=== PATIENT | female | born 1970 | race African-American/Black ===

== ENCOUNTER 2021-04-13 06:47 | Emergency (ER) | payer OTHER ==
[2021-04-13 07:59] LABS: Protime INR 1.03
[2021-04-13 08:06] LABS: Absolute Lymphocytes (CBC) 1.7 K/uL (0.7-4.9); Basophils % 1.3 % (0-1.3); Hematocrit 32.9 % (36.0-45.0); MPV 8.7 fL (7.6-11.3); RBC Red Blood Cell Count 3.73 M/uL (3.86-4.86)
[2021-04-13 08:15] LABS: ALT/SGPT 45 U/L (12-78); AST/SGOT 26 U/L (15-37); Albumin 3.4 g/dL (3.4-5.0); Alkaline Phosphatase 59 U/L (45-117); BUN Blood Urea Nitrogen 16 mg/dL (7-18); Bicarbonate 28 mmol/L (21-32); Bilirubin Direct < 0.1 mg/dL (0-0.2); Bilirubin Total 0.2 mg/dL (0.2-1.0); Glucose Level 90 mg/dL (74-106); Magnesium 2.3 mg/dL (1.8-2.4); NT PRO-BNP 22 pg/mL (<125); Potassium 3.6 mmol/L (3.5-5.1); Protein, Total 7.3 g/dL (6.4-8.2); Sodium Level 143 mmol/L (136-145); Troponin (Emerg Dept Use Only) < 0.02 ng/mL (0.0-0.045)
--- NOTE | 2021-04-13 08:25 | RAD REPORT ---
EXAM DESCRIPTION: RAD - Chest Single View - 04/13/2021 8:00 am CLINICAL HISTORY: CHEST PAIN COMPARISON: Chest Pa And Lat (2 Views) dated 01/20/2018; Chest Single View dated 10/23/2016; Chest Sin gle View dated 10/22/2016; Chest Single View dated 10/16/2015 FINDINGS: Lines: None. Lungs: No evidence of edema or pneumonia. Pleural: No significant pleural effusions or pneumothorax. Cardiac: The heart size is within normal limits. Bones: No acute fractures. Other: IMPRESSION: No acute cardiopulmonary disease.
[2021-04-13 08:33] LABS: Blood Morphology Comment NOT SEEN (NOT SEEN); Platelet Estimate ADEQ
--- NOTE | 2021-04-13 09:11 | ER ---
Nurse's Notes [facility] Name: Junie Peralta Age: 50 yrs Sex: Female : 1970 Arrival Date: 04/13/2021 Time: 06:51 Bed 20 Private MD: Diagnosis: Chest pain, unspecified Presentation: 04/13 07:12 Chief complaint: Patient states: chest pain. Coronavirus screen: Vaccine status: df1 Patient reports receiving the 2nd dose of the covid vaccine. Client denies travel out of the [place] in the last 14 days. The client reports previous COVID testing was negative. Date of collection: March 2021. Ebola Screen: Patient negative for fever greater than or equal to 101.5 degrees Fahrenheit, and additional compatible Ebola Virus Disease symptoms Patient denies exposure to infectious person. Patient denies travel to an Ebola-affected area in the 21 days before illness onset. Initial Sepsis Screen: Does the patient meet any 2 criteria? No. Patient's initial sepsis screen is negative. Risk Assessment: Do you want to hurt yourself or someone else? Patient reports no desire to harm self or others. Onset of symptoms was April 08, 2021. 07:12 Method Of Arrival: Wheelchair df1 07:12 Acuity: HERMAN 3 df1 07:19 Note Pt states left chest pain radiates to left shoulder since Apr 08, 2021 after df1 Covid Booster shot. Also states left hand tingling and nausea. Denies SOB or chills. 08:00 Initial Sepsis Screen: Does the patient have a suspected source of infection? No. kh1 Patient's initial sepsis screen is negative. Initial Sepsis Screen: Does the patient meet any 2 criteria?. Care prior to arrival: None. Activity prior to arrival: None. 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 LMP N/A - Post-menopause kh1 Historical: - Allergies: 07:15 Benadryl; df1 07:15 Flexeril; df1 - Home Meds: 07:15 metformin 1,000 mg Oral tab 1 tab [Active]; triamterene-hydrochlorothiazid 37.5-25 mg df1 oral cap once daily [Active]; Protonix 40 mg Oral TbEC 1 tab once daily [Active]; losartan 100 mg oral tab 1 tab once daily [Active]; Effexor 25 mg Oral tab 1 tab 2 times per day [Active]; amiodarone 200 mg Oral tab 1 tab once daily [Active]; aspirin 325 mg Oral tab 1 tab once daily [Active]; - PMHx: 07:15 Adenomyosis; Diabetes - NIDDM; Depression; GERD; Hypertension; Obesity; Sleep Apnea; df1 - PSHx: 07:15 Total abdominal hysterectomy; Total right knee; breast reduction; df1 - Immunization history:: Adult Immunizations up to date, Client reports receiving the 2nd dose of the Covid vaccine, Pt received booster on Apr 08, 2021. Screenin:58 Abuse screen: Denies threats or abuse. Nutritional screening: No deficits noted. On no kh1 prescribed diet Difficulty chewing/swallowing? No. Tuberculosis screening: No symptoms or risk factors identified. Fall Risk None identified. IV access (20 points). Ambulatory Aid- None/Bed Rest/Nurse Assist (0 pts). Gait- Normal/Bed Rest/Wheelchair (0 pts) Mental Status- Oriented to own ability (0 pts). Assessment: 07:56 General: Appears in no apparent distress. comfortable, obese, Behavior is calm, kh1 cooperative, appropriate for age. Pain: Complains of pain in chest Pain radiates to left arm Pain currently is 6 out of 10 on a pain scale. Quality of pain is described as sharp, Pain began 1 day ago. Neuro: Level of Consciousness is awake, alert, obeys commands, Oriented to person, place, time, situation, Industrial Relations Manager are equal bilaterally Moves all extremities. Gait is steady, Speech is normal, Facial symmetry appears normal, Reports. Cardiovascular: Reports chest pain. 09:05 Reassessment: Patient appears in no apparent distress at this time. No changes from [facility] previously documented assessment. Patient and/or family updated on plan of care and expected duration. Pain level reassessed. Patient is alert, oriented x 3, equal unlabored respirations, skin warm/dry/pink. Vital Signs: 07:12 BP 157 / 79; Pulse 51; Resp 18; Temp 98.8; Pulse Ox 100% on R/A; Weight 129.27 kg; df1 Height 5 ft. 6 in. (167.64 cm); Pain 5/10; 07:58 BP 157 / 79; Pulse 51; Resp 18; Temp 98.8; Pulse Ox 100% on R/A; kh1 07:12 Body Mass Index 46.00 (129.27 kg, 167.64 cm) df1 Vitals: 07:58 Cardiac Rhythm Assessment Sinus viry. 1 ED Course: 06:51 Patient arrived in ED. as 07:07 Ernie Andrade NP is PHCP. pm1 07:07 Durga Azar MD is Attending Physician. pm1 07:15 Triage completed. df1 07:29 Hazel Ferreira is Primary Nurse. kh1 07:50 Flu Sent. kh1 07:51 Basic Metabolic Panel Sent. kh1 07:51 CBC with Diff Sent. kh1 07:51 LFT's Sent. kh1 07:51 Magnesium Sent. kh1 07:51 NT PRO-BNP Sent. kh1 07:51 PT-INR Sent. kh1 07:51 Troponin (emerg Dept Use Only) Sent. kh1 07:59 Daniel Muniz MD is Attending Physician. pm1 07:59 XRAY Chest (1 view) In Process Unspecified. EDMS 07:59 No provider procedures requiring assistance completed. Inserted saline lock: 20 gauge kh1 in right antecubital area, using aseptic technique. Blood collected. Patient maintains SpO2 saturation greater than 95% on room air. 07:59 Patient has correct armband on for positive identification. Placed in gown. Bed in low kh1 position. Call light in reach. Side rails up X2. clinical research monitor on. Pulse ox on. NIBP on. 08:00 Arm band placed on right wrist. Patient placed in an exam room. kh1 09:34 IV discontinued, intact, bleeding controlled, No redness/swelling at site. Pressure kh1 dressing applied. Administered Medications: No medications were administered Outcome: 09:11 Discharge ordered by . pm1 09:34 Discharged to home ambulatory. kh1 09:34 Condition: good 09:34 Discharge instructions given to patient, Instructed on discharge instructions, follow up and referral plans. Demonstrated understanding of instructions, follow-up care. 09:35 Patient left the ED. 1 Signatures: Dispatcher [employer] EDAve Benitez as Ernie Andrade NP BUILDING MAINTENANCE WORKER pm1 Hazel Ferreira kh1 Vesta Loyola df1 Corrections: (The following items were deleted from the chart) 08:00 07:50 CORONAVIRUS+MR.LAB.BRZ drawn and sent. kh1 EDMS
--- NOTE | 2021-04-13 09:11 | EDPHYS ---
Physician Documentation [facility] Name: Junie Peralta Age: 50 yrs Sex: Female : 1970 Arrival Date: 04/13/2021 Time: 06:51 Bed 20 Private MD: ED Physician Daniel Muniz HPI: 04/13 07:21 This 50 yrs old Black Female presents to ER via Wheelchair with complaints of Chest pm1 Pain, Arm Pain. 07:21 The patient or guardian reports chest pain that is located primarily in the anterior pm1 aspect of left upper chest. Onset: 4 day(s) ago. The pain does not radiate. Associated signs and symptoms: Pertinent positives: Left shoulder pain, Pertinent negatives: abdominal pain, cough, dizziness, headache, nausea, shortness of breath, vomiting. Duration: The patient or guardian reports a single episode, that is still ongoing. Modifying factors: the symptoms are aggravated by movement, palpation of area. Severity of pain: in the emergency department the pain is unchanged. The patient has not experienced similar symptoms in the past. Patient presents to the ER with complaints chest pain and left shoulder pain onset 4 days ago constant in nature. Reproduced with palpation and movement of left arm. Patient reports onset of pain after getting third Covid vaccine booster shot. 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 N/A - Post-menopause kh1 Historical: - Allergies: 07:15 Benadryl; df1 07:15 Flexeril; df1 - Home Meds: 07:15 metformin 1,000 mg Oral tab 1 tab [Active]; triamterene-hydrochlorothiazid 37.5-25 mg df1 oral cap once daily [Active]; Protonix 40 mg Oral TbEC 1 tab once daily [Active]; losartan 100 mg oral tab 1 tab once daily [Active]; Effexor 25 mg Oral tab 1 tab 2 times per day [Active]; amiodarone 200 mg Oral tab 1 tab once daily [Active]; aspirin 325 mg Oral tab 1 tab once daily [Active]; - PMHx: 07:15 Adenomyosis; Diabetes - NIDDM; Depression; GERD; Hypertension; Obesity; Sleep Apnea; df1 - PSHx: 07:15 Total abdominal hysterectomy; Total right knee; breast reduction; df1 - Immunization history:: Adult Immunizations up to date, Client reports receiving the 2nd dose of the Covid vaccine, Pt received booster on Apr 08, 2021. ROS: 17:21 Constitutional: Negative for fever, chills, and weight loss. pm1 17:21 Respiratory: Negative for shortness of breath, cough, wheezing, and pleuritic chest pain, Abdomen/GI: Negative for abdominal pain, nausea, vomiting, diarrhea, and constipation, MS/Extremity: Negative for injury and deformity, Skin: Negative for injury, rash, and discoloration, Neuro: Negative for headache, weakness, numbness, tingling, and seizure. 17:21 Cardiovascular: Positive for chest pain, of the anterior aspect of left upper chest, Negative for edema, palpitations. 17:21 All other systems are negative. Exam: 17:21 Constitutional: This is a well developed, well nourished patient who is awake, alert, pm1 and in no acute distress. Head/Face: Normocephalic, atraumatic. 17:21 Back: No spinal tenderness. No costovertebral tenderness. Full range of motion. Skin: Warm, dry with normal turgor. Normal color with no rashes, no lesions, and no evidence of cellulitis. MS/ Extremity: Pulses equal, no cyanosis. Neurovascular intact. Full, normal range of motion. 17:21 Chest/axilla: Inspection: normal, Palpation: crepitus, is not appreciated, tenderness, of the anterior aspect of left upper chest, that totally reproduces the patient's complaints. 17:21 Cardiovascular: Rate: normal, Rhythm: regular, Pulses: no pulse deficits are appreciated, Edema: is not appreciated. 17:21 Respiratory: Exam negative for acute changes, the patient does not display signs of respiratory distress, Respirations: no acute changes, Breath sounds: are clear throughout. 17:21 Abdomen/GI: Exam negative for acute changes, Inspection: abdomen appears normal, Palpation: abdomen is soft and non-tender. 17:21 Neuro: Exam negative for acute changes, Orientation: is normal, Mentation: is normal, Motor: is normal, moves all fours. Vital Signs: 07:12 BP 157 / 79; Pulse 51; Resp 18; Temp 98.8; Pulse Ox 100% on R/A; Weight 129.27 kg; df1 Height 5 ft. 6 in. (167.64 cm); Pain 5/10; 07:58 BP 157 / 79; Pulse 51; Resp 18; Temp 98.8; Pulse Ox 100% on R/A; kh1 07:12 Body Mass Index 46.00 (129.27 kg, 167.64 cm) df1 MDM: 07:18 Patient medically screened. pm1 09:10 Data reviewed: vital signs. Data interpreted: Pulse oximetry: on room air is 100 %. pm1 Interpretation: normal. Counseling: I had a detailed discussion with the patient and/or guardian regarding: the historical points, exam findings, and any diagnostic results supporting the discharge/admit diagnosis, lab results, radiology results, the need for outpatient follow up, to return to the emergency department if symptoms worsen or persist or if there are any questions or concerns that arise at home. 09:12 ED course: Patient refused pain medications offered in the ER on multiple occasions. pm1 States will take Tylenol at home. 04/13 07:17 Order name: Basic Metabolic Panel; Complete Time: 08:28 pm1 04/13 07:17 Order name: CBC with Diff; Complete Time: 08:37 pm1 04/13 07:17 Order name: LFT's; Complete Time: 08:28 pm1 04/13 07:17 Order name: Magnesium; Complete Time: 08:28 pm1 04/13 07:17 Order name: NT PRO-BNP; Complete Time: 08:28 pm1 04/13 07:17 Order name: PT-INR; Complete Time: 08:28 pm1 04/13 07:17 Order name: Troponin (emerg Dept Use Only); Complete Time: 08:28 pm1 04/13 07:17 Order name: XRAY Chest (1 view); Complete Time: 08:28 pm1 04/13 07:17 Order name: EKG; Complete Time: 07:18 pm1 04/13 07:17 Order name: Cardiac monitoring; Complete Time: 07:50 pm1 04/13 07:17 Order name: Flu; Complete Time: 08:28 pm1 04/13 08:09 Order name: Manual Differential; Complete Time: 08:37 EDMS 04/13 08:51 Order name: SARS-COV-2 RT PCR; Complete Time: 08:59 EDMS 04/13 07:17 Order name: EKG - Nurse/Tech; Complete Time: 07:30 pm1 04/13 07:17 Order name: IV Saline Lock; Complete Time: 07:50 pm1 04/13 07:17 Order name: Labs collected and sent; Complete Time: 07:51 pm1 04/13 07:17 Order name: O2 Per Protocol; Complete Time: 07:51 pm1 04/13 07:17 Order name: O2 Sat Monitoring; Complete Time: 07:51 pm1 Administered Medications: No medications were administered Disposition Summary: 04/13/21 09:11 Discharge Ordered Location: Home pm1 Problem: new pm1 Symptoms: have improved pm1 Condition: Stable pm1 Diagnosis - Chest pain, unspecified pm1 Followup: pm1 - With: Emergency Department - When: As needed - Reason: Worsening of condition Followup: pm1 - With: Private Physician - When: 2 - 3 days - Reason: Recheck today's complaints, Continuance of care, Re-evaluation by your physician Discharge Instructions: - Discharge Summary Sheet pm1 - Nonspecific Chest Pain, Adult pm1 Forms: - Medication Reconciliation Form pm1 - Thank You Letter pm1 - Antibiotic Education pm1 - Prescription Opioid Use pm1 Addendum: 04/18/2021 03:03 Co-signature as Attending Physician, Daniel Muniz MD PA/MEDICATION AIDE's history reviewed, m a2 patient interviewed, and examined. I agree with assessment and care plan and confirm the diagnosis (es) above. Signatures: Dispatcher [employer] EDMS Ernie Andrade, MEDICATION AIDE MEDICATION AIDE pm1 Daniel Muniz MD MD ma2 Jose Solis Dawn df1 Corrections: (The following items were deleted from the chart) 04/13 08:00 07:18 CORONAVIRUS+BRZ ordered. EDIA EDMS
[2021-04-13 09:43] VITALS: BP 157/79; TEMP 98.8; O2SAT 100
--- NOTE | 2021-04-13 11:13 | EKG ---
Test Date: 2021-04-13 Test Time: 07:01:36 Project Manager Process Development: MEASUREMENT RESULTS: Intervals: Rate: 52 [place]: 198 QRSD: 94 QT: 490 QTc: 455 [place]: P: 60 [place]: 198 QRS: 43 T: 79 INTERPRETIVE STATEMENTS: Sinus bradycardia Otherwise normal ECG Compared to ECG 10/23/2016 07:21:53 No significant changes Electronically Signed On 04-13-21 11:12:56 CDT by Chance Caldwell
== END 2021-04-13 09:35 | disposition home or self-care (01) ==
LOC: ER 06:47
DX: R07.9 Chest pain, unspecified (principal); I10 Essential (primary) hypertension; E11.9 Type 2 diabetes mellitus without complications; F32.A Depression, unspecified; Z79.82 Long term (current) use of aspirin; Z88.8 Allergy status to other drugs, medicaments and biological substances; Z20.822 Contact with and (suspected) exposure to COVID-19
CPT/HCPCS: 93005; 85025; 80048; 36415; 83735; 85610; 80076; 84484; 83880; 87804 ×2; 71045; 99285; U0003

== ENCOUNTER 2021-04-24 17:17 | Emergency (ER) | payer OTHER ==
[2021-04-24] MEDS ORDERED: KETOROLAC 30 MG/ML INJ ONE (19:10)
--- NOTE | 2021-04-24 19:40 | RAD REPORT ---
EXAM DESCRIPTION: RAD - Knee Right 3 View - 04/24/2021 7:23 pm CLINICAL HISTORY: PAIN COMPARISON: Knee Right 3 View dated 12/24/2012; Foot Left 3 View dated 06/26/2020 FINDINGS: Right total knee arthroplasty is present. No evidence of hardware loosening or infection. No fracture or dislocation seen. No suprapatellar joint effusion.
--- NOTE | 2021-04-24 19:49 | ER ---
Nurse's Notes [facility] Name: Junie Peralta Age: 50 yrs Sex: Female : 1970 Arrival Date: 04/24/2021 Time: 17:21 Bed 30 Private MD: Diagnosis: Effusion, right knee;Pain in right knee Presentation: 04/24 17:48 Chief complaint: Patient states: this excruciating RIGHT knee pain started today. but tw2 it has been hurting me off \T\ on for a few days. Coronavirus screen: At this time, the client does not indicate any symptoms associated with coronavirus-19. Ebola Screen: Patient denies travel to an Ebola-affected area in the 21 days before illness onset. Initial Sepsis Screen: Does the patient meet any 2 criteria? No. Patient's initial sepsis screen is negative. Does the patient have a suspected source of infection? No. Patient's initial sepsis screen is negative. Risk Assessment: Do you want to hurt yourself or someone else? Patient reports no desire to harm self or others. Onset of symptoms was April 24, 2021. 17:48 Method Of Arrival: Wheelchair tw2 17:48 Acuity: HERMAN 4 tw2 17:50 Chief complaint: Patient states: i have been exercising a lot more because i am having tw2 gastric bypass soon and i have been doing squats. it feels like it is tearing and burning. Triage Assessment: 17:51 General: Appears in no apparent distress. uncomfortable, obese, Behavior is calm, tw2 cooperative, appropriate for age. Pain: Complains of pain in right knee. DIRECTOR OF PHYSICIAN PRACTICES: 20:23 LMP N/A - control method bc5 Historical: - Allergies: 17:50 Benadryl; tw2 17:50 Flexeril; tw2 - PMHx: 17:50 Adenomyosis; Obesity; Sleep Apnea; Hypertension; Diabetes - NIDDM; Depression; GERD; tw2 - PSHx: 17:50 breast reduction; Total abdominal hysterectomy; Total right knee; tw2 - Immunization history:: Client reports receiving the 2nd dose of the Covid vaccine. - Social history:: Smoking status: Patient denies any tobacco usage or history of. Screenin:21 Abuse screen: Denies threats or abuse. Denies injuries from another. Nutritional bc5 screening: No deficits noted. Tuberculosis screening: No symptoms or risk factors identified. Fall Risk None identified. Assessment: 20:24 Neuro: No deficits noted. Cardiovascular: No deficits noted. Respiratory: No deficits bc5 noted. Musculoskeletal: Reports pain in right leg. Vital Signs: 17:48 BP 164 / 76; Pulse 58; Resp 17; Temp 97.9(TE); Pulse Ox 100% on R/A; Weight 129.27 kg; tw2 Height 5 ft. 6 in. (167.64 cm); Pain 10/10; 20:24 BP 157 / 71; Pulse 60; Resp 17; Temp 98(O); Pulse Ox 100% on R/A; Pain 3/10; bc5 17:48 Body Mass Index 46.00 (129.27 kg, 167.64 cm) tw2 ED Course: 17:21 Patient arrived in ED. ds1 17:49 Triage completed. tw2 17:50 Arm band placed on. tw2 18:00 Tisha Phan, RN is Primary Nurse. oh 18:27 Jay Batres PA is PHCP. jr8 18:27 Sai Corona MD is Attending Physician. jr8 19:23 XRAY Knee RIGHT 3 view In Process Unspecified. EDMS 20:22 No provider procedures requiring assistance completed. Patient did not have IV access bc5 during this emergency room visit. 20:23 Side rails up X 1. bc5 Administered Medications: 18:48 Drug: Ketorolac 30 mg Route: IM; Site: right deltoid; oh Outcome: 19:49 Discharge ordered by . jr8 20:22 Discharged to home ambulatory. bc5 20:22 Condition: stable 20:22 Discharge instructions given to patient, Instructed on discharge instructions, follow up and referral plans. medication usage, Prescriptions given X 1. 20:25 Patient left the ED. bc5 Signatures: Dispatcher [employer] EDWY GeorgesCeline francis ds1 Jay Batres PA PA jr8 Cassi Graham RN RN tw2 Karli Whyte RN RN bc5 Tisha Phan, RN RN oh
--- NOTE | 2021-04-24 19:49 | EDPHYS ---
Physician Documentation [facility] Name: Junie Peralta Age: 50 yrs Sex: Female : 1970 Arrival Date: 04/24/2021 Time: 17:21 Bed 30 Private MD: ED Physician Sai Corona HPI: 04/24 18:36 This 50 yrs old Black Female presents to ER via Wheelchair with complaints of Knee Pain.jr8 18:36 The patient presents with decreased range of motion, pain, swelling, tenderness. The jr8 complaints affect the right knee. Onset: The symptoms/episode began/occurred acutely. Modifying factors: The symptoms are alleviated by nothing. the symptoms are aggravated by movement, weight bearing. Associated signs and symptoms: The patient has no apparent associated signs or symptoms. Severity of symptoms: At their worst the symptoms were moderate, in the emergency department the symptoms are unchanged. The patient has not experienced similar symptoms in the past. The patient has not recently seen a physician. Patient stated that she had abrupt onset of right knee pain. Was chcf bending at work and was walking a lot that particular day. But denies fall or any other trauma. Since then has had swelling to the right knee region with continued pain that radiates down the right leg.. 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 - Social history:: Smoking status: Patient denies any tobacco usage or history of. ROS: 18:36 Eyes: Negative for injury, pain, redness, and discharge, ENT: Negative for injury, jr8 pain, and discharge, Neck: Negative for injury, pain, and swelling, Cardiovascular: Negative for chest pain, palpitations, and edema, Respiratory: Negative for shortness of breath, cough, wheezing, and pleuritic chest pain, Abdomen/GI: Negative for abdominal pain, nausea, vomiting, diarrhea, and constipation, Back: Negative for injury and pain, Skin: Negative for injury, rash, and discoloration, Neuro: Negative for headache, weakness, numbness, tingling, and seizure. 18:36 MS/extremity: Positive for decreased range of motion, pain, swelling, tenderness, of the right knee. Exam: 18:36 Constitutional: This is a well developed, well nourished patient who is awake, alert, jr8 and in no acute distress. Cardiovascular: Regular rate and rhythm with a normal S1 and S2. No gallops, murmurs, or rubs. Normal PMI, no JVD. No pulse deficits. Respiratory: Lungs have equal breath sounds bilaterally, clear to auscultation and percussion. No rales, rhonchi or wheezes noted. No increased work of breathing, no retractions or nasal flaring. Skin: Warm, dry with normal turgor. Normal color with no rashes, no lesions, and no evidence of cellulitis. Neuro: Awake and alert, GCS 15, oriented to person, place, time, and situation. Cranial nerves II-XII grossly intact. Motor strength 5/5 in all extremities. Sensory grossly intact. 18:36 Musculoskeletal/extremity: Extremities: grossly normal except: noted in the right leg: Patient has mid incisional scar noted over the right knee from total knee replacement. Patient has mild swelling to the lateral right suprapatellar region. Moderate pain to palpation in that area along with anterior knee. Patient has pain with decreased range of motion secondary to pain to the right knee both active and passive. Patient has 3+ pedal and posterior tibial pulses on affected leg. No other external signs of trauma to the knee noted. Remainder of extremities unremarkable., Sensation intact. Vital Signs: 17:48 BP 164 / 76; Pulse 58; Resp 17; Temp 97.9(TE); Pulse Ox 100% on R/A; Weight 129.27 kg; tw2 Height 5 ft. 6 in. (167.64 cm); Pain 10/10; 20:24 BP 157 / 71; Pulse 60; Resp 17; Temp 98(O); Pulse Ox 100% on R/A; Pain 3/10; bc5 17:48 Body Mass Index 46.00 (129.27 kg, 167.64 cm) tw2 MDM: 18:28 Patient medically screened. [facility] 19:48 Data reviewed: vital signs, nurses notes, radiologic studies, plain films. Data jr8 interpreted: Pulse oximetry: on room air is 100 %. Interpretation: normal. Counseling: I had a detailed discussion with the patient and/or guardian regarding: the historical points, exam findings, and any diagnostic results supporting the discharge/admit diagnosis, radiology results, the need for outpatient follow up, a orthopedic surgeon, to return to the emergency department if symptoms worsen or persist or if there are any questions or concerns that arise at home. 04/24 18:36 Order name: XRAY Knee RIGHT 3 view; Complete Time: 19:48 jr8 Administered Medications: 18:48 Drug: Ketorolac 30 mg Route: IM; Site: right deltoid; oh Disposition: 23:48 Co-signature as Attending Physician, Sai Corona MD I agree with the assessment and kdr plan of care. Disposition Summary: 04/24/21 19:49 Discharge Ordered Location: Home jr8 Problem: new jr8 Symptoms: have improved jr8 Condition: Stable jr8 Diagnosis - Effusion, right knee jr8 - Pain in right knee jr8 Followup: jr8 - With: Private Physician - When: 5 - 6 days - Reason: Recheck today's complaints, Continuance of care, Re-evaluation by your physician Discharge Instructions: - Discharge Summary Sheet jr8 - Joint Pain jr8 - Knee Effusion jr8 - Acute Knee Pain, Adult jr8 Forms: - Medication Reconciliation Form jr8 - Thank You Letter jr8 - Antibiotic Education jr8 - Prescription Opioid Use jr8 Prescriptions: - Tramadol 50 mg Oral Tablet - take 1 tablet by ORAL route every 8 hours as needed; 12 tablet; Refills: 0, jr8 Product Selection Permitted Signatures: Dispatcher [employer] EDMS Sai Corona MD MD [facility] Jay Batres PA PA jr8 Cassi Graham RN RN tw2 Tisha Phan RN RN oh
[2021-04-24 20:33] VITALS: O2SAT 100
[2021-04-24 20:38] VITALS: BP 157/71; TEMP 98
== END 2021-04-24 20:25 | disposition home or self-care (01) ==
LOC: ER 17:17
DX: M25.461 Effusion, right knee (principal); I10 Essential (primary) hypertension; Z88.8 Allergy status to other drugs, medicaments and biological substances
CPT/HCPCS: 96372; 99283

== ENCOUNTER 2021-07-19 14:07 | Emergency (ER) | payer BC, OTHER ==
--- OUTSIDE RECORDS SUMMARY | 2021-07-19 14:11 | XMS REPORT | Continuity of Care Document ---
:1970 Author Organization [facility] t Address [address] [place] [address] Care Team Providers Name Role Phone ANDREIA SOFIA Primary Care Physician Unavailable MIO JAQUEZ Attending Clinician Unavailable Marybeth Attending Clinician Unavailable Lloyd Henson MD Attending Clinician LLOYD HENSON Attending Clinician Unavailable LLOYD HENSON Attending Clinician Unavailable MACK CARRINGTON Attending Clinician Unavailable MACK CARRINGTON Attending Clinician Unavailable Mack Carrington MD Attending Clinician DEWAYNE Attending Clinician Unavailable MIO JAQUEZ Attending Clinician Unavailable Marco Antonio Oneill MD Attending Clinician Kenia CHUN M Attending Clinician Dawn Arciniega Attending Clinician Katerina Thornton MD Attending Clinician [phone] DAWN BALBUENA Attending Clinician Unavailable MIO JAQUEZ Admitting Clinician Unavailable Marybeth Admitting Clinician Unavailable LLOYD HENSON Admitting Clinician Unavailable MACK CARRINGTON Admitting Clinician Unavailable Hillary RAYMOND, Katerina Admitting Clinician KNOW Admitting Clinician Unavailable Payers Payer Name Policy Type Policy Number Effective Date Expiration Date S [place]clau CIGNA HMO/POS/OPEN [id number] 2018 ACCESS 00:00:00 GENERIC COMMERCIAL [id number] 1830-12-28 2020 00:00:00 00:00:00 [employer] OPEN ACCESS [id number] 2020 HMO NAP 00:00:00 COVID VACCINE [id number] 2020-08-01 ADMIN / TESTING 00:00:00 HMO/POS OPEN [id number] 2018-07-13 2019-12-21 ACCESS - CIGNA 00:00:00 00:00:00 GENERIC PPO - [id number] GENERIC PAYOR 00:00:00 Problems Condition Condition Condition Status Onset Resolution Last Treating Co mments Source Name Details Category Date Date Treatment Clinician Date GERD GERD Disease Active [facility] (gastroeso (gastroeso 04-09 Co llege phageal phageal 00:00: of reflux reflux 00 Medicin disease) disease) e Type 2 Type 2 Disease Active [facility] diabetes diabetes 03-13 ity of mellitus mellitus 00:00: without without 00 Medical complicati complicati Br anch on, on, without without long-term long-term current current use of use of insulin insulin Bradycardi Bradycardi Disease Active U nivers a a 03-13 ity of 00:00: 00 Medical Branch Hypertensi Hypertensi Disease Active U nivers ve urgency ve urgency 03-13 it y of 00:00: Medical Branch Essential Essential Disease Active Uni vers hypertensi hypertensi 03-13 it y of on on 00:00: Medical Branch Paroxysmal Paroxysmal Disease Active [facility] atrial atrial 03-13 College fibrillati fibrillati 00:00: of on with on with 00 Medicin RVR RVR e Morbid Morbid Disease Active [facility] obesity obesity 03-13 [employer] with body with body 00:00: of mass index mass index 00 Me dicin of of e 40.0-49.9 40.0-49.9 Paroxysmal Paroxysmal Disease Active [facility] atrial atrial 03-13 [employer] fibrillati fibrillati 00:00: of on with on with 00 Medicin RVR RVR e (HCCode) (HCCode) Morbid Morbid Disease Active [facility] obesity obesity 03-13 [employer] with body with body 00:00: of mass index mass index 00 Me dicin of of e 40.0-49.9 40.0-49.9 (HCCode) (HCCode) SANDEEP SANDEEP Disease Active [facility] (obstructi (obstructi 03-13 Co llege ve sleep ve sleep 00:00: of apnea) apnea) 00 Medicin e A-fib A-fib Disease Active [facility] 8-31 ity of 00:00: [place] 00 Medical Branch Type 2 Type 2 Disease Active [facility] diabetes diabetes 4-26 Colleg e mellitus mellitus 00:00: of without without 00 Medicin complicati complicati e on, on, without without long-term long-term current current use of use of insulin insulin (HCCode) (HCCode) Essential Essential Disease Active [facility] hypertensi hypertensi 01-10 Co llege on on 00:00: of 00 Medicin e Allergies, Adverse Reactions, Alerts Allergy Allergy Status Severity Reaction(s) Onset Inactive Treating Comm ents Source Name Type Date Date Clinician GABAPENT Allergy Active Other 2020-[address] [facility] CYCLOBEN Allergy Active Other [facility] ZAPRINE 4-12 00:00: 00 Benadryl Propensi Active Palpitations [facility] Allergy ty to 3-17 College adverse 00:00: of reaction 00 Medicin s to e drug Cycloben Propensi Active Other [facility] zaprine ty to 3-17 reaction( Colleg e adverse 00:00: s): of reaction 00 Tachycard Medic in s to ia e drug DIPHENHY Allergy Active Low Palpitations [facility] DRAMINE 3- 00:00: 00 cycloben DA Active [facility] zaprine - Clear 00:00: [place] 00 [facility] diphenhy DA Active [facility] dramine 10-08 Clear 00:00: [place] 00 [facility] cycloben DA Active U tachycardia [facility] zaprine 10-08 Clear 00:00: [place] 00 [facility] diphenhy DA Active U tachycardia [facility] dramine 10-08 Clear 00:00: [place] 00 [facility] Gabapent Propensi Active Other [facility] in ty to 10-07 reaction( College adverse 00:00: s): of reaction 00 Other, Medicin s to Other e drug (See Comments) , Other (See Comments) HR dropped to 40's after being on it for 2 weeksHR dropped to 40's after being on it for 2 weeks NO KNOWN Drug [facility] KNOWN Allergy Active [facility] Social History Social Habit Start Date Stop Date Quantity Comments Source Sex Assigned At [facility] History [facility] ge of Alcohol Std Medicine Drinks History [facility] ge of Alcohol Binge Medicine History [facility] of Alcohol Comment Medicine Exposure to Not sure [facility] of SARS-CoV-2 Medicine (event) Alcohol intake 2021-07-10 2021-07-10 Current drinker [facility] 00:00:00 00:00:00 of alcohol Medicine (finding) Tobacco use and 2020-09-26 2020-09-26 Smokeless tobacco [facility] of exposure 00:00:00 00:00:00 non-user Medicine History [facility] 2020-09-26 2020-09-[address] [facility] ge of Alcohol Frequency 00:00:00 00:00:00 Medicin e Smoking Status Start Date Stop Date Source Never smoker [facility] Medications Ordered Filled Start Stop Current Ordering Indication Dosage Frequency Signature Comments Components Source Medication Medication Date Date Medication? Clinician (SIG) Name Name pantoprazol 2020-07 Yes 40mg Take 40 mg [facility] e 2-29 by mouth College (PROTONIX) 09:04: daily. of 40 MG 02 Medicin tablet e losartan 2020-07 Yes 100mg Take 100 [facility] (COZAAR) 2-29 mg by [employer] 100 MG 09:04: mouth of tablet 02 daily. Medicin e aspirin 325 2020-07 Yes 325mg Take 325 [facility] mg tablet 2-29 mg by [employer] 09:04: mouth of 02 daily. Medicin e Multiple 2020-07 Yes 1{capsu Take 1 [facility] Vitamin 2-29 le} capsule by [facility] (MULTIVITAM 09:04: mouth of INS) CAPS 02 daily. Medicin e Ferrous 2020-07 Yes 1{tbl} Take 1 [facility] Sulfate 2-29 Tablet by [employer] (IRON) 325 09:04: mouth of (65 Fe) MG 02 daily. Medicin TABS e metformin 2020-07- 1000mg Take 1,000 [facility] (GLUCOPHAGE 2-29 12-29 mg by [facility] ) 1000 MG 09:03: 00:00 mouth of tablet 48 :00 daily. Medicin e metformin 2020-07 Yes 1000mg Take 1,000 [facility] (GLUCOPHAGE 2-13 mg by [employer] ) 1000 MG 14:40: mouth of tablet 39 daily. Medicin e pantoprazol 2020-07 Yes 40mg Take 40 mg [facility]ae e 2-13 by mouth College (PROTONIX) 14:40: daily. of 40 MG 39 Medicin tablet e losartan 2020-07 Yes 100mg Take 100 [facility] (COZAAR) 2-13 mg by [employer] 100 MG 14:40: mouth of tablet 39 daily. Medicin e aspirin 325 2020-07 Yes 325mg Take 325 [facility] mg tablet 2-13 mg by [employer] 14:40: mouth of 39 daily. Medicin e Multiple 2020-07 Yes 1{capsu Take 1 [facility] Vitamin 2-13 le} capsule by [facility] (MULTIVITAM 14:40: mouth of INS) CAPS 39 daily. Medicin e Ferrous 2020-07 Yes 1{tbl} Take 1 [facility] Sulfate 2-13 Tablet by [employer] (IRON) 325 14:40: mouth of (65 Fe) MG 39 daily. Medicin TABS e docusate 2020-07 Yes 100mg Take 1 [facility] sodium 2-13 capsule by [employer] (COLACE) 00:00: mouth of 100 MG 00 daily. Medicin capsule e pantoprazol 2020-07 Yes 40mg Take 1 [facility] e 2-13 Tablet by [employer] (PROTONIX) 00:00: mouth of 40 MG 00 daily. Medicin tablet e Scopolamine 2020-07 Yes 1{patch Place 1 [facility] 1 MG/3DAYS 2-13 } Patch onto Col lege [id number] 00:00: the skin of 00 every 3 Medicin days. e acetaminoph 2020-07 Yes 500mg Take 1 [facility] en 2-13 Tablet by [employer] (TYLENOL) 00:00: mouth of 500 mg 00 every 6 Medicin tablet hours as e needed. tramadol 2020-07 Yes 1{tbl} Take 1 [facility] (ULTRAM) 50 2-13 Tablet by Col lege MG tablet 00:00: mouth of 00 every 8 Medicin hours as e needed for Pain. ondansetron 2020-07 Yes 4mg Take 1 [facility] (ZOFRAN) 4 2-13 Tablet by [facility] MG tablet 00:00: mouth of 00 every 8 Medicin hours as e needed for Nausea. polyethylen 2020-07 Yes 1{packe Take 1 [facility] e glycol 2-13 t} Packet by [facility] (MIRALAX) 00:00: mouth of 17 g packet 00 daily as Medi olayinka needed e (constipat ion). docusate 2020-07 Yes 100mg Take 1 [facility] sodium 2-13 capsule by [employer] (COLACE) 00:00: mouth of 100 MG 00 daily. Medicin capsule e pantoprazol 2020-07 Yes 40mg Take 1 [facility] e 2-13 Tablet by [employer] (PROTONIX) 00:00: mouth of 40 MG 00 daily. Medicin tablet e Scopolamine 2020-07 Yes 1{patch Place 1 Jae 1 MG/3DAYS 2-13 } Patch onto Col [facility] [id number] 00:00: the skin of 00 every 3 Medicin days. e acetaminoph 2020-07 Yes 500mg Take 1 [facility] en 2-13 Tablet by [employer] (TYLENOL) 00:00: mouth of 500 mg 00 every 6 Medicin tablet hours as e needed. ondansetron 2020-07 Yes 4mg Take 1 [facility] (ZOFRAN) 4 2-13 Tablet by [facility] e[facility] MG tablet 00:00: mouth of 00 every 8 Medicin hours as e needed for Nausea. polyethylen 2020-07 Yes 1{packe Take 1 [facility] e glycol 2-13 t} Packet by [facility] (MIRALAX) 00:00: mouth of 17 g packet 00 daily as Medi olayinka needed e (constipat ion). acetaminoph 2020-07 Yes 1{tbl} Take 1 [facility] en-codeine 2-13 Tablet by [facility]ha blake (TYLENOL 00:00: mouth of #3) 300-30 00 every 4 Medici n MG per hours as e tablet needed. metformin 2020-07 Yes 1000mg Take 1,000 [facility] (GLUCOPHAGE 1-08 mg by [employer] ) 1000 MG 09:32: mouth of tablet 19 daily. Medicin e pantoprazol 2020-07 Yes 40mg Take 40 mg Jae e 1-08 by mouth [employer] (PROTONIX) 09:32: daily. of 40 MG 19 Medicin tablet e losartan 2020-07 Yes 100mg Take 100 [facility] (COZAAR) 1-08 mg by [employer] 100 MG 09:32: mouth of tablet 19 daily. Medicin e aspirin 325 2020-07 Yes 325mg Take 325 [facility] mg tablet 1-08 mg by [employer] 09:32: mouth of 19 daily. Medicin e Multiple 2020-07 Yes 1{capsu Take 1 [facility] Vitamin 1-08 le} capsule by [facility] (MULTIVITAM 09:32: mouth of INS) CAPS 19 daily. Medicin e Ferrous 2020-07 Yes 1{tbl} Take 1 [facility] Sulfate 1-08 Tablet by [employer] (IRON) 325 09:32: mouth of (65 Fe) MG 19 daily. Medicin TABS e metformin Yes 1000mg Take 1,000 [facility] (GLUCOPHAGE 9-28 mg by [employer] ) 1000 MG 10:45: mouth of tablet 56 daily. Medicin e pantoprazol Yes 40mg Take 40 mg Jae e 9-28 by mouth [employer] (PROTONIX) 10:45: daily. of 40 MG 56 Medicin tablet e losartan Yes 100mg Take 100 [facility] (COZAAR) 9-28 mg by [employer] 100 MG 10:45: mouth of tablet 56 daily. Medicin e aspirin 325 Yes 325mg Take 325 [facility] mg tablet 9-28 mg by [employer] 10:45: mouth of 56 daily. Medicin e metformin Yes 1000mg Take 1,000 [facility] (GLUCOPHAGE 9-28 mg by College ) 1000 MG 10:45: mouth of tablet 56 daily. Medicin e pantoprazol Yes 40mg Take 40 mg [facility] e 9-28 by mouth College (PROTONIX) 10:45: daily. of 40 MG 56 Medicin tablet e losartan Yes 100mg Take 100 [facility] (COZAAR) 9-28 mg by [employer] 100 MG 10:45: mouth of tablet 56 daily. Medicin e aspirin 325 Yes 325mg Take 325 [facility] mg tablet 9-28 mg by [employer] 10:45: mouth of 56 daily. Medicin e Na Yes [SUPREP] [facility] Sulfate-K 9-28 Take as College Sulfate-Mg 00:00: directed. of Sulf 00 Medicin (SUPREP e BOWEL PREP KIT) 17.5-3.13-1 .6 GM/177ML SOLN Na Yes [SUPREP] [facility] Sulfate-K 9-28 Take as College Sulfate-Mg 00:00: directed. of Sulf 00 Medicin (SUPREP e BOWEL PREP KIT) 17.5-3.13-1 .6 GM/177ML SOLN Na 2020- No [SUPREP] [facility] Sulfate-K 9-28 -08 Take as [facility] e Sulfate-Mg 00:00: 00:00 directed. o f Sulf 00 :00 Medicin (SUPREP e BOWEL PREP KIT) 17.5-3.13-1 .6 GM/177ML SOLN losartan Yes 100mg Take 100 [facility] (COZAAR) 4-22 mg by [employer] 100 MG 20:37: mouth of tablet 38 daily. Medicin e aspirin 325 Yes 325mg Take 325 [facility] mg tablet 4-22 mg by [employer] 20:37: mouth of 38 daily. Medicin e metformin Yes 1000mg Take 1,000 [facility] (GLUCOPHAGE 4-22 mg by [employer] ) 1000 MG 20:34: mouth of tablet 38 daily. Medicin e pantoprazol Yes 40mg Take 40 mg Jae e 4-22 by mouth [employer] (PROTONIX) 20:34: daily. of 40 MG 38 Medicin tablet e amiodarone 2021-0 Yes 1{tbl} Take 1 [facility] (PACERONE) 2-28 Tablet by [facility] 200 MG 00:00: mouth of tablet 00 daily. Medicin e triamterene 0 Yes 1{tbl} Take 1 [facility] -hydrochlor 2-28 Tablet by [facility] othiazide 00:00: mouth of (MAXZIDE) 00 daily. Medicin 37.5-25 MG e per tablet amiodarone 2020-0 Yes 1{tbl} Take 1 [facility] (PACERONE) 2-28 Tablet by [facility] 200 MG 00:00: mouth of tablet 00 daily. Medicin e triamterene 0 Yes 1{tbl} Take 1 [facility] -hydrochlor 2-28 Tablet by Col [facility]ge othiazide 00:00: mouth of (MAXZIDE) 00 daily. Medicin 37.5-25 MG e per tablet amiodarone 2020-0 Yes 1{tbl} Take 1 [facility] (PACERONE) 2-28 Tablet by [facility] 200 MG 00:00: mouth of tablet 00 daily. Medicin e triamterene 2020-0 Yes 1{tbl} Take 1 [facility] -hydrochlor 2-28 Tablet by Col [facility]ge othiazide 00:00: mouth of (MAXZIDE) 00 daily. Medicin 37.5-25 MG e per tablet amiodarone 0 Yes 1{tbl} Take 1 [facility] (PACERONE) 2-28 Tablet by [facility] 200 MG 00:00: mouth of tablet 00 daily. Medicin e triamterene 0 Yes 1{tbl} Take 1 [facility] -hydrochlor 2-28 Tablet by Col [facility]ge othiazide 00:00: mouth of (MAXZIDE) 00 daily. Medicin 37.5-25 MG e per tablet amiodarone 2020-0 Yes 1{tbl} Take 1 [facility] (PACERONE) 2-28 Tablet by [facility] 200 MG 00:00: mouth of tablet 00 daily. Medicin e triamterene 2020-0 Yes 1{tbl} Take 1 [facility] -hydrochlor 2-28 Tablet by Col [facility]ge othiazide 00:00: mouth of (MAXZIDE) 00 daily. Medicin 37.5-25 MG e per tablet amiodarone Yes 1{tbl} Take 1 [facility] (PACERONE) 2-28 Tablet by [facility] 200 MG 00:00: mouth of tablet 00 daily. Medicin e triamterene Yes 1{tbl} Take 1 [facility] -hydrochlor 2-28 Tablet by Col [facility]ge othiazide 00:00: mouth of (MAXZIDE) 00 daily. Medicin 37.5-25 MG e per tablet ELIQUIS 5 2020- No 1{tbl} Take 1 [facility] MG TABS 2-28 04-22 Tablet by Colleg e 00:00: 00:00 mouth two of 00 :00 times Medicin daily. e diazepam Yes 1{tbl} Take 1 [facility] (VALIUM) 5 1-06 Tablet by [facility] MG tablet 00:00: mouth as of 00 needed. Medicin e diazepam Yes 1{tbl} Take 1 [facility] (VALIUM) 5 1-06 Tablet by [facility] MG tablet 00:00: mouth as of 00 needed. Medicin e diazepam Yes 1{tbl} Take 1 [facility] (VALIUM) 5 1-06 Tablet by [facility] MG tablet 00:00: mouth as of 00 needed. Medicin e diazepam Yes 1{tbl} Take 1 [facility] (VALIUM) 5 1-06 Tablet by [facility] MG tablet 00:00: mouth as of 00 needed. Medicin e diazepam Yes 1{tbl} Take 1 [facility] (VALIUM) 5 1-06 Tablet by [facility] MG tablet 00:00: mouth as of 00 needed. Medicin e diazepam 2020- No 1{tbl} Take 1 [facility] (VALIUM) 5 1-06 12-29 Tablet by Col [facility]ge MG tablet 00:00: 00:00 mouth as of 00 :00 needed. Medicin e amlodipine 2020- No 1{tbl} Take 1 [facility] (NORVASC) 1-06 -22 Tablet by [facility] 10 MG 00:00: 00:00 mouth of tablet 00 :00 daily. Medicin e venlafaxine Yes 1{tbl} Take 1 [facility] (EFFEXOR) 1-05 Tablet by Colle ge 25 MG 00:00: mouth two of tablet 00 times Medicin daily. e venlafaxine Yes 1{tbl} Take 1 [facility] (EFFEXOR) 1-05 Tablet by Colle ge 25 MG 00:00: mouth two of tablet 00 times Medicin daily. e venlafaxine Yes 1{tbl} Take 1 [facility] (EFFEXOR) 1-05 Tablet by Colle ge 25 MG 00:00: mouth two of tablet 00 times Medicin daily. e venlafaxine Yes 1{tbl} Take 1 [facility] (EFFEXOR) 1-05 Tablet by Colle ge 25 MG 00:00: mouth two of tablet 00 times Medicin daily. e venlafaxine Yes 1{tbl} Take 1 [facility] (EFFEXOR) 1-05 Tablet by Colle ge 25 MG 00:00: mouth two of tablet 00 times Medicin daily. e venlafaxine Yes 1{tbl} Take 1 [facility] (EFFEXOR) 1-05 Tablet by Colle ge 25 MG 00:00: mouth two of tablet 00 times Medicin daily. e metFORMIN 2020-0 Yes 1000mg Take 1,000 Univers 1,000 mg 9-02 mg by ity of tablet 17:14: mouth [place] 12 daily. Medical Branch triamterene 2019-0 Yes 1{capsu Take 1 U nivers -hydrochlor 9-02 le} capsule by it y of othiazide 17:14: mouth [place] 37.5-25 mg 12 every Medical per capsule morning. [facility] pantoprazol 2019-0 Yes 40mg Take 40 mg Univers e 40 mg EC 9-02 by mouth ity o f tablet 17:14: daily. [place] 12 Medical Branch venlafaxine 2020-0 Yes 37.5mg Take 37.5 Univers 25 mg 9-02 mg by ity of tablet 17:14: mouth at [place] 12 bedtime. Medical Branch metFORMIN 2020-0 Yes 1000mg Take 1,000 Univers 1,000 mg 9-02 mg by ity of tablet 17:14: mouth [place] 12 daily. Medical Branch triamterene 2019-0 Yes 1{capsu Take 1 U nivers -hydrochlor 03-14 le} capsule by it y of othiazide 17:14: mouth [place] 37.5-25 mg 12 every Medical per capsule morning. [facility] pantoprazol Yes 40mg Take 40 mg Univers e 40 mg EC 03-14 by mouth ity o f tablet 17:14: daily. [address] venlafaxine 2019-0 Yes 37.5mg Take 37.5 Univers 25 mg - mg by ity of tablet 17:14: mouth at [place] [id number] bedtime. [facility] amiodarone 0 Yes 400mg 400 mg, Uni vers (PACERONE) 03-14 Oral, ity of tablet 400 14:00: DAILY, [place] mg 00 First dose Medical on Thu [place] 03/14/20 at 0900, Until Discontinu ed, Routine venlafaxine 2019-0 Yes 37.5mg 37.5 mg, Univers (EFFEXOR) 03-14 Oral, QHS, ity of tablet 37.5 02:00: First dose [place] mg 00 on [facility] 03/13/20 at Branch 2100, Until Discontinu ed, Routine amiodarone 2019-0 Yes [id number] Take 400 Univers 200 mg 9-02 mg po qd x ity of tablet 00:00: 7 days [place] 00 then 200 Medical mg qd [place] apixaban 5 2019-0 Yes 1358 5mg Take 1 Unive rs mg tablet 03-14 tablet by ity o f 00:00: mouth 2 [place] 00 (two) [facility] times [place] daily. Indication s: atrial fibrillati on amiodarone 2019-0 Yes [id number] Take 400 Univers 200 mg 9-02 mg po qd x ity of tablet 00:00: 7 days [place] 00 then 200 Medical mg qd [place] apixaban 5 2019-0 Yes 1358 5mg Take 1 Unive rs mg tablet 03-14 tablet by ity o f 00:00: mouth 2 [place] 00 (two) Medical times [place] daily. Indication s: atrial fibrillati on digoxin 2019- No 250ug 250 mcg, Univ ers (LANOXIN) 03-13 Intravenou ity of injection 20:00: 20:53 s, ONCE, 1 [place] 250 mcg 00 :00 dose, [facility] 03/13/20 at Branch 1500, Routine amiodarone 2020-0 Yes .5mg/mi 0.5 mg/min Univers (CORDARONE) 03-13 n (16.6667 ity of 900 mg in 19:45: mL/hr, [place] D5W 500 mL 00 rounded to Med ical infusion 16.67 Branch mL/hr), IV Infusion, CONTINUOUS , Starting Thu03/13/20 at 1445
Al l amiodarone infusions must be administer ed using a 0.22 micron in line filter. Administer via central line if available. Amiodarone infusions with concentrat ions > 2 mg/mL must be administer ed via central line.
ibuprofen 2020-0 Yes 600mg 600 mg, [facility] ers (IBU) 03-13 Oral, ity of tablet 600 17:58: Q8HPRN, [place] mg 07 Starting Medical Thu03/13/20 Branch at 1258, Until Discontinu ed, Routine, Pain (scale 4-6) acetaminoph 2020-0 Yes 650mg 650 mg, Un rosendo en 03-13 Oral, ity of (TYLENOL) 17:57: Q4HPRN, [place] tablet 650 50 Starting Medic al mg Thu03/13/20 Branch at 1257, Until Discontinu ed, Routine, Pain (scale 1-3) sulfur 2020-0 2020- No 5mL 5 mL, [facility] hexafluorid 03-13 Intravenou i ty of e microsphr 16:00: 13:45 s, ONCE, 1 [place] (LUMASON) 00 :00 dose, Tue Medic al injection 5 03/13/20 at [facility] mL 1100, Routine
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 Restricted medication : PRESTON SCHMITT pantoprazol 2020-0 Yes 40mg 40 mg, [facility] ers e 03-13 Oral, ity of (PROTONIX) 14:00: DAILY, [place] EC tablet 00 First dose Medi porfirio 40 mg on Thu Branch 03/13/20 at 0900, Until Discontinu ed, Routine triamterene 2020-0 Yes .5{tbl} 0.5 Uni vers -hydrochlor 03-13 tablet, ity o f othiazid 14:00: Oral, [place] (MAXZIDE-25 00 DAILY, Medica l ) 37.5-25 First dose Bran ch mg tablet on Tue 0.5 tablet 03/13/20 at 0900, Until Discontinu ed, Routine isosorbide 2020-0 2020- No 60mg 60 mg, Univ ers mononitrate 03-13 Oral, ity of (IMDUR) 24 14:00: 12:58 DAILY, [place] hr tablet 00 :33 First dose Medi porfirio 60 mg on Thu Branch 03/13/20 at 0900, Until Discontinu ed, Routine digoxin 2020-0 2020- No .5mg 500 mcg Univer s (LANOXIN) 03-13 (0.5 mg), ity of injection 14:00: 14:50 Intravenou [place] 500 mcg 00 :00 s, ONCE, 1 Medica l dose, Thu Branch 03/13/20 at 0900, Routine enoxaparin 2020-0 Yes 1mg/kg 129 mg Uni vers (LOVENOX) 03-13 (rounded ity of injection 13:00: [place] 133.4 [place] 129 mg 00 mg = 1 Medical mg/kg Branch ?133.4 kg), Subcutaneo us, Q12H, First dose on Thu03/13/20 at 0800, Until Discontinu ed, Routine Sliding 2020-0 Yes Subcutaneo Univ ers Scale 03-13 us, AC+HS, ity of Insulin-Reg 12:30: First dose [place] ular + Fsbg 00 on Thu Medica l Testing 03/13/20 at Branch 0730, Until Discontinu ed, Routine glucagon 2020-0 Yes 1mg 1 mg, Univers (GLUCAGEN 03-13 Intramuscu ity of DIAGNOSTIC 06:54: lar, PRN, [place] KIT) 11 Starting Medical injection 1 Thu03/13/20 Br anch mg at 0154, Until Discontinu ed, HARSH, Blood Glucose < or = 70 mg/dL and patient is unable to swallow or has mental changes. dextrose 50 2020-0 Yes 25mL 25 mL, Univ ers % in water 03-13 Slow IV ity of (D50W) 06:54: Push, PRN, [place] injection 11 Starting Medica l 25 mL Thu03/13/20 Branch at 0154, Until Discontinu ed, HARSH, Blood Glucose < or = 70 mg/dL and patient is unable to swallow or has mental status changes. amiodarone 2019- No 1mg/min 1 mg/min Univers (CORDARONE) 03-13 (33.3333 ity of 900 mg in 04:45: 19:31 mL/hr, [place] D5W 500 mL 00 :43 rounded to Med ical infusion 33.33 Branch mL/hr), IV Infusion, CONTINUOUS , Starting 03/12/20 at 2345
Al l amiodarone infusions must be administer ed using a 0.22 micron in line filter. Administer via central line if available. Amiodarone infusions with concentrat ions > 2 mg/mL must be administer ed via central line.
amiodarone 2020- No 150mg 150 mg, IV Univers (CORDARONE) 03-13 Piggyback, i ty of injection 04:15: 03:17 ONCE, 1 [place] 150 mg 00 :00 dose, Mon Medical 03/12/20 at Branch 2315, STAT diltiazem 2020- No 5mg 5 mg, IV Uni vers (CARDIZEM 03-13 Push, ity of IV) 03:15: 02:07 ONCE, 1 [place] injection 5 00 :00 dose, Mon Med ical mg 03/12/20 at Branch 2215, STAT
Fa culty member approving Restricted medication : Isi BALBUENA enoxaparin 2019- No 1.5mg/k 200 mg U nivers (LOVENOX) 03-13 g (rounded ity o f injection 03:00: 02:21 from [place] 200 mg 00 :00 204.15 mg Medical = 1.5 Branch mg/kg ?136.1 kg), Subcutaneo us, ONCE, 1 dose, 03/12/20 at 2200, HARSH diltiazem 2019- 2020- No 5mg 5 mg, IV Uni vers (CARDIZEM 03-13 Push, ity of IV) 03:00: 01:59 ONCE, 1 [place] injection 5 00 :00 dose, Mon Med ical mg 03/12/20 at Branch 2200, STAT
Fa culty member approving Restricted medication : Isi BALBUENA diltiazem 2019- 2020- No 5mg/h 5 mg/hr (5 Univers (CARDIZEM 03-13 mL/hr), IV ity of IV) 125 mg 02:53: 22:33 Infusion, [place] in D5W 38 :18 TITRATE, Medical infusion HR<100, Branch Starting 03/12/20 at 2153
In itiate infusion at 2.5 mg/hr. Titrate by 2.5 mg/hr every 5 minutes to 15 minutes as needed to achieve and maintain goal heart rate. Maximum dose = 15 mg/hr. If goal not maintained at maximum allowed dose, contact prescriber .
Immunizations Ordered Filled Immunization Date Status Comments [facility] e Immunization Name Name PPD (TB) 2011-04-30 Completed [facility] 00:00:00 [facility] PPD (TB) 2011-04-30 Completed [facility] 00:00:00 [facility] Influenza Virus 2011-03-11 Completed Universit y of Vaccine [facility] 00:00:00 [place] [facility] Multi-dose 6+ [facility] Influenza Virus 2011-03-11 Completed Universit y of Vaccine [facility] IM 00:00:00 [facility] ical Multi-dose 6+ MO Branch TDAP 2011-01-27 Completed [facility] of 00:00:00 [facility] TDAP 2011-01-27 Completed [facility] 00:00:00 [facility] PPD (TB) 2010-04-17 Completed [facility] 00:00:00 [facility] PPD (TB) 2010-04-17 Completed [facility] 00:00:00 [facility] PPD (TB) 2009-04-23 Completed [facility] 00:00:00 [facility] PPD (TB) 2009-04-23 Completed [facility] 00:00:00 [facility] Influenza Virus 2009-03-27 Completed Universit y of Vaccine [facility] 00:00:00 [facility] ical Multi-dose 6+ MO Branch Influenza Virus 2009-03-27 Completed Universit y of Vaccine [facility] 00:00:00 [place] [facility] Multi-dose 6+ [facility] Vital Signs Vital Name Observation Time Observation Value Comments Source Systolic blood 2021-07-10 15:01:00 133 mm[Hg] [facility] pressure Medicine Diastolic blood 2021-07-10 15:01:00 81 mm[Hg] [facility] pressure Medicine Heart rate 2021-07-10 15:01:00 52 /min [facility] Body height 2021-07-10 15:01:00 167.6 cm [facility] Body weight 2021-07-10 15:01:00 111.131 kg [facility] BMI 2021-07-10 15:01:00 39.54 kg/m2 [facility] HEIGHT 2021-06-27 09:00:00 167.6 cm WEIGHT 2021-06-27 09:00:00 116.4 kg HEIGHT 2021-06-26 15:52:00 168.9 cm WEIGHT 2021-06-26 15:52:00 116.574 kg HEIGHT 2021-06-27 09:00:00 167.6 cm WEIGHT 2021-06-27 09:00:00 116.4 kg HEIGHT 2021-06-26 15:52:00 168.9 cm WEIGHT 2021-06-26 15:52:00 116.574 kg HEIGHT 2021-06-24 09:52:00 167.6 cm WEIGHT 2021-06-24 09:52:00 118.071 kg Systolic blood 2021-06-24 20:39:00 142 mm[Hg] [facility] of pressure Medicine Diastolic blood 2021-06-24 20:39:00 79 mm[Hg] [facility] of pressure Medicine Heart rate 2021-06-24 20:39:00 60 /min [facility] Body height 2021-06-24 20:39:00 168.9 cm [facility] Body weight 2021-06-24 20:39:00 117.482 kg [facility] BMI 2021-06-24 20:39:00 41.18 kg/m2 [facility] HEIGHT 2021-06-24 09:52:00 167.6 cm WEIGHT 2021-06-24 09:52:00 118.071 kg Systolic blood 2021-05-20 15:29:00 142 mm[Hg] [facility] of pressure Medicine Diastolic blood 2021-05-20 15:29:00 81 mm[Hg] [facility] of pressure Medicine Heart rate 2021-05-20 15:29:00 61 /min [facility] Body temperature 2021-05-20 15:29:00 36.78 [facility] Body height 2021-05-20 15:29:00 167.6 cm [facility] Body weight 2021-05-20 15:29:00 124.286 kg [facility] BMI 2021-05-20 15:29:00 44.22 kg/m2 [facility] HEIGHT 2021-04-29 08:39:00 167.6 cm WEIGHT 2021-04-29 08:39:00 129.275 kg HEIGHT 2021-04-25 08:42:00 167.6 cm WEIGHT 2021-04-25 08:42:00 129.275 kg HEIGHT 2021-04-29 08:39:00 167.6 cm WEIGHT 2021-04-29 08:39:00 129.275 kg HEIGHT 2021-04-25 08:42:00 167.6 cm WEIGHT 2021-04-25 08:42:00 129.275 kg Systolic blood 2021-04-09 15:45:00 188 mm[Hg] [facility] of pressure Medicine Diastolic blood 2021-04-09 15:45:00 70 mm[Hg] [facility] of pressure Medicine Heart rate 2021-04-09 15:45:00 52 /min [facility] ollege of Medicine Body height 2021-04-09 15:45:00 167.6 cm [facility] ollege of Medicine Body weight 2021-04-09 15:45:00 129.275 kg [facility] ollege of Medicine BMI 2021-04-09 15:45:00 46.00 kg/m2 [facility] ollege of Medicine Systolic blood 2020-11-01 20:34:00 133 mm[Hg] [facility] of pressure Medicine Diastolic blood 2020-11-01 20:34:00 84 mm[Hg] [facility] of pressure Medicine Heart rate 2020-11-01 20:34:00 62 /min [facility] ollege of Medicine Body temperature 2020-11-01 20:34:00 35.83 [facility] Body height 2020-11-01 20:34:00 168.9 cm [facility] Body weight 2020-11-01 20:34:00 134.718 kg [facility] BMI 2020-11-01 20:34:00 47.22 kg/m2 [facility] Systolic blood 2020-03-14 15:00:00 137 mm[Hg] Univer sity of pressure [facility] Diastolic blood 2020-03-14 15:00:00 67 mm[Hg] Unive rsity of pressure [facility] Heart rate 2020-03-14 15:00:00 58 /min Universi ty of [facility] Oxygen saturation in 2020-03-14 15:00:00 95 /min University of Arterial blood by [facility] Pulse oximetry Branch Body temperature 2020-03-14 13:00:00 36.83 Iqra Univ ersity of [facility] Respiratory rate 2020-03-14 13:00:00 18 /min Univ ersity of [facility] Body weight 2020-03-14 01:49:00 133.267 kg Universi ty of [facility] BMI 2020-03-14 01:49:00 46.02 kg/m2 Universi ty of [facility] Body height 2020-03-13 05:25:00 170.2 cm Universi ty of [facility] Branch Systolic blood 2020-03-14 15:00:00 137 mm[Hg] Univer sity of pressure [facility] Diastolic blood 2020-03-14 15:00:00 67 mm[Hg] Unive rsity of pressure [facility] Heart rate 2020-03-14 15:00:00 58 /min Universi ty of [facility] [place] [facility] Oxygen saturation in 2020-03-14 15:00:00 95 /min University of Arterial blood by [facility] Pulse oximetry Branch Body temperature 2020-03-14 13:00:00 36.83 Iqra Univ ersity [facility] Respiratory rate 2020-03-14 13:00:00 18 /min Univ ersity of [facility] Body weight 2020-03-14 01:49:00 133.267 kg Universi ty of [facility] BMI 2020-03-14 01:49:00 46.02 kg/m2 Universi ty of [facility] Body height 2020-03-13 05:25:00 170.2 cm Universi ty of [facility] Procedures Procedure Date / Time Performing Clinician Source Performed ECHO ROUTINE 2020-03-13 14:08:[address] [facility] W/DOPPLER COLOR [facility] POCT GLUCOSE 2020-03-13 13:12:[address] [facility] (AUTOMATED) [facility] TROPONIN I 2020-03-13 07:53:00 [facility] COVID-19 (ID NOW 2020-03-13 02:20:00 Isi Balbuena [facility] RAPID TESTING) [facility] XR CHEST 1 VW 2020-03-13 01:30:13 Isi Balbuena [facility] LIPASE 2020-03-13 01:25:00 Isi Balbuena [facility] MAGNESIUM 2020-03-13 01:25:00 Isi Balbuena [facility] TROPONIN I 2020-03-13 01:25:00 Isi Balbuena [facility] THYROID STIMULATING 2020-03-13 01:25:00 Isi Balbuena [facility] HORMONE [facility] COMP. METABOLIC PANEL 2020-03-13 01:25:00 Isi Balbuena [facility] ([id number]) [facility] CBC WITH DIFF 2020-03-13 01:25:00 Isi Balbuena [facility] PROTHROMBIN TIME / 2020-03-13 01:25:00 Isi Balbuena [facility] INR [facility] ACTIVATED PARTIAL 2020-03-13 01:25:00 Isi Balbuena [facility] THRMPLAS THERON [facility] EKG-12 LEAD 2020-03-13 01:20:22 Isi Balbuena [facility] EKG-12 LEAD 2020-03-13 01:13:40 Dorina Pinedo [facility] Plan of Care Planned Activity Planned Date Details Comments Source Future Scheduled 2021-07-10 Screening for malignant [facility] Test 09:18:21 neoplasm of breast of Medici ne (procedure) [code = 697430707] Future Scheduled 2021-07-10 Pneumococcal Combined [facility] Test 09:18:21 (1 of 2 - PPSV23) [code of M edicine = Pneumococcal Combined (1 of 2 - PPSV23)] Future Scheduled 2021-07-10 Diabetic foot [facility] Test 09:18:21 examination of Medicine (regime/therapy) [code = 109070387] Future Scheduled 2021-07-10 ANNUAL DIABETIC [facility] Test 09:18:21 RETINOPATHY SCREENING of Med icine [code = ANNUAL DIABETIC RETINOPATHY SCREENING] Future Scheduled 2021-07-10 Hepatitis C screening [facility] Test 09:18:21 (procedure) [code = of Medic ine 566024631] Future Scheduled 2021-07-10 Human immunodeficiency B [facility] Test 09:18:21 virus screening of Medicine (procedure) [code = 667363796] Future Scheduled 2021-07-10 Screening for malignant [facility] Test 09:18:21 neoplasm of cervix of Medici ne (procedure) [code = 387976435] Future Scheduled 2021-07-10 ZOSTER VACCINE (1 of 2) [facility] Test 09:18:21 [code = ZOSTER VACCINE of Ma dicine (1 of 2)] Future Scheduled 2021-07-10 TETANUS SHOT (ADULT) [facility] Test 09:18:21 [code = TETANUS SHOT of Medi cine (ADULT)] Future Scheduled 2021-07-10 BMI FOLLOW UP PLAN [facility] [employer] Test 09:18:21 [code = BMI FOLLOW UP of Med icine PLAN] Future Scheduled 2021-07-10 Screening for malignant [facility] Test 09:18:21 neoplasm of colon of Medicin e (procedure) [code = 731649933] Future Scheduled 2021-06-24 BMI FOLLOW UP PLAN [facility] [employer] Test 14:41:33 [code = BMI FOLLOW UP of Med icine PLAN] Future Scheduled 2021-06-24 Screening for malignant [facility] Test 14:40:21 neoplasm of breast of Medici ne (procedure) [code = 080250147] Future Scheduled 2021-06-24 Pneumococcal Combined [employer] Test 14:40:21 (1 of 2 - PPSV23) [code of M edicine = Pneumococcal Combined (1 of 2 - PPSV23)] Future Scheduled 2021-06-24 Diabetic foot [facility] Test 14:40:21 examination of Medicine (regime/therapy) [code = 967214683] Future Scheduled 2021-06-24 ANNUAL DIABETIC [facility] Test 14:40:21 RETINOPATHY SCREENING of Med icine [code = ANNUAL DIABETIC RETINOPATHY SCREENING] Future Scheduled 2021-06-24 Hepatitis C screening [employer] Test 14:40:21 (procedure) [code = of Medic ine 201339689] Future Scheduled 2021-06-24 Human immunodeficiency B [facility] Test 14:40:21 virus screening of Medicine (procedure) [code = 351298982] Future Scheduled 2021-06-24 Screening for malignant [facility] Test 14:40:21 neoplasm of cervix of Medici ne (procedure) [code = 941389815] Future Scheduled 2021-06-24 ZOSTER VACCINE (1 of 2) [facility] Test 14:40:21 [code = ZOSTER VACCINE of Me dicine (1 of 2)] Future Scheduled 2021-06-24 TETANUS SHOT (ADULT) [facility] Test 14:40:21 [code = TETANUS SHOT of Medi cine (ADULT)] Future Scheduled 2021-06-24 Screening for malignant [facility] Test 14:40:21 neoplasm of colon of Medicin e (procedure) [code = 448855105] Future Scheduled 2021-05-20 BMI FOLLOW UP PLAN [facility] Test 09:32:59 [code = BMI FOLLOW UP of Med icine PLAN] Future Scheduled 2021-05-20 Screening for malignant [facility] Test 09:04:01 neoplasm of breast of Medici ne (procedure) [code = 071025236] Future Scheduled 2021-05-20 BCM AMB Pneumococcal [facility] Test 09:04:01 Combined (testing) (1 of Med icine of 2 - PPSV23) [code = BCM AMB Pneumococcal Combined (testing) (1 of 2 - PPSV23)] Future Scheduled 2021-05-20 Diabetic foot [facility] Test 09:04:01 examination of Medicine (regime/therapy) [code = 771066928] Future Scheduled 2021-05-20 ANNUAL DIABETIC [facility] Test 09:04:01 RETINOPATHY SCREENING of Med icine [code = ANNUAL DIABETIC RETINOPATHY SCREENING] Future Scheduled 2021-05-20 Hepatitis C screening [employer] Test 09:04:01 (procedure) [code = of Medic ine 843076386] Future Scheduled 2021-05-20 Human immunodeficiency [facility] [employer] Test 09:04:01 virus screening of Medicine (procedure) [code = 466803582] Future Scheduled 2021-05-20 Screening for malignant [facility] Test 09:04:01 neoplasm of cervix of Medici ne (procedure) [code = 891923670] Future Scheduled 2021-05-20 ZOSTER VACCINE (1 of 2) [facility] [employer] Test 09:04:01 [code = ZOSTER VACCINE of Me dicine (1 of 2)] Future Scheduled 2021-05-20 TETANUS SHOT (ADULT) [facility] [employer] Test 09:04:01 [code = TETANUS SHOT of Medi cine (ADULT)] Future Scheduled 2021-05-20 Screening for malignant [facility] Test 09:04:01 neoplasm of colon of Medicin e (procedure) [code = 182573935] Future Scheduled 2021-04-09 Screening for malignant [facility] [employer] Test 11:05:21 neoplasm of colon of Medicin e (procedure) [code = 066825559] Future Scheduled 2021-04-09 Screening for malignant [facility] [employer] Test 11:05:21 neoplasm of colon of Medicin e (procedure) [code = 827673991] Future Scheduled 2021-04-09 COLONOSCOPY W MAC GI 1 Occurrences [employer] Test 11:05:12 DEPT [code = 87419] starting of Medic ine 04/09/2021 until 10/07/2021 Future Scheduled 2021-04-09 COLONOSCOPY W MAC GI 1 Occurrences [employer] Test 11:05:12 DEPT [code = 70507] starting of Medic ine 04/09/2021 until 10/07/2021 Future Scheduled 2021-04-09 Human immunodeficiency [facility] [employer] Test 10:50:29 virus screening of Medicine (procedure) [code = 448996829] Future Scheduled 2021-04-09 Screening for malignant [facility] Test 10:50:29 neoplasm of cervix of Medici ne (procedure) [code = 875283493] Future Scheduled 2021-04-09 ZOSTER VACCINE (1 of 2) [facility] Test 10:50:29 [code = ZOSTER VACCINE of Me dicine (1 of 2)] Future Scheduled 2021-04-09 TETANUS SHOT (ADULT) [facility] [employer] Test 10:50:29 [code = TETANUS SHOT of Medi cine (ADULT)] Future Scheduled 2021-04-09 FLU VACCINE > 6 MONTHS [employer] Test 10:50:29 [code = FLU VACCINE > 6 of M edicine MONTHS] Future Scheduled 2021-04-09 BMI FOLLOW UP PLAN [employer] Test 10:50:29 [code = BMI FOLLOW UP of Med icine PLAN] Future Scheduled 2021-04-09 Screening for malignant [facility] [employer] Test 10:50:29 neoplasm of breast of Medici ne (procedure) [code = 817919672] Future Scheduled 2021-04-09 Hepatitis C screening [employer] Test 10:50:29 (procedure) [code = of Medic ine 420206751] Future Scheduled 2021-04-09 Human immunodeficiency [facility] [employer] Test 10:50:29 virus screening of Medicine (procedure) [code = 290369824] Future Scheduled 2021-04-09 Screening for malignant [facility] Test 10:50:29 neoplasm of cervix of Medici ne (procedure) [code = 142641924] Future Scheduled 2021-04-09 ZOSTER VACCINE (1 of 2) [facility] [employer] Test 10:50:29 [code = ZOSTER VACCINE of Ma dicine (1 of 2)] Future Scheduled 2021-04-09 TETANUS SHOT (ADULT) [facility] Test 10:50:29 [code = TETANUS SHOT of Medi cine (ADULT)] Future Scheduled 2021-04-09 FLU VACCINE > 6 MONTHS [employer] Test 10:50:29 [code = FLU VACCINE > 6 of M edicine MONTHS] Future Scheduled 2021-04-09 BMI FOLLOW UP PLAN [employer] Test 10:50:29 [code = BMI FOLLOW UP of Med icine PLAN] Future Scheduled 2021-04-09 Screening for malignant [facility] Test 10:50:29 neoplasm of breast of Medici ne (procedure) [code = 351171292] Future Scheduled 2021-04-09 Hepatitis C screening [employer] Test 10:50:29 (procedure) [code = of Medic ine 121138263] Future Scheduled Screening for malignant [facility] [employer] Test neoplasm of colon of Medicin e (procedure) [code = 915295893] Future Scheduled Screening for malignant [facility] [employer] Test neoplasm of breast of Medici ne (procedure) [code = 585699902] Future Scheduled Hepatitis C screening [employer] Test (procedure) [code = of Medic ine 942380046] Future Scheduled Human immunodeficiency B [facility] Test virus screening of Medicine (procedure) [code = 384375846] Future Scheduled Screening for malignant [facility] Test neoplasm of cervix of Medici ne (procedure) [code = 024468250] Future Scheduled ZOSTER VACCINE (1 of 2) [facility] Test [code = ZOSTER VACCINE of Me dicine (1 of 2)] Future Scheduled TETANUS SHOT (ADULT) [facility] Test [code = TETANUS SHOT of Medi cine (ADULT)] Future Scheduled FLU VACCINE > 6 MONTHS [facility] [code = FLU VACCINE > 6 of M edicine MONTHS] Future Scheduled BMI FOLLOW UP PLAN [facility] Test [code = BMI FOLLOW UP of Med icine PLAN] Encounters Start End Encounter Admission Attending Care Care Encounter Source Date/Time Date/Time Type Type Clinicians Facility Department ID 2021-04-20 Outpatient [facility] Surgery [id number] [facility] 09:24:04 [facility] 2021-04-[address] [facility] Surgery [id number] SLE 09:23:55 [facility] 2019-10-09 Inpatient GLENIS Rueda, [facility].01 [id number] [facility] 00:44:00 Musaddiq [id number] [facility] 2021-07-10 2021-07-10 Office Pretty Henson [id number] [facility] 09:00:00 09:35:38 Visit Lloyd AMBULATOR 350.1.13.21 College Y 0.2.7.2.686 of [id number] [facility] olayinka 805 e 2021-06-27 2021-06-27 [facility]patient [facility] [id number] [facility] 08:04:00 17:47:00 2021-06-26 2021-06-26 Outpatient [facility]NA [facility] [id number] [facility] 16:09:27 23:59:00 2021-06-24 2021-06-24 Outpatient Pretty [facility] [id number] [facility] 09:32:27 23:59:00 2021-06-24 2021-06-24 Outpatient [facility] [id number] [facility] 00:00:00 23:59:00 Sherry e 2021-06-24 2021-06-24 Office Pretty HENSON [facility] [id number] [facility] 14:23:44 15:09:12 Visit AMBULATOR 350.1.13.21 College Y 0.2.7.2.686 of [id number] [facility] olayinka 805 e 2021-06-24 2021-06-24 [facility] [id number] [facility] 00:00:00 00:00:00 2021-06-24 2021-06-24 Outpatient Pretty AKERS [facility] [id number] SLE 00:00:00 00:00:00 2021-05-20 2021-05-20 Office Pretty [facility] [id number] [facility] 09:13:05 13:29:48 Visit AMBULATOR 350.1.13.21 College Y 0.2.7.2.686 of [id number] [facility] 805 e 2021-05-07 2021-05-07 Outpatient Pretty [facility] [id number] SLE 13:31:05 23:59:00 2021-04-29 2021-04-29 Out[facility] [id number] [facility] 07:34:00 10:45:00 DANICA 2021-04-29 2021-04-29 Outpatient GALINA CARRINGTON [facility] [id number] [facility] 09:20:27 09:20:27 DANICA Giles e of Medicin e 2021-04-09 2021-04-09 Office GALINA Carrington [id number] [facility] 10:43:28 11:39:40 Visit Danica AMBULATOR 350.1.13.21 College Delaisse Y 0.2.7.2.686 of [id number] [facility] olayinka 300 e 2021-04-09 2021-04-09 Outpatient KATARZYNA SLE [facility] [id number] SLE 00:00:00 00:00:00 2021-02-28 2021-02-28 Outpatient GALINA BUCHANAN [facility] [id number] [facility] 14:27:18 14:44:19 BARBARA Colleg e of Medicin e 2021-02-07 2021-02-07 Outpatient DEWAYNE, [facility] [id number] [facility] 11:42:03 12:00:47 BARBARA [facility] [employer] of Medicin e 2021-01-15 2021-01-16 Outpatient DEWAYNE, [facility] [id number] [facility] 13:34:26 14:09:53 BARBARA Colleg [facility] of Medicin e 2020-10-22 2020-11-05 Outpatient LEONID, [facility] [id number] [facility] 15:12:18 06:35:24 LENO Colleg e of Medicin e 2020-10-22 2020-11-05 Outpatient LEONID, [facility] [id number] [facility] 15:07:08 06:34:35 LENO Colleg e of Medicin e 2020-11-01 2020-11-01 Office Del [facility] [id number] [facility] 15:16:25 16:40:53 Visit Mai, [facility]UL[facility] 350.1.13.21 [facility]2.7.2.686 [id number] Medi olayinka 800 e 2020-10-17 2020-10-17 Outpatient EL [facility] [id number] [facility] 00:00:00 00:00:00 2020-08-01 2020-08-01 Outpatient EL [facility] [id number] [facility] 00:00:00 00:00:00 2020-07-09 2020-07-09 Outpatient EL [facility] [id number] [facility] 00:00:00 00:00:00 2020-03-15 2020-03-15 Transition Barbara Aquino [id number] Univers 00:00:00 00:00:00 of Care Deborah Romero 350.1.13.10 i ty of Dwight 4.2.7.2.686 Texbrittney doss [id number] [facility] porfirio 403 Branch 2020-03-15 2020-03-15 Transition Barbara Aquino [id number] 00:00:00 00:00:00 of Care Deborah Romero 350.1.13.10 [place] 4.2.7.2.686 [id number] 2020-03-12 2020-03-14 [facility] [id number] [facility] 20:09:00 11:29:00 Encounter Perla Thornton [facility]13.10 [facility] 4.2.7.2.686 [facility] [id number] [address] 2020-03-12 2020-03-14 [facility] 1.2.840.1 [id number] 20:09:00 11:29:00 Encounter Perla Thornton on 350.1.13.10 [place] 4.2.7.2.686 [place] [id number] [facility] 2020-03-12 2020-03-12 Emergency X [facility] ERT [id number] Univers 20:09:00 20:09:00 [facility] 2019-10-09 2019-10-09 Outpatient ANDREW Rueda OUTD [id number] [facility] 07:38:00 07:38:00 Musaddiq [id number] [facility] 2019-10-07 2019-10-07 Outpatient [facility] [id number] [facility] 00:00:00 00:00:00 [id number] Results Test Description Test Time Test Comments Results Result Comments Source SARS-COV2/RT-PCR ([facility]) 2021-07-17 09:19:19 Test Item Value Reference Range Interpretation Comme nts SARS-COV2/RT-PCR (test code = 3223832) Negative Negative Negative result for this test determines that SARS-CoV-2 RNA was not present in the specimen above the Limit of Detection (LOD). However, Negative results do not preclude SARS-CoV-2 infection and should not be used as the sole basis for treatment or patient management decisions. Negative results must be combined with clinical observations, patient history, and epidemiological information. A false negative result may occur if a specimen is improperly collected, transported, or handled. A false negative result should be considered if patient's recent exposures or clinical presentation indicate that COVID-19 (SARS-CoV-2) is likely and diagnostic tests for other causes of illness are negative. Re-testing should be considered in cases of suspected false negatives.The limit of detection for this assay is 100 copies/mL.This SARS-CoV-2 test is a real-time RT_PCR test intended for the qualitative detection of nucleic acid from SARS-CoV-2 in a nasopharyngeal swab specimen collected from individuals suspected of COVID-19 by their healthcare provider.This test has not been Food and Drug Administration (FDA) cleared or approved. This is a modified version of an approved Emergency Use Authorization (EUA) and is in the process of review by the FDA. Once authorized by the FDA, the issued EUA will be e ffective until the declaration that circumstances exist justifying the authorization of the emergency use of in vitro diagnostic tests for detection and/or diagnosis of COVID-19 is terminated under Section 564(b)(2) of the Act or the EUA is revoked under Section 564(g) of the Act.Testing was performedusing the Melvin SARS-CoV-2 assay.Fact Sheet for Healthcare Providers:https://www.[employer].melvin/loida/RT SARS-CoV-2 HCP Fact Sheet 51- 752816.pdfFact Sheet for Healthcare Patients:https://www.molecular.melvin/loida/RT SARS-CoV-2 Patient Fact Sheet EN 51-196042G2.pdfTISSUE [id number] 12:41:40 Surgical Pathology Report Case: [id number] Authorizing Provider: Pretty Henson MD Collected: 06/27/2021 01:19 PM Ordering Location: [facility] Received: 06/27/2021 02:10 PM SERVICES Pathologist: Kyle Chowdhury MD Specimen: Gastric, gastric sleeve PART A PORTION OFSTOMACH, PARTIAL SLEEVE GASTRECTOMY:CONGESTED GASTRIC MUCOSA WITHOUT SIGNIFICANT HISTOPATHOLOGIC ALTERATION.NEGATIVE FOR INTESTINAL METAPLASIA, DYSPLASIA, OR INVASIVE CARCINOMA. Signing Pathologist Direct Phone Line: [phone] signed by Kyle Chowdhury MD on 07/02/2021 at12:41 [id number] obesity, body mass index 45.0-49.9, adult, essential hypertension, benign, diabetes mellitus due to underlying condition with retinopathy without macular edemaGastricReceived in formalin labeled the patient's name, accession number and " gastric sleeve" is a 20.0 x 3.0 x 2.0 cm unoriented portion of stomach with a 20.0 cm linear staple line. The serosa is guthrie-pink, smooth and hyperemic. The specimen is opened to reveal a guthrie-pink, focally erythematous mucosa that displays normal rugal folds. No discrete lesions are identified. Foam Caster sections are submitted in A1-A2.PEPPER Carlson, HT (ASC)performedSilver [facility] Medical Center, Department of Pathology, [address] [place] [address], [facility], Department of [facility]ology, [address] [place] [address], [facility], Department of Pathology, [address] [place] [address], ILWO-GLUCOSE [id number] 09:35:37 Test Item Value Reference Range Interpretation Comments POC-GLUCOSE METER 157 mg/dL 70-110 H : TESTED A T [facility] 67 (KVNG) (test code = GINA Patel [facility], 1538) [id number]: Party Plan Sales Host/Hostess/Techni cristobal ID = [id number] for ANDER WESTON (TonyaNIRAV Mendoza SARS-COV2/RT-PCR ([facility])2021-06-24 19:39:10 Test Item Value Reference Range Interpretation Comments SARS-COV2/RT-PCR (test code = Negative Negative [id number]) Negative result for this test determines that SARS-CoV-2 RNA was not present in the specimen above the Limit of Detection (LOD). However, Negative results do not preclude SARS-CoV-2 infection and should not be used as the sole basis for treatment or patient management decisions. Negative results must be combined with clinical observations, patient history, and epidemiological information. A false negative result may occur if a specimen is improperly collected, transported, or handled. A false negative result should be considered if patient's recent exposures or clinical presentation indicate that COVID-19 (SARS-CoV-2) is likely and diagnostic tests for other causes of illness are negative. Re-testing should be considered in cases of suspected false negatives.The limit of detection for this assay is 100 copies/mL.This SARS-CoV-2 test is a real-time RT_PCR test intended for the qualitative detection of nucleic acid from SARS-CoV-2 in a nasopharyngeal swab specimen collected from individuals suspected of COVID-19 by their healthcare provider.This test has not been Food and Drug Administration (FDA) cleared or approved. This is a modified version of an approved Emergency Use Authorization (EUA) and is in the process of review by the FDA. Once authorized by the FDA, the issued EUA will be e ffective until the declaration that circumstances exist justifying the authorization of the emergency use of in vitro diagnostic tests for detection and/or diagnosis of COVID-19 is terminated under Section 564(b)(2) of the Act or the EUA is revoked under Section 564(g) of the Act.Testing was performedusing the Melvin SARS-CoV-2 assay.Fact Sheet for Healthcare Providers:https://www.[employer].CardioGenics/loida/RT SARS-CoV-2 HCP Fact Sheet 51- 935849.pdfFact Sheet for Healthcare Patients:https://www.[employer].melvin/loida/RT SARS-CoV-2 Patient Fact Sheet EN 51-733483E4.pdfBASIC METABOLIC [id number] 10:34:30 Test Item Value Reference Range Interpretation Comments SODIUM (BEAKER) 140 meq/L 136-145 (test code = 381) POTASSIUM (BEAKER) 4.5 meq/L 3.5-5.1 (test code = 379) CHLORIDE (BEAKER) 104 meq/L 98-107 (test code = 382) CO2 (BEAKER) (test 27 meq/L 22-29 code = 355) BLOOD UREA NITROGEN 23 mg/dL 7-21 H (BEAKER) (test code = 354) CREATININE (BEAKER) 0.89 mg/dL 0.57-1.25 (test code = 358) GLUCOSE RANDOM 93 mg/dL 70-105 (BEAKER) (test code = 652) CALCIUM (BEAKER) 10.0 mg/dL 8.4-10.2 (test code = 697) EGFR (BEAKER) (test 81 mL/min/1.73 ESTIMA RC GFR IS code = 1092) sq m NOT ACCURATE CREATININE CLEARANCE IN PREDICTING GLOMERULAR FILTRATION RATE . ESTIMATED GFR I S NOT APPLICABLE FOR DIALYSIS PATIEN TS. Party Plan Sales Host/Hostess ID - GIDEON [id number] 10:10:47 Test Item Value Reference Range Interpretation Comments HEMOGLOBIN (KVNG) (test code = 11.5 GM/DL 11.2-15.7 410) Party Plan Sales Host/Hostess ID - [id number], UGI, WITH [id number] 17:19:00Reason for Exam:- >Gastroesophageal reflux disease, unspecified whether esophagitis presen [facility] : 1970 Sex: FFINAL REPORT TECHNIQUE: Double contrast upper GI series INDICATION: G astroesophageal reflux. COMPARISON: None. FINDINGS: ESOPHAGUS:Motility: There is mild esophageal dysmotility..Mucosa: Normal in appearance.Distensibility: Normal. GASTROESOPHAGEAL JUNCTION: No evidenceof hiatal hernia. GASTROESOPHAGEAL REFLUX: Mild gastroesophageal reflux. STOMACH/DUODENUM: Normally distensible with normal contours and mucosal pattern. Bulb and sweep are normal. Duodenojejunal junction is in the expected position. Fluoroscopy time: 1.9 minutesNumber of images: 14 IMPRESSION:Gastroesophageal reflux with mild esophageal dysmotility. Signed: Robin Ceron Verified D ate/Time: 05/07/2021 17:19:47 POCT-GLUCOSE [id number] 10:21:46 Test Item Value Reference Range Interpretation Comments POC-GLUCOSE METER 81 mg/dL 70-110 : TESTED A T [facility] [address] (BEAKER) (test code = [address], 1538) [facility] [phone]: Party Plan Sales Host/Hostess/Techni cristobal ID = [id number] for Sandra Mock POCT-GLUCOSE [id number] 08:38:24 Test Item Value Reference Range Interpretation Comments POC-GLUCOSE METER 93 mg/dL 70-110 : TESTED A T [facility] [address] (BEAKER) (test code = [address], 1538) [facility] 77 478: Party Plan Sales Host/Hostess/Techni cristobal ID = [id number] for Izabella Tate SARS-COV2/RT-PCR ([facility])2021-03-13 22:34:00 Test Item Value Reference Range Interpretation Comments SARS-COV2/RT-PCR (test code = Negative Negative [id number]) Negative result for this test determines that SARS-CoV-2 RNA was not present in the specimen above the Limit of Detection (LOD). However, Negative results do not preclude SARS-CoV-2 infection and should not be used as the sole basis for treatment or patient management decisions. Negative results must be combined with clinical observations, patient history, and epidemiological information. A false negative result may occur if a specimen is improperly collected, transported, or handled. A false negative result should be considered if patient's recent exposures or clinical presentation indicate that COVID-19 (SARS-CoV-2) is likely and diagnostic tests for other causes of illness are negative. Re-testing should be considered in cases of suspected false negatives.The limit of detection for this assay is 100 copies/mL.This SARS-CoV-2 test is a real-time RT_PCR test intended for the qualitative detection of nucleic acid from SARS-CoV-2 in a nasopharyngeal swab specimen collected from individuals suspected of COVID-19 by their healthcare provider.This test has not been Food and Drug Administration (FDA) cleared or approved. This is a modified version of an approved Emergency Use Authorization (EUA) and is in the process of review by the FDA. Once authorized by the FDA, the issued EUA will be e ffective until the declaration that circumstances exist justifying the authorization of the emergency use of in vitro diagnostic tests for detection and/or diagnosis of COVID-19 is terminated under Section 564(b)(2) of the Act or the EUA is revoked under Section 564(g) of the Act.Testing was performedusing the Melvin SARS-CoV-2 assay.Fact Sheet for Healthcare Providers:https://www.[employer].melvin/loida/RT SARS-CoV-2 HCP Fact Sheet 51- 525201.pdfFact Sheet for Healthcare Patients:https://www.[employer].melvin/loida/RT SARS-CoV-2 Patient Fact Sheet EN 51-703748G6.pdfSARS-COV2/RT-PCR ([facility])2021-02-20 22:59:00 Test Item Value Reference Range Interpretation Comments SARS-COV2/RT-PCR (test code = Negative Negative [id number]) Negative result for this test determines that SARS-CoV-2 RNA was not present in the specimen above the Limit of Detection (LOD). However, Negative results do not preclude SARS-CoV-2 infection and should not be used as the sole basis for treatment or patient management decisions. Negative results must be combined with clinical observations, patient history, and epidemiological information. A false negative result may occur if a specimen is improperly collected, transported, or handled. A false negative result should be considered if patient's recent exposures or clinical presentation indicate that COVID-19 (SARS-CoV-2) is likely and diagnostic tests for other causes of illness are negative. Re-testing should be considered in cases of suspected false negatives.The limit of detection for this assay is 100 copies/mL.This SARS-CoV-2 test is a real-time RT_PCR test intended for the qualitative detection of nucleic acid from SARS-CoV-2 in a nasopharyngeal swab specimen collected from individuals suspected of COVID-19 by their healthcare provider.This test has not been Food and Drug Administration (FDA) cleared or approved. This is a modified version of an approved Emergency Use Authorization (EUA) and is in the process of review by the FDA. Once authorized by the FDA, the issued EUA will be e ffective until the declaration that circumstances exist justifying the authorization of the emergency use of in vitro diagnostic tests for detection and/or diagnosis of COVID-19 is terminated under Section 564(b)(2) of the Act or the EUA is revoked under Section 564(g) of the Act.Testing was performedusing the Melvin SARS-CoV-2 assay.Fact Sheet for Healthcare Providers:https://www.Arc [employer].CardioGenics/loida/RT SARS-CoV-2 HCP Fact Sheet 51- 196603.pdfFact Sheet for Healthcare Patients:https://www.[employer].CardioGenics/loida/RT SARS-CoV-2 Patient Fact Sheet EN 51-540875Y0.pdfSARS-COV2/RT-PCR ([facility])2020-10-18 02:26:00 Test Item Value Reference Range Interpretation Comments SARS-COV2/RT-PCR (test Negative Not Detected, Negative, code = 7016103) See external report for linked test SARS-COV-2 PERFORMING LAB [facility] (test code = 5407121) Negative result for this test determines that SARS-CoV-2 RNA was not present in the specimen above the Limit of Detection (LOD). However, Negative results do not preclude SARS-CoV-2 infection and should not be used as the sole basis for treatment or patient management decisions. Negative results mustbe combined with clinical observations, patient history, and epidemiological information. A false negative result may occur if a specimen is improperly collected, transported or handled. A false negative result should be considered if patient's recent exposures or clinical presentation indicate that COVID-19 (SARS-CoV-2) is likely and diagnostic tests for other causes of illness are negative. Re-testing should be considered in cases of suspected false negatives.The limit of detection for this assay is 100 copies/mL.This SARS CoV-2 test is a real-time RT-PCR test intended for the qualitative detection of nucleic acid from SARS-CoV-2 in a nasopharyngeal swab specimen collected from individuals susp ected of COVID-19 by their healthcare provider.This test has not been Food and Drug Administration (FDA) cleared or approved. This is a modified version of an approved Emergency Use Authorization (EUA) and is in the process of review by the FDA. Once authorized by the FDA, the issued EUA will be effective until the declaration that circumstances exist justifying the authorization of the emergency use of in vitro diagnostic tests for detection and/or diagnosis of COVID-19 is terminated under Section 564(b)(2) of the Act or the EUA is revoked under Section 564(g) of the Act.Testing was performed using the Melvin SARS-CoV-2 assay.Fact Sheet for Healthcare Providers:https://www.[employer].melvin/loida/ ZT_CJMK-WxA-8_HJF_Gmdx_Rdxuf_82-784164.pdfFact Sheet for Healthcare Patients:https://www.[employer] hafsa/loida/LP_ADHV-VjU-7_Dqidpep_Sidd_Iamvg_YM_64-079577Y1.pdfPerforming Laboratory:[facility] [place] [address] SARS-COV2/RT-PCR ([facility])2020-10-01 22:17:00 Test Item Value Reference Range Interpretation Comments SARS-COV2/RT-PCR (test Negative Not Detected, Negative, code = 2792066) See external report for linked test SARS-COV-2 PERFORMING LAB [facility] (test code = 2108696) Negative result for this test determines that SARS-CoV-2 RNA was not present in the specimen above the Limit of Detection (LOD). However, Negative results do not preclude SARS-CoV-2 infection and should not be used as the sole basis for treatment or patient management decisions. Negative results mustbe combined with clinical observations, patient history, and epidemiological information. A false negative result may occur if a specimen is improperly collected, transported or handled. A false negative result should be considered if patient's recent exposures or clinical presentation indicate that COVID-19 (SARS-CoV-2) is likely and diagnostic tests for other causes of illness are negative. Re-testing should be considered in cases of suspected false negatives.The limit of detection for this assay is 100 copies/mL.This SARS CoV-2 test is a real-time RT-PCR test intended for the qualitative detection of nucleic acid from SARS-CoV-2 in a nasopharyngeal swab specimen collected from individuals susp ected of COVID-19 by their healthcare provider.This test has not been Food and Drug Administration (FDA) cleared or approved. This is a modified version of an approved Emergency Use Authorization (EUA) and is in the process of review by the FDA. Once authorized by the FDA, the issued EUA will be effective until the declaration that circumstances exist justifying the authorization of the emergency use of in vitro diagnostic tests for detection and/or diagnosis of COVID-19 is terminated under Section 564(b)(2) of the Act or the EUA is revoked under Section 564(g) of the Act.Testing was performed using the Melvin SARS-CoV-2 assay.Fact Sheet for Healthcare Providers:https://www.[employer].melvin/loida/ OR_WVGT-RxI-7_PSC_Lgrl_Ztiar_91-736522.pdfFact Sheet for Healthcare Patients:https://www.[employer] hafsa/loida/UR_PYEC-QnR-5_Ddnewbx_Jdsh_Ebtno_ZC_17-506261F0.pdfPerforming Laboratory:[facility] [place] [address] SARS-COV2/RT-PCR ([facility])2020-09-06 06:57:00 Test Item Value Reference Range Interpretation Comments SARS-COV2/RT-PCR (test Negative Not Detected, Negative, code = 5370297) See external report for linked test SARS-COV-2 PERFORMING LAB [facility] (test code = 1689557) Negative result for this test determines that SARS-CoV-2 RNA was not present in the specimen above the Limit of Detection (LOD). However, Negative results do not preclude SARS-CoV-2 infection and should not be used as the sole basis for treatment or patient management decisions. Negative results mustbe combined with clinical observations, patient history, and epidemiological information. A false negative result may occur if a specimen is improperly collected, transported or handled. A false negative result should be considered if patient's recent exposures or clinical presentation indicate that COVID-19 (SARS-CoV-2) is likely and diagnostic tests for other causes of illness are negative. Re-testing should be considered in cases of suspected false negatives.The limit of detection for this assay is 100 copies/mL.This SARS CoV-2 test is a real-time RT-PCR test intended for the qualitative detection of nucleic acid from SARS-CoV-2 in a nasopharyngeal swab specimen collected from individuals susp ected of COVID-19 by their healthcare provider.This test has not been Food and Drug Administration (FDA) cleared or approved. This is a modified version of an approved Emergency Use Authorization (EUA) and is in the process of review by the FDA. Once authorized by the FDA, the issued EUA will be effective until the declaration that circumstances exist justifying the authorization of the emergency use of in vitro diagnostic tests for detection and/or diagnosis of COVID-19 is terminated under Section 564(b)(2) of the Act or the EUA is revoked under Section 564(g) of the Act.Testing was performed using the Melvin SARS-CoV-2 assay.Fact Sheet for Healthcare Providers:https://www.[employer].melvin/loida/ RY_BQXO-TdA-8_PAF_Oopj_Uzzow_51-546264.pdfFact Sheet for Healthcare Patients:https://www.[employer] hafsa/loida/LP_FLWL-KgS-1_Qdgqqxz_Znfb_Oheun_DY_91-418034P5.pdfPerforming Laboratory:[place] [address] [place] [address] SARS-COV2/RT-PCR ([facility])2020-08-10 23:41:00 Test Item Value Reference Range Interpretation Comments SARS-COV2/RT-PCR (test Negative Not Detected, Negative, code = 4480244) See external report for linked test SARS-COV-2 PERFORMING LAB [facility] (test code = 4973931) Negative result for this test determines that SARS-CoV-2 RNA was not present in the specimen above the Limit of Detection (LOD). However, Negative results do not preclude SARS-CoV-2 infection and should not be used as the sole basis for treatment or patient management decisions. Negative results mustbe combined with clinical observations, patient history, and epidemiological information. A false negative result may occur if a specimen is improperly collected, transported or handled. A false negative result should be considered if patient's recent exposures or clinical presentation indicate that COVID-19 (SARS-CoV-2) is likely and diagnostic tests for other causes of illness are negative. Re-testing should be considered in cases of suspected false negatives.The limit of detection for this assay is 100 copies/mL.This SARS CoV-2 test is a real-time RT-PCR test intended for the qualitative detection of nucleic acid from SARS-CoV-2 in a nasopharyngeal swab specimen collected from individuals susp ected of COVID-19 by their healthcare provider.This test has not been Food and Drug Administration (FDA) cleared or approved. This is a modified version of an approved Emergency Use Authorization (EUA) and is in the process of review by the FDA. Once authorized by the FDA, the issued EUA will be effective until the declaration that circumstances exist justifying the authorization of the emergency use of in vitro diagnostic tests for detection and/or diagnosis of COVID-19 is terminated under Section 564(b)(2) of the Act or the EUA is revoked under Section 564(g) of the Act.Testing was performed using the Melvin SARS-CoV-2 assay.Fact Sheet for Healthcare Providers:https://www.[employer].melvin/loida/ YY_HXWT-BuP-0_IMR_Rhmw_Ssaxk_73-078615.pdfFact Sheet for Healthcare Patients:https://www.[employer]ik/loida/MR_PWZZ-GkM-2_Ukjhgkl_Sflk_Mesuq_OQ_73-518261K6.pdfPerforming Laboratory:[address] [place] [address] SARS-COV2/RT-PCR ([facility])2020-08-01 07:45:00 Test Item Value Reference Range Interpretation Comments SARS-COV2/RT-PCR (test Negative Not Detected, Negative, code = 3165734) See external report for linked test SARS-COV-2 PERFORMING LAB [facility] (test code = 4553542) Negative result for this test determines that SARS-CoV-2 RNA was not present in the specimen above the Limit of Detection (LOD). However, Negative results do not preclude SARS-CoV-2 infection and should not be used as the sole basis for treatment or patient management decisions. Negative results mustbe combined with clinical observations, patient history, and epidemiological information. A false negative result may occur if a specimen is improperly collected, transported or handled. A false negative result should be considered if patient's recent exposures or clinical presentation indicate that COVID-19 (SARS-CoV-2) is likely and diagnostic tests for other causes of illness are negative. Re-testing should be considered in cases of suspected false negatives.The limit of detection for this assay is 100 copies/mL.This SARS CoV-2 test is a real-time RT-PCR test intended for the qualitative detection of nucleic acid from SARS-CoV-2 in a nasopharyngeal swab specimen collected from individuals susp ected of COVID-19 by their healthcare provider.This test has not been Food and Drug Administration (FDA) cleared or approved. This is a modified version of an approved Emergency Use Authorization (EUA) and is in the process of review by the FDA. Once authorized by the FDA, the issued EUA will be effective until the declaration that circumstances exist justifying the authorization of the emergency use of in vitro diagnostic tests for detection and/or diagnosis of COVID-19 is terminated under Section 564(b)(2) of the Act or the EUA is revoked under Section 564(g) of the Act.Testing was performed using the Melvin SARS-CoV-2 assay.Fact Sheet for Healthcare Providers:https://www.[employer].melvin/loida/ HS_WPFP-NyM-4_AKE_Rpde_Ivuey_00-680169.pdfFact Sheet for Healthcare Patients:https://www.[employer]ik/loida/SU_KBAF-ZpG-2_Sbcilsi_Msya_Svftn_PX_15-085644I5.pdfPerforming Laboratory:[place] [address] [place] [address] SARS-COV2/RT-PCR ([facility])2020-07-10 00:47:00 Test Item Value Reference Range Interpretation Comments SARS-COV2/RT-PCR (test Negative Not Detected, Negative, code = 3888090) See external report for linked test SARS-COV-2 PERFORMING LAB [facility] (test code = 1224068) Negative result for this test determines that SARS-CoV-2 RNA was not present in the specimen above the Limit of Detection (LOD). However, Negative results do not preclude SARS-CoV-2 infection and should not be used as the sole basis for treatment or patient management decisions. Negative results mustbe combined with clinical observations, patient history, and epidemiological information. A false negative result may occur if a specimen is improperly collected, transported or handled. A false negative result should be considered if patient's recent exposures or clinical presentation indicate that COVID-19 (SARS-CoV-2) is likely and diagnostic tests for other causes of illness are negative. Re-testing should be considered in cases of suspected false negatives.The limit of detection for this assay is 100 copies/mL.This SARS CoV-2 test is a real-time RT-PCR test intended for the qualitative detection of nucleic acid from SARS-CoV-2 in a nasopharyngeal swab specimen collected from individuals susp ected of COVID-19 by their healthcare provider.This test has not been Food and Drug Administration (FDA) cleared or approved. This is a modified version of an approved Emergency Use Authorization (EUA) and is in the process of review by the FDA. Once authorized by the FDA, the issued EUA will be effective until the declaration that circumstances exist justifying the authorization of the emergency use of in vitro diagnostic tests for detection and/or diagnosis of COVID-19 is terminated under Section 564(b)(2) of the Act or the EUA is revoked under Section 564(g) of the Act.Testing was performed using the Melvin SARS-CoV-2 assay.Fact Sheet for Healthcare Providers:https://www.[employer].melvin/loida/ DC_IJFQ-KsO-3_MZF_Vmgq_Cznvj_39-984242.pdfFact Sheet for Healthcare Patients:https://www.[employer] hafsa/loida/YV_NXZO-FaK-0_Twxhpso_Tmbc_Imbaw_PR_61-164265L8.pdfPerforming Laboratory:[address] [place] [address] SARS-COV2/RT-PCR ([facility])2020-05-29 13:27:00 Test Item Value Reference Range Interpretation Comments SARS-COV2/RT-PCR (test See external report Not Detected, code = 8842988) for linked test Negative, See external report for linked test SARS-COV-2 PERFORMING [facility] (test code = 9119245) SARS-COV2/RT-PCR ([facility])2020-04-24 14:02:00 Test Item Value Reference Range Interpretation Comments SARS-COV2/RT-PCR (test Negative Not Detected, Negative, code = 9278765) See external report for linked test SARS-COV-2 PERFORMING LAB [facility] (test code = 3785887) Negative result for this test determines that SARS-CoV-2 RNA was not present in the specimen above the Limit of Detection (LOD). However, Negative results do not preclude SARS-CoV-2 infection and should not be used as the sole basis for treatment or patient management decisions. Negative results mustbe combined with clinical observations, patient history, and epidemiological information. A false negative result may occur if a specimen is improperly collected, transported or handled. A false negative result should be considered if patient's recent exposures or clinical presentation indicate that COVID-19 (SARS-CoV-2) is likely and diagnostic tests for other causes of illness are negative. Re-testing should be considered in cases of suspected false negatives.The limit of detection for this assay is 800 copies/mL.This SARS CoV-2 test is a real-time RT-PCR test intended for the qualitative detection of nucleic acid from SARS-CoV-2 in a nasopharyngeal swab specimen collected from individuals susp ected of COVID-19 by their healthcare provider.This test has not been Food and Drug Administration (FDA) cleared or approved. This is a modified version of an approved Emergency Use Authorization (EUA) and is in the process of review by the FDA. Once authorized by the FDA, the issued EUA will be effective until the declaration that circumstances exist justifying the authorization of the emergency use of in vitro diagnostic tests for detection and/or diagnosis of COVID-19 is terminated under Section 564(b)(2) of the Act or the EUA is revoked under Section 564(g) of the Act.Fact Sheet for Healthcare Providers:https://www.paymioidel.com/sites/default/files/product/documents/Fact_Shee n_OF_Yxqktshyj_Nxng_XVDH-ShD-9.pdfFact Sheet for Healthcare Patients:https://www.[employer].com/sites/default/files/product/ documents/Viii_Oiask_Htifrryc_Zhrm_KBLJ-McV-3.pdfPerforming Laboratory:[facility].[place], [place] [address]EHSA GLUCOSE (AUTOMATED)2020-03-13 13:16:00 Test Item Value Reference Range Interpretation Comments POCT GLU (test code = 7816405593) 128 mg/dL 70-110 H Lab Interpretation (test code = Abnormal 75396-1) [facility] [id number] 09:29:00 Test Item Value Reference Range Interpretation Comments TROPONIN I (test 0.021 ng/mL See_Comment [Automated code = 3896044451) message] The system which generated this result transmitted reference range : <=0.034. The reference range was not used to interpret this result as normal/abnormal . KRISTAL (test code = Equal or Less than KRISTAL) 0.034 ng/ml---Normal ?Note: Cardiac troponin begins to rise 3-4 hours after the onset of ischemia. Repeat in 4-6 hours if the sample was drawn within 3-4 hours of the onset of the symptom and found normal. Between 0.035 and 0.120 ng/mL--- Borderline. Questionable myocardial injury or necrosis ? ?Note: Serial measurement may be necessary to confirm or exclude the diagnosis of myocardial injury or necrosis; Clinical correlation (symptoms, EKGs, imaging studies, and others) required; Repeat in 4-6 hours if clinically indicated. ? Equal or Higher than 0.121 ng/mL---Abnormal. Myocardial Injury or Necrosis Likely ? Biotin has been reported to cause a negative bias, interpret results relative to patient's use of biotin. ? Lab Interpretation Normal (test code = 05211-0) [facility]TH[facility] STIMULATING [id number] 05:01:00 Test Item Value Reference Range Interpretation Comments TSH (test code = See_Comment Biotin has been 5824036288) reported to cau se a negative bias, interpret resul ts relative to pat ient's use of biotin. [Automated mess age] The system [employer] generated this result transmitted ref erence range: 0.45 - 4 .70 mIU/L. The refe rence range was not u sed to interpret this result as normal/abnor mal. Lab Interpretation (test Normal code = 07104-1) [facility]COVID[facility] (ID NOW RAPID TESTING)2020-03-13 03:37:00 Test Item Value Reference Range Interpretation Comments SARS-CoV-2 Rapid ID NOW Not Detected Not Detected (test code = 75115-9) KRISTAL (test code = KRISTAL) ID NOW COVID-19 Assay is an isothermal nucleic acid amplification test intended for the qualitative detection of nucleic acid from SARS-CoV-2 viral RNA in nasopharyngeal ([employer]) specimens. It is used under Emergency Use Authorization (EUA) by FDA. The limit of detection (LOD) of the assay is 125 Genome Equivalents/mL. A positive result is indicative of the presence of SARS-CoV-2 RNA. ?Clinical correlation with patient history and other diagnostic information is necessary to determine patient infection status. A negative (Not Detected) result does not preclude SARS-CoV-2 infection. In patients with clinical symptoms and other tests that are consistent with SARS-CoV-2 infection, negative results should be treated as presumptive negative and a new specimen should be tested with alternative PCR molecular test. Invalid: Please collect a new specimen for repeat patient testing if clinically indicated. Lab Interpretation Normal (test code = 42099-8) [facility] HospitalXR CHEST 1 [id number] 02:35:33 No acute cardiopulmonary process. Preliminary Report Dictated by Resident: Fazal Kessler MD., have reviewed this study and agree with theabove report.EXAM: XR CHEST 1 VW COMPARISON: None. HISTORY: chest pain ? TECHNIQUE: AP view of the chest was obtained. FINDINGS: Lungs/pleura: ?The lungs are clear. No focal consolidation identified. Nopleural effusion or pneumothorax is identif ied. Heart/Mediastinum: The cardiac silhouette is normal in size. No acute osseous abnormality. [facility], Radiant Results Inft User - 03/12/2020 9:36 PM CDTEXAM: XR CHEST 1 VWCOMPARISON: None.HISTORY: chest pain TECHNIQUE: AP view of the chest was obtained.FINDINGS:Lungs/pleura: The lungs are clear. Nofocal consolidation identified. Nopleural effusion or pneumothorax is identified.Heart/Mediastinum: The cardiac silhouette is normal in size.No acute osseous abnormality.IMPRESSIONNo acute cardiopulmonary process.Preliminary Report Dictated by Resident: Fazal Crabtree MD., have revie wed this study and agree with theabove report.[facility] [id number] 02:15:00 Test Item Value Reference Range Interpretation Comments MAGNESIUM (test code = 5342589190) 2.0 mg/dL 1.7-2.4 Lab Interpretation (test code = Normal 48295-2) [facility] HospitalTROPONIN [id number] 01:58:00 Test Item Value Reference Range Interpretation Comments TROPONIN I (test <0.012 See_Comment [Automated code = 4121986876) message] The system which generated this result transmitted reference range : <=0.034 ng/mL. The reference range was not used to interpr et this result as normal/abnormal . KRISTAL (test code = Equal or Less than KRISTAL) 0.034 ng/ml---Normal ?Note: Cardiac troponin begins to rise 3-4 hours after the onset of ischemia. Repeat in 4-6 hours if the sample was drawn within 3-4 hours of the onset of the symptom and found normal. Between 0.035 and 0.120 ng/mL--- Borderline. Questionable myocardial injury or necrosis ? ?Note: Serial measurement may be necessary to confirm or exclude the diagnosis of myocardial injury or necrosis; Clinical correlation (symptoms, EKGs, imaging studies, and others) required; Repeat in 4-6 hours if clinically indicated. ? Equal or Higher than 0.121 ng/mL---Abnormal. Myocardial Injury or Necrosis Likely ? Biotin has been reported to cause a negative bias, interpret results relative to patient's use of biotin. ? Lab Interpretation Normal (test code = 22636-8) [facility] HospitalaPTT2020-09-01 01:49:00 Test Item Value Reference Range Interpretation Comments APTT Patient (test See_Comment [Automat ed code = 3173-2) message] The system which generated this result transmitted reference range : 23 - 38 Seconds . The reference range was not used to interpr et this result as normal/abnormal . KRISTAL (test code = KRISTAL) The [facility] patient population mean normal value for aPTT is 30 seconds. Lab Interpretation Normal (test code = 85242-3) [facility] HospitalCOMP. METABOLIC PANEL (46716)2020-03-13 01:48:00 Test Item Value Reference Range Interpretation Comments NA (test code = 140 mmol/L 135-145 3745340999) K (test code = 3.6 mmol/L 3.5-5 9600459961) CL (test code = 104 mmol/L 98-108 3961228224) CO2 TOTAL (test code = 28 mmol/L 23-31 2540680852) AGAP (test code = 2-16 1072136640) BUN (test code = 18 mg/dL 7-23 6000950542) GLUCOSE (test code = 146 mg/dL 70-110 H 0894632103) CREATININE (test code = 0.89 mg/dL 0.5-1.04 0489044598) TOTAL BILI (test code = 0.3 mg/dL 0.1-1.5 4599836117) CALCIUM (test code = 9.8 mg/dL 8.6-10.6 4367186697) T PROTEIN (test code = 8.2 g/dL 6.3-8.2 9180126934) ALBUMIN (test code = 4.6 g/dL 3.5-5 8161571280) ALK PHOS (test code = 76 U/L 34-122 1891557646) ALTv (test code = 32 U/L 5-35 2-6) AST(SGOT) (test code = 30 U/L 13-40 9031853707) eGFR Calculation mL/min/1.73m2 (Non-) (test code = 5954035429) eGFR Calculation mL/min/1.73m2 () (test code = 5389219701) KRISTAL (test code = KRISTAL) Association of Glomerular Filtration Rate (GFR) and Staging of Kidney Disease* + --+ --+ ------+| GFR (mL/min/1.73 m2) ?| With Kidney Damage ?| ?Without Kidney Damage+ --------+ --------+ +| ?>90 ?| ?Stage one ?| ? Normal ?+ ---+ ---+ -------+| ?60-89 ?| ?Stage two ?| ? Decreased GFR ? + --+ --+ ------+| ?30-59 ?| ?Stage three ?| ? Stage three ? + --+ --+ ------+| ?15-29 ?| ?Stage four ? | ? Stage four ?+ ---+ ---+ -------+| ?<15 (or dialysis) ? ?| ?Stage five ? | ? Stage five ?+ ---+ ---+ -------+ *Each stage assumes the associated GFR level has been in effect for at least three months. ?Stages 1 to 5, with or without kidney disease, indicate chronic kidney disease. Notes: Determination of stages one and two (with eGFR >59mL/min/1.73 m2) requires estimation of kidney damage for at least three months as defined by structural or functional abnormalities of the kidney, manifested by either:Pathological abnormalities or Markers of kidney damage (including abnormalities in the composition of the blood or urine or abnormalities in imaging tests). Lab Interpretation Abnormal (test code = 64988-6) [facility] HospitalLIPASE, [id number] 01:48:00 Test Item Value Reference Range Interpretation Comments LIPASE (test code = 8155957846) 121 U/L 0-220 Lab Interpretation (test code = Normal 54555-3) [facility] HospitalPROTHROMBIN TIME / [id number] 01:47:00 Test Item Value Reference Range Interpretation Comments PROTIME PATIENT (test See_Comment [Auto mated message] code = 5964-2) The system wh ich generated this result transmitted ref erence range: 12.0 - 1 4.7 Seconds. The re ference range was not u sed to interpret this result as normal/abnor mal. INR (test code = 6301-6) Nor mal INR <1.1; Warfarin Therap eutic range 2.0 to 3. 0 or 2.5 to 3.5, dep ending upon the indica tions. Lab Interpretation (test Normal code = 55308-1) [facility] HospitalCBC WITH [id number] 01:35:00 Test Item Value Reference Range Interpretation Comments WBC (test code = See_Comment [Automated 2990-2) message] The sy stem which generated this result transmitted reference range : 4.30 - 11.10 10*3/?L. The reference range was not used to interpret this result as normal/abnormal . RBC (test code = See_Comment [Automated 9-8) message] The sy stem which generated this result transmitted reference range : 3.93 - 5.25 10*6/?L. The reference range was not used to interpret this result as normal/abnormal . HGB (test code = 12.2 g/dL 11.6-15 718-7) HCT (test code = 37.5 % 35.7-45.2 4544-3) MCV (test code = 88.9 fL 80.6-95.5 787-2) MCH (test code = 28.9 pg 25.9-32.8 785-6) MCHC (test code = 32.5 g/dL 31.6-35.1 786-4) RDW-SD (test code = 45.1 fL 39-49.9 90231-5) RDW-CV (test code = 14.0 % 12-15.5 788-0) PLT (test code = See_Comment [Automated 777-3) message] The sy stem which generated this result transmitted reference range : 166 - 358 10*3/ ?L. The reference r yeyo was not used to interpret this result as normal/abnormal . MPV (test code = 10.4 fL 9.5-12.9 49032-4) NRBC/100 WBC (test See_Comment [Automat ed code = 3040615068) message] The system which generated this result transmitted reference range : 0.0 - 10.0 /100 WBCs. The refer ence range was not u sed to interpret th is result as normal/abnormal . NRBC x10^3 (test code <0.01 See_Comment [Auto mated = 0182414750) message] The s ystem which generated this result transmitted reference range : 10*3/?L. The reference range was not used to interpret this result as normal/abnormal . GRAN MAT (NEUT) % 43.6 % (test code = 770-8) IMM GRAN % (test code 0.10 % = 4152582154) LYMPH % (test code = 44.2 % 736-9) MONO % (test code = 7.9 % 5905-5) EOS % (test code = 3.6 % 713-8) BASO % (test code = 0.6 % 706-2) GRAN MAT x10^3(ANC) 3.89 10*3/uL 1.88-7.09 (test code = 4940268410) IMM GRAN x10^3 (test <0.03 0-0.06 code = 4096129733) LYMPH x10^3 (test code 3.94 10*3/uL 1.32-3.29 H = 731-0) MONO x10^3 (test code 0.70 10*3/uL 0.33-0.92 = 742-7) EOS x10^3 (test code = 0.32 10*3/uL 0.03-0.39 711-2) BASO x10^3 (test code 0.05 10*3/uL 0.01-0.07 = 704-7) Lab Interpretation Abnormal (test code = 52755-6) [facility] HospitalTROPONIN-[id number] 06:50:00 Test Item Value Reference Range Interpretation Comments TROPONIN-I (test < 0.015 NG/ML 0.000-0.045 N Negative: </= 0.045 code = TROPI) Positive: >/= 0.046 Correlation wit h serial results, other cardiac markers, and cl inical findings is nec essary to determine the c linical significance of this result. Quantit ative results using d ifferent methodologies s hould not be compared to one another as nume rical results may issac yby method. Completed by Nursing: NOBASIC METABOLIC [id number] 03:35:00 Test Item Value Reference Range Interpretation Comments SODIUM (test code = NA) 142 mmol/L 134-147 N POTASSIUM (test code = 3.5 mmol/L 3.4-5.0 N K) CHLORIDE (test code = 107 mmol/L 100-108 N CL) CARBON DIOXIDE (test 26 mmol/L 21-32 N code = CO2) ANION GAP (test code = 9.0 GAP calc 4.0-15.0 N GAP) GLUCOSE (test code = 106 MG/DL 70-110 N GLU) BLOOD UREA NITROGEN 16 MG/DL 7-18 N (test code = BUN) GLOMERULAR FILTRATION >=60 max estimate >60 RATE (test code = GFR) estGFR CREATININE (test code = 0.8 MG/DL 0.6-1.0 N CREAT) CALCIUM (test code = CA) 8.6 MG/DL 8.5-10.1 N [id number] 03:24:00 Test Item Value Reference Range Interpretation Comments TROPONIN-I (test < 0.015 NG/ML 0.000-0.045 N Negative: </= 0.045 code = TROPI) Positive: >/= 0.046 Correlation wit h serial results, other cardiac markers, and cl inical findings is nec essary to determine the c linical significance of this result. Quantit ative results using d ifferent methodologies s hould not be compared to one another as nume rical results may issac yby method. Completed by Nursing: NOMM, U/S, BREAST, UNILATERAL, [id number] 10:19:00 Diagnostic workup per radiologist?->YesReason for Exam:->N63.0Reason for Exam:->N64.4MRN#: [id number] - MM, U/S, BREAST, UNILATERAL, LEFT ULTRASOUND OF LEFT BREAST: 10/07/2019Comparison is made to exam dated: 10/07/2019 mammogram - [facility]. Color flow and real-time ultrasound of the left breast were performed. Ultrasound of all four quadrants and the retroareolar breast was performed. Early scale images of the real-time examination were reviewed. No significant abnormalities were seen sonographically in the left breast, with attention to the clinical concern in the lower inner quadrant. IMPRESSION: BENIGN The findings havebeen discussed with the patient. There is no sonographic evidence of malignancy. William Carlson M.D. pth/:10/07/2019 10:19:33 Normal Exam Ultrasound BI-RADS: 2 Benign [id number] Electronicallysigned by: WILLIAM CARLSON M.D. on 10/07/2019 10:19 AMMM, DIGITAL MAMMO, DIAGNOSTIC, BILATERAL INCLUDING [id number] 09:19:00Diagnostic workup per radiologist?->YesReason for Exam:->breast lump in upper inner quadrand breast tenderness in femaleMRN#: [id number] - MM, DIGITAL MAMMO, DIAGNOSTIC, BILATERAL INCLUDING CAD BILATERAL DIGITAL DI AGNOSTIC MAMMOGRAM WITH CAD: 10/07/2019No prior exams were available for comparison. There are scattered fibroglandular elements in both breasts that could obscure a lesion on mammography. Current study was also evaluated with a Computer Aided Detection (CAD) system. Benign appearing calcificationsare present in the right breast. No significant masses, calcifications, or other findings are seen in either breast. IMPRESSION: There is no mammographic abnormality seen in the left breast to correspond with the reported palpable abnormality; however, further workup with ultrasound is recommended. William Carlson M.D. pth/:10/07/2019 09:19:57 Spanish Literature Professor: RT Sonya(Amanda)(Cal), [facility] Mammogram BI-RADS: 2 Benign [id number]
[2021-07-19] MEDS ORDERED: NA CHLORIDE 0.9% 1,000 ML ONE ×2 (14:51→16:27)
[2021-07-19] MEDS ORDERED: ONDANSETRON 4 MG/2 ML VIAL ONE (14:51)
[2021-07-19 14:56] LABS: Absolute Lymphocytes (CBC) 2.3 K/uL (0.7-4.9); Hematocrit 37.5 % (36.0-45.0); Lymphocytes % 41.8 % (15.3-44.8); MPV 9.7 fL (7.6-11.3); RBC Red Blood Cell Count 4.26 M/uL (3.86-4.86)
[2021-07-19 15:20] LABS: Albumin 3.7 g/dL (3.4-5.0); Bilirubin Direct 0.2 mg/dL (0-0.2); Bilirubin Total 0.5 mg/dL (0.2-1.0); Potassium 3.8 mmol/L (3.5-5.1); Protein, Total 8.1 g/dL (6.4-8.2)
--- NOTE | 2021-07-19 16:10 | EDPHYS ---
Physician Documentation [facility] Name: Junie Peralta Age: 51 yrs Sex: Female : 1970 Arrival Date: 07/19/2021 Time: 14:17 Bed 23 Private MD: Amanda Prado ED Physician Cory Martin HPI: 07/19 15:01 This 51 yrs old Black Female presents to ER via Ambulatory with complaints of sp3 dehydration. 15:01 1-year-old female with multiple medical problems and recent gastric sleeve performed 3 sp3 weeks ago without incident now presents to the ED for evaluation sent by her physician team for possible dehydration, IV fluids, and general assessment. Patient states that her p.o. intake has been decreased secondary to "her taste buds being off". She does not believe she has COVID as she was recently tested. It is just hard for her to swallow and therefore has not been taking p.o. intake states that her urine output is slightly decreased as well. Patient denies any pain including headache, neck pain, chest pain, back pain, abdominal pain, actual vomiting, diarrhea, shortness of breath, cough, fever, any other ROS at this time. Patient is only nauseated and has not had any emesis.. FINISHER MAP AND CHART: 14:32 LMP N/A - Post-menopause ab2 Historical: - Allergies: 14:22 Benadryl; tw2 14:22 Flexeril; tw2 14:22 gabapentin; tw2 - Home Meds: 14:22 amiodarone 200 mg Oral tab 1 tab once daily [Active]; aspirin 325 mg Oral tab 1 tab tw2 once daily [Active]; Effexor 25 mg Oral tab 1 tab 2 times per day [Active]; losartan 100 mg Oral tab 1 tab once daily [Active]; metformin 1,000 mg Oral tab 1 tab [Active]; Protonix 40 mg Oral TbEC 1 tab once daily [Active]; triamterene-hydrochlorothiazid 37.5-25 mg Oral cap once daily [Active]; - PMHx: 14:22 Adenomyosis; Hypertension; GERD; Depression; Diabetes - NIDDM; Obesity; Sleep Apnea; tw2 - PSHx: 14:22 breast reduction; Total abdominal hysterectomy; Total right knee; tw2 - Immunization history:: Client reports receiving the 2nd dose of the Covid vaccine. - Social history:: Smoking status: Patient denies any tobacco usage or history of. ROS: 15:02 Constitutional: Negative for fever, chills, and weight loss, Eyes: Negative for injury, sp3 pain, redness, and discharge, ENT: Negative for injury, pain, and discharge, Neck: Negative for injury, pain, and swelling, Cardiovascular: Negative for chest pain, palpitations, and edema, Respiratory: Negative for shortness of breath, cough, wheezing, and pleuritic chest pain, Back: Negative for injury and pain, MS/Extremity: Negative for injury and deformity, Skin: Negative for injury, rash, and discoloration, Neuro: Negative for headache, weakness, numbness, tingling, and seizure. 15:02 All other systems are negative. Exam: 15:02 Constitutional: This is a well developed, well nourished patient who is awake, alert, sp3 and in no acute distress. Head/Face: Normocephalic, atraumatic. Eyes: Pupils equal round and reactive to light, extra-ocular motions intact. Lids and lashes normal. Conjunctiva and sclera are non-icteric and not injected. Cornea within normal limits. Periorbital areas with no swelling, redness, or edema. Neck: Trachea midline, no thyromegaly or masses palpated, and no cervical lymphadenopathy. Supple, full range of motion without nuchal rigidity, or vertebral point tenderness. No Meningismus. Chest/axilla: Normal chest wall appearance and motion. Nontender with no deformity. No lesions are appreciated. Cardiovascular: Regular rate and rhythm with a normal S1 and S2. No gallops, murmurs, or rubs. Normal PMI, no JVD. No pulse deficits. Respiratory: Lungs have equal breath sounds bilaterally, clear to auscultation and percussion. No rales, rhonchi or wheezes noted. No increased work of breathing, no retractions or nasal flaring. Abdomen/GI: Soft, non-tender, with normal bowel sounds. No distension or tympany. No guarding or rebound. No evidence of tenderness throughout. Back: No spinal tenderness. No costovertebral tenderness. Full range of motion. Skin: Warm, dry with normal turgor. Normal color with no rashes, no lesions, and no evidence of cellulitis. MS/ Extremity: Pulses equal, no cyanosis. Neurovascular intact. Full, normal range of motion. Neuro: Awake and alert, GCS 15, oriented to person, place, time, and situation. Cranial nerves II-XII grossly intact. Motor strength 5/5 in all extremities. Sensory grossly intact. Cerebellar exam normal. Normal gait. Psych: Awake, alert, with orientation to person, place and time. Behavior, mood, and affect are within normal limits. Vital Signs: 14:20 BP 151 / 78; Pulse 71; Resp 17; Temp 97.6(TE); Pulse Ox 100% on R/A; tw2 14:32 BP 126 / 72; Pulse 87; Resp 16; Temp 98.2; Pulse Ox 98% on R/A; Pain 0/10; ab2 15:57 BP 112 / 61; Pulse 81; Resp 16; Pulse Ox 98% on R/A; Pain 0/10; ab2 17:06 BP 116 / ???; Pulse 80; Resp 16; Temp 98.8(O); Pulse Ox 99% on R/A; Pain 0/10; ab2 MDM: 14:54 Patient medically screened. sp3 15:02 Data reviewed: vital signs, nurses notes. ED course: 51-year-old female status post sp3 gastric sleeve here for likely clinical mild dehydration. We will administer IV fluids, check labs, and observe patient. If work-up negative and patient is improved we will discharge patient home with follow-up with her primary team.. 16:08 ED course: Patient's creatinine is 1.44. We will administer a second liter of normal sp3 saline and discharged her to PCP follow-up. This is all likely prerenal in nature.. 07/19 14:34 Order name: Basic Metabolic Panel; Complete Time: 15:57 sp3 07/19 14:34 Order name: CBC with Diff; Complete Time: 15:57 sp3 07/19 14:34 Order name: Hepatic Function; Complete Time: 15:57 sp3 07/19 14:34 Order name: Lipase; Complete Time: 15:57 sp3 07/19 14:34 Order name: IV Saline Lock; Complete Time: 14:55 sp3 07/19 14:34 Order name: Labs collected and sent; Complete Time: 14:55 sp3 Administered Medications: 14:54 Drug: Zofran (Ondansetron) 4 mg Route: IVP; Site: right antecubital; ab2 16:31 Follow up: Response: Marked relief of symptoms ab2 14:55 Drug: NS 0.9% 1000 ml Route: IV; Rate: 1 bolus; Site: right antecubital; ab2 16:31 Follow up: Response: No adverse reaction; Marked relief of symptoms ab2 16:31 Drug: NS 0.9% 1000 ml Route: IV; Rate: 1 bolus; Site: right antecubital; ab2 17:35 Follow up: Response: No adverse reaction; IV Status: Completed infusion; IV Intake: ab2 2000ml Disposition Summary: 07/19/21 16:09 Discharge Ordered Location: Home sp3 Condition: Stable sp3 Diagnosis - Dehydration sp3 Followup: sp3 - With: Private Physician - When: Upon discharge from the Emergency Department - Reason: Recheck today's complaints Discharge Instructions: - Discharge Summary Sheet tw2 - Dehydration, Adult sp3 Forms: - Work release form tw2 - Medication Reconciliation Form sp3 - Thank You Letter sp3 - Antibiotic Education sp3 - Prescription Opioid Use sp3 Signatures: Dispatcher [employer] Cassi Gonzalez RN RN tw2 Cory Martin MD MD sp3 Nino Workman ab2
--- NOTE | 2021-07-19 16:10 | ER ---
Nurse's Notes [facility] Name: Junie Perlata Age: 51 yrs Sex: Female : 1970 Arrival Date: 07/19/2021 Time: 14:17 Bed 23 Private MD: Amanda Prado Diagnosis: Dehydration Presentation: 07/19 14:20 Chief complaint: Patient states: i am 3 weeks post gastric sleeve and i cant keep tw2 anything down. i have been trying. my mds rn and gastrologist sent me here. i am doing my best to not throw up. i am dry heave. Coronavirus screen: At this time, the client does not indicate any symptoms associated with coronavirus-19. Ebola Screen: Patient denies travel to an Ebola-affected area in the 21 days before illness onset. Initial Sepsis Screen: Does the patient meet any 2 criteria? No. Patient's initial sepsis screen is negative. Does the patient have a suspected source of infection? No. Patient's initial sepsis screen is negative. Risk Assessment: Do you want to hurt yourself or someone else? Patient reports no desire to harm self or others. Onset of symptoms was July 19, 2021. 14:20 Method Of Arrival: Ambulatory tw2 14:20 Acuity: HERMAN 3 tw2 Triage Assessment: 14:25 General: Appears in no apparent distress. uncomfortable, obese, well groomed, Behavior tw2 is calm, cooperative, appropriate for age. General: Reports weak because i am dehydrated. Pain: Denies pain. :. 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 LMP N/A - Post-menopause ab2 Historical: - Allergies: 14:22 Benadryl; tw2 14:22 Flexeril; tw2 14:22 gabapentin; tw2 - Home Meds: 14:22 amiodarone 200 mg Oral tab 1 tab once daily [Active]; aspirin 325 mg Oral tab 1 tab tw2 once daily [Active]; Effexor 25 mg Oral tab 1 tab 2 times per day [Active]; losartan 100 mg Oral tab 1 tab once daily [Active]; metformin 1,000 mg Oral tab 1 tab [Active]; Protonix 40 mg Oral TbEC 1 tab once daily [Active]; triamterene-hydrochlorothiazid 37.5-25 mg Oral cap once daily [Active]; - PMHx: 14:22 Adenomyosis; Hypertension; GERD; Depression; Diabetes - NIDDM; Obesity; Sleep Apnea; tw2 - PSHx: 14:22 breast reduction; Total abdominal hysterectomy; Total right knee; tw2 - Immunization history:: Client reports receiving the 2nd dose of the Covid vaccine. - Social history:: Smoking status: Patient denies any tobacco usage or history of. Screenin:32 Abuse screen: Denies threats or abuse. Denies injuries from another. Nutritional ab2 screening: No deficits noted. Tuberculosis screening: No symptoms or risk factors identified. Fall Risk None identified. Assessment: 14:33 General: Appears in no apparent distress. comfortable, obese, Behavior is calm, ab2 cooperative, appropriate for age. Pain: Denies pain. Neuro: No deficits noted. Level of Consciousness is awake, alert, obeys commands, Oriented to person, place, time, situation, Appropriate for age Management Supervisor are equal bilaterally Moves all extremities. Gait is steady, Gets dizzy when stands up. Cardiovascular: Reports lightheadedness, Denies chest pain, shortness of breath, Heart tones S1 S2 present Patient's skin is warm and dry. Chest pain is denied. Respiratory: No deficits noted. Airway is patent Breath sounds are clear bilaterally. Denies shortness of breath. GI: No deficits noted. No signs and/or symptoms were reported involving the gastrointestinal system. Abdomen is round Patient currently denies abdominal pain. : No deficits noted. No signs and/or symptoms were reported regarding the genitourinary system. EENT: No deficits noted. No signs and/or symptoms were reported regarding the EENT system. Derm: No deficits noted. No signs and/or symptoms reported regarding the dermatologic system. Denies pain. Musculoskeletal: No deficits noted. No signs and/or symptoms reported regarding the musculoskeletal system. Vital Signs: 14:20 BP 151 / 78; Pulse 71; Resp 17; Temp 97.6(TE); Pulse Ox 100% on R/A; tw2 14:32 BP 126 / 72; Pulse 87; Resp 16; Temp 98.2; Pulse Ox 98% on R/A; Pain 0/10; ab2 15:57 BP 112 / 61; Pulse 81; Resp 16; Pulse Ox 98% on R/A; Pain 0/10; ab2 17:06 BP 116 / ???; Pulse 80; Resp 16; Temp 98.8(O); Pulse Ox 99% on R/A; Pain 0/10; ab2 ED Course: 14:17 Patient arrived in ED. am2 14:18 Amanda Prado FNP-C is Private Physician. am2 14:22 Triage completed. tw2 14:22 Arm band placed on. tw2 14:31 Nino Workman is Primary Nurse. ab2 14:32 Cory Martin MD is Attending Physician. sp3 14:32 No provider procedures requiring assistance completed. ab2 14:33 Patient has correct armband on for positive identification. Bed in low position. Call ab2 light in reach. Side rails up X2. 14:36 No apparent distress. ab2 14:55 Inserted saline lock: 18 gauge in right antecubital area, using aseptic technique. ab2 Blood collected. 14:56 Lipase Sent. ab2 14:56 Hepatic Function Sent. ab2 14:56 CBC with Diff Sent. ab2 14:56 Basic Metabolic Panel Sent. ab2 17:38 IV discontinued, intact, bleeding controlled, No redness/swelling at site. Pressure ab2 dressing applied. Administered Medications: 14:54 Drug: Zofran (Ondansetron) 4 mg Route: IVP; Site: right antecubital; ab2 16:31 Follow up: Response: Marked relief of symptoms ab2 14:55 Drug: NS 0.9% 1000 ml Route: IV; Rate: 1 bolus; Site: right antecubital; ab2 16:31 Follow up: Response: No adverse reaction; Marked relief of symptoms ab2 16:31 Drug: NS 0.9% 1000 ml Route: IV; Rate: 1 bolus; Site: right antecubital; ab2 17:35 Follow up: Response: No adverse reaction; IV Status: Completed infusion; IV Intake: ab2 2000ml Intake: 17:35 IV: 2000ml; Total: 2000ml. ab2 Outcome: 16:09 Discharge ordered by . sp3 17:36 Discharged to home ab2 17:36 Condition: good 17:36 Discharge instructions given to patient, Instructed on discharge instructions, follow up and referral plans. Demonstrated understanding of instructions, follow-up care. 17:38 Patient left the ED. ab2 Signatures: Cassi Graham RN RN tw2 Namrata Treviño am2 Cory Martin MD MD sp3 Nino Workman ab2
[2021-07-19 17:46] VITALS: BP 112/61
[2021-07-19 17:48] VITALS: TEMP 98.8; O2SAT 99
== END 2021-07-19 17:38 | disposition home or self-care (01) ==
LOC: ER 14:07
DX: E86.0 Dehydration (principal)
CPT/HCPCS: 96361; 85025; 80048; 36415; 80076; 83690; 96374; 99284; J7030 ×2; J2405

== ENCOUNTER 2021-07-26 16:17 | Emergency (ER) | payer BC ==
--- OUTSIDE RECORDS SUMMARY | 2021-07-26 16:22 | XMS REPORT | Continuity of Care Document ---
:1970 Author Organization [facility] t Address [address] [place] [address] Care Team Providers Name Role Phone ANDREIA [...] Attending Clinician Katerina Thornton MD Attending Clinician [phone] DAWN BALBUENA Attending Clinician Unavailable MIO JAQUEZ Admitting Clinician Unavailable Marybeth Admitting Clinician Unavailable LLOYD HENSON Admitting Clinician Unavailable MACK CARRINGTON Admitting Clinician Unavailable Hillary RAYMOND, Katerina Admitting Clinician [phone] KNOW Admitting Clinician Unavailable Payers Payer Name Policy Type Policy Number Effective Date Expiration Date S ourclau CIGNA HMO/POS/OPEN [id number] 2018 ACCESS 00:00:00 GENERIC COMMERCIAL [id number] 2020 00:00:00 00:00:00 AETNA OPEN ACCESS [id number] 2020 HMO NAP 00:00:00 COVID VACCINE [id number] 2020-08-01 ADMIN / TESTING 00:00:00 HMO/POS OPEN [id number] 2018-07-13 2019-12-21 ACCESS - CIGNA 00:00:00 00:00:00 GENERIC PPO - [id number] GENERIC PAYOR 00:00:00 Problems Condition Condition Condition Status Onset Resolution Last Treating Co mments Source Name Details Category Date Date Treatment Clinician Date GERD GERD Disease Active [facility] (gastroeso (gastroeso 04-09 Co llege phageal phageal [...] RVR RVR e Morbid Morbid Disease Active [facility] obesity obesity 03-13 [place] with body with body 00:00: of mass index mass index 00 Me dicin of of e 40.0-49.9 40.0-49.9 Paroxysmal Paroxysmal Disease Active [facility] atrial atrial 03-13 [place] fibrillati fibrillati 00:00: of on with on with 00 Medicin RVR RVR e (HCCode) (HCCode) Morbid Morbid Disease Active [facility] obesity obesity 03-13 [place] with body with body 00:00: of mass index mass index 00 Me dicin of of e 40.0-49.9 40.0-49.9 (HCCode) (HCCode) SANDEEP SANDEEP Disease Active [facility] (obstructi (obstructi 03-13 Co llege ve sleep ve sleep 00:00: of apnea) apnea) 00 Medicin e A-fib A-fib Disease Active Univers 8-31 ity of 00:00: [place] 00 [facility] Type 2 Type 2 Disease Active [facility] diabetes diabetes 4-26 Colleg e mellitus mellitus 00:00: of without without 00 Medicin complicati complicati e on, on, without without long-term long-term current current use of use of insulin insulin (HCCode) (HCCode) Essential Essential Disease Active [facility] hypertensi hypertensi 01-10 Co llege on on 00:00: of 00 Medicin e Allergies, Adverse Reactions, Alerts Allergy Allergy Status Severity Reaction(s) Onset Inactive Treating Comm ents Source Name Type Date Date Clinician GABAPENT Allergy Active Other 2020-[address] [facility] CYCLOBEN Allergy Active Other [facility] ZAPRINE 4-12 00:00: 00 Benadryl Propensi Active Palpitations [facility] Allergy ty to 3-17 College adverse 00:00: of reaction 00 Medicin s to e drug Cycloben Propensi Active Other [facility] zaprine ty to 3-17 reaction( Colleg e adverse 00:00: s): of reaction 00 Tachycard Medic in s to ia e drug cycloben DA Active [facility] zaprine 3-29 Clear 00:00: [place]ter[place] [address] [place] [address] DIPHENHY Allergy Active Low Palpitations S [facility] DRAMINE 10-08 00:00: 00 diphenhy DA Active [facility] dramine 10-08 Clear 00:00: [place] 00 [facility] cycloben DA Active U tachycardia [facility] zaprine 10-08 Clear 00:00: [place] 00 [facility] diphenhy DA Active U tachycardia [facility] dramine 10-08 Clear 00:00: [place] 00 [facility] Gabapent Propensi Active Other [facility] in ty to 10-07 reaction( College adverse 00:00: s): of reaction 00 Other, Medicin s to Other e drug (See Comments) , Other (See Comments) HR dropped to 40's after being on it for 2 weeksHR dropped to 40's after being on it for 2 weeks NO KNOWN Drug Active [facility]OWN Allergy Active [facility] Social History Social Habit Start Date Stop Date Quantity Comments Source Sex Assigned At [facility] of [facility] History [facility] ge of Alcohol Std Medicine Drinks History [facility] ge of Alcohol Binge Medicine History [facility] of Alcohol Comment Medicine Exposure to Not sure [facility] of SARS-CoV-2 Medicine (event) Alcohol intake 2021-07-10 2021-07-10 Current drinker [facility] 00:00:00 00:00:00 of alcohol Medicine (finding) Tobacco use and 2020-09-26 2020-09-26 Smokeless tobacco [facility] of exposure 00:00:00 00:00:00 non-user Medicine History [facility] 2020-09-26 2020-09-26 1 [facility] ge of Alcohol Frequency 00:00:00 00:00:00 Medicin e Smoking Status Start Date Stop Date Source Never smoker [facility] Medications Ordered Filled Start Stop Current Ordering Indication Dosage Frequency Signature Comments Components Source Medication Medication Date Date Medication? Clinician (SIG) Name Name pantoprazol 2020-07 Yes 40mg Take 40 mg Jae e 2-29 by mouth College (PROTONIX) 09:04: daily. of 40 MG 02 Medicin tablet e losartan 2020-07 Yes 100mg Take 100 [place] (COZAAR) 2-29 mg by [place] 100 MG 09:04: mouth of tablet 02 daily. Medicin e aspirin 325 2020-07 Yes 325mg Take 325 [facility] mg tablet 2-29 mg by [place] 09:04: mouth of 02 daily. Medicin e Multiple 2020-07 Yes 1{capsu Take 1 [place] Vitamin 2-29 le} capsule by [facility] (MULTIVITAM 09:04: mouth of INS) CAPS 02 daily. Medicin e Ferrous 2020-07 Yes 1{tbl} Take 1 [facility] Sulfate 2-29 Tablet by [place] (IRON) 325 09:04: mouth of (65 Fe) MG 02 daily. Medicin TABS e metformin 2020-07- 1000mg Take 1,000 [facility] (GLUCOPHAGE 2-29 12-29 mg by [facility] ) 1000 MG 09:03: 00:00 mouth of tablet 48 :00 daily. Medicin e metformin 2020-07 Yes 1000mg Take 1,000 [facility] (GLUCOPHAGE 2-13 mg by [place] ) 1000 MG 14:40: mouth of tablet 39 daily. Medicin e pantoprazol 2020-07 Yes 40mg Take 40 mg [facility] e 2-13 by mouth College (PROTONIX) 14:40: daily. of 40 MG 39 Medicin tablet e losartan 2020-07 Yes 100mg Take 100 [place] (COZAAR) 2-13 mg by [place] 100 MG 14:40: mouth of tablet 39 daily. Medicin e aspirin 325 2020-07 Yes 325mg Take 325 [facility] [place] mg tablet 2-13 mg by [place] 14:40: mouth of 39 daily. Medicin e Multiple 2020-07 Yes 1{capsu Take 1 [place] Vitamin 2-13 le} capsule by [facility] (MULTIVITAM 14:40: mouth of INS) CAPS 39 daily. Medicin e Ferrous 2020-07 Yes 1{tbl} Take 1 [facility] Sulfate 2-13 Tablet by [place] (IRON) 325 14:40: mouth of (65 Fe) MG 39 daily. Medicin TABS e docusate 2020-07 Yes 100mg Take 1 [facility] sodium 2-13 capsule by [place] (COLACE) 00:00: mouth of 100 MG 00 daily. Medicin capsule e pantoprazol 2020-07 Yes 40mg Take 1 [place] e 2-13 Tablet by [place] (PROTONIX) 00:00: mouth of 40 MG 00 daily. Medicin tablet e Scopolamine 2020-07 Yes 1{patch Place 1 Aje 1 MG/3DAYS 2-13 } Patch onto Col lege [id number] 00:00: the skin of 00 every 3 Medicin days. e acetaminoph 2020-07 Yes 500mg Take 1 [place] portia en 2-13 Tablet by [place] (TYLENOL) 00:00: mouth of 500 mg 00 [...] ion). docusate 2020-07 Yes 100mg Take 1 Aje sodium 2-13 capsule by [place] (COLACE) 00:00: mouth of 100 MG 00 daily. Medicin capsule e pantoprazol 2020-07 Yes 40mg Take 1 [place] e 2-13 Tablet by [place] (PROTONIX) 00:00: mouth of 40 MG 00 daily. Medicin tablet e Scopolamine 2020-07 Yes 1{patch Place 1 Jae 1 MG/3DAYS 2-13 } Patch onto Col lege [id number] 00:00: the skin of 00 every 3 Medicin days. e acetaminoph 2020-07 Yes 500mg Take 1 [place] portia en 2-13 Tablet by [place] (TYLENOL) 00:00: mouth of 500 mg 00 every 6 Medicin tablet hours as e needed. ondansetron 2020-07 Yes 4mg Take 1 [place] (ZOFRAN) 4 2-13 Tablet by Radha ege MG tablet 00:00: mouth of 00 every 8 Medicin hours as e needed for Nausea. polyethylen 2020-07 Yes 1{packe Take 1 [facility] [place] e glycol 2-13 t} Packet by Chna arana (MIRALAX) 00:00: mouth of 17 g packet 00 daily as Medi olayinka needed e (constipat ion). acetaminoph 2020-07 Yes 1{tbl} Take 1 [facility] en-codeine 2-13 Tablet by Radha blake (TYLENOL 00:00: mouth of #3) 300-30 00 every 4 Medici n MG per hours as e tablet needed. metformin 2020-07 Yes 1000mg Take 1,000 [facility] (GLUCOPHAGE 1-08 mg by [place] ) 1000 MG 09:32: mouth of tablet 19 daily. Medicin e pantoprazol 2020-07 Yes 40mg Take 40 mg Jae e 1-08 by mouth [place] (PROTONIX) 09:32: daily. of 40 MG 19 Medicin tablet e losartan 2020-07 Yes 100mg Take 100 [place] (COZAAR) 1-08 mg by [place] 100 MG 09:32: mouth of tablet 19 daily. Medicin e aspirin 325 2020-07 Yes 325mg Take 325 [facility] [place] mg tablet 1-08 mg by [place] 09:32: mouth of 19 daily. Medicin e Multiple 2020-07 Yes 1{capsu Take 1 [place] Vitamin 1-08 le} capsule by Chan arana (MULTIVITAM 09:32: mouth of INS) CAPS 19 daily. Medicin e Ferrous 2020-07 Yes 1{tbl} Take 1 [facility] Sulfate 1-08 Tablet by [place] (IRON) 325 09:32: mouth of (65 Fe) MG 19 daily. Medicin TABS e metformin Yes 1000mg Take 1,000 Jae (GLUCOPHAGE 9-28 mg by [place] ) 1000 MG 10:45: mouth of tablet 56 daily. Medicin e pantoprazol Yes 40mg Take 40 mg [facility] e 9-28 by mouth [place] (PROTONIX) 10:45: daily. of 40 MG 56 Medicin tablet e losartan Yes 100mg Take 100 [place] (COZAAR) 9-28 mg by [place] 100 MG 10:45: mouth of tablet 56 daily. Medicin e aspirin 325 Yes 325mg Take 325 [facility] [place] mg tablet 9-28 mg by [place] 10:45: mouth of 56 daily. Medicin e metformin Yes 1000mg Take 1,000 Jae (GLUCOPHAGE 9-28 mg by College ) 1000 MG 10:45: mouth of tablet 56 daily. Medicin e pantoprazol Yes 40mg Take 40 mg [facility] e 9-28 by mouth College (PROTONIX) 10:45: daily. of 40 MG 56 Medicin tablet e losartan Yes 100mg Take 100 [place] (COZAAR) 9-28 mg by [place] 100 MG 10:45: mouth of tablet 56 daily. Medicin e aspirin 325 Yes 325mg Take 325 [place] mg tablet 9-28 mg by [place] 10:45: mouth of 56 daily. Medicin e Na Yes [SUPREP] Jae Sulfate-K 9-28 Take as College Sulfate-Mg 00:00: directed. of Sulf 00 Medicin (SUPREP e BOWEL PREP KIT) 17.5-3.13-1 .6 GM/177ML SOLN Na Yes [SUPREP] Jae Sulfate-K 9-28 Take as College Sulfate-Mg 00:00: directed. of Sulf 00 Medicin (SUPREP e BOWEL PREP KIT) 17.5-3.13-1 .6 GM/177ML SOLN Na 2020- No [SUPREP] [facility] Sulfate-K 9-28 -08 Take as [facility] e Sulfate-Mg 00:00: 00:00 directed. o f Sulf 00 :00 Medicin (SUPREP e BOWEL PREP KIT) 17.5-3.13-1 .6 GM/177ML SOLN losartan Yes 100mg Take 100 [place] (COZAAR) 4-22 mg by [place] 100 MG 20:37: mouth of tablet 38 daily. Medicin e aspirin 325 Yes 325mg Take 325 [place] mg tablet 4-22 mg by [place] 20:37: mouth of 38 daily. Medicin e metformin Yes 1000mg Take 1,000 [facility] (GLUCOPHAGE 4-22 mg by [place] ) 1000 MG 20:34: mouth of tablet 38 daily. Medicin e pantoprazol Yes 40mg Take 40 mg Jae e 4-22 by mouth [place] (PROTONIX) 20:34: daily. of 40 MG 38 Medicin tablet e amiodarone 2021-0 Yes 1{tbl} Take 1 [place] (PACERONE) 2-28 Tablet by Radha ege 200 MG 00:00: mouth of tablet 00 daily. Medicin e triamterene 0 Yes 1{tbl} Take 1 [facility] -hydrochlor 2-28 Tablet by Col [facility]ge othiazide 00:00: mouth of (MAXZIDE) 00 daily. Medicin 37.5-25 MG e per tablet amiodarone 2020-0 Yes 1{tbl} Take 1 [place] (PACERONE) 2-28 Tablet by Radha ege 200 MG 00:00: mouth of tablet 00 daily. Medicin e triamterene 0 Yes 1{tbl} Take 1 [facility] -hydrochlor 2-28 Tablet by Col lege othiazide 00:00: mouth of (MAXZIDE) 00 daily. Medicin 37.5-25 MG e per tablet amiodarone 2020-0 Yes 1{tbl} Take 1 [place] (PACERONE) 2-28 Tablet by Radha ege 200 MG 00:00: mouth of tablet 00 daily. Medicin e triamterene 2020-0 Yes 1{tbl} Take 1 [facility] -hydrochlor 2-28 Tablet by Col lege othiazide 00:00: mouth of (MAXZIDE) 00 daily. Medicin 37.5-25 MG e per tablet amiodarone 0 Yes 1{tbl} Take 1 [place] (PACERONE) 2-28 Tablet by Radha ege 200 MG 00:00: mouth of tablet 00 daily. Medicin e triamterene 0 Yes 1{tbl} Take 1 [facility] -hydrochlor 2-28 Tablet by Col lege othiazide 00:00: mouth of (MAXZIDE) 00 daily. Medicin 37.5-25 MG e per tablet amiodarone 2020-0 Yes 1{tbl} Take 1 [place] (PACERONE) 2-28 Tablet by Radha ege 200 MG 00:00: mouth of tablet 00 daily. Medicin e triamterene 2020-0 Yes 1{tbl} Take 1 [facility] -hydrochlor 2-28 Tablet by Col lege othiazide 00:00: mouth of (MAXZIDE) 00 daily. Medicin 37.5-25 MG e per tablet amiodarone Yes 1{tbl} Take 1 [place] (PACERONE) 2-28 Tablet by Radha ege 200 MG 00:00: mouth of tablet 00 daily. Medicin e triamterene Yes 1{tbl} Take 1 [facility] -hydrochlor 2-28 Tablet by Col lege othiazide 00:00: mouth of (MAXZIDE) 00 daily. Medicin 37.5-25 MG e per tablet ELIQUIS 5 2020- No 1{tbl} Take 1 [place]ia MG TABS 2-28 04-22 Tablet by [...] mg 12 every Medical per capsule morning. [facility] pantoprazol 2019-0 Yes 40mg Take 40 mg Univers e 40 mg EC 9-02 by mouth ity o f tablet 17:14: daily. [place] 12 Medical Branch venlafaxine 2020-0 Yes 37.5mg Take 37.5 Univers 25 mg 9-02 mg by ity of tablet 17:14: mouth at [place] 12 bedtime. Medical Branch metFORMIN 2020-0 Yes 1000mg Take 1,000 Univers 1,000 mg 9-02 mg by ity of tablet 17:14: mouth [place] 12 daily. Medical Branch triamterene 2019-0 Yes 1{capsu Take 1 U nivers -hydrochlor 03-14 le} capsule by it y of othiazide 17:14: mouth [place] 37.5-25 mg 12 every Medical per capsule morning. [facility] pantoprazol Yes 40mg Take 40 mg Univers e 40 mg EC 03-14 by mouth ity o f tablet 17:14: daily. [address] venlafaxine 2019-0 Yes 37.5mg Take 37.5 Univers 25 mg - mg by ity of tablet 17:14: mouth at [place] [id number] bedtime. [facility] amiodarone 0 Yes 400mg 400 mg, Uni vers (PACERONE) 03-14 Oral, ity of tablet 400 14:00: DAILY, [place] mg 00 First dose Medical on Thu [place] 03/14/20 at 0900, Until Discontinu ed, Routine venlafaxine 2019-0 Yes 37.5mg 37.5 mg, Univers (EFFEXOR) 03-14 Oral, QHS, ity of tablet 37.5 02:00: First dose [place] mg 00 on [facility] 03/13/20 at Branch 2100, Until Discontinu ed, Routine amiodarone 2019-0 Yes [id number] Take 400 Univers 200 mg 9-02 mg po qd x ity of tablet 00:00: 7 days [place] 00 then 200 Medical mg qd [place] apixaban 5 2019-0 Yes 1358 5mg Take 1 Unive rs mg tablet 03-14 tablet by ity o f 00:00: mouth 2 [place] 00 (two) [facility] times [place] daily. Indication s: atrial fibrillati on amiodarone 2019-0 Yes [id number] Take 400 Univers 200 mg 9-02 mg po qd x ity of tablet 00:00: 7 days [place] 00 then 200 Medical mg qd [place] apixaban 5 2019-0 Yes 1358 5mg Take 1 Unive rs mg tablet 03-14 tablet by ity o f 00:00: mouth 2 [place] 00 (two) Medical times [place] daily. Indication s: atrial fibrillati on digoxin 2019- No 250ug 250 mcg, Univ ers (LANOXIN) 03-13 Intravenou ity of injection 20:00: 20:53 s, ONCE, 1 [place] 250 mcg 00 :00 dose, [facility] 03/13/20 at Branch 1500, Routine amiodarone 2020-0 Yes .5mg/mi 0.5 mg/min Univers (CORDARONE) 03-13 n (16.6667 ity of 900 mg in 19:45: mL/hr, [place] D5W 500 mL 00 rounded to Med ical infusion 16.67 Branch mL/hr), IV Infusion, CONTINUOUS , Starting Thu03/13/20 at 1445
Al l amiodarone infusions must be administer ed using a 0.22 micron in line filter. Administer via central line if available. Amiodarone infusions with concentrat ions > 2 mg/mL must be administer ed via central line.
ibuprofen 2020-0 Yes 600mg 600 mg, [facility] ers (IBU) 03-13 Oral, ity of tablet 600 17:58: Q8HPRN, [place] 07 Starting Medical Thu03/13/20 Branch at 1258, Until Discontinu ed, Routine, Pain (scale 4-6) acetaminoph 2020-0 Yes 650mg 650 mg, Un rosendo en 03-13 Oral, ity of (TYLENOL) 17:57: Q4HPRN, [place] tablet 650 50 Starting Medic al mg Thu03/13/20 Branch at 1257, Until Discontinu ed, Routine, Pain (scale 1-3) sulfur 2020-0 2020- No 5mL 5 mL, [facility] hexafluorid 03-13 Intravenou i ty of e microsphr 16:00: 13:45 s, ONCE, 1 [place] (LUMASON) 00 :00 dose, Tue Medic al injection 5 03/13/20 at [facility] [address] mL 1100, Routine
committee member approving Restricted medication : PRESTON SCHMITT pantoprazol 2020-0 Yes 40mg 40 mg, [facility] ers e 03-13 Oral, ity of (PROTONIX) 14:00: DAILY, [place] EC tablet 00 First dose Medi porfirio 40 mg on Thu Branch 03/13/20 at 0900, Until Discontinu ed, Routine triamterene 2020-0 Yes .5{tbl} 0.5 Uni vers -hydrochlor 03-13 tablet, ity o f othiazid 14:00: Oral, [place] (MAXZIDE-25 00 DAILY, Medica l ) 37.5-25 [...] AC+HS, ity of Insulin-Reg 12:30: First dose [place] ular + Fsbg 00 on Thu Medica [...] Filled Immunization Date Status Comments [facility] e Immunization Name Name PPD (TB) 2011-04-30 Completed University of 00:00:00 [facility] PPD (TB) 2011-04-30 Completed University of 00:00:00 [facility] Influenza Virus 2011-03-11 Completed Universit y of Vaccine Quad IM 00:00:00 [place] Med ical Multi-dose 6+ MO Branch Influenza Virus 2011-03-11 Completed Universit y of Vaccine [place] IM 00:00:00 [facility] ical Multi-dose 6+ MO Branch TDAP 2011-01-27 Completed University of 00:00:00 [facility] TDAP 2011-01-27 Completed University of 00:00:00 [facility] PPD (TB) 2010-04-17 Completed University of 00:00:00 [facility] PPD (TB) 2010-04-17 Completed University of 00:00:00 [facility] PPD (TB) 2009-04-23 Completed University of 00:00:00 [facility] PPD (TB) 2009-04-23 Completed University of 00:00:00 [facility] Influenza Virus 2009-03-27 Completed Universit y of Vaccine [facility] IM 00:00:00 [facility] ical Multi-dose 6+ MO Branch Influenza Virus 2009-03-27 Completed Universit y of Vaccine Quad IM 00:00:00 [place] Med ical Multi-dose 6+ MO Branch Vital Signs Vital Name Observation Time Observation Value Comments Source Systolic blood 2021-07-10 15:01:00 133 mm[Hg] [facility] pressure Medicine Diastolic blood 2021-07-10 15:01:00 81 mm[Hg] [facility] pressure Medicine Heart rate 2021-07-10 15:01:00 52 /min [facility] Body height 2021-07-10 15:01:00 167.6 cm [facility] C [facility]lege of Medicine Body weight 2021-07-10 15:01:00 111.131 kg [facility] C [facility] of Medicine BMI 2021-07-10 15:01:00 39.54 kg/m2 [facility] C [facility] of Medicine HEIGHT 2021-06-27 09:00:00 167.6 cm WEIGHT 2021-06-27 09:00:00 116.4 kg HEIGHT 2021-06-26 15:52:00 168.9 cm WEIGHT 2021-06-26 15:52:00 116.574 kg HEIGHT 2021-06-27 09:00:00 167.6 cm WEIGHT 2021-06-27 09:00:00 116.4 kg HEIGHT 2021-06-26 15:52:00 168.9 cm WEIGHT 2021-06-26 15:52:00 116.574 kg HEIGHT 2021-06-24 09:52:00 167.6 cm WEIGHT 2021-06-24 09:52:00 118.071 kg Systolic blood 2021-06-24 20:39:00 142 mm[Hg] [facility] of pressure Medicine Diastolic blood 2021-06-24 20:39:00 79 mm[Hg] [facility] of pressure Medicine Heart rate 2021-06-24 20:39:00 60 /min [facility] C [facility] of Medicine Body height 2021-06-24 20:39:00 168.9 cm [facility] C [facility] of Medicine Body weight 2021-06-24 20:39:00 117.482 kg [facility] C [facility] of Medicine BMI 2021-06-24 20:39:00 41.18 kg/m2 [facility] C [facility] of Medicine HEIGHT 2021-06-24 09:52:00 167.6 cm WEIGHT 2021-06-24 09:52:00 118.071 kg Systolic blood 2021-05-20 15:29:00 142 mm[Hg] [facility] College of pressure Medicine Diastolic blood 2021-05-20 15:29:00 81 mm[Hg] [facility] of pressure Medicine Heart rate 2021-05-20 15:29:00 61 /min [facility] C [facility]lege of Medicine Body temperature 2021-05-20 15:29:00 36.78 [facility] Body height 2021-05-20 15:29:00 167.6 cm [facility] C [facility] of Medicine Body weight 2021-05-20 15:29:00 124.286 kg [facility] C [facility] of Medicine BMI 2021-05-20 15:29:00 44.22 kg/m2 [facility] C [facility] of Medicine HEIGHT 2021-04-29 08:39:00 167.6 cm WEIGHT 2021-04-29 08:39:00 129.275 kg HEIGHT 2021-04-25 08:42:00 167.6 cm WEIGHT 2021-04-25 08:42:00 129.275 kg HEIGHT 2021-04-29 08:39:00 167.6 cm WEIGHT 2021-04-29 08:39:00 129.275 kg HEIGHT 2021-04-25 08:42:00 167.6 cm WEIGHT 2021-04-25 08:42:00 129.275 kg Systolic blood 2021-04-09 15:45:00 188 mm[Hg] [facility] of pressure Medicine Diastolic blood 2021-04-09 15:45:00 70 mm[Hg] [facility] of pressure Medicine Heart rate 2021-04-09 15:45:00 52 /min [facility] ollege of Medicine Body height 2021-04-09 15:45:00 167.6 cm [facility] ol[facility] of Medicine Body weight 2021-04-09 15:45:00 129.275 kg [facility] ollege of Medicine BMI 2021-04-09 15:45:00 46.00 kg/m2 [facility] ollege of Medicine Systolic blood 2020-11-01 20:34:00 133 mm[Hg] [facility] of pressure Medicine Diastolic blood 2020-11-01 20:34:00 84 mm[Hg] [facility] of pressure Medicine Heart rate 2020-11-01 20:34:00 62 /min [facility] ollege of Medicine Body temperature 2020-11-01 20:34:00 35.83 [facility] Body height 2020-11-01 20:34:00 168.9 cm [facility] C ollege of Medicine Body weight 2020-11-01 20:34:00 134.718 kg [facility] BMI 2020-11-01 20:34:00 47.22 kg/m2 [facility] Systolic blood 2020-03-14 15:00:00 137 mm[Hg] Univer sity of pressure [facility] Diastolic blood 2020-03-14 15:00:00 67 mm[Hg] Unive rsity of pressure [facility] Heart rate 2020-03-14 15:00:00 58 /min Universi ty of [facility] Oxygen saturation in 2020-03-14 15:00:00 95 /min University of Arterial blood by [facility] Pulse oximetry Branch Body temperature 2020-03-14 13:00:00 36.83 Iqra Univ ersity of [facility] Respiratory rate 2020-03-14 13:00:00 18 /min Univ ersity of [facility] Body weight 2020-03-14 01:49:00 133.267 kg Universi ty of [facility] BMI 2020-03-14 01:49:00 46.02 kg/m2 Universi ty of [facility] Body height 2020-03-13 05:25:00 170.2 cm Universi ty of [facility] Branch Systolic blood 2020-03-14 15:00:00 137 mm[Hg] Univer sity of pressure [facility] Diastolic blood 2020-03-14 15:00:00 67 mm[Hg] Unive rsity of pressure [facility] Heart rate 2020-03-14 15:00:00 58 /min Universi ty of [place] [facility] Oxygen saturation in 2020-03-14 15:00:00 95 /min [facility] of Arterial blood by [facility] Pulse oximetry Branch Body temperature 2020-03-14 13:00:00 36.83 Iqra Univ ersity [facility] Respiratory rate 2020-03-14 13:00:00 18 /min Univ ersity of [facility] Body weight 2020-03-14 01:49:00 133.267 kg [facility] BMI 2020-03-14 01:49:00 46.02 kg/m2 [facility] Body height 2020-03-13 05:25:00 170.2 cm [facility] Procedures Procedure Date / Time Performing Clinician Source Performed ECHO ROUTINE 2020-03-13 14:08:34 Hillary [facility] W/DOPPLER COLOR [facility] POCT GLUCOSE 2020-03-13 13:12:00 [facility] (AUTOMATED) [facility] TROPONIN I 2020-03-13 07:53:00 [facility] COVID-19 (ID NOW 2020-03-13 02:20:00 Isi Balbuena [facility] RAPID TESTING) [facility] XR CHEST 1 VW 2020-03-13 01:30:13 Isi Balbuena [facility] LIPASE 2020-03-13 01:25:00 Isi Balbuena [facility] MAGNESIUM 2020-03-13 01:25:00 Isi Balbuena [facility] TROPONIN I 2020-03-13 01:25:00 Isi Balbuena [facility] THYROID STIMULATING 2020-03-13 01:25:00 Isi Balbuena [facility] HORMONE [facility] COMP. METABOLIC PANEL 2020-03-13 01:25:00 Isi Balbuena [facility] ([id number]) [facility] CBC WITH DIFF 2020-03-13 01:25:00 Isi Balbuena [facility] PROTHROMBIN TIME / 2020-03-13 01:25:00 Isi Balbuena [facility] INR [facility] ACTIVATED PARTIAL 2020-03-13 01:25:00 Isi Balbuena [facility] THRMPLAS THERON [facility] EKG-12 LEAD 2020-03-13 01:20:22 Isi Balbuena [facility] EKG-12 LEAD 2020-03-13 01:13:40 Dorina Pineod [facility] Plan of Care Planned Activity Planned Date Details Comments Source Future Scheduled 2021-07-10 Screening for malignant [facility] Test 09:18:21 neoplasm of breast of Medici ne (procedure) [code = 529793909] Future Scheduled 2021-07-10 Pneumococcal Combined Ba [facility] Test 09:18:21 (1 of 2 - PPSV23) [code of M edicine = Pneumococcal Combined (1 of 2 - PPSV23)] Future Scheduled 2021-07-10 Diabetic foot [facility] Col lege Test 09:18:21 examination of Medicine (regime/therapy) [code = 255041967] Future Scheduled 2021-07-10 ANNUAL DIABETIC [facility] C ollege Test 09:18:21 RETINOPATHY SCREENING of Med icine [code = ANNUAL DIABETIC RETINOPATHY SCREENING] Future Scheduled 2021-07-10 Hepatitis C screening Ba [facility] Test 09:18:21 (procedure) [code = of Medic ine 852108856] Future Scheduled 2021-07-10 Human immunodeficiency [facility] Test 09:18:21 virus screening of Medicine (procedure) [code = 936285168] Future Scheduled 2021-07-10 Screening for malignant [facility] College Test 09:18:21 neoplasm of cervix of Medici ne (procedure) [code = 521426258] Future Scheduled 2021-07-10 ZOSTER VACCINE (1 of 2) [facility] Test 09:18:21 [code = ZOSTER VACCINE of Ma dicine (1 of 2)] Future Scheduled 2021-07-10 TETANUS SHOT (ADULT) [place] [facility] College Test 09:18:21 [code = TETANUS SHOT of Medi cine (ADULT)] Future Scheduled 2021-07-10 BMI FOLLOW UP PLAN [facility] Test 09:18:21 [code = BMI FOLLOW UP of Med icine PLAN] Future Scheduled 2021-07-10 Screening for malignant [facility] Test 09:18:21 neoplasm of colon of Medicin e (procedure) [code = 566149298] Future Scheduled 2021-06-24 BMI FOLLOW UP PLAN [facility] Test 14:41:33 [code = BMI FOLLOW UP of Med icine PLAN] Future Scheduled 2021-06-24 Screening for malignant [facility] College Test 14:40:21 neoplasm of breast of Medici ne (procedure) [code = 403533345] Future Scheduled 2021-06-24 Pneumococcal Combined [employer] Test 14:40:21 (1 of 2 - PPSV23) [code of M edicine = Pneumococcal Combined (1 of 2 - PPSV23)] Future Scheduled 2021-06-24 Diabetic foot [facility]ge Test 14:40:21 examination of Medicine (regime/therapy) [code = 337432983] Future Scheduled 2021-06-24 ANNUAL DIABETIC [facility] C [facility]lege Test 14:40:21 RETINOPATHY SCREENING of Med icine [code = ANNUAL DIABETIC RETINOPATHY SCREENING] Future Scheduled 2021-06-24 Hepatitis C screening [employer] Test 14:40:21 (procedure) [code = of Medic ine 691927972] Future Scheduled 2021-06-24 Human immunodeficiency [facility] Test 14:40:21 virus screening of Medicine (procedure) [code = 893652745] Future Scheduled 2021-06-24 Screening for malignant [facility] Test 14:40:21 neoplasm of cervix of Medici ne (procedure) [code = 837521068] Future Scheduled 2021-06-24 ZOSTER VACCINE (1 of 2) [facility] Test 14:40:21 [code = ZOSTER VACCINE of Me dicine (1 of 2)] Future Scheduled 2021-06-24 TETANUS SHOT (ADULT) [facility] Test 14:40:21 [code = TETANUS SHOT of Medi cine (ADULT)] Future Scheduled 2021-06-24 Screening for malignant [facility] Test 14:40:21 neoplasm of colon of Medicin e (procedure) [code = 239178829] Future Scheduled 2021-05-20 BMI FOLLOW UP PLAN [facility] Test 09:32:59 [code = BMI FOLLOW UP of Med icine PLAN] Future Scheduled 2021-05-20 Screening for malignant [facility] Test 09:04:01 neoplasm of breast of Medici ne (procedure) [code = 473331944] Future Scheduled 2021-05-20 BCM AMB Pneumococcal [place] [facility] Test 09:04:01 Combined (testing) (1 of Med icine of 2 - PPSV23) [code = BCM AMB Pneumococcal Combined (testing) (1 of 2 - PPSV23)] Future Scheduled 2021-05-20 Diabetic foot [facility] [employer] Test 09:04:01 examination of Medicine (regime/therapy) [code = 036623685] Future Scheduled 2021-05-20 ANNUAL DIABETIC [facility] Test 09:04:01 RETINOPATHY SCREENING of Med icine [code = ANNUAL DIABETIC RETINOPATHY SCREENING] Future Scheduled 2021-05-20 Hepatitis C screening [employer] Test 09:04:01 (procedure) [code = of Medic ine 985847336] Future Scheduled 2021-05-20 Human immunodeficiency [facility] [employer] Test 09:04:01 virus screening of Medicine (procedure) [code = 857689120] Future Scheduled 2021-05-20 Screening for malignant [facility] Test 09:04:01 neoplasm of cervix of Medici ne (procedure) [code = 175376883] Future Scheduled 2021-05-20 ZOSTER VACCINE (1 of 2) [facility] Test 09:04:01 [code = ZOSTER VACCINE of Me dicine (1 of 2)] Future Scheduled 2021-05-20 TETANUS SHOT (ADULT) [place] [facility] Test 09:04:01 [code = TETANUS SHOT of Medi cine (ADULT)] Future Scheduled 2021-05-20 Screening for malignant [facility] Test 09:04:01 neoplasm of colon of Medicin e (procedure) [code = 876951388] Future Scheduled 2021-04-09 Screening for malignant [facility] Test 11:05:21 neoplasm of colon of Medicin e (procedure) [code = 072971905] Future Scheduled 2021-04-09 Screening for malignant [facility] Test 11:05:21 neoplasm of colon of Medicin e (procedure) [code = 719000582] Future Scheduled 2021-04-09 COLONOSCOPY W MAC GI 1 Occurrences [employer] [employer] Test 11:05:12 DEPT [code = 18074] starting of Medic ine 04/09/2021 until 10/07/2021 Future Scheduled 2021-04-09 COLONOSCOPY W MAC GI 1 Occurrences [employer] [employer] Test 11:05:12 DEPT [code = 21461] starting of Medic ine 04/09/2021 until 10/07/2021 Future Scheduled 2021-04-09 Human immunodeficiency [facility] [employer] Test 10:50:29 virus screening of Medicine (procedure) [code = 381065897] Future Scheduled 2021-04-09 Screening for malignant [facility] [employer] Test 10:50:29 neoplasm of cervix of Medici ne (procedure) [code = 499986089] Future Scheduled 2021-04-09 ZOSTER VACCINE (1 of 2) [facility] Test 10:50:29 [code = ZOSTER VACCINE of Me dicine (1 of 2)] Future Scheduled 2021-04-09 TETANUS SHOT (ADULT) [place] [facility] [employer] Test 10:50:29 [code = TETANUS SHOT of Medi cine (ADULT)] Future Scheduled 2021-04-09 FLU VACCINE > 6 MONTHS [employer] Test 10:50:29 [code = FLU VACCINE > 6 of M edicine MONTHS] Future Scheduled 2021-04-09 BMI FOLLOW UP PLAN [employer] Test 10:50:29 [code = BMI FOLLOW UP of Med icine PLAN] Future Scheduled 2021-04-09 Screening for malignant [facility] Test 10:50:29 neoplasm of breast of Medici ne (procedure) [code = 544590138] Future Scheduled 2021-04-09 Hepatitis C screening [employer] Test 10:50:29 (procedure) [code = of Medic ine 530187922] Future Scheduled 2021-04-09 Human immunodeficiency [facility] [employer] Test 10:50:29 virus screening of Medicine (procedure) [code = 599008739] Future Scheduled 2021-04-09 Screening for malignant [facility] Test 10:50:29 neoplasm of cervix of Medici ne (procedure) [code = 169728503] Future Scheduled 2021-04-09 ZOSTER VACCINE (1 of 2) [employer] Test 10:50:29 [code = ZOSTER VACCINE of Ma dicine (1 of 2)] Future Scheduled 2021-04-09 TETANUS SHOT (ADULT) [place] [facility] Test 10:50:29 [code = TETANUS SHOT [...] breast of Medici ne (procedure) [code = 056231056] Future Scheduled 2021-04-09 Hepatitis C screening [employer] Test 10:50:29 (procedure) [code = of Medic ine 809072199] Future Scheduled Screening for malignant [facility] Test neoplasm of colon of Medicin e (procedure) [code = 554325248] Future Scheduled Screening for malignant [facility] Test neoplasm of breast of Medici ne (procedure) [code = 683435648] Future Scheduled Hepatitis C screening [employer] Test (procedure) [code = of Medic ine 615221809] Future Scheduled Human immunodeficiency [facility] Test virus screening of Medicine (procedure) [code = 108248358] Future Scheduled Screening for malignant [facility] Test neoplasm of cervix of Medici ne (procedure) [code = 462989860] Future Scheduled ZOSTER VACCINE (1 of 2) [facility] Test [code = ZOSTER VACCINE of Me dicine (1 of 2)] Future Scheduled TETANUS SHOT (ADULT) [facility] Test [code = TETANUS SHOT of Medi cine (ADULT)] Future Scheduled FLU VACCINE > 6 MONTHS [facility] [code = FLU VACCINE > 6 of M edicine MONTHS] Future Scheduled BMI FOLLOW UP PLAN [facility] Test [code = BMI FOLLOW UP of Med icine PLAN] Encounters Start End Encounter Admission Attending Care Care Encounter Source Date/Time Date/Time Type Type Clinicians Facility Department ID 2021-04-20 Outpatient [facility] Surgery [id number] SLE 09:24:04 LENO 2021-04-20 Outpatient [facility] Surgery [id number] SLE 09:23:55 [facility] 2019-10-09 Inpatient UR Marybeth, [facility].01 [id number] [facility] 00:44:00 Musaddiq [id number] [facility] 2021-07-16 2021-07-16 Outpatient [facility] [id number] [facility] 13:00:55 13:00:55 [facility] 2021-07-10 2021-07-10 Office Pretty Henson [facility] [id number] [facility] 09:00:00 09:35:38 Visit Lloyd AMBULATOR 350.1.13.21 College Y 0.2.7.2.686 [id number] [facility] olayinka 805 e 2021-06-27 2021-06-27 Outpatient Pretty AKERS Surgery [id number] SLE 08:04:00 17:47:00 2021-06-26 2021-06-26 Outpatient KATARZYNA YEE [facility] [id number] SLE 16:09:27 23:59:00 2021-06-24 2021-06-24 [facility] [id number] SLE 09:32:27 23:59:00 2021-06-24 2021-06-24 Outpatient [facility] [id number] [facility] 00:00:00 23:59:00 Colleg e of Medicin e 2021-06-24 2021-06-24 Office Pretty HENSON LESLIECal [id number] [facility] 14:23:44 15:09:12 Visit AMBULATOR 350.1.13.21 College Y 0.2.7.2.686 of [id number] [facility] olayinka 805 e 2021-06-24 2021-06-24 Outpatient K[facility]ARZYNA [facility] [id number] [facility] 00:00:00 00:00:00 2021-06-24 2021-06-24 Outpatient Pretty AKERS SLE [id number] SLE 00:00:00 00:00:00 2021-05-20 2021-05-20 Office Pretty HENSON [facility] [id number] [facility] 09:13:05 13:29:48 Visit AMBULATOR 350.1.13.21 College Y 0.2.7.2.686 of [id number] [facility] olayinka 805 e 2021-05-07 2021-05-07 Outpatient Pretty AKERS [facility] [id number] SLE 13:31:05 23:59:00 2021-04-29 2021-04-29 Outpatient KATARZYNA ZEB, [facility] [id number] [facility] 07:34:00 10:45:00 DANICA 2021-04-29 2021-04-29 Outpatient GALINA CARRINGTON [facility] [id number] [facility] 09:20:27 09:20:27 DANICA Colleg e of Medicin e 2021-04-09 2021-04-09 Office GALINA Carrington 1.2.840.114 [id number] [facility] 10:43:28 11:39:40 Visit Danica AMBULATOR 350.1.13.21 College Delaisse Y 0.2.7.2.686 of [id number] [facility] olayinka 300 e 2021-04-09 2021-04-09 Outpatient EL SLE SLE [id number] [facility]H 00:00:00 00:00:00 2021-02-28 2021-02-28 Outpatient DEWAYNE, [facility] [id number] [facility] 14:27:18 14:44:19 BARBARA Colleg e of Medicin e 2021-02-07 2021-02-07 Outpatient DEWAYNE, [facility] [id number] [facility] 11:42:03 12:00:47 BARBARA Colleg e of Medicin e 2021-01-15 2021-01-16 Outpatient DEWAYNE, [facility] [id number] [facility] 13:34:26 14:09:53 BARBARA Colleg e of Medicin e 2020-10-22 2020-11-05 Outpatient LEONID, [facility] [id number] [facility] 15:12:18 06:35:24 LENO Colleg e of Medicin e 2020-10-22 2020-11-05 Outpatient LEONID, [facility] [id number] [facility] 15:07:08 06:34:35 LENO Colleg e of Medicin e 2020-11-01 2020-11-01 Office Del [facility] [id number] [facility] 15:16:25 16:40:53 Visit Mai, AMBULATOR 350.1.13.21 [place] Sharita Baer 0.2.7.2.686 of [id number] Medi olayinka 800 e 2020-10-17 2020-10-17 Outpatient EL [facility]H [facility] [id number] [facility] 00:00:00 00:00:00 2020-08-01 2020-08-01 Outpatient EL SLEH [facility] [id number] [facility] 00:00:00 00:00:00 2020-07-09 2020-07-09 Outpatient EL [facility]H [facility] [id number] [facility] 00:00:00 00:00:00 2020-03-15 2020-03-15 Barbara Menard 1.2.840.114 [id number] 00:00:00 00:00:00 of Anne-Marie Romero 350.1.13.10 [place] 4.2.7.2.686 [id number] 2020-03-15 2020-03-15 Barbara Menard 1.2.840.114 [id number] Univers 00:00:00 00:00:00 of Care Deborah Romero 350.1.13.10 i ty of [place] 4.2.7.2.686 [facility] [id number] [place] [address] Branch 2020-03-12 2020-03-14 [facility] Marti [facility] 1.2.840.1 [id number] 20:09:00 11:29:00 Encounter Perla Thornton [place] on 350.1.13.10 [place] 4.2.7.2.686 [place] [id number] 2020-03-12 2020-03-14 [facility] 1.2.840.1 14 [id number] [facility] 20:09:00 11:29:00 Encounter Perla Thornton [place] on 350.1.13.10 ity [place] 4.2.7.2.686 [facility] [id number] [address] 2020-03-12 2020-03-12 Emergency X [facility] ERT [id number] Univers 20:09:00 [facility]:09:[facility] 2019-10-09 2019-10-09 Outpatient ANDREW Rueda OUTD [id number] [facility] 07:38:00 07:38:00 Musaddiq [id number] [facility] 2019-10-07 2019-10-07 [id number] SLE 00:00:00 00:00:00 [id number] Results Test Description Test Time Test Comments Results Result Comments Source SARS-COV2/RT-PCR ([facility]) 2021-07-25 21:54:22 Test Item Value Reference Range Interpretation Comme nts SARS-COV2/RT-PCR (test code = 5091417) Negative Negative Negative result for this test [...] the Melvin SARS-CoV-2 assay.Fact Sheet for Healthcare Providers:https://www.Glowpoint.melvin/loida/RT SARS-CoV-2 HCP Fact Sheet 51- 538082.pdfFact Sheet for Healthcare Patients:https://www.molecular.melvin/loida/RT SARS-CoV-2 Patient Fact Sheet EN 51-290305C1.pdfSARS-COV2/RT-PCR ([facility])2021-07-17 09:19:19 Test Item Value Reference Range Interpretation Comments SARS-COV2/RT-PCR (test code = Negative Negative 0495957) Negative result for this test determines that [...] the Melvin SARS-CoV-2 assay.Fact Sheet for Healthcare Providers:https://www.molecular.melvin/loida/RT SARS-CoV-2 HCP Fact Sheet 51- 424166.pdfFact Sheet for Healthcare Patients:https://www.molecular.melvin/loida/RT SARS-CoV-2 Patient Fact Sheet EN 51-779703K8.pdfTISSUE [id number] 12:41:40 Surgical Pathology Report Case: [id number] Authorizing Provider: Pretty Henson MD Collected: 06/27/2021 01:19 PM Ordering Location: [facility] PERIOPERATIVE Received: 06/27/2021 02:10 PM SERVICES Pathologist: Kyle Chowdhury MD Specimen: Gastric, gastric sleeve PART A PORTION OFSTOMACH, PARTIAL SLEEVE GASTRECTOMY:CONGESTED GASTRIC MUCOSA WITHOUT SIGNIFICANT HISTOPATHOLOGIC ALTERATION.NEGATIVE FOR INTESTINAL METAPLASIA, DYSPLASIA, OR INVASIVE CARCINOMA. Signing Pathologist Direct Phone Line: [phone] signed by Kyle Chowdhury MD on 07/02/2021 at12:41 [id number] obesity, body mass index 45.0-49.9, adult, essential [...] rugal folds. No discrete lesions are identified. Medic Technician sections are submitted in A1-A2.PEPPER Carlson, HT (ASC)[facility], Department of Pathology, [address] [place] [address], [facility], [facility] of [facility], [address] [place] [address], [facility], Department of Pathology, [address] [place] [address] 57095, BLKM-GLUCOSE [id number] 09:35:37 Test Item Value Reference Range Interpretation Comments POC-GLUCOSE METER 157 mg/dL 70-110 H : TESTED A T [facility] 6720 (KVNG) (test code = GINA Patel [facility], 1538) 71568: [employer] Executive/Techni cristobal ID = [id number] for ANDER TRISTA Castaneda NIRAV SARS-COV2/RT-PCR ([facility])2021-06-24 19:39:10 Test Item Value Reference Range Interpretation Comments SARS-COV2/RT-PCR (test code = Negative Negative 3230813) Negative result for this test determines that [...] the Melvin SARS-CoV-2 assay.Fact Sheet for Healthcare Providers:https://www.Glowpoint.[employer]/loida/RT SARS-CoV-2 HCP Fact Sheet 51- 077409.pdfFact Sheet for Healthcare Patients:https://www.Glowpoint.[employer]/loida/RT SARS-CoV-2 Patient Fact Sheet EN 51-697981X6.pdfBASIC METABOLIC [id number] 10:34:30 Test Item Value Reference Range Interpretation [...] S NOT APPLICABLE FOR DIALYSIS PATIEN TS. [employer] ID - GIDEON [id number] 10:10:47 Test Item Value Reference Range Interpretation Comments HEMOGLOBIN (KVNG) (test code = 11.5 GM/DL 11.2-15.7 410) [employer] Executive ID - [id number], UGI, WITH [id number] 17:19:00Reason for Exam:- >Gastroesophageal reflux disease, unspecified whether esophagitis presen [facility] 1970 Sex: FFINAL REPORT [...] reflux with mild esophageal dysmotility. Signed: Robin Ceronort Verified D ate/Time: 05/07/2021 17:19:47 POCT-GLUCOSE [id number] 10:21:46 Test Item Value Reference Range Interpretation Comments POC-GLUCOSE METER 81 mg/dL 70-110 : TESTED A T [facility] 1317 (BEAKER) (test code = [address], 1538) [facility] 77 478: [employer] Executive/Techni cristobal ID = [id number] for Sandra Mock POCT-GLUCOSE [id number] 08:38:24 Test Item Value Reference Range Interpretation Comments POC-GLUCOSE METER 93 mg/dL 70-110 : TESTED A T [facility] 1317 (BEAKER) (test code = [address], 1538) [facility] 77 478: [employer] Executive/Techni cristobal ID = [id number] for Izabella Tate SARS-COV2/RT-PCR ([facility])2021-03-13 22:34:00 Test Item Value Reference Range Interpretation Comments SARS-COV2/RT-PCR (test code = Negative Negative 8784472) Negative result for this test determines that [...] the Melvin SARS-CoV-2 assay.Fact Sheet for Healthcare Providers:https://www.Glowpoint.[employer]/loida/RT SARS-CoV-2 HCP Fact Sheet 51- 475646.pdfFact Sheet for Healthcare Patients:https://www.Glowpoint.[employer]/loida/RT SARS-CoV-2 Patient Fact Sheet EN 51-878275T7.pdfSARS-COV2/RT-PCR ([facility])2021-02-20 22:59:00 Test Item Value Reference Range Interpretation Comments SARS-COV2/RT-PCR (test code = Negative Negative 1589086) Negative result for this test determines that [...] 564(g) of the Act.Testing was performedusing the Melivn SARS-CoV-2 assay.Fact Sheet for Healthcare Providers:https://www.molecular.melvin/loida/RT SARS-CoV-2 HCP Fact Sheet 51- 746390.pdfFact Sheet for Healthcare Patients:https://www.Glowpoint.melvin/loida/RT SARS-CoV-2 Patient Fact Sheet EN 51-481798K6.pdfSARS-COV2/RT-PCR ([facility])2020-10-18 02:26:00 Test Item Value Reference Range Interpretation Comments SARS-COV2/RT-PCR (test Negative Not Detected, Negative, code = 3000704) See external report for linked test SARS-COV-2 PERFORMING LAB [facility] (test code = 0156865) Negative result for this test determines that [...] the Melvin SARS-CoV-2 assay.Fact Sheet for Healthcare Providers:https://www.Glowpoint.melvin/loida/ IT_XHNW-LkJ-3_VIO_Ywqr_Dtiia_61-816793.pdfFact Sheet for Healthcare Patients:https://www.Glowpoint.[employer] hafsa/loida/XZ_MIIV-TrG-2_Iuhvmkk_Kyvc_Rzgjp_DX_83-455303A1.pdfPerforming Laboratory:[facility] [place] [address] SARS-COV2/RT-PCR ([facility])2020-10-01 22:17:00 Test Item Value Reference Range Interpretation Comments SARS-COV2/RT-PCR (test Negative Not Detected, Negative, code = 3321908) See external report for linked test SARS-COV-2 PERFORMING LAB [facility] (test code = 0349965) Negative result for this test determines that [...] the Melvin SARS-CoV-2 assay.Fact Sheet for Healthcare Providers:https://www.Glowpoint.melvin/loida/ LE_CUWY-IoB-9_PIK_Qber_Qpead_90-342922.pdfFact Sheet for Healthcare Patients:https://www.Glowpoint.[employer] hafsa/loida/EC_VEZN-ZiO-6_Svcdeof_Asmi_Vjcjv_GR_63-645550H6.pdfPerforming Laboratory:[facility] [place] [address] SARS-COV2/RT-PCR ([facility])2020-09-06 06:57:00 Test Item Value Reference Range Interpretation Comments SARS-COV2/RT-PCR (test Negative Not Detected, Negative, code = 5916870) See external report for linked test SARS-COV-2 PERFORMING LAB [facility] (test code = 9987221) Negative result for this test determines that [...] the Melvin SARS-CoV-2 assay.Fact Sheet for Healthcare Providers:https://www.Glowpoint.melvin/loida/ WO_GWCZ-AlJ-3_WUA_Nair_Jhqzq_76-620618.pdfFact Sheet for Healthcare Patients:https://www.Glowpoint.Kinoos/loida/GE_QAZD-CgB-3_Vtrotrt_Kkbe_Woebf_AU_38-246036A5.pdfPerforming Laboratory:[facility] [place] [address] SARS-COV2/RT-PCR ([facility])2020-08-10 23:41:00 Test Item Value Reference Range Interpretation Comments SARS-COV2/RT-PCR (test Negative Not Detected, Negative, code = 3870949) See external report for linked test SARS-COV-2 PERFORMING LAB [facility] (test code = 0281309) Negative result for this test determines that [...] the Melvin SARS-CoV-2 assay.Fact Sheet for Healthcare Providers:https://www.Glowpoint.melvin/loida/ TV_FZLU-ZnI-0_GLK_Yecv_Emyhc_80-325622.pdfFact Sheet for Healthcare Patients:https://www.Glowpoint.Impact Radius hafsa/loida/PM_SAAU-NoJ-6_Qjzluvc_Uvgp_Ykhxs_SI_93-157066R5.pdfPerforming Laboratory:[address] [address] SARS-COV2/RT-PCR ([facility])2020-08-01 07:45:00 Test Item Value Reference Range Interpretation Comments SARS-COV2/RT-PCR (test Negative Not Detected, Negative, code = 4581936) See external report for linked test SARS-COV-2 PERFORMING LAB [facility] (test code = 8507061) Negative result for this test determines that [...] the Melvin SARS-CoV-2 assay.Fact Sheet for Healthcare Providers:https://www.Glowpoint.melvin/loida/ KQ_DPTG-KeD-9_RHZ_Zpmh_Iljrk_66-960835.pdfFact Sheet for Healthcare Patients:https://www.Glowpoint.Impact Radius hafsa/loida/CS_VBYX-WoT-3_Oqtydpp_Cccq_Zwtbd_PS_95-294162M8.pdfPerforming Laboratory:[address] [address] SARS-COV2/RT-PCR ([facility])2020-07-10 00:47:00 Test Item Value Reference Range Interpretation Comments SARS-COV2/RT-PCR (test Negative Not Detected, Negative, code = 8606808) See external report for linked test SARS-COV-2 PERFORMING LAB [facility] (test code = 0720190) Negative result for this test determines that [...] the Melvin SARS-CoV-2 assay.Fact Sheet for Healthcare Providers:https://www.Glowpoint.melvin/loida/ RM_VUKX-MdE-1_XGU_Paiv_Uutsz_67-282582.pdfFact Sheet for Healthcare Patients:https://www.Glowpoint.Impact Radius hafsa/loida/JU_LVEH-PmZ-2_Hmjoavi_Aqof_Tvxsi_DE_72-761168N8.pdfPerforming Laboratory:[address] [place] [address] SARS-COV2/RT-PCR ([facility])2020-05-29 13:27:00 Test Item Value Reference Range Interpretation Comments SARS-COV2/RT-PCR (test See external report Not Detected, code = 4713489) for linked test Negative, See external report for linked test SARS-COV-2 PERFORMING [facility] (test code = 5235582) SARS-COV2/RT-PCR ([facility])2020-04-24 14:02:00 Test Item Value Reference Range Interpretation Comments SARS-COV2/RT-PCR (test Negative Not Detected, Negative, code = 6754896) See external report for linked test SARS-COV-2 PERFORMING LAB [facility] (test code = 4732541) Negative result for this test determines that [...] 564(g) of the Act.Fact Sheet for Healthcare Providers:https://www.Carbay.Stootie/sites/default/files/product/documents/Fact_Shee y_LO_Bszjzypvh_Xcgx_NBUZ-EfS-7.pdfFact Sheet for Healthcare Patients:https://www.Carbay.com/sites/default/files/product/ documents/Pyhm_Rtbjs_Dnjefpzg_Uibg_GNHJ-QiW-0.pdfPerforming Laboratory:[facility], [place] [address]BGVM GLUCOSE (AUTOMATED)2020-03-13 13:16:00 Test Item Value Reference Range Interpretation Comments POCT GLU (test code = 1413629716) 128 mg/dL 70-110 H Lab Interpretation (test code = Abnormal 73597-4) [facility] [id number] 09:29:00 Test Item Value Reference Range Interpretation Comments TROPONIN I (test 0.021 ng/mL See_Comment [Automated code = 9759350192) message] The system which generated this result [...] ? Lab Interpretation Normal (test code = 43584-3) [facility] HospitalTHYROID STIMULATING [id number] 05:01:00 Test Item Value Reference Range Interpretation Comments TSH (test code = See_Comment Biotin has been 3885857712) reported to cau se a negative bias, interpret resul ts relative to pat ient's use of biotin. [Automated mess age] The system [employer] generated this result transmitted ref erence range: 0.45 - 4 .70 mIU/L. The refe rence range was not u sed to interpret this result as normal/abnor mal. Lab Interpretation (test Normal code = 75864-8) [facility] HospitalCOVID[facility] (ID NOW RAPID TESTING)2020-03-13 03:37:00 Test Item Value Reference Range Interpretation Comments SARS-CoV-2 Rapid ID NOW Not Detected Not Detected (test code = 28686-5) KRISTAL (test code = KRISTAL) ID NOW COVID-19 Assay is an isothermal nucleic acid amplification test intended for the qualitative detection of nucleic acid from SARS-CoV-2 viral RNA in nasopharyngeal (STEERER) specimens. It is used under Emergency Use [...] indicated. Lab Interpretation Normal (test code = 11805-4) [facility] HospitalXR CHEST 1 [id number] 02:35:33 No acute cardiopulmonary process. Preliminary Report [...] wed this study and agree with theabove report.[facility] [id number] 02:15:00 Test Item Value Reference Range Interpretation Comments MAGNESIUM (test code = 1526312262) 2.0 mg/dL 1.7-2.4 Lab Interpretation (test code = Normal 53858-0) [facility] HospitalTROPONIN [id number] 01:58:00 Test Item Value Reference Range Interpretation Comments TROPONIN I (test <0.012 See_Comment [Automated code = 1915845448) message] The system which generated this result [...] ? Lab Interpretation Normal (test code = 32828-5) [facility] HospitalaPTT2020-09-01 01:49:00 Test Item Value Reference Range Interpretation Comments APTT Patient (test See_Comment [Automat ed code = 3173-2) message] The system which generated this result transmitted reference range : 23 - 38 Seconds . The reference range was not used to interpr et this result as normal/abnormal . KRISTAL (test code = KRISTAL) The [facility] patient population mean normal value for aPTT is 30 seconds. Lab Interpretation Normal (test code = 29544-9) [facility] HospitalCOMP. METABOLIC PANEL (25938)2020-03-13 01:48:00 Test Item Value Reference Range Interpretation Comments NA (test code = 140 mmol/L 135-145 3082393004) K (test code = 3.6 mmol/L 3.5-5 7209586067) CL (test code = 104 mmol/L 98-108 6255244969) CO2 TOTAL (test code = 28 mmol/L 23-31 1055939259) AGAP (test code = 2-16 4198913777) BUN (test code = 18 mg/dL 7-23 0399478562) GLUCOSE (test code = 146 mg/dL 70-110 H 2410759947) CREATININE (test code = 0.89 mg/dL 0.5-1.04 8559859952) TOTAL BILI (test code = 0.3 mg/dL 0.1-1.3 5066016499) CALCIUM (test code = 9.8 mg/dL 8.6-10.6 8999777212) T PROTEIN (test code = 8.2 g/dL 6.3-8.2 8237800517) ALBUMIN (test code = 4.6 g/dL 3.5-5 4345908851) ALK PHOS (test code = 76 U/L 34-122 1079233614) ALTv (test code = 32 U/L 5-35 1742-6) AST(SGOT) (test code = 30 U/L 13-40 2586019140) eGFR Calculation mL/min/1.73m2 (Non-) (test code = 1156964032) eGFR Calculation mL/min/1.73m2 () (test code = 7455157622) KRISTAL (test code = KRISTAL) Association of [...] tests). Lab Interpretation Abnormal (test code = 93921-2) [facility] HospitalLIPASE, [id number] 01:48:00 Test Item Value Reference Range Interpretation Comments LIPASE (test code = 0930522383) 121 U/L 0-220 Lab Interpretation (test code = Normal 17691-6) [facility] HospitalPROTHROMBIN TIME / [id number] 01:47:00 Test Item Value Reference Range Interpretation [...] tions. Lab Interpretation (test Normal code = 37529-3) [facility] HospitalCBC WITH [id number] 01:35:00 Test Item Value Reference Range Interpretation Comments WBC (test code = See_Comment [Automated 9890-2) message] The sy stem which generated this result transmitted reference range : 4.30 - 11.10 10*3/?L. The reference range was not used to interpret this result as normal/abnormal . RBC (test code = See_Comment [Automated 239-8) message] The sy stem which generated this [...] RDW-SD (test code = 45.1 fL 39-49.9 52246-7) RDW-CV (test code = 14.0 % 12-15.5 788-0) PLT (test code = See_Comment [Automated 777-3) message] The sy stem which generated this result transmitted reference range : 166 - 358 10*3/ ?L. The reference r yeyo was not used to interpret this result as normal/abnormal . MPV (test code = 10.4 fL 9.5-12.9 56974-9) NRBC/100 WBC (test See_Comment [Automat ed code = 6198936824) message] The system which generated this result transmitted reference range : 0.0 - 10.0 /100 WBCs. The refer ence range was not u sed to interpret th is result as normal/abnormal . NRBC x10^3 (test code <0.01 See_Comment [Auto mated = 6363738022) message] The s ystem which generated this result transmitted reference range : 10*3/?L. The reference range was not used to interpret this result as normal/abnormal . GRAN MAT (NEUT) % 43.6 % (test code = 770-8) IMM GRAN % (test code 0.10 % = 7731259833) LYMPH % (test code = 44.2 % 736-9) MONO % (test code = 7.9 % 5905-5) EOS % (test code = 3.6 % 713-8) BASO % (test code = 0.6 % 706-2) GRAN MAT x10^3(ANC) 3.89 10*3/uL 1.88-7.09 (test code = 9654598091) IMM GRAN x10^3 (test <0.03 0-0.06 code = 7829628821) LYMPH x10^3 (test code 3.94 10*3/uL 1.32-3.29 H = 731-0) MONO x10^3 (test code 0.70 10*3/uL 0.33-0.92 = 742-7) EOS x10^3 (test code = 0.32 10*3/uL 0.03-0.39 711-2) BASO x10^3 (test code 0.05 10*3/uL 0.01-0.07 = 704-7) Lab Interpretation Abnormal (test code = 20216-7) [facility] [id number] 06:50:00 Test Item Value Reference Range Interpretation [...] yby method. Completed by Nursing: NOBASIC METABOLIC [id number] 03:35:00 Test Item Value Reference Range Interpretation [...] code = CA) 8.6 MG/DL 8.5-10.1 N [id number] 03:24:00 Test Item Value Reference Range Interpretation [...] Completed by Nursing: NOMM, U/S, BREAST, UNILATERAL, [id number] 10:19:00 Diagnostic workup per radiologist?->YesReason for Exam:->N63.0Reason for Exam:->N64.4MRN#: [id number] - MM, U/S, BREAST, UNILATERAL, LEFT ULTRASOUND OF LEFT BREAST: 10/07/2019Comparison is made to exam dated: 10/07/2019 mammogram - [facility]. Color flow and real-time ultrasound of the [...] 10:19:33 Normal Exam Ultrasound BI-RADS: 2 Benign [id number] Electronicallysigned by: WILLIAM CARLSON M.D. on 10/07/2019 10:19 AMMM, DIGITAL MAMMO, DIAGNOSTIC, BILATERAL INCLUDING [id number] 09:19:00Diagnostic workup per radiologist?->YesReason for Exam:->breast lump in upper inner quadrand breast tenderness in femaleMRN#: [id number] - MM, DIGITAL MAMMO, DIAGNOSTIC, BILATERAL INCLUDING [...] is recommended. William Carlson M.D. 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
[2021-07-26] MEDS ORDERED: NA CHLORIDE 0.9% 1,000 ML ONE ×2 (16:52→18:00)
[2021-07-26] MEDS ORDERED: ONDANSETRON 4 MG/2 ML VIAL ONE (16:52)
[2021-07-26 16:55] LABS: Absolute Lymphocytes (CBC) 2.9 K/uL (0.7-4.9); Hematocrit 36.3 % (36.0-45.0); Lymphocytes % 43.7 % (15.3-44.8); MPV 9.6 fL (7.6-11.3); RBC Red Blood Cell Count 4.13 M/uL (3.86-4.86)
[2021-07-26 17:12] LABS: Albumin 3.7 g/dL (3.4-5.0); Bilirubin Direct 0.2 mg/dL (0-0.2); Bilirubin Total 0.5 mg/dL (0.2-1.0); Potassium 3.9 mmol/L (3.5-5.1); Protein, Total 8.1 g/dL (6.4-8.2)
--- NOTE | 2021-07-26 18:16 | ER ---
Nurse's Notes [facility] Name: Junie Peralta Age: 51 yrs Sex: Female : 1970 Arrival Date: 07/26/2021 Time: 16:20 Bed 9 Private MD: Diagnosis: Nausea with vomiting, unspecified;Dehydration Presentation: 07/26 16:25 Chief complaint: Patient states: gastric sleeve x 4 weeks ago, states NV today and vg1 intolerance to food and fluids. Took Zofran at 1400. Coronavirus screen: Vaccine status: Patient reports receiving the 2nd dose of the covid vaccine. Client denies travel out of the [place] in the last 14 days. Ebola Screen: Patient negative for fever greater than or equal to 101.5 degrees Fahrenheit, and additional compatible Ebola Virus Disease symptoms. Initial Sepsis Screen: Does the patient meet any 2 criteria? No. Patient's initial sepsis screen is negative. Does the patient have a suspected source of infection? No. Patient's initial sepsis screen is negative. Risk Assessment: Do you want to hurt yourself or someone else? Patient reports no desire to harm self or others. Onset of symptoms was July 26, 2021. 16:25 Method Of Arrival: Ambulatory vg1 16:25 Acuity: HERMAN 3 vg1 Triage Assessment: 16:27 General: Appears in no apparent distress. uncomfortable, Behavior is calm, cooperative. vg1 Pain: Denies pain. GI: Reports nausea, vomiting. 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 [employer]: 16:27 LMP N/A - Hysterectomy vg1 Historical: - Allergies: 16:27 Benadryl; vg1 16:27 Flexeril; vg1 16:27 GABAPENTIN; vg1 - Home Meds: 16:27 amiodarone 200 mg Oral tab 1 tab once daily [Active]; aspirin 325 mg Oral tab 1 tab vg1 once daily [Active]; Effexor 25 mg Oral tab 1 tab 2 times per day [Active]; losartan 100 mg Oral tab 1 tab once daily [Active]; metformin 1,000 mg Oral tab 1 tab [Active]; Protonix 40 mg Oral TbEC 1 tab once daily [Active]; triamterene-hydrochlorothiazid 37.5-25 mg Oral cap once daily [Active]; - PMHx: 16:27 Adenomyosis; Depression; Diabetes - NIDDM; GERD; Hypertension; Obesity; Sleep Apnea; vg1 - PSHx: 16:27 breast reduction; Total abdominal hysterectomy; Total right knee; vg1 - Immunization history:: Client reports receiving the 2nd dose of the Covid vaccine. - Social history:: Smoking status: Patient denies any tobacco usage or history of. Screenin:55 Abuse screen: Denies threats or abuse. Denies injuries from another. Nutritional ab2 screening: No deficits noted. Tuberculosis screening: No symptoms or risk factors identified. Fall Risk None identified. Assessment: 16:34 Neuro:. vg1 16:54 General: Appears in no apparent distress. comfortable, Behavior is calm, cooperative, ab2 appropriate for age. Pain: Denies pain. Neuro: No deficits noted. 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 Gait is steady, Speech is normal, Facial symmetry appears normal. Cardiovascular: No deficits noted. Heart tones S1 S2 present Patient's skin is warm and dry. Chest pain is denied. Respiratory: No deficits noted. Airway is patent Breath sounds are clear bilaterally. GI: Abdomen is round non-distended, Reports nausea, vomiting, Patient currently denies abdominal pain. : No deficits noted. No signs and/or symptoms were reported regarding the genitourinary system. EENT: No deficits noted. No signs and/or symptoms were reported regarding the EENT system. Derm: No deficits noted. No signs and/or symptoms reported regarding the dermatologic system. Musculoskeletal: No deficits noted. No signs and/or symptoms reported regarding the musculoskeletal system. 18:05 Reassessment: No changes from previously documented assessment. Second litre of fluids ab2 began. Pt tolerating well. Vital Signs: 16:25 BP 142 / 86; Pulse 63; Resp 16; Temp 97.0; Pulse Ox 100% ; Weight 107.05 kg; Height 5 vg1 ft. 6 in. (167.64 cm); Pain 0/10; 17:32 BP 136 / 78; Pulse 69; Resp 16; Pulse Ox 99% on R/A; ab2 18:04 BP 129 / 80; Pulse 67; Resp 16; Pulse Ox 100% on R/A; Pain 0/10; ab2 19:04 BP 136 / 71; Pulse 70; Resp 16; Pulse Ox 100% on R/A; Pain 0/10; ab2 16:25 Body Mass Index 38.09 (107.05 kg, 167.64 cm) vg1 ED Course: 16:20 Patient arrived in ED. mr 16:27 Triage completed. vg1 16:27 Arm band placed on. vg1 16:34 Sai Corona MD is Attending Physician. kdr 16:36 Nino Workman is Primary Nurse. ab2 16:36 Basic Metabolic Panel Sent. ab2 16:36 CBC with Automated Diff Sent. ab2 16:37 Hepatic Function Sent. ab2 16:37 Lipase Sent. ab2 16:37 Basic Metabolic Panel Sent. ab2 16:37 CBC with Diff Sent. ab2 16:55 No provider procedures requiring assistance completed. Inserted saline lock: 18 gauge ab2 in right antecubital area, using aseptic technique. Blood collected. 16:56 Patient has correct armband on for positive identification. Side rails up X2. ab2 19:04 IV discontinued, intact, bleeding controlled, No redness/swelling at site. Pressure ab2 dressing applied. Administered Medications: 16:53 Drug: NS 0.9% 1000 ml Route: IV; Rate: 1 bolus; Site: right antecubital; ab2 18:05 Follow up: Response: No adverse reaction; IV Status: Completed infusion ab2 16:53 Drug: Zofran (Ondansetron) 4 mg Route: IVP; Site: right antecubital; ab2 18:05 Follow up: Response: No adverse reaction ab2 18:05 Follow up: Response: No adverse reaction ab2 18:04 Drug: NS 0.9% 1000 ml Route: IV; Rate: 1 bolus; Site: right antecubital; ab2 Outcome: 18:16 Discharge ordered by . kdr 19:05 Discharged to home ambulatory. ab2 19:05 Condition: good 19:05 Discharge instructions given to patient, Instructed on discharge instructions, follow up and referral plans. Demonstrated understanding of instructions, follow-up care. 19:05 Patient left the ED. ab2 Signatures: Sai Corona MD MD kdr Rivera, Em Atkins, RN RN vg1 Nino Workman ab2
--- NOTE | 2021-07-26 18:16 | EDPHYS ---
Physician Documentation [facility] Name: Junie Peralta Age: 51 yrs Sex: Female : 1970 Arrival Date: 07/26/2021 Time: 16:20 Bed 9 Private MD: ED Physician Sai Corona HPI: 07/26 17:38 This 51 yrs old Black Female presents to ER via Ambulatory with complaints of kdr Dehydration. 17:38 Patient had a gastric sleeve placed about a month ago. For the last few days she has kdr had nausea vomiting and has been unable to keep anything down. Her physician asked her to come to the ED to get a fluid infusion for hydration. She is otherwise not in any acute illness or unstable state. Onset: The symptoms/episode began/occurred gradually, 2 day(s) ago. Severity of symptoms: At their worst the symptoms were mild in the emergency department the symptoms are unchanged. The patient has not experienced similar symptoms in the past. The patient has been recently seen by a physician: the patient's primary care provider. 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 LMP N/A - Hysterectomy vg1 Historical: - Allergies: 16:27 Benadryl; vg1 16:27 Flexeril; vg1 16:27 GABAPENTIN; vg1 - Home Meds: 16:27 amiodarone 200 mg Oral tab 1 tab once daily [Active]; aspirin 325 mg Oral tab 1 tab vg1 once daily [Active]; Effexor 25 mg Oral tab 1 tab 2 times per day [Active]; losartan 100 mg Oral tab 1 tab once daily [Active]; metformin 1,000 mg Oral tab 1 tab [Active]; Protonix 40 mg Oral TbEC 1 tab once daily [Active]; triamterene-hydrochlorothiazid 37.5-25 mg Oral cap once daily [Active]; - PMHx: 16:27 Adenomyosis; Depression; Diabetes - NIDDM; GERD; Hypertension; Obesity; Sleep Apnea; vg1 - PSHx: 16:27 breast reduction; Total abdominal hysterectomy; Total right knee; vg1 - Immunization history:: Client reports receiving the 2nd dose of the Covid vaccine. - Social history:: Smoking status: Patient denies any tobacco usage or history of. ROS: 17:38 Constitutional: Negative for fever, chills, and weight loss, Eyes: Negative for injury, kdr pain, redness, and discharge, Neck: Negative for injury, pain, and swelling, Cardiovascular: Negative for chest pain, palpitations, and edema, Respiratory: Negative for shortness of breath, cough, wheezing, and pleuritic chest pain, Back: Negative for injury and pain, : Negative for injury, bleeding, discharge, and swelling, MS/Extremity: Negative for injury and deformity, Skin: Negative for injury, rash, and discoloration, Neuro: Negative for headache, weakness, numbness, tingling, and seizure activity. 17:38 Abdomen/GI: Positive for nausea and vomiting. Exam: 17:38 Constitutional: This is a well developed, well nourished patient who is awake, alert, kdr and in no acute distress. Head/Face: Normocephalic, atraumatic. Eyes: Pupils equal round and reactive to light, extra-ocular motions intact. Lids and lashes normal. Conjunctiva and sclera are non-icteric and not injected. Cornea within normal limits. Periorbital areas with no swelling, redness, or edema. Neck: Trachea midline, no thyromegaly or masses palpated, and no cervical lymphadenopathy. Supple, full range of motion without nuchal rigidity, or vertebral point tenderness. No Meningismus. Chest/axilla: Normal chest wall appearance and motion. Nontender with no deformity. No lesions are appreciated. Cardiovascular: Regular rate and rhythm with a normal S1 and S2. No gallops, murmurs, or rubs. Normal PMI, no JVD. No pulse deficits. Respiratory: Lungs have equal breath sounds bilaterally, clear to auscultation and percussion. No rales, rhonchi or wheezes noted. No increased work of breathing, no retractions or nasal flaring. Abdomen/GI: Soft, non-tender, with normal bowel sounds. No distension or tympany. No guarding or rebound. No evidence of tenderness throughout. Back: No spinal tenderness. No costovertebral tenderness. Full range of motion. Skin: Warm, dry with normal turgor. Normal color with no rashes, no lesions, and no evidence of cellulitis. MS/ Extremity: Pulses equal, no cyanosis. Neurovascular intact. Full, normal range of motion. Neuro: Awake and alert, GCS 15, oriented to person, place, time, and situation. Cranial nerves II-XII grossly intact. Motor strength 5/5 in all extremities. Sensory grossly intact. Cerebellar exam normal. Normal gait. Psych: Awake, alert, with orientation to person, place and time. Behavior, mood, and affect are within normal limits. Vital Signs: 16:25 BP 142 / 86; Pulse 63; Resp 16; Temp 97.0; Pulse Ox 100% ; Weight 107.05 kg; Height 5 vg1 ft. 6 in. (167.64 cm); Pain 0/10; 17:32 BP 136 / 78; Pulse 69; Resp 16; Pulse Ox 99% on R/A; ab2 18:04 BP 129 / 80; Pulse 67; Resp 16; Pulse Ox 100% on R/A; Pain 0/10; ab2 19:04 BP 136 / 71; Pulse 70; Resp 16; Pulse Ox 100% on R/A; Pain 0/10; ab2 16:25 Body Mass Index 38.09 (107.05 kg, 167.64 cm) vg1 MDM: 17:38 Data reviewed: vital signs, nurses notes, lab test result(s). Counseling: I had a kdr detailed discussion with the patient and/or guardian regarding: the historical points, exam findings, and any diagnostic results supporting the discharge/admit diagnosis, lab results, the need for outpatient follow up. 18:16 Patient medically screened. [facility] 07/26 16:35 Order name: Basic Metabolic Panel [facility] 07/26 16:35 Order name: CBC with Diff [facility] 07/26 16:35 Order name: Hepatic Function; Complete Time: 17:37 [facility] 07/26 16:35 Order name: Lipase; Complete Time: 17:37 [facility] 07/26 16:35 Order name: Basic Metabolic Panel; Complete Time: 17:37 [facility] 07/26 16:35 Order name: CBC with Automated Diff; Complete Time: 17:37 [facility] 07/26 16:35 Order name: IV Saline Lock; Complete Time: 16:37 [facility] 07/26 16:35 Order name: Labs collected and sent; Complete Time: 16:37 kdr Administered Medications: 16:53 Drug: NS 0.9% 1000 ml Route: IV; Rate: 1 bolus; Site: right antecubital; ab2 18:05 Follow up: Response: No adverse reaction; IV Status: Completed infusion ab2 16:53 Drug: Zofran (Ondansetron) 4 mg Route: IVP; Site: right antecubital; ab2 18:05 Follow up: Response: No adverse reaction ab2 18:05 Follow up: Response: No adverse reaction ab2 18:04 Drug: NS 0.9% 1000 ml Route: IV; Rate: 1 bolus; Site: right antecubital; ab2 Disposition Summary: 07/26/21 18:16 Discharge Ordered Location: Home kdr Problem: new kdr Symptoms: have improved kdr Condition: Stable kdr Diagnosis - Nausea with vomiting, unspecified kdr - Dehydration kdr Followup: kdr - With: Private Physician - When: 2 - 3 days - Reason: If symptoms return, Further diagnostic work-up, Recheck today's complaints, Continuance of care, Re-evaluation by your physician Discharge Instructions: - Discharge Summary Sheet kdr - Dehydration, Adult kdr - Nausea and Vomiting, Adult, [id number] kdr Forms: - Medication Reconciliation Form kdr - Thank You Letter kdr Prescriptions: - ondansetron 4 mg Oral tablet,disintegrating - place 1 tablet by TRANSLINGUAL route every 4-6 hours As needed; 16 tablet; kdr Refills: 0, Product Selection Permitted Signatures: Dispatcher [employer] Sai Lama MD MD kdr Em Rudolph RN RN vg1 Nino Workman ab2
[2021-07-26 19:11] VITALS: TEMP 97
[2021-07-26 19:14] VITALS: O2SAT 100
[2021-07-26 19:15] VITALS: BP 136/71
== END 2021-07-26 19:05 | disposition home or self-care (01) ==
LOC: ER 16:17
DX: E86.0 Dehydration (principal); E11.9 Type 2 diabetes mellitus without complications; I10 Essential (primary) hypertension; Z88.8 Allergy status to other drugs, medicaments and biological substances
CPT/HCPCS: 96361; 85025; 80048; 36415; 80076; 83690; 96374; 99284; J7030 ×2; J2405

== ENCOUNTER 2021-08-02 18:51 | Emergency (ER) | payer BC ==
--- OUTSIDE RECORDS SUMMARY | 2021-08-02 18:57 | XMS REPORT | Continuity of Care Document ---
:1970 Author Organization [facility] t Address [address] [place] [address] Care Team Providers Name Role Phone System, Not In Primary Care Physician MIO JAQUEZ Attending Clinician Unavailable Marybeth Attending Clinician Unavailable KATHERIN DE LA CRUZ Attending Clinician Unavailable LLOYD HENSON Attending Clinician Unavailable LLOYD HENSON Attending Clinician Unavailable Lloyd Henson MD Attending Clinician MACK CARRINGTON Attending Clinician Unavailable MACK CARRINGTON Attending Clinician Unavailable Mack Carrington MD Attending Clinician DEWAYNE Attending Clinician Unavailable MIO JAQUEZ Attending Clinician Unavailable Marco Antonio Oneill MD Attending Clinician Kenia CHUN M Attending Clinician Dawn Arciniega Attending Clinician Hillary RAYMOND, Katerina Attending Clinician DAWN BALBUENA Attending Clinician Unavailable MIO JAQUEZ Admitting Clinician Unavailable Marybeth Admitting Clinician Unavailable KATHERIN DE LA CRUZ Admitting Clinician Unavailable LLOYD HENSON Admitting Clinician Unavailable MACK CARRINGTON Admitting Clinician Unavailable Katerina Thornton MD Admitting Clinician KNOW Admitting Clinician Unavailable Payers Payer Name Policy Type Policy Number Effective Date Expiration Date S ource CIGNA HMO/POS/OPEN [id number] 2018 ACCESS 00:00:00 GENERIC COMMERCIAL [id number] 2020 00:00:00 00:00:00 AETNA OPEN ACCESS [id number] 2020 HMO NAP 00:00:00 COVID VACCINE [id number] 2020-08-01 ADMIN / TESTING 00:00:00 [facility] OS [id number] 2021-07-13 POS/PPO/EPO 00:00:00 OPEN ACCESS [id number] HMO/POS/EPO/PPO - AETNA HMO/POS OPEN [id number] 2018-07-13 2019-12-21 ACCESS - CIGNA 00:00:00 00:00:00 GENERIC PPO - [id number] GENERIC PAYOR 00:00:00 OUT OF STATE [facility] [id number] - PPO - BS CVCP-AETNA [id number] Problems Condition Condition Condition Status Onset Resolution Last Treating Co mments Source Name Details Category Date Date Treatment Clinician Date GERD GERD Disease Active [facility] (gastroeso (gastroeso 04-09 Co llege phageal phageal 00:00: of reflux reflux 00 Medicin disease) disease) e Type 2 Type 2 Disease Active Univers diabetes diabetes 03-13 ity of mellitus mellitus 00:00: [place] without without 00 Medical complicati complicati Br anch on, on, without without long-term long-term current current use of use of insulin insulin Bradycardi Bradycardi Disease Active U nivers a a 03-13 ity of 00:00: [place] [facility] Hypertensi Hypertensi Disease Active U nivers ve urgency ve urgency 03-13 it y of 00:00: Medical Branch Essential Essential Disease Active Uni vers hypertensi hypertensi 03-13 it y of on on 00:00: [place] [facility] Paroxysmal Paroxysmal Disease Active [facility] atrial atrial 03-13 [place] fibrillati fibrillati 00:00: of on with on with 00 Medicin RVR RVR e Morbid Morbid Disease Active [facility] obesity obesity 03-13 College with body with body 00:00: of mass index mass index 00 Me dicin of of e 40.0-49.9 40.0-49.9 Paroxysmal Paroxysmal Disease Active [facility] atrial atrial 03-13 [place] fibrillati fibrillati 00:00: of on with on with 00 Medicin RVR RVR e (HCCode) (HCCode) Morbid Morbid Disease Active [facility] obesity obesity 03-13 [place] with body with body 00:00: of mass index mass index 00 Me dicin of of e 40.0-49.9 40.0-49.9 (HCCode) (HCCode) SANDEEP SANDEEP Disease Active [facility] (obstructi (obstructi 03-13 Co llege ve sleep ve sleep 00:00: of apnea) apnea) 00 Medicin e A-fib A-fib Disease Active Univers 8-31 ity of 00:00: [place] [facility] Type 2 Type 2 Disease Active [facility] diabetes diabetes 4-26 Colleg e mellitus mellitus 00:00: of without without 00 Medicin complicati complicati e on, on, without without long-term long-term current current use of use of insulin insulin (HCCode) (HCCode) Essential Essential Disease Active [facility] hypertensi hypertensi 7 Co llege on on 00:00: of 00 Medicin e Allergies, Adverse Reactions, Alerts Allergy Allergy Status Severity Reaction(s) Onset Inactive Treating Comm ents Source Name Type Date Date Clinician GABAPENT Allergy Active Other 2020-[address] [facility] CYCLOBEN Allergy Active Other [facility] ZAPRINE 4-12 00:00: 00 Benadryl Propensi Active Palpitations [facility] Allergy ty to 09-26 College adverse 00:00: of reaction 00 Medicin s to e drug Cycloben Propensi Active Other [facility]ae zaprine ty to 09-26 reaction( Colleg e adverse 00:00: s): of reaction 00 Tachycard Medic in s to ia e drug cycloben DA Active U [facility] zaprine 10-08 Clear 00:00: [place] 00 [facility] diphenhy DA Active U 2019-0 [facility] dramine 3-29 Clear 00:00: [place] 00 [facility] DIPHENHY Allergy Active Low Palpitations S [facility] DRAMINE 10-08 00:00: 00 cycloben DA Active U tachycardia 0 [facility] zaprine 10-08 Clear 00:00: [place] 00 [facility] diphenhy DA Active U tachycardia 2019-0 [facility] dramine 10-08 Clear 00:00: [place] 00 [facility] Gabapent Propensi Active Other [facility] in ty to 10-07 reaction( College adverse 00:00: s): of reaction 00 Other, Medicin s to Other e drug (See Comments) , Other (See Comments) HR dropped to 40's after being on it for 2 weeksHR dropped to 40's after being on it for 2 weeks NO KNOWN Allergy Active [facility] NO KNOWN Drug Active [facility] ity of [facility] Social History Social Habit Start Date Stop Date Quantity Comments Source Sex Assigned At [facility] [place] History [facility] of Alcohol Std Medicine Drinks History [facility] ge of Alcohol Binge Medicine History [facility] of Alcohol Comment Medicine Exposure to Not sure [facility] e of SARS-CoV-2 Medicine (event) Alcohol intake 2021-07-10 2021-07-10 Current drinker [facility] of 00:00:00 00:00:00 of alcohol Medicine (finding) Tobacco use and 2020-09-26 2020-09-26 Smokeless tobacco [facility] of exposure 00:00:00 00:00:00 non-user Medicine History [facility] 2020-09-26 2020-09-26 1 [facility] ge of Alcohol Frequency 00:00:00 00:00:00 Medicin e Smoking Status Start Date Stop Date Source Never smoker [facility] Medications Ordered Filled Start Stop Current Ordering Indication Dosage Frequency Signature Comments Components Source Medication Medication Date Date Medication? Clinician (SIG) Name Name pantoprazol 2020-07 Yes 40mg Take 40 mg Jae e 2-29 by mouth [place] (PROTONIX) 09:04: daily. of 40 MG 02 Medicin tablet e losartan 2020-07 Yes 100mg Take 100 [facility] (COZAAR) 2-29 mg by [place] 100 MG 09:04: mouth of tablet 02 daily. Medicin e aspirin 325 2020-07 Yes 325mg Take 325 [facility] mg tablet 2-29 mg by [place] 09:04: mouth of 02 daily. Medicin e Multiple 2020-07 Yes 1{capsu Take 1 [facility] Vitamin 2-29 le} capsule by [facility] ar[facility] (MULTIVITAM 09:04: mouth of INS) CAPS 02 daily. Medicin e Ferrous 2020-07 Yes 1{tbl} Take 1 Jae Sulfate 2-29 Tablet by [place] (IRON) 325 09:04: mouth of (65 Fe) MG 02 daily. Medicin TABS e metformin 2020-07 1000mg Take 1,000 [facility] (GLUCOPHAGE 2-29 12-29 mg by [facility] yasmeen ) 1000 MG 09:03: 00:00 mouth of tablet 48 :00 daily. Medicin e metformin 2020-07 Yes 1000mg Take 1,000 Jae (GLUCOPHAGE 2-13 mg by [place] ) 1000 MG 14:40: mouth of tablet 39 daily. Medicin e pantoprazol 2020-07 Yes 40mg Take 40 mg [facility] e 2-13 by mouth [place] (PROTONIX) 14:40: daily. of 40 MG 39 Medicin tablet e losartan 2020-07 Yes 100mg Take 100 [facility] (COZAAR) 2-13 mg by [place] 100 MG 14:40: mouth of tablet 39 daily. Medicin e aspirin 325 2020-07 Yes 325mg Take 325 [facility] mg tablet 2-13 mg by [place] 14:40: mouth of 39 daily. Medicin e Multiple 2020-07 Yes 1{capsu Take 1 [facility] Vitamin 2-13 le} capsule by [facility] (MULTIVITAM 14:40: mouth of INS) CAPS 39 daily. Medicin e Ferrous 2020-07 Yes 1{tbl} Take 1 [facility] Sulfate 2-13 Tablet by [place] (IRON) 325 14:40: mouth of (65 Fe) MG 39 daily. Medicin TABS e docusate 2020-07 Yes 100mg Take 1 [facility]ae sodium 2-13 capsule by [place] (COLACE) 00:00: mouth of 100 MG 00 daily. Medicin capsule e pantoprazol 2020-07 Yes 40mg Take 1 [facility] e 2-13 Tablet by [place] (PROTONIX) 00:00: mouth of 40 MG 00 daily. Medicin tablet e Scopolamine 2020-07 Yes 1{patch Place 1 [facility] 1 MG/3DAYS 2-13 } Patch onto Col lege [id number] 00:00: the skin of 00 every 3 Medicin days. e acetaminoph 2020-07 Yes 500mg Take 1 [place] en 2-13 Tablet by [place] (TYLENOL) 00:00: mouth of 500 mg 00 [...] ion). docusate 2020-07 Yes 100mg Take 1 [facility] sodium 2-13 capsule by [place] (COLACE) 00:00: mouth of 100 MG 00 daily. Medicin capsule e pantoprazol 2020-07 Yes 40mg Take 1 [facility] e 2-13 Tablet by [place] (PROTONIX) 00:00: mouth of 40 MG 00 daily. Medicin tablet e Scopolamine 2020-07 Yes 1{patch Place 1 Jae 1 MG/3DAYS 2-13 } Patch onto Col lege [id number] 00:00: the skin of 00 every 3 Medicin days. e acetaminoph 2020-07 Yes 500mg Take 1 [place] en 2-13 Tablet by [place] (TYLENOL) 00:00: mouth of 500 mg 00 every 6 Medicin tablet hours as e needed. ondansetron 2020-07 Yes 4mg Take 1 [facility] (ZOFRAN) 4 2-13 Tablet by [facility] hayden MG tablet 00:00: mouth of 00 every [...] needed. metformin 2020-07 Yes 1000mg Take 1,000 [facility] (GLUCOPHAGE 1-08 mg by [place] ) 1000 MG 09:32: mouth of tablet 19 daily. Medicin e pantoprazol 2020-07 Yes 40mg Take 40 mg Jae e 1-08 by mouth [place] (PROTONIX) 09:32: daily. of 40 MG 19 Medicin tablet e losartan 2020-07 Yes 100mg Take 100 [facility] (COZAAR) 1-08 mg by [place] 100 MG 09:32: mouth of tablet 19 daily. Medicin e aspirin 325 2020-07 Yes 325mg Take 325 [facility] mg tablet 1-08 mg by [place] 09:32: mouth of 19 daily. Medicin e Multiple 2020-07 Yes 1{capsu Take 1 [facility] Vitamin 1-08 le} capsule by [facility] (MULTIVITAM 09:32: mouth of INS) CAPS 19 daily. Medicin e Ferrous 2020-07 Yes 1{tbl} Take 1 [facility] Sulfate 1-08 Tablet by [place] (IRON) 325 09:32: mouth of (65 Fe) MG 19 daily. Medicin TABS e metformin Yes 1000mg Take 1,000 [facility] (GLUCOPHAGE 9-28 mg by [place] ) 1000 MG 10:45: mouth of tablet 56 daily. Medicin e pantoprazol Yes 40mg Take 40 mg [facility] e 9-28 by mouth [place] (PROTONIX) 10:45: daily. of 40 MG 56 Medicin tablet e losartan Yes 100mg Take 100 [facility] (COZAAR) 9-28 mg by College 100 MG 10:45: mouth of tablet 56 daily. Medicin e aspirin 325 Yes 325mg Take 325 [facility] mg tablet 9-28 mg by College 10:45: mouth of 56 daily. Medicin e metformin Yes 1000mg Take 1,000 [facility] (GLUCOPHAGE 9-28 mg by College ) 1000 MG 10:45: mouth of tablet 56 daily. Medicin e pantoprazol Yes 40mg Take 40 mg Jae e 9-28 by mouth [place] (PROTONIX) 10:45: daily. of 40 MG 56 Medicin tablet e losartan Yes 100mg Take 100 [facility] (COZAAR) 9-28 mg by College 100 MG 10:45: mouth of tablet 56 daily. Medicin e aspirin 325 Yes 325mg Take 325 [facility] mg tablet 9-28 mg by College 10:45: mouth of 56 daily. Medicin e Na Yes [SUPREP] Jae Sulfate-K 9-28 Take as College Sulfate-Mg 00:00: directed. of Sulf 00 Medicin (SUPREP e BOWEL PREP KIT) 17.5-3.13-1 .6 GM/177ML SOLN Na Yes [SUPREP] Jae Sulfate-K 9-28 Take as College Sulfate-Mg 00:00: directed. of Sulf 00 Medicin (SUPREP e BOWEL PREP KIT) 17.5-3.13-1 .6 GM/177ML SOLN Na 2020- No [SUPREP] Jae Sulfate-K 9-28 08 Take as Colleg e Sulfate-Mg 00:00: 00:00 directed. o f Sulf 00 :00 Medicin (SUPREP e BOWEL PREP KIT) 17.5-3.13-1 .6 GM/177ML SOLN losartan Yes 100mg Take 100 [facility] (COZAAR) 4-22 mg by [place] 100 MG 20:37: mouth of tablet 38 daily. Medicin e aspirin 325 2021-0 Yes 325mg Take 325 [facility] mg tablet 4-22 mg by [place] 20:37: mouth of 38 daily. Medicin e metformin 0 Yes 1000mg Take 1,000 [facility] (GLUCOPHAGE 4-22 mg by [place] ) 1000 MG 20:34: mouth of tablet 38 daily. Medicin e pantoprazol Yes 40mg Take 40 mg Jae e 4-22 by mouth [place] (PROTONIX) 20:34: daily. of 40 MG 38 Medicin tablet e amiodarone Yes 1{tbl} Take 1 [place] (PACERONE) 2-28 Tablet by Radha ege 200 MG 00:00: mouth of tablet 00 daily. Medicin e triamterene Yes 1{tbl} Take 1 [facility] -hydrochlor 2-28 Tablet by Col [facility]ge othiazide 00:00: mouth of (MAXZIDE) 00 daily. Medicin 37.5-25 MG e per tablet amiodarone Yes 1{tbl} Take 1 [place] (PACERONE) 2-28 Tablet by Radha ege 200 MG 00:00: mouth of tablet 00 daily. Medicin e triamterene Yes 1{tbl} Take 1 [facility] -hydrochlor 2-28 Tablet by Col lege othiazide 00:00: mouth of (MAXZIDE) 00 daily. Medicin 37.5-25 MG e per tablet amiodarone Yes 1{tbl} Take 1 [place] (PACERONE) 2-28 Tablet by [facility]ha e[facility] 200 MG 00:00: mouth of tablet 00 daily. Medicin e triamterene Yes 1{tbl} Take 1 [facility] -hydrochlor 2-28 Tablet by Col lege othiazide 00:00: mouth of (MAXZIDE) 00 daily. Medicin 37.5-25 MG e per tablet amiodarone Yes 1{tbl} Take 1 [place] (PACERONE) 2-28 Tablet by Radha ege 200 MG 00:00: mouth of tablet 00 daily. Medicin e triamterene Yes 1{tbl} Take 1 [facility] -hydrochlor 2-28 Tablet by Col lege othiazide 00:00: mouth of (MAXZIDE) 00 daily. Medicin 37.5-25 MG e per tablet amiodarone Yes 1{tbl} Take 1 [place] (PACERONE) 2-28 Tablet by Radha ege 200 MG 00:00: mouth of tablet 00 daily. Medicin e triamterene Yes 1{tbl} Take 1 [facility] -hydrochlor 2-28 Tablet by Col lege othiazide 00:00: mouth of (MAXZIDE) 00 daily. Medicin 37.5-25 MG e per tablet amiodarone Yes 1{tbl} Take 1 [place] (PACERONE) 2-28 Tablet by Radha ege 200 MG 00:00: mouth of tablet 00 daily. Medicin e triamterene Yes 1{tbl} Take 1 [facility] -hydrochlor 2-28 Tablet by Col lege othiazide 00:00: mouth of (MAXZIDE) 00 daily. Medicin 37.5-25 MG e per tablet ELIQUIS 5 2020- No 1{tbl} Take 1 [place] MG TABS 2-28 04-22 Tablet by [...] as of 00 needed. Medicin e diazepam 0 Yes 1{tbl} Take 1 [facility] (VALIUM) 5 1-06 Tablet by Radha e[facility] MG tablet 00:00: mouth as of 00 needed. Medicin e diazepam 0 Yes 1{tbl} Take 1 [facility] (VALIUM) 5 1-06 Tablet by [facility]ha ege MG tablet 00:00: mouth as of 00 needed. Medicin e diazepam 2020- No 1{tbl} Take 1 [facility] (VALIUM) 5 07-18 1229 Tablet by Col [facility]ge MG tablet 00:00: 00:00 mouth as of 00 :00 needed. Medicin e amlodipine 2020- No 1{tbl} Take 1 [facility] (NORVASC) 07-18 04-22 Tablet by Radha e[facility] 10 MG 00:00: [...] tablet 00 times Medicin daily. e metFORMIN Yes 1000mg Take 1,000 Univers 1,000 mg 9-02 mg by ity of tablet 17:14: mouth [place] 12 daily. Medical Branch triamterene Yes 1{capsu Take 1 U nivers -hydrochlor 9-02 le} capsule by it y of othiazide 17:14: mouth [place] 37.5-25 mg 12 every Medical per capsule morning. Bran ch pantoprazol Yes 40mg Take 40 mg Univers e 40 mg EC 9-02 by mouth ity o f tablet 17:14: daily. [address] venlafaxine Yes 37.5mg Take 37.5 Univers 25 mg 9-02 mg by ity of tablet 17:14: mouth at [place] 12 bedtime. [facility] metFORMIN 0 Yes 1000mg Take 1,000 Univers 1,000 mg 9-02 mg by ity of tablet 17:14: mouth [place] 12 daily. [facility] triamterene Yes 1{capsu Take 1 U nivers -hydrochlor 03-14 le} capsule by it y of othiazide 17:14: mouth [place] 37.5-25 mg 12 every Medical per capsule morning. Bran ch pantoprazol Yes 40mg Take 40 mg Univers e 40 mg EC 03-14 by mouth ity o f tablet 17:14: daily. [address] venlafaxine Yes 37.5mg Take 37.5 Univers 25 mg 9-02 mg by ity of tablet 17:14: mouth at [place] [address] bedtime. [facility] amiodarone Yes 400mg 400 mg, Uni vers (PACERONE) 03-14 Oral, ity of tablet 400 14:00: DAILY, [place] mg 00 First dose Medical on Thu03/14/20 at 0900, Until Discontinu ed, Routine venlafaxine Yes 37.5mg 37.5 mg, Univers (EFFEXOR) 03-14 Oral, QHS, ity of tablet 37.5 02:00: First dose [place] mg 00 on Thu Medical 03/13/20 at Branch 2100, Until Discontinu ed, Routine amiodarone 2019- Yes [id number] Take 400 Univers 200 mg 9-02 mg po qd x ity of tablet 00:00: 7 days [place] 00 then 200 Medical mg qd Branch apixaban 5 2019-0 Yes 1358 5mg Take 1 Unive rs mg tablet 03-14 tablet by ity o f 00:00: mouth 2 [place] 00 (two) Medical times Branch daily. Indication s: atrial fibrillati on amiodarone 2019- Yes [id number] Take 400 Univers 200 mg 9-02 mg po qd x ity of tablet 00:00: 7 days [place] 00 then 200 Medical mg qd [place] apixaban 5 2019-0 Yes 1358 5mg Take 1 [facility] rs mg tablet 03-14 tablet by ity o f 00:00: mouth 2 [place] 00 (two) Medical times [place] daily. Indication s: atrial fibrillati on digoxin 2020- No 250ug 250 mcg, [facility] (LANOXIN) 03-13 Intravenou ity of injection 20:00: 20:53 s, ONCE, 1 [place] 250 mcg 00 :00 dose, [facility] Medical 03/13/20 at Branch 1500, Routine amiodarone 2019-0 Yes .5mg/mi 0.5 mg/min [facility] (CORDARONE) 03-13 n (16.6667 ity of 900 mg in 19:45: mL/hr, [place] D5W 500 mL 00 rounded to Med ical infusion 16.67 Branch mL/hr), IV Infusion, CONTINUOUS , Starting [facility] 03/13/20 at 1445
Al l amiodarone infusions must be administer ed using a 0.22 micron in line filter. Administer via central line if available. Amiodarone infusions with concentrat ions > 2 mg/mL must be administer ed via central line.
ibuprofen Yes 600mg 600 mg, [facility] (IBU) 03-13 Oral, ity of tablet 600 17:58: Q8HPRN, [place] mg 07 Starting Medical [facility] 03/13/20 Branch at 1258, Until Discontinu ed, Routine, Pain (scale 4-6) acetaminoph 2019-0 Yes 650mg 650 mg, Un rosendo en 03-13 Oral, ity of (TYLENOL) 17:57: Q4HPRN, [place] tablet 650 50 Starting Medic al mg [facility] 03/13/20 Branch at 1257, Until Discontinu ed, Routine, Pain (scale 1-3) sulfur 2019-0 2020- No 5mL 5 mL, [facility] hexafluorid 03-13 Intravenou i ty of e microsphr 16:00: 13:45 s, ONCE, 1 [place] (LUMASON) 00 :00 dose, Thu Medic al injection 5 03/13/20 at [facility] mL 1100, Routine
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 Restricted medication : PRESTON SCHMITT pantoprazol Yes 40mg 40 mg, [facility] e 03-13 Oral, ity of (PROTONIX) 14:00: DAILY, [place] EC tablet 00 First dose Medi porfirio 40 mg on Thu Branch 03/13/20 at 0900, Until Discontinu ed, Routine triamterene 2020-0 Yes .5{tbl} 0.5 Uni vers -hydrochlor 03-13 tablet, ity o f othiazid 14:00: Oral, [place] (MAXZIDE-25 00 DAILY, Medica l ) 37.5-25 First dose Bran ch mg tablet on Thu 0.5 tablet 03/13/20 at 0900, Until Discontinu ed, Routine isosorbide 2020-0 2020- No 60mg 60 mg, [facility] ers mononitrate 03-13 Oral, ity of (IMDUR) 24 14:00: 12:58 DAILY, [facility] :33 First dose Medi porfirio 60 mg on Thu Branch 03/13/20 at 0900, Until Discontinu ed, Routine digoxin 2020-0 2020- No .5mg 500 mcg [facility] s (LANOXIN) 03-13 (0.5 mg), ity of injection 14:00: 14:50 Intravenou [place] 500 mcg 00 :00 s, ONCE, 1 Medica l dose, Thu03/13/20 at 0900, Routine enoxaparin 2020-0 Yes 1mg/kg 129 mg Uni vers (LOVENOX) 03-13 (rounded ity of injection 13:00: [place] 133.4 [place] 129 mg 00 mg = 1 Medical mg/kg Branch ?133.4 kg), Subcutaneo , Q12H, First dose on Thu03/13/20 at 0800, Until Discontinu ed, Routine Sliding 2020-0 Yes Subcutaneo [facility] ers Scale 03-13 us, AC+HS, ity of Insulin-Reg 12:30: First dose [place] ular + Fsbg 00 on Thu Medica [...] swallow or has mental changes. dextrose 50 2019- Yes 25mL 25 mL, Univ ers % in water 03-13 Slow IV ity of (D50W) 06:54: Push, PRN, [place] injection 11 Starting Medica l 25 mL 03/13/20 Branch at 0154, Until Discontinu ed, HARSH, [...] Medical 03/12/20 at Branch 2315, STAT diltiazem 2019- No 5mg 5 mg, IV Uni vers [...] dose, 03/12/20 at 2200, HARSH diltiazem 2019- No 5mg 5 mg, IV Uni vers (CARDIZEM 03-13 Push, ity of IV) 03:00: 01:59 ONCE, 1 [place] injection 5 00 :00 dose, Mon Med ical mg 03/12/20 at Branch 2200, STAT
Fa culty member approving Restricted medication : SREEIsi HOFFMAN diltiazem 2020- No 5mg/h 5 mg/hr (5 Univers [...]
Immunizations Ordered Filled Immunization Date Status Comments [facility] e Immunization Name Name PPD (TB) 2011-04-30 Completed University of 00:00:00 [facility] [place] PPD (TB) 2011-04-30 Completed University of 00:00:00 [facility] [place] Influenza Virus 2011-03-11 Completed Universit y of Vaccine Quad IM 00:00:00 [place] Med ical Multi-dose 6+ MO Branch Influenza Virus 2011-03-11 Completed Universit y of Vaccine Quad IM 00:00:00 [place] Med ical Multi-dose 6+ MO [place] TDAP 2011-01-27 Completed University of 00:00:00 [facility] [place] TDAP 2011-01-27 Completed University of 00:00:00 [facility] [place] PPD (TB) 2010-04-17 Completed University of 00:00:00 [facility] [place] PPD (TB) 2010-04-17 Completed University of 00:00:00 [facility] [place] PPD (TB) 2009-04-23 Completed University of 00:00:00 [facility] [place] PPD (TB) 2009-04-23 Completed University of 00:00:00 [facility] [place] Influenza Virus 2009-03-27 Completed Universit y of Vaccine Quad IM 00:00:00 [place] Med ical Multi-dose 6+ MO Branch Influenza Virus 2009-03-27 Completed Universit y of Vaccine Quad IM 00:00:00 [facility] ical Multi-dose 6+ MO Branch Vital Signs Vital Name Observation Time Observation Value Comments Source Systolic blood 2021-07-10 15:01:00 133 mm[Hg] [facility] of pressure Medicine Diastolic blood 2021-07-10 15:01:00 81 mm[Hg] [facility] of pressure Medicine Heart rate 2021-07-10 15:01:00 52 /min [facility] C ollege of Medicine Body height 2021-07-10 15:01:00 167.6 cm [facility] of Medicine Body weight 2021-07-10 15:01:00 111.131 kg [facility] C [facility] of Medicine BMI 2021-07-10 15:01:00 39.54 kg/m2 [facility] of Medicine HEIGHT 2021-06-27 09:00:00 167.6 cm WEIGHT 2021-06-27 09:00:00 116.4 kg HEIGHT 2021-06-26 15:52:00 168.9 cm WEIGHT 2021-06-26 15:52:00 116.574 kg HEIGHT 2021-06-27 09:00:00 167.6 cm WEIGHT 2021-06-27 09:00:00 116.4 kg HEIGHT 2021-06-26 15:52:00 168.9 cm WEIGHT 2021-06-26 15:52:00 116.574 kg HEIGHT 2021-06-24 09:52:00 167.6 cm WEIGHT 2021-06-24 09:52:00 118.071 kg Systolic blood 2021-06-24 20:39:00 142 mm[Hg] [facility] pressure Medicine Diastolic blood 2021-06-24 20:39:00 79 mm[Hg] [facility] of pressure Medicine Heart rate 2021-06-24 20:39:00 60 /min [facility] of Medicine Body height 2021-06-24 20:39:00 168.9 cm [facility] of Medicine Body weight 2021-06-24 20:39:00 117.482 kg [facility] of Medicine BMI 2021-06-24 20:39:00 41.18 kg/m2 [facility] C [facility] of Medicine HEIGHT 2021-06-24 09:52:00 167.6 cm WEIGHT 2021-06-24 09:52:00 118.071 kg Systolic blood 2021-05-20 15:29:00 142 mm[Hg] [facility] pressure Medicine Diastolic blood 2021-05-20 15:29:00 81 mm[Hg] [facility] Medicine Heart rate 2021-05-20 15:29:00 61 /min [facility] ollege of Medicine Body temperature 2021-05-20 15:29:00 36.78 [facility] Body height 2021-05-20 15:29:00 167.6 cm [facility] C [facility]lege of Medicine Body weight 2021-05-20 15:29:00 124.286 kg [facility] C ollege of Medicine BMI 2021-05-20 15:29:00 44.22 kg/m2 [facility] ollege of Medicine HEIGHT 2021-04-29 08:39:00 167.6 cm WEIGHT 2021-04-29 08:39:00 129.275 kg HEIGHT 2021-04-25 08:42:00 167.6 cm WEIGHT 2021-04-25 08:42:00 129.275 kg HEIGHT 2021-04-29 08:39:00 167.6 cm WEIGHT 2021-04-29 08:39:00 129.275 kg HEIGHT 2021-04-25 08:42:00 167.6 cm WEIGHT 2021-04-25 08:42:00 129.275 kg Systolic blood 2021-04-09 15:45:00 188 mm[Hg] [facility] Medicine Diastolic blood 2021-04-09 15:45:00 70 mm[Hg] [facility] Medicine Heart rate 2021-04-09 15:45:00 52 /min [facility]lege of Medicine Body height 2021-04-09 15:45:00 167.6 cm [facility] Medicine Body weight 2021-04-09 15:45:00 129.275 kg [facility] ollege of Medicine BMI 2021-04-09 15:45:00 46.00 kg/m2 [facility] of Medicine Systolic blood 2020-11-01 20:34:00 133 mm[Hg] [facility] Medicine Diastolic blood 2020-11-01 20:34:00 84 mm[Hg] [facility] Heart rate 2020-11-01 20:34:00 62 /min [facility] Body temperature 2020-11-01 20:34:00 35.83 Iqra [facility] Body height 2020-11-01 20:34:00 168.9 cm [facility] Body weight 2020-11-01 20:34:00 134.718 kg [facility] BMI 2020-11-01 20:34:00 47.22 kg/m2 [facility] Systolic blood 2020-03-14 15:00:00 137 mm[Hg] [facility] Diastolic blood 2020-03-14 15:00:00 67 mm[Hg] Unive rsity of pressure [facility] Heart rate 2020-03-14 15:00:00 58 /min [facility] [place] [facility] [place] Oxygen saturation in 2020-03-14 15:00:00 95 /min [facility] by [place] [facility] porfirio Pulse oximetry Branch Body temperature 2020-03-14 13:00:00 36.83 Iqra [facility] Respiratory rate 2020-03-14 13:00:00 18 /min [facility] Body weight 2020-03-14 01:49:00 133.267 kg [facility] BMI 2020-03-14 01:49:00 46.02 kg/m2 [facility] Body height 2020-03-13 05:25:00 170.2 cm [facility] Systolic blood 2020-03-14 15:00:00 137 mm[Hg] [facility] Diastolic blood 2020-03-14 15:00:00 67 mm[Hg] Unive [facility]ity [facility] pressure [facility] Heart rate 2020-03-14 15:00:00 58 /min [facility] Oxygen saturation in 2020-03-14 15:00:00 95 /min [facility] [place] Lexara porfirio Pulse oxim[facility] Branch Body temperature 2020-03-14 13:00:00 36.83 Iqra [facility] Respiratory rate 2020-03-14 13:00:00 18 /min [facility] Body weight 2020-03-14 01:49:00 133.267 kg [facility] BMI 2020-03-14 01:49:00 46.02 kg/m2 [facility] Body height 2020-03-13 05:25:00 170.2 cm [facility] Procedures Procedure Date / Time Performing Clinician Source Performed ECHO ROUTINE 2020-03-13 14:08:34 [facility] W/DOPPLER COLOR [facility] POCT GLUCOSE 2020-03-13 13:12:00 [facility] (AUTOMATED) [facility] TROPONIN I 2020-03-13 07:53:00 [facility] COVID-19 (ID NOW 2020-03-13 02:20:00 Isi Balbuena [facility] RAPID TESTING) [facility] XR CHEST 1 VW 2020-03-13 01:30:13 Isi Balbuena [facility] LIPASE 2020-03-13 01:25:00 Isi Balbuena [facility] MAGNESIUM 2020-03-13 01:25:00 Isi Balbuena [facility] TROPONIN I 2020-03-13 01:25:00 Isi Balbuena [facility] THYROID STIMULATING 2020-03-13 01:25:00 [facility] H[facility]ONE [facility] COMP. METABOLIC PANEL 2020-03-13 01:25:00 Isi Balbuena [facility] ([id number]) [facility] CBC WITH DIFF 2020-03-13 01:25:00 Isi Balbuena [facility] PROTHROMBIN TIME / 2020-03-13 01:25:00 Isi Balbuena [facility] INR [facility] ACTIVATED PARTIAL 2020-03-13 01:25:00 Isi Balbuena [facility] THRMPLAS THERON [facility] EKG-12 LEAD 2020-03-13 01:20:22 Isi Balbuena [facility] o f [facility] EKG-12 LEAD 2020-03-13 01:13:40 Dorina Pinedo [facility] Plan of Care Planned Activity Planned Date Details Comments Source Future Scheduled 2021-07-10 Screening for malignant [facility] College Test 09:18:21 neoplasm of breast of Medici ne (procedure) [code = 926532646] Future Scheduled 2021-07-[address] [facility] College Test 09:18:21 (1 of 2 - PPSV23) [code of M edicine = Pneumococcal Combined (1 of 2 - PPSV23)] Future Scheduled 2021-07-10 Diabetic foot [facility]ge Test 09:18:21 examination of Medicine (regime/therapy) [code = 126440169] Future Scheduled 2021-07-10 ANNUAL DIABETIC [facility] C ollege Test 09:18:21 RETINOPATHY SCREENING of Med icine [code = ANNUAL DIABETIC RETINOPATHY SCREENING] Future Scheduled 2021-07-10 Hepatitis C screening [facility] Test 09:18:21 (procedure) [code = of Medic ine 299176221] Future Scheduled 2021-07-10 Human immunodeficiency [facility] College Test 09:18:21 virus screening of Medicine (procedure) [code = 365696120] Future Scheduled 2021-07-10 Screening for malignant [facility] College Test 09:18:21 neoplasm of cervix of Medici ne (procedure) [code = 807867931] Future Scheduled 2021-07-10 ZOSTER VACCINE (1 of 2) [facility] Test 09:18:21 [code = ZOSTER VACCINE of Ms dicine (1 of 2)] Future Scheduled 2021-07-10 TETANUS SHOT (ADULT) [place] [facility] Test 09:18:21 [code = TETANUS SHOT of Medi cine (ADULT)] Future Scheduled 2021-07-10 BMI FOLLOW UP PLAN [employer] Test 09:18:21 [code = BMI FOLLOW UP of Med icine PLAN] Future Scheduled 2021-07-10 Screening for malignant [facility] Test 09:18:21 neoplasm of colon of Medicin e (procedure) [code = 943118565] Future Scheduled 2021-06-24 BMI FOLLOW UP PLAN [employer] Test 14:41:33 [code = BMI FOLLOW UP of Med icine PLAN] Future Scheduled 2021-06-24 Screening for malignant [facility] Test 14:40:21 neoplasm of breast of Medici ne (procedure) [code = 688826355] Future Scheduled 2021-06-24 Pneumococcal Combined [facility] Test 14:40:21 (1 of 2 - PPSV23) [code of M edicine = Pneumococcal Combined (1 of 2 - PPSV23)] Future Scheduled 2021-06-24 Diabetic foot [facility] Col [facility]ge Test 14:40:21 examination of Medicine (regime/therapy) [code = 477995236] Future Scheduled 2021-06-24 ANNUAL DIABETIC [facility] C [facility]lege Test 14:40:21 RETINOPATHY SCREENING of Med icine [code = ANNUAL DIABETIC RETINOPATHY SCREENING] Future Scheduled 2021-06-24 Hepatitis C screening [facility] Test 14:40:21 (procedure) [code = of Medic ine 944413152] Future Scheduled 2021-06-24 Human immunodeficiency B [facility] Test 14:40:21 virus screening of Medicine (procedure) [code = 019757237] Future Scheduled 2021-06-24 Screening for malignant [facility] Test 14:40:21 neoplasm of cervix of Medici ne (procedure) [code = 695627440] Future Scheduled 2021-06-24 ZOSTER VACCINE (1 of 2) [facility] Test 14:40:21 [code = ZOSTER VACCINE of Ms dicine (1 of 2)] Future Scheduled 2021-06-24 TETANUS SHOT (ADULT) [facility] Test 14:40:21 [code = TETANUS SHOT of Medi cine (ADULT)] Future Scheduled 2021-06-24 Screening for malignant [facility] Test 14:40:21 neoplasm of colon of Medicin e (procedure) [code = 725856519] Future Scheduled 2021-05-20 BMI FOLLOW UP PLAN [employer] Test 09:32:59 [code = BMI FOLLOW UP of Med icine PLAN] Future Scheduled 2021-05-20 Screening for malignant [facility] Test 09:04:01 neoplasm of breast of Medici ne (procedure) [code = 704694816] Future Scheduled 2021-05-20 BCM AMB Pneumococcal [place] [facility] [employer] Test 09:04:01 Combined (testing) (1 of Med icine of 2 - PPSV23) [code = BCM AMB Pneumococcal Combined (testing) (1 of 2 - PPSV23)] Future Scheduled 2021-05-20 Diabetic foot [facility] [employer] Test 09:04:01 examination of Medicine (regime/therapy) [code = 655426046] Future Scheduled 2021-05-20 ANNUAL DIABETIC [facility] C [facility]lege Test 09:04:01 RETINOPATHY SCREENING of Med icine [code = ANNUAL DIABETIC RETINOPATHY SCREENING] Future Scheduled 2021-05-20 Hepatitis C screening [facility] Test 09:04:01 (procedure) [code = of Medic ine 575929424] Future Scheduled 2021-05-20 [facility] Test 09:04:01 virus screening of Medicine (procedure) [code = 107905649] Future Scheduled 2021-05-20 Screening for malignant [facility] [employer] Test 09:04:01 neoplasm of cervix of Medici ne (procedure) [code = 766656259] Future Scheduled 2021-05-20 ZOSTER VACCINE (1 of 2) [employer] Test 09:04:01 [code = ZOSTER VACCINE of Me dicine (1 of 2)] Future Scheduled 2021-05-20 TETANUS SHOT (ADULT) [place] [facility] College Test 09:04:01 [code = TETANUS SHOT of Medi cine (ADULT)] Future Scheduled 2021-05-20 Screening for malignant [facility] [employer] Test 09:04:01 neoplasm of colon of Medicin e (procedure) [code = 586126250] Future Scheduled 2021-04-09 Screening for malignant [employer] Test 11:05:21 neoplasm of colon of Medicin e (procedure) [code = 767619774] Future Scheduled 2021-04-09 Screening for malignant [facility] [employer] Test 11:05:21 neoplasm of colon of Medicin e (procedure) [code = 294904975] Future Scheduled 2021-04-09 COLONOSCOPY W MAC GI 1 Occurrences [facility] Test 11:05:12 DEPT [code = 33078] starting of Medic ine 04/09/2021 until 10/07/2021 Future Scheduled 2021-04-09 COLONOSCOPY W MAC GI 1 Occurrences [facility] Test 11:05:12 DEPT [code = 33170] starting of Medic ine 04/09/2021 until 10/07/2021 Future Scheduled 2021-04-09 Human immunodeficiency [facility] Test 10:50:29 virus screening of Medicine (procedure) [code = 108463912] Future Scheduled 2021-04-09 Screening for malignant [facility] Test 10:50:29 neoplasm of cervix of Medici ne (procedure) [code = 355556359] Future Scheduled 2021-04-09 ZOSTER VACCINE (1 of 2) [facility] Test 10:50:29 [code = ZOSTER VACCINE of Me dicine (1 of 2)] Future Scheduled 2021-04-09 TETANUS SHOT (ADULT) [place] [facility] [employer] Test 10:50:29 [code = TETANUS SHOT of Medi cine (ADULT)] Future Scheduled 2021-04-09 FLU VACCINE > 6 MONTHS [facility] [employer] Test 10:50:29 [code = FLU VACCINE > 6 of M edicine MONTHS] Future Scheduled 2021-04-09 BMI FOLLOW UP PLAN [employer] Test 10:50:29 [code = BMI FOLLOW UP of Med icine PLAN] Future Scheduled 2021-04-09 Screening for malignant [facility] Test 10:50:29 neoplasm of breast of Medici ne (procedure) [code = 571242796] Future Scheduled 2021-04-09 Hepatitis C screening [facility] College Test 10:50:29 (procedure) [code = of Medic ine 308787467] Future Scheduled 2021-04-09 Human immunodeficiency [facility] Test 10:50:29 virus screening of Medicine (procedure) [code = 034542057] Future Scheduled 2021-04-09 Screening for malignant [facility] Test 10:50:29 neoplasm of cervix of Medici ne (procedure) [code = 528931165] Future Scheduled 2021-04-09 ZOSTER VACCINE (1 of 2) [facility] [employer] Test 10:50:29 [code = ZOSTER VACCINE of Me dicine (1 of 2)] Future Scheduled 2021-04-09 TETANUS SHOT (ADULT) [place] [employer] Test 10:50:29 [code = TETANUS [...] breast of Medici ne (procedure) [code = 028253973] Future Scheduled 2021-04-09 Hepatitis C screening [facility] [employer] Test 10:50:29 (procedure) [code = of Medic ine 679169015] Future Scheduled Screening for malignant [facility] Test neoplasm of colon of Medicin e (procedure) [code = 420051756] Future Scheduled Screening for malignant [facility] Test neoplasm of breast of Medici ne (procedure) [code = 561917231] Future Scheduled Hepatitis C screening [facility] [employer] [facility] (procedure) [code = of Medic ine 015078433] Future Scheduled [facility] virus screening of Medicine (procedure) [code = 552143244] Future Scheduled Screening for malignant [facility] Test neoplasm of cervix of Medici ne (procedure) [code = 248077803] Future Scheduled ZOSTER VACCINE (1 of 2) [facility] Test [code = ZOSTER VACCINE of Me dicine (1 of 2)] Future Scheduled TETANUS SHOT (ADULT) [place] [facility] College Test [code = TETANUS SHOT of Medi cine (ADULT)] Future Scheduled FLU VACCINE > 6 MONTHS [employer] Test [code = FLU VACCINE > 6 of M edicine MONTHS] Future Scheduled BMI FOLLOW UP PLAN [facility] Test [code = BMI FOLLOW UP of Med icine PLAN] Encounters Start End Encounter Admission Attending Care Care Encounter Source Date/Time Date/Time Type Type Clinicians Facility Department ID 2021-04-20 Outpatient LEONID, [facility] Surgery [id number] [facility] 09:24:04 LENO 2021-04-20 Outpatient LEONID [facility] Surgery [id number] [facility] 09:23:55 LENO 2019-10-09 Inpatient GLENIS Rueda [facility] MEDI.01 [id number] [facility] 00:44:00 Musaddiq [id number] [facility] 2021-08-02 2021-08-02 Outpatient KATARZYNA DE LA CRUZ, [facility] Surgery [id number] [facility] 11:58:00 11:58:00 DONALD 2021-07-31 2021-07-31 Outpatient Pretty HENSON Cal [facility] [id number] [facility] 16:25:06 16:49:59 Colleg e of Medicin e 2021-07-30 2021-07-30 Outpatient Pretty AKERS [facility] [id number] [facility] 09:14:20 23:59:00 2021-07-25 2021-07-25 Outpatient [facility] [id number] 10:21:19 10:21:19 [facility] 2021-07-16 2021-07-16 Outpatient [facility] [id number] 13:00:55 13:00:55 [facility] 2021-07-10 2021-07-10 Office Pretty Henson [id number] [facility] 09:00:00 09:35:38 Visit Lloyd AMBULATOR 350.1.13.21 College Y 0.2.7.2.686 of [id number] [facility] olayinka 805 e 2021-06-27 2021-06-27 Outpatient Connie AKERSGloria YEE Surgery [id number] [facility] 08:04:00 17:47:00 2021-06-26 2021-06-26 Outpatient KATARZYNA YEE [facility] [id number] [facility] 16:09:27 23:59:00 2021-06-24 2021-06-24 Outpatient Pretty AKERS [facility] [id number] SLE 09:32:27 23:59:00 2021-06-24 2021-06-24 Outpatient [facility] [id number] [facility] 00:00:00 23:59:00 Colleg e of Medicin e 2021-06-24 2021-06-24 Office Pretty HENSON [id number] [facility] 14:23:44 15:09:12 Visit AMBULATOR 350.1.13.21 College Y 0.2.7.2.686 of [id number] [facility] olayinka 805 e 2021-06-24 2021-06-24 Outpatient KATARZYNA YEE [facility] [id number] [facility] 00:00:00 00:00:00 2021-06-24 2021-06-24 Outpatient Pretty AKERS [facility] [id number] [facility] 00:00:00 00:00:00 2021-05-20 2021-05-20 Office Pretty HENSON [facility] [id number] [facility] 09:13:05 13:29:48 Visit AMBULATOR 350.1.13.21 College Y 0.2.7.2.686 of [id number] [facility] olayinka 805 e 2021-05-07 2021-05-07 Outpatient Pretty AKERS [facility] [id number] SLE 13:31:05 23:59:00 2021-04-29 2021-04-29 Outpatient EL ZEB, [facility] [id number] [facility] 07:34:00 10:45:00 DANICA 2021-04-29 2021-04-29 Outpatient ZEB [facility] [id number] [facility] 09:20:27 09:20:27 DANICA [facility] Medicin e 2021-04-09 2021-04-09 Office LESLIE Carrington [id number] [facility] 10:43:28 11:39:40 Visit Danica AMBULATOR 350.1.13.21 [facility] Y 0.2.7.2.686 of [id number] [facility] olayinka 300 e 2021-04-09 2021-04-09 Outpatient KATARZYNA [facility] [id number] [facility] 00:00:00 00:00:00 2021-02-28 2021-02-28 Outpatient GALINA BUCHANAN [facility] [id number] [facility] 14:27:18 14:44:19 BARBARA [facility] Medicin e 2021-02-07 2021-02-07 [facility] [id number] [facility] 11:42:03 12:00:47 BARBARA [facility]in e 2021-01-15 2021-01-16 Outpatient DEWAYNE [facility] [id number] [facility] 13:34:26 14:09:53 BARBARA Colleg e [facility] Medicin e 2020-10-22 2020-11-05 Outpatient LEONID [facility] [id number] [facility] 15:12:18 06:35:24 LENO Colleg e [facility] Medicin e 2020-10-22 2020-11-05 Outpatient LEONID [facility] [id number] [facility] 15:07:08 06:34:35 LENO [place] e of Medicin e 2020-11-01 2020-11-01 Office Del [facility] [id number] [facility] 15:16:25 16:40:53 Visit Mai, AMBULATOR 350.1.13.21 [place] [facility] Y 0.2.7.2.686 [id number] [facility] 800 e 2020-10-17 2020-10-17 Outpatient EL [facility] [id number] [facility] 00:00:00 00:00:00 2020-08-01 2020-08-01 Outpatient EL [facility] [id number] [facility] 00:00:00 00:00:00 2020-07-09 2020-07-09 Outpatient EL [facility] [id number] [facility] 00:00:00 00:00:00 2020-03-15 2020-03-15 Transition Barbara Aquino [id number] 00:00:00 00:00:00 of Care Deborah Reevesy 350.1.13.10 [place] 4.2.7.2.686 [id number] 2020-03-15 2020-03-15 Transition Barbara Aquino [id number] Univers 00:00:00 00:00:00 of Care Deborah Reevesy 350.1.13.10 i ty of [place]2.[place] [id number] [facility] 403 Branch 2020-03-12 2020-03-14 [facility] 1.2.840.1 [id number] 20:09:00 11:29:00 Encounter Perla [place] on 350.1.13.10 [place] 4.2.7.2.686 [place] [id number] 2020-03-12 2020-03-14 [facility] 1.2.840.1 [id number] [facility] 20:09:00 11:29:00 Encounter Perla Thornton [place] on 350.1.13.10 ity of [place] 4.2.7.2.686 [facility] [id number] [place] [address] Branch 2020-03-12 2020-03-12 Emergency X Isi BALBUENA [facility] ERT [id number] Univers 20:09:00 20:09:00 ity of [facility] 2019-10-09 2019-10-09 Outpatient Marybeth, HOLGERCL OUTD [id number] [facility] 07:38:00 07:38:00 Musaddiq [id number] [facility] 2019-10-07 2019-10-07 Outpatient [facility] [id number] [facility] 00:00:00 00:00:00 [id number] Results Test Description Test Time Test Comments Results Result Comments Source SARS-COV2/RT-PCR ([facility]) 2021-08-02 13:44:00 Test Item Value Reference Range Interpretation Comme nts SARS-COV2/RT-PCR (test code = Positive Negative AA The SARS-CoV-2 target nucleic [id number]) acids are detec nicanor in this specimen. The presence SARS-CoV-2 nucl eic acids cannot rule out co-inf ections or disease caused by other viral or bacterial pa thogens. As with any molecular t est, mutations within the targ et regions of the Xpert Xpres s SARS-CoV-2 test could affe ct primer and/or probe binding r esulting in failure to dete ct the presence of virus or the virus being detected less p redictably. False negative results may occur if virus is present at levels below th e analytical limit of detect ion. This SARS CoV-2 test is a rapid, real-time RT-PC R test intended for the qualita tive detection of nucleic acid from SARS-CoV-2 in a nasopharyn geal swab specimen collec nicanor from individuals claudia pected of COVID-19 by the ir healthcare provider. Resul ts from the Xpert Xpress SA RS-CoV-2 test should be corre lated with the clinical histor y, epidemiological data, and other data available to the clinician evaluating the patient. Viral nucleic acid ma y persist in vivo, independe nt of virus viability. Dete ction of analyte target(s) does not imply that the correspondi ng virus(es) are infectious or a re the causative agents for clin ical symptoms. This test has been authorized by FDA under an EUA for use by authorized laboratories. This test is only authorized for the duration of the declaration that circumstances exist justifying the authorization of emergency use of in vitro diagnostic tests for detection and/or diagnosis of COVID-19 under Section 564(b)(1) of the Federal Food, Drug and Cosmetic Act, 21 U.S.C. 360bbb- 3(b)(1), unless the authorization is terminated or revoked sooner. Fact Sheet for Healthcare Providers: https://www.[employer]/Documents/Xpert%20Xpress%20SARS%20CoV-2/Fact%20Sheets/302-3802%20SARS-COV -2%20HEALTHCARE%20PROVIDERS%20FACT%20SHEET.pdf Fact Sheet for Healthcare Patients: https://www.[employer]/Documents/Xpert %20Xpress%20SARS%20CoV-2/Fact%20Sheets/302-3801%38CMRH-XHX-5%20PATIENT%20FACT%20 SHEET.pdfFL, UGI, AIR CONTRAST, WITH [id number] 11:44:00Reason for Exam:- >S/p gastric sleeve procedure, N[facility] 1970 Sex: FFINAL REPORT TECHNIQUE: Single contrast upper GI series with water-so luble contrast INDICATION: S/p gastric sleeve procedure, N/V. COMPARISON: None. 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 There has been a prior sleeve gastrectomy, and no leak of ingested oral contrast is seen. Contrast does flow into the stomach unimpeded. However, there is decreased peristalsis of the esophagus. Contrast does pass into theduodenum. Gastroesophageal to the level of the upper thoracic esophagus. Fluoroscopy time: 4.8 minutesDose area product: 3339.73 microGy*m2 IMPRESSION: 1.No leak of contrast 2.Decreased esophageal motility 3.Gastroesophageal reflux to the upper thoracic esophagus Signed: Angelica Villavicencio MDReport Verified Date/Time: 07/30/2021 11:44:04 SARS-COV2/RT-PCR ([facility])2021-07-25 21:54:22 Test Item Value Reference Range Interpretation Comments SARS-COV2/RT-PCR (test code = Negative Negative [id number]) Negative result for this test determines that [...] the Melvin SARS-CoV-2 assay.Fact Sheet for Healthcare Providers:https://www.NowForce.PetBox/loida/RT SARS-CoV-2 HCP Fact Sheet 51- 082446.pdfFact Sheet for Healthcare Patients:https://www.NowForce.PetBox/loida/RT SARS-CoV-2 Patient Fact Sheet EN 51-854692T1.pdfSARS-COV2/RT-PCR ([facility])2021-07-17 09:19:19 Test Item Value Reference Range Interpretation Comments SARS-COV2/RT-PCR (test code = Negative Negative [id number]) Negative result for this test determines that [...] Healthcare Providers:https://www.molecular.melvin/loida/RT SARS-CoV-2 HCP Fact Sheet 51- 782631.pdfFact Sheet for Healthcare Patients:https://www.NowForce.melvin/loida/RT SARS-CoV-2 Patient Fact Sheet EN 51-553250L8.pdfTISSUE [id number] 12:41:40 Surgical Pathology Report Case: [id number] Authorizing Provider: Pretty Henson MD Collected: 06/27/2021 01:19 PM Ordering Location: [facility] PERIOPERATIVE Received: 06/27/2021 02:10 PM SERVICES Pathologist: Kyle Chowdhury MD Specimen: Gastric, gastric sleeve PART A PORTION OFSTOMACH, PARTIAL SLEEVE GASTRECTOMY:CONGESTED GASTRIC MUCOSA WITHOUT SIGNIFICANT HISTOPATHOLOGIC ALTERATION.NEGATIVE FOR INTESTINAL METAPLASIA, DYSPLASIA, OR INVASIVE CARCINOMA. Signing Pathologist Direct Phone Line: [phone] signed by Kyle Chowdhury MD on 07/02/2021 at12:41 [id number] obesity, body mass index 45.0-49.9, adult, essential [...] rugal folds. No discrete lesions are identified. [employer] Consultant sections are submitted in [id number].PEPPER Carlson, HT (ASCP)[facility], Department of Pathology, [address] [place] [id number], [facility], [address] [place] [address], [facility], [address] [place] [address], BRMU-GLUCOSE [id number] 09:35:37 Test Item Value Reference Range Interpretation Comments POC-GLUCOSE METER 157 mg/dL 70-110 H : TESTED Sabrina Benton [facility] 6720 (KVNG) (test code = [place], 1538) [address]: Cover Maker/Techni cristobal ID = [id number] for NIRAV KING SARS-COV2/RT-PCR ([facility])2021-06-24 19:39:10 Test Item Value Reference Range Interpretation Comments SARS-COV2/RT-PCR (test code = Negative Negative 9894658) Negative result for this test determines that [...] 564(g) of the Act.Testing was performedusing the Appticles SARS-CoV-2 assay.Fact Sheet for Healthcare Providers:https://www.NowForce.melvin/loida/RT SARS-CoV-2 HCP Fact Sheet 51- 411268.pdfFact Sheet for Healthcare Patients:https://www.NowForce.PetBox/loida/RT SARS-CoV-2 Patient Fact Sheet EN 51-194686C4.pdfBASIC METABOLIC [id number] 10:34:30 Test Item Value Reference Range Interpretation [...] 697) EGFR (BEAKER) (test 81 mL/min/1.73 ESTIMA NICANOR GFR IS code = 1092) sq m NOT ACCURATE CREATININE CLEARANCE IN PREDICTING GLOMERULAR FILTRATION RATE . ESTIMATED GFR I S NOT APPLICABLE FOR DIALYSIS PATIEN TS. Cover Maker ID - GIDEON [id number] 10:10:47 Test Item Value Reference Range Interpretation Comments HEMOGLOBIN (BEAKER) (test code = 11.5 GM/DL 11.2-15.7 410) Cover Maker ID - [id number], UGI, WITH [id number] 17:19:00Reason for Exam:- >Gastroesophageal reflux disease, unspecified whether esophagitis presen [facility] : 1970 Sex: FFINAL [...] with mild esophageal dysmotility. Signed: Robin Ceron D ate/Time: 05/07/2021 17:19:47 POCT-GLUCOSE [id number] 10:21:46 Test Item Value Reference Range Interpretation Comments POC-GLUCOSE METER 81 mg/dL 70-110 : TESTED A T [facility] [address] (BEAKER) (test code = [address], 15[address]) [place] [address]: Cover Maker/Techni cristobal ID = [id number] for Ngem cesar Sandra POCT-GLUCOSE [id number] 08:38:24 Test Item Value Reference Range Interpretation Comments POC-GLUCOSE METER 93 mg/dL 70-110 : TESTED A T [facility] [address] (BEAKER) (test code = [address], 1538) [place] [id number]: Cover Maker/Techni cristobal ID = [id number] for Izabella Tate SARS-COV2/RT-PCR ([facility])2021-03-13 22:34:00 Test Item Value Reference Range Interpretation Comments SARS-COV2/RT-PCR (test code = Negative Negative 5789644) Negative result for this test determines that [...] the Melvin SARS-CoV-2 assay.Fact Sheet for Healthcare Providers:https://www.NowForce.melvin/loida/RT SARS-CoV-2 HCP Fact Sheet 51- 640793.pdfFact Sheet for Healthcare Patients:https://www.molecular.melvin/loida/RT SARS-CoV-2 Patient Fact Sheet EN 51-918164F7.pdfSARS-COV2/RT-PCR ([facility])2021-02-20 22:59:00 Test Item Value Reference Range Interpretation Comments SARS-COV2/RT-PCR (test code = Negative Negative 8146366) Negative result for this test determines that [...] the Melvin SARS-CoV-2 assay.Fact Sheet for Healthcare Providers:https://www.NowForce.melvin/loida/RT SARS-CoV-2 HCP Fact Sheet 51- 917983.pdfFact Sheet for Healthcare Patients:https://www.NowForce.melvin/loida/RT SARS-CoV-2 Patient Fact Sheet EN 51-971307T6.pdfSARS-COV2/RT-PCR ([facility])2020-10-18 02:26:00 Test Item Value Reference Range Interpretation Comments SARS-COV2/RT-PCR (test Negative Not Detected, Negative, code = 0751510) See external report for linked test [facility]OV-2 [facility] ([facility] code = 1108333) Negative result for this test determines that [...] the Melvin SARS-CoV-2 assay.Fact Sheet for Healthcare Providers:https://www.NowForce.melvin/loida/ HY_CYQP-YaB-0_TMF_Qein_Tsznc_57-554225.pdfFact Sheet for Healthcare Patients:https://www.NowForce.FinalCAD hafsa/loida/HL_SBIK-WpL-5_Xrxbcjp_Icfh_Hdaxo_PY_24-462180R4.pdfPerforming Laboratory:[place] [address] [place] [address] SARS-COV2/RT-PCR ([facility])2020-10-01 22:17:00 Test Item Value Reference Range Interpretation Comments SARS-COV2/RT-PCR (test Negative Not Detected, Negative, code = 9489111) See external report for linked test SARS-COV-2 PERFORMING LAB [facility] (test code = 9503525) Negative result for this test determines that [...] the Melvin SARS-CoV-2 assay.Fact Sheet for Healthcare Providers:https://www.NowForce.melvin/loida/ XK_TJRT-ZcM-8_XWK_Ggik_Mjxds_30-347388.pdfFact Sheet for Healthcare Patients:https://www.NowForce.ab hafsa/loida/KH_CUXP-HuJ-1_Ktdason_Wnwg_Gtzhg_PI_47-873418Z8.pdfPerforming Laboratory:[facility] [place] [address] SARS-COV2/RT-PCR ([facility])2020-09-06 06:57:00 Test Item Value Reference Range Interpretation Comments SARS-COV2/RT-PCR (test Negative Not Detected, Negative, code = 2866678) See external report for linked test SARS-COV-2 PERFORMING LAB [facility] (test code = 5530937) Negative result for this test determines that [...] the Melvin SARS-CoV-2 assay.Fact Sheet for Healthcare Providers:https://www.molecular.melvin/loida/ BT_ZXDP-VzQ-7_YZR_Zeys_Wduvq_49-510843.pdfFact Sheet for Healthcare Patients:https://www.molecular.ab hafsa/loida/OC_MCQW-JfS-8_Fkiiuge_Vgch_Dfybq_EQ_46-893477U5.pdfPerforming Laboratory:[facility] [place] [address] SARS-COV2/RT-PCR ([facility])2020-08-10 23:41:00 Test Item Value Reference Range Interpretation Comments SARS-COV2/RT-PCR (test Negative Not Detected, Negative, code = 8780775) See external report for linked test SARS-COV-2 PERFORMING LAB [facility] (test code = 9245509) Negative result for this test determines that [...] the Melvin SARS-CoV-2 assay.Fact Sheet for Healthcare Providers:https://www.molecular.melvin/loida/ WL_NQVY-BmU-6_JFC_Gjsp_Rjxez_98-137860.pdfFact Sheet for Healthcare Patients:https://www.molecular.ab hafsa/loida/EX_STKH-XjN-2_Gzcbgah_Zaaa_Cbbll_FR_39-379119H5.pdfPerforming Laboratory:[facility] [place] [address] SARS-COV2/RT-PCR ([facility])2020-08-01 07:45:00 Test Item Value Reference Range Interpretation Comments SARS-COV2/RT-PCR (test Negative Not Detected, Negative, code = 7060611) See external report for linked test SARS-COV-2 PERFORMING LAB [facility] (test code = 4566009) Negative result for this test determines that [...] the Melvin SARS-CoV-2 assay.Fact Sheet for Healthcare Providers:https://www.molecular.melvin/loida/ EZ_XHCS-DxF-2_GTT_Plrw_Cuhyv_74-342022.pdfFact Sheet for Healthcare Patients:https://www.NowForce.ab hafsa/loida/IH_NCBY-DwP-3_Qcunpxl_Yrhz_Zdhik_DS_11-429791M9.pdfPerforming Laboratory:[address] [address] SARS-COV2/RT-PCR ([facility])2020-07-10 00:47:00 Test Item Value Reference Range Interpretation Comments SARS-COV2/RT-PCR (test Negative Not Detected, Negative, code = 9554630) See external report for linked test SARS-COV-2 PERFORMING LAB [facility] (test code = 8776509) Negative result for this test determines that [...] the Melvin SARS-CoV-2 assay.Fact Sheet for Healthcare Providers:https://www.NowForce.melvin/loida/ QQ_UMDM-SoP-9_DYP_Rmlh_Wqhtw_70-482482.pdfFact Sheet for Healthcare Patients:https://www.NowForce.FinalCAD hafsa/loida/HH_NHOP-UwS-4_Qvkelfx_Hlry_Tctqp_TP_21-705241K3.pdfPerforming Laboratory:[facility] [place] [address] SARS-COV2/RT-PCR ([facility])2020-05-29 13:27:00 Test Item Value Reference Range Interpretation Comments SARS-COV2/RT-PCR (test See external report Not Detected, code = 5296903) for linked test Negative, See external report for linked test SARS-COV-2 PERFORMING [facility] [place] [facility] (test code = 7127337) SARS-COV2/RT-PCR ([facility])2020-04-24 14:02:00 Test Item Value Reference Range Interpretation Comments SARS-COV2/RT-PCR (test Negative Not Detected, Negative, code = 8036567) See external report for linked test SARS-COV-2 PERFORMING LAB [facility] (test code = 0575889) Negative result for this test determines that [...] 564(g) of the Act.Fact Sheet for Healthcare Providers:https://www.Palringo/sites/default/files/product/documents/Fact_Sheyasmeen bentonf_JY_Kozwfwpvu_Gqez_YOEJ-WnR-1.pdfFact Sheet for Healthcare Patients:https://www.Palringo/sites/default/files/product/ documents/Jihn_Snvqx_Vnrajsti_Ljcw_NJRX-LlA-4.pdfPerforming Laboratory:[facility] [facility].[place], [place] [address]JBUK GLUCOSE (AUTOMATED)2020-03-13 13:16:00 Test Item Value Reference Range Interpretation Comments POCT GLU (test code = 4330868912) 128 mg/dL 70-110 H Lab Interpretation (test code = Abnormal 05958-1) [id number] 09:29:00 Test Item Value Reference Range Interpretation Comments TROPONIN I (test 0.021 ng/mL See_Comment [Automated code = 3963966667) message] The system which generated this result [...] ? Lab Interpretation Normal (test code = 16757-0) [facility] [id number] 05:01:00 Test Item Value Reference Range Interpretation Comments TSH (test code = See_Comment Biotin has been 8074345940) reported to cau se a negative bias, interpret resul ts relative to pat ient's use of biotin. [Automated mess age] The system 1SDK generated this result transmitted ref erence range: 0.45 - 4 .70 mIU/L. The refe rence range was not u sed to interpret this result as normal/abnor mal. Lab Interpretation (test Normal code = 91462-4) [facility] (ID NOW RAPID TESTING)2020-03-13 03:37:00 Test Item Value Reference Range Interpretation Comments SARS-CoV-2 Rapid ID NOW Not Detected Not Detected (test code = 29985-9) KRISTAL (test code = KRISTAL) ID NOW COVID-19 Assay is an isothermal nucleic acid amplification test intended for the qualitative detection of nucleic acid from SARS-CoV-2 viral RNA in nasopharyngeal ([employer]ESSION[employer]) specimens. It is used under Emergency Use [...] indicated. Lab Interpretation Normal (test code = 33545-6) [facility] HoustonXR CHEST 1 [id number] 02:35:33 No acute cardiopulmonary process. Preliminary Report [...] acute cardiopulmonary process.Preliminary Report Dictated by Resident: Abi Taveras, Fazal Haynes MD., have revie wed this study and agree with theabove report.[facility] [id number] 02:15:00 Test Item Value Reference Range Interpretation Comments MAGNESIUM (test code = 6560729042) 2.0 mg/dL 1.7-2.4 Lab Interpretation (test code = Normal 39326-5) [facility] HoustonTROP[facility]IN [id number] 01:58:00 Test Item Value Reference Range Interpretation Comments TROPONIN I (test <0.012 See_Comment [Automated code = 7489535778) message] The system which generated this result [...] ? Lab Interpretation Normal (test code = 62862-2) [facility] HoustonaPTT2020-09-01 01:49:00 Test Item Value Reference Range Interpretation Comments APTT Patient (test See_Comment [Automat ed code = 3173-2) message] The system which generated this result transmitted reference range : 23 - 38 Seconds . The reference range was not used to interpr et this result as normal/abnormal . KRISTAL (test code = KRISTAL) The [facility] patient population mean normal value for aPTT is 30 seconds. Lab Interpretation Normal (test code = 76016-0) [facility] HoustonCOMP. METABOLIC PANEL (52170)2020-03-13 01:48:00 Test Item Value Reference Range Interpretation Comments NA (test code = 140 mmol/L 135-145 8446559972) K (test code = 3.6 mmol/L 3.5-5 9357540395) CL (test code = 104 mmol/L 98-108 4282681564) CO2 TOTAL (test code = 28 mmol/L 23-31 8835568266) AGAP (test code = 2-16 9868516637) BUN (test code = 18 mg/dL 7-23 3346488381) GLUCOSE (test code = 146 mg/dL 70-110 H 1474180163) CREATININE (test code = 0.89 mg/dL 0.5-1.04 7208298705) TOTAL BILI (test code = 0.3 mg/dL 0.1-1.2 3522370300) CALCIUM (test code = 9.8 mg/dL 8.6-10.6 1711183344) T PROTEIN (test code = 8.2 g/dL 6.3-8.2 7378606601) ALBUMIN (test code = 4.6 g/dL 3.5-5 9006810343) ALK PHOS (test code = 76 U/L 34-122 5069152584) ALTv (test code = 32 U/L 5-35 1742-6) AST(SGOT) (test code = 30 U/L 13-40 8627331920) eGFR Calculation mL/min/1.73m2 (Non-) (test code = 7228447866) eGFR Calculation mL/min/1.73m2 () (test code = 0759787381) KRISTAL (test code = KRISTAL) Association of [...] tests). Lab Interpretation Abnormal (test code = 69217-5) [facility] HoustonLIPASE, [id number] 01:48:00 Test Item Value Reference Range Interpretation Comments LIPASE (test code = 8558395374) 121 U/L 0-220 Lab Interpretation (test code = Normal 71907-3) [facility] HoustonPROTHROMBIN TIME / [id number] 01:47:00 Test Item Value Reference Range Interpretation [...] tions. Lab Interpretation (test Normal code = 75686-7) [facility] WITH [id number] 01:35:00 Test Item Value Reference Range Interpretation Comments WBC (test code = See_Comment [Automated 0607-2) message] The sy stem which generated this result transmitted reference range : 4.30 - 11.10 10*3/?L. The reference range was not used to interpret this result as normal/abnormal . RBC (test code = See_Comment [Automated 309-8) message] The sy stem which generated this [...] RDW-SD (test code = 45.1 fL 39-49.9 26160-8) RDW-CV (test code = 14.0 % 12-15.5 788-0) PLT (test code = See_Comment [Automated 777-3) message] The sy stem which generated this result transmitted reference range : 166 - 358 10*3/ ?L. The reference r yeyo was not used to interpret this result as normal/abnormal . MPV (test code = 10.4 fL 9.5-12.9 26867-3) NRBC/100 WBC (test See_Comment [Automat ed code = 0017609967) message] The system which generated this result transmitted reference range : 0.0 - 10.0 /100 WBCs. The refer ence range was not u sed to interpret th is result as normal/abnormal . NRBC x10^3 (test code <0.01 See_Comment [Auto mated = 6057865245) message] The s ystem which generated this result transmitted reference range : 10*3/?L. The reference range was not used to interpret this result as normal/abnormal . GRAN MAT (NEUT) % 43.6 % (test code = 770-8) IMM GRAN % (test code 0.10 % = 7385267419) LYMPH % (test code = 44.2 % 736-9) MONO % (test code = 7.9 % 5905-5) EOS % (test code = 3.6 % 713-8) BASO % (test code = 0.6 % 706-2) GRAN MAT x10^3(ANC) 3.89 10*3/uL 1.88-7.09 (test code = 7498782615) IMM GRAN x10^3 (test <0.03 0-0.06 code = 5365673252) LYMPH x10^3 (test code 3.94 10*3/uL 1.32-3.29 H = 731-0) MONO x10^3 (test code 0.70 10*3/uL 0.33-0.92 = 742-7) EOS x10^3 (test code = 0.32 10*3/uL 0.03-0.39 711-2) BASO x10^3 (test code 0.05 10*3/uL 0.01-0.07 = 704-7) Lab Interpretation Abnormal (test code = 97659-5) [facility]-[id number] 06:50:00 Test Item Value Reference Range Interpretation [...] yby method. Completed by Nursing: NOBASIC METABOLIC [id number] 03:35:00 Test Item Value Reference Range Interpretation [...] code = CA) 8.6 MG/DL 8.5-10.1 N [id number] 03:24:00 Test Item Value Reference Range Interpretation [...] Completed by Nursing: NOMM, U/S, BREAST, UNILATERAL, [id number] 10:19:00 Diagnostic workup per radiologist?->YesReason for Exam:->N63.0Reason for Exam:->N64.4MRN#: [id number] - MM, U/S, BREAST, UNILATERAL, LEFT ULTRASOUND OF LEFT BREAST: 10/07/2019Comparison is made to exam dated: 10/07/2019 mammogram - [facility]. Color flow and real-time ultrasound of the [...] 10:19:33 Normal Exam Ultrasound BI-RADS: 2 Benign [id number] Electronicallysigned by: WILLIAM CARLSON M.D. on 10/07/2019 10:19 AMMM, DIGITAL MAMMO, DIAGNOSTIC, BILATERAL INCLUDING [id number] 09:19:00Diagnostic workup per radiologist?->YesReason for Exam:->breast lump in upper inner quadrand breast tenderness in femaleMRN#: [id number] - MM, DIGITAL MAMMO, DIAGNOSTIC, BILATERAL INCLUDING [...] is recommended. William Carlson M.D. pth/:10/07/2019 09:19:57 Supply Chain Technician: RT Sonya(Amanda)(M), [facility] Mammogram BI-RADS: 2 Benign G0204
[2021-08-02] MEDS ORDERED: ONDANSETRON 4 MG/2 ML VIAL ONE (21:58)
[2021-08-02] MEDS ORDERED: FAMOTIDINE 20 MG/2 ML VIAL IV ONE (21:58)
[2021-08-02] MEDS ORDERED: NA CHLORIDE 0.9% 1,000 ML ONE ×2 (21:59→23:50)
[2021-08-02 22:35] LABS: Absolute Lymphocytes (CBC) 3.7 K/uL (0.7-4.9); Hematocrit 37.2 % (36.0-45.0); Lymphocytes % 48.5 % (15.3-44.8); MPV 10.2 fL (7.6-11.3); RBC Red Blood Cell Count 4.19 M/uL (3.86-4.86)
[2021-08-02 22:53] LABS: Albumin 3.5 g/dL (3.4-5.0); Bilirubin Direct 0.2 mg/dL (0-0.2); Bilirubin Total 0.4 mg/dL (0.2-1.0); Protein, Total 7.8 g/dL (6.4-8.2)
[2021-08-02] MEDS ORDERED: THIAMINE 200 MG/2 ML INJ ONE (23:47)
[2021-08-02] MEDS ORDERED: MULTIVITAMINS 10 ML VIAL (INJ) IV ONE (23:48)
[2021-08-02] MEDS ORDERED: FOLIC ACID 5 MG/ML VIAL ONE (23:49)
[2021-08-02] MEDS ORDERED: KCL 20 MEQ/100 mL IVPB 100 ML IV ONE (23:50)
--- NOTE | 2021-08-03 03:08 | ER ---
Nurse's Notes [facility] Name: Junie Peralta Age: 51 yrs Sex: Female : 1970 Arrival Date: 08/02/2021 Time: 18:54 Bed 17 Private MD: Amanda Prado Diagnosis: Nausea with vomiting, unspecified;Dehydration;Hypokalemia Presentation: 08/02 19:06 Chief complaint: Patient states: N/V since getting gastric sleeve 34 days ago. Needs IV ll1 fluids every Thursday to feel better. Tested positive for covid today, and couldn't get her endoscopy done. Coronavirus screen: Vaccine status: Patient reports receiving the 2nd dose of the covid vaccine. Client denies travel out of the [place] in the last 14 days. congestion, cough unrelated to allergies, Client presents with at least one sign or symptom that may indicate coronavirus-19. Standard/surgical mask placed on the client. Ebola Screen: Patient denies travel to an Ebola-affected area in the 21 days before illness onset. Initial Sepsis Screen: Does the patient meet any 2 criteria? No. Patient's initial sepsis screen is negative. Does the patient have a suspected source of infection? No. Patient's initial sepsis screen is negative. Risk Assessment: Do you want to hurt yourself or someone else? Patient reports no desire to harm self or others. Onset of symptoms was June 27, 2021. 19:06 Method Of Arrival: Ambulatory ll1 19:06 Acuity: HERMAN 3 ll1 Triage Assessment: 19:09 General: Appears in no apparent distress. Behavior is calm, cooperative, appropriate ll1 for age. Pain: Denies pain. Neuro: No deficits noted. Cardiovascular: No deficits noted. Respiratory: No deficits noted. GI: Abdomen is round Reports nausea, vomiting. Historical: - Allergies: 19:08 Benadryl; ll1 19:08 Flexeril; ll1 19:08 GABAPENTIN; ll1 - PMHx: 19:08 Adenomyosis; Diabetes - NIDDM; Hypertension; Obesity; GERD; Sleep Apnea; Depression; ll1 - PSHx: 19:08 breast reduction; Total abdominal hysterectomy; Total right knee; gastric sleeve; ll1 - Immunization history:: Client reports receiving the 2nd dose of the Covid vaccine. - Social history:: Smoking status: Patient denies any tobacco usage or history of. Screenin/22 01:28 Abuse screen: Denies threats or abuse. Nutritional screening: No deficits noted. ll3 Tuberculosis screening: No symptoms or risk factors identified. Fall Risk IV access (20 points). Gait- Normal/Bed Rest/Wheelchair (0 pts) Mental Status- Oriented to own ability (0 pts). Total Osei Fall Scale indicates No Risk (0-24 pts). Assessment: 08/02 21:30 General: Appears in no apparent distress. uncomfortable, Behavior is calm, cooperative. ll3 Pain: Denies pain. Neuro: Level of Consciousness is awake, alert, obeys commands, Oriented to person, place, time, situation. Cardiovascular: Patient's skin is warm and dry. Respiratory: Respiratory effort is even, unlabored, Respiratory pattern is regular, symmetrical. GI: Abdomen is round non-distended, Patient currently denies abdominal pain, Parent/caregiver reports the patient having nausea, vomiting, States had bariatric surgery last month. Derm: Skin is pink, warm \T\ dry. 22:30 Reassessment: Patient appears in no apparent distress at this time. No changes from ll3 previously documented assessment. Patient and/or family updated on plan of care and expected duration. Pain level reassessed. Patient is alert, oriented x 3, equal unlabored respirations, skin warm/dry/pink. 23:30 Reassessment: Patient appears in no apparent distress at this time. No changes from ll3 previously documented assessment. Patient and/or family updated on plan of care and expected duration. Pain level reassessed. Patient is alert, oriented x 3, equal unlabored respirations, skin warm/dry/pink. 08/03 00:30 Reassessment: Patient appears in no apparent distress at this time. No changes from ll3 previously documented assessment. Patient and/or family updated on plan of care and expected duration. Pain level reassessed. Patient is alert, oriented x 3, equal unlabored respirations, skin warm/dry/pink. 01:30 Reassessment: Patient appears in no apparent distress at this time. No changes from ll3 previously documented assessment. Patient and/or family updated on plan of care and expected duration. Pain level reassessed. Patient is alert, oriented x 3, equal unlabored respirations, skin warm/dry/pink. 02:30 Reassessment: Patient appears in no apparent distress at this time. No changes from ll3 previously documented assessment. Patient and/or family updated on plan of care and expected duration. Pain level reassessed. Patient is alert, oriented x 3, equal unlabored respirations, skin warm/dry/pink. 03:33 Reassessment: Patient appears in no apparent distress at this time. No changes from ll3 previously documented assessment. Patient and/or family updated on plan of care and expected duration. Pain level reassessed. Patient is alert, oriented x 3, equal unlabored respirations, skin warm/dry/pink. Vital Signs: 08/02 19:06 BP 118 / 79; Pulse 58; Resp 17; Temp 97.1; Pulse Ox 100% ; Height 5 ft. 6 in. (167.64 ll1 cm); Pain 0/10; 21:30 BP 120 / 54; Pulse 50; Resp 15; Pulse Ox 100% on R/A; ll3 22:30 BP 137 / 75; Pulse 47; Resp 15; Pulse Ox 100% on R/A; ll3 23:30 BP 133 / 47; Pulse 48; Resp 15; Pulse Ox 100% on R/A; ll3 08/03 00:30 BP 134 / 73; Pulse 46; Resp 16; Pulse Ox 100% on R/A; ll3 01:30 BP 120 / 52; Pulse 51; Resp 15; Pulse Ox 100% on R/A; ll3 02:30 BP 119 / 47; Pulse 49; Resp 15; Pulse Ox 100% on R/A; ll3 03:34 BP 120 / 55; Pulse 52; Resp 15; Pulse Ox 100% on R/A; ll3 ED Course: 08/02 18:54 Patient arrived in ED. am2 18:54 Amanda Prado FNP-C is Private Physician. am2 19:08 Triage completed. ll1 19:08 Arm band placed on. ll1 21:21 Durga Azar MD is Attending Physician. 7 21:47 Alanis Schwartz, LAY is Primary Nurse. ll3 22:42 Inserted saline lock: 20 gauge in right antecubital area, using aseptic technique. oe Blood collected. 23:50 CT Abd/Pelvis - IV Contrast Only In Process Unspecified. EDMS 08/03 01:29 Patient has correct armband on for positive identification. Placed in gown. Bed in low ll3 position. Call light in reach. Side rails up X 1. 01:29 No provider procedures requiring assistance completed. ll3 03:07 Lencho Lagos MD is Referral Physician. [facility] 03:34 IV discontinued, intact, bleeding controlled, No redness/swelling at site. Pressure ll3 dressing applied. Administered Medications: 08/02 23:00 Drug: Pepcid (famotidine) 20 mg Route: IVP; Site: right antecubital; ll3 23:35 Follow up: Response: No adverse reaction ll3 23:01 Drug: NS 0.9% 1000 ml Route: IV; Rate: 1000 ml; Site: right antecubital; ll3 23:01 Drug: Zofran (Ondansetron) 4 mg Route: IVP; Site: right antecubital; ll3 23:36 Follow up: Response: No adverse reaction ll3 08/03 00:07 Drug: Potassium Chloride 20 mEq Route: IV; Rate: per protocol; Site: right antecubital; ll3 03:26 Follow up: IV Status: Completed infusion; IV Intake: 100ml ll3 01:13 Drug: Banana Bag - (NS 0.9% 1000 ml, foLIC Acid 1 mg, Thiamine 100 mg, Multivitamin 1 ll3 amp) Route: IV; Rate: calculated rate; Site: left antecubital; 03:26 Follow up: Response: No adverse reaction; IV Status: Completed infusion; IV Intake: ll3 1000ml 03:25 Drug: Potassium Effervescent Tablet 50 mEq Route: PO; ll3 Intake: 03:26 IV: 100ml; Total: 100ml. ll3 03:26 IV: 1000ml; Total: 1100ml. ll3 Outcome: 03:08 Discharge ordered by . [facility] 03:34 Discharged to home ambulatory. ll3 03:34 Condition: stable 03:34 Discharge instructions given to patient, Instructed on discharge instructions, follow up and referral plans. medication usage, Demonstrated understanding of instructions, follow-up care, medications. 03:35 Patient left the ED. ll3 Signatures: Dispatcher [employer] EDMS Joe Humphrey Amanda am2 Gaye Amin RN RN 1 Durga Azar MD MD 7 Alanis Schwartz, RN RN 3 Corrections: (The following items were deleted from the chart) 08/02 19:11 19:06 Chief complaint: Patient states: N/V since getting gastric sleeve 34 days ago. ll1 Needs IV fluids every Thursday to feel better. ll1 08/03 01:13 General: Appears in no apparent distress. uncomfortable, Behavior is calm, ll3 cooperative, ll3 01:13 Pain: Denies pain. ll3 ll3 01:13 Neuro: Level of Consciousness is awake, alert, obeys commands, Oriented to ll3 person, place, time, situation, ll3 01:13 Cardiovascular: Patient's skin is warm and dry. ll3 ll3 01:13 Respiratory: Respiratory effort is even, unlabored, Respiratory pattern is ll3 regular, symmetrical, ll3 01:13 GI: Abdomen is round non-distended, Patient currently denies abdominal pain, ll3 Parent/caregiver reports the patient having nausea, vomiting, States had bariatric surgery last month ll3 01:13 Derm: Skin is pink, warm \T\ dry. ll3 ll3 03:03 08/02 19:15 General: Appears in no apparent distress. uncomfortable, Behavior is calm, ll3 cooperative, 3 08/03 03:03 08/02 19:15 Pain: Denies pain. ll3 3 08/03 03:03 08/02 19:15 Neuro: Level of Consciousness is awake, alert, obeys commands, Oriented to ll3 person, place, time, situation, ll3 08/03 03:03 08/02 19:15 Cardiovascular: Patient's skin is warm and dry. ll3 3 08/03 03:03 08/02 19:15 Respiratory: Respiratory effort is even, unlabored, Respiratory pattern is ll3 regular, symmetrical, ll3 08/03 03:03 08/02 19:15 GI: Abdomen is round non-distended, Patient currently denies abdominal ll3 pain, Parent/caregiver reports the patient having nausea, vomiting, States had bariatric surgery last month ll3 08/03 03:03 08/02 19:15 Derm: Skin is pink, warm \T\ dry. ll3 3 08/03 03:03 08/02 20:30 Reassessment: Patient appears in no apparent distress at this time. No ll3 changes from previously documented assessment. Patient and/or family updated on plan of care and expected duration. Pain level reassessed. Patient is alert, oriented x 3, equal unlabored respirations, skin warm/dry/pink. ll3 08/03 03:03 08/02 21:30 Reassessment: Patient appears in no apparent distress at this time. No ll3 changes from previously documented assessment. Patient and/or family updated on plan of care and expected duration. Pain level reassessed. Patient is alert, oriented x 3, equal unlabored respirations, skin warm/dry/pink. ll3
--- NOTE | 2021-08-03 03:08 | EDPHYS ---
Physician Documentation [facility] Name: Junie Peralta Age: 51 yrs Sex: Female : 1970 Arrival Date: 08/02/2021 Time: 18:54 Bed 17 Private MD: Amanda Prado ED Physician Durga Azar HPI: 08/02 21:38 This 51 yrs old Black Female presents to ER via Ambulatory with complaints of mh7 dehydration. 21:38 The patient presents to the emergency department with nausea, that is moderate, mh7 vomiting, that is intermittent, described as clear fluid. Onset: The symptoms/episode began/occurred 5 day(s) ago. Possible causes: Prior gastric sleeve surgery. The symptoms are aggravated by nothing. The symptoms are alleviated by nothing. Associated signs and symptoms: Pertinent negatives: abdominal pain, anorexia, belching, constipation, diarrhea, dysuria, fever, flatulence, GI bleeding, hematuria, vaginal discharge. Severity of symptoms: At their worst the symptoms were moderate 3 day(s) ago, in the emergency department the symptoms are unchanged. The patient has experienced similar episodes in the past, several times. Historical: - Allergies: 19:08 Benadryl; ll1 19:08 Flexeril; ll1 19:08 GABAPENTIN; ll1 - PMHx: 19:08 Adenomyosis; Diabetes - NIDDM; Hypertension; Obesity; GERD; Sleep Apnea; Depression; ll1 - PSHx: 19:08 breast reduction; Total abdominal hysterectomy; Total right knee; gastric sleeve; ll1 - Immunization history:: Client reports receiving the 2nd dose of the Covid vaccine. - Social history:: Smoking status: Patient denies any tobacco usage or history of. ROS: 21:38 Constitutional: Negative for fever, chills, and weight loss, Eyes: Negative for injury, mh7 pain, redness, and discharge, ENT: Negative for injury, pain, and discharge, Neck: Negative for injury, pain, and swelling, Cardiovascular: Negative for chest pain, palpitations, and edema, Respiratory: Negative for shortness of breath, cough, wheezing, and pleuritic chest pain, Back: Negative for injury and pain, : Negative for injury, bleeding, discharge, and swelling, MS/Extremity: Negative for injury and deformity, Skin: Negative for injury, rash, and discoloration, Neuro: Negative for headache, weakness, numbness, tingling, and seizure, Psych: Negative for depression, anxiety, suicide ideation, homicidal ideation, and hallucinations, Allergy/Immunology: Negative for hives, rash, and allergies, Endocrine: Negative for neck swelling, polydipsia, polyuria, polyphagia, and marked weight changes, Hematologic/Lymphatic: Negative for swollen nodes, abnormal bleeding, and unusual bruising. Exam: 21:38 Constitutional: This is a well developed, well nourished patient who is awake, alert, mh7 and in no acute distress. Head/Face: Normocephalic, atraumatic. Eyes: Pupils equal round and reactive to light, extra-ocular motions intact. Lids and lashes normal. Conjunctiva and sclera are non-icteric and not injected. Cornea within normal limits. Periorbital areas with no swelling, redness, or edema. Neck: Trachea midline, no thyromegaly or masses palpated, and no cervical lymphadenopathy. Supple, full range of motion without nuchal rigidity, or vertebral point tenderness. No Meningismus. Chest/axilla: Normal chest wall appearance and motion. Nontender with no deformity. No lesions are appreciated. Cardiovascular: Regular rate and rhythm with a normal S1 and S2. No gallops, murmurs, or rubs. Normal PMI, no JVD. No pulse deficits. Respiratory: Lungs have equal breath sounds bilaterally, clear to auscultation and percussion. No rales, rhonchi or wheezes noted. No increased work of breathing, no retractions or nasal flaring. Back: No spinal tenderness. No costovertebral tenderness. Full range of motion. Skin: Warm, dry with normal turgor. Normal color with no rashes, no lesions, and no evidence of cellulitis. MS/ Extremity: Pulses equal, no cyanosis. Neurovascular intact. Full, normal range of motion. Neuro: Awake and alert, GCS 15, oriented to person, place, time, and situation. Cranial nerves II-XII grossly intact. Motor strength 5/5 in all extremities. Sensory grossly intact. Cerebellar exam normal. Normal gait. Psych: Awake, alert, with orientation to person, place and time. Behavior, mood, and affect are within normal limits. 21:38 Abdomen/GI: Soft, non-tender, with normal bowel sounds. No distension or tympany. No mh7 guarding or rebound. No evidence of tenderness throughout. Vital Signs: 19:06 BP 118 / 79; Pulse 58; Resp 17; Temp 97.1; Pulse Ox 100% ; Height 5 ft. 6 in. (167.64 ll1 cm); Pain 0/10; 21:30 BP 120 / 54; Pulse 50; Resp 15; Pulse Ox 100% on R/A; ll3 22:30 BP 137 / 75; Pulse 47; Resp 15; Pulse Ox 100% on R/A; ll3 23:30 BP 133 / 47; Pulse 48; Resp 15; Pulse Ox 100% on R/A; ll3 08/03 00:30 BP 134 / 73; Pulse 46; Resp 16; Pulse Ox 100% on R/A; ll3 01:30 BP 120 / 52; Pulse 51; Resp 15; Pulse Ox 100% on R/A; ll3 02:30 BP 119 / 47; Pulse 49; Resp 15; Pulse Ox 100% on R/A; ll3 03:34 BP 120 / 55; Pulse 52; Resp 15; Pulse Ox 100% on R/A; ll3 MDM: 03:05 Differential diagnosis: gastritis, pancreatitis, diverticulitis, viral gastroenteritis, mh7 gastroenteritis. Data reviewed: vital signs, nurses notes, old medical records, lab test result(s), CBC, electrolytes, urinalysis, EKG, radiologic studies, CT scan. Data interpreted: Pulse oximetry: on room air is 100 %. Interpretation: normal. Counseling: I had a detailed discussion with the patient and/or guardian regarding: the historical points, exam findings, and any diagnostic results supporting the discharge/admit diagnosis, lab results, radiology results, the need for outpatient follow up, to return to the emergency department if symptoms worsen or persist or if there are any questions or concerns that arise at home. Response to treatment: the patient's symptoms have resolved after treatment, the patient's blood pressure is in an acceptable range, mental status has returned to baseline, the patient no longer shows bradycardia, the patient is not short of breath, the patient is not tachycardic, the patient's pain is gone, the patient's temperature has normalized, the patient is now symptom free, patient is well hydrated. 03:08 Patient medically screened. [facility] 08/02 21:35 Order name: Basic Metabolic Panel; Complete Time: 23:00 [facility] 08/02 21:35 Order name: CBC with Diff; Complete Time: 23:00 [facility] 08/02 21:35 Order name: Hepatic Function; Complete Time: 23:00 [facility] 08/02 21:35 Order name: Lipase; Complete Time: 23:00 [facility] 08/02 23:02 Order name: CT Abd/Pelvis - IV Contrast Only [facility] 08/02 21:35 Order name: IV Saline Lock; Complete Time: 22:42 [facility] 08/02 21:35 Order name: Labs collected and sent; Complete Time: 22:42 [facility] 08/02 21:35 Order name: EKG; Complete Time: 21:36 [facility] 08/02 21:35 Order name: EKG - Nurse/Tech; Complete Time: 22:42 [facility] Administered Medications: 08/02 23:00 Drug: Pepcid (famotidine) 20 mg Route: IVP; Site: right antecubital; 3 23:35 Follow up: Response: No adverse reaction 3 23:01 Drug: NS 0.9% 1000 ml Route: IV; Rate: 1000 ml; Site: right antecubital; ll3 23:01 Drug: Zofran (Ondansetron) 4 mg Route: IVP; Site: right antecubital; 3 23:36 Follow up: Response: No adverse reaction [facility] 08/03 00:07 Drug: Potassium Chloride 20 mEq Route: IV; Rate: per protocol; Site: right antecubital; 3 03:26 Follow up: IV Status: Completed infusion; IV Intake: 100ml 3 01:13 Drug: Banana Bag - (NS 0.9% 1000 ml, foLIC Acid 1 mg, Thiamine 100 mg, Multivitamin 1 3 amp) Route: IV; Rate: calculated rate; Site: left antecubital; 03:26 Follow up: Response: No adverse reaction; IV Status: Completed infusion; IV Intake: ll3 1000ml 03:25 Drug: Potassium Effervescent Tablet 50 mEq Route: PO; ll3 Disposition Summary: 08/03/21 03:08 Discharge Ordered Location: Home [facility] Problem: an acute exacerbation [facility] Symptoms: have improved [facility] Condition: Stable [facility] Diagnosis - Nausea with vomiting, unspecified [facility] - Dehydration [facility] - Hypokalemia [facility] Followup: [facility] - With: Private Physician - When: 1 - 2 days - Reason: Worsening of condition, Recheck today's complaints, Continuance of care, Re-evaluation by your physician Followup: [facility] - With: Lencho Lagos MD - When: 1 - 2 days - Reason: Worsening of condition, Recheck today's complaints Discharge Instructions: - Discharge Summary Sheet [facility] - Nausea and Vomiting, Adult, [id number] [facility] - Dehydration, Adult, [id number] [facility] - Hypokalemia [facility] Forms: - Medication Reconciliation Form [facility] - Thank You Letter [facility] - Antibiotic Education [facility] - Prescription Opioid Use [facility] Prescriptions: - ondansetron 4 mg Oral tablet,disintegrating - place 1 tablet by TRANSLINGUAL route every 8 hours As needed; 10 tablet; [facility] Refills: 0, Product Selection Permitted Signatures: Dispatcher [employer] EDGaye Grady RN RN ll1 Durga Azar MD MD [facility] Alanis Schwartz RN RN ll3 Corrections: (The following items were deleted from the chart) 03:27 08/02 21:35 Urine Dipstick-Ancillary ordered. [facility] ll3
[2021-08-03] MEDS ORDERED: POTASSIUM 25 MEQ EFFERV TAB ONE (03:14)
[2021-08-03 04:59] VITALS: TEMP 97.1; O2SAT 100
[2021-08-03 05:08] VITALS: BP 120/55
--- NOTE | 2021-08-03 16:32 | RAD REPORT ---
EXAM DESCRIPTION: CT - Abdomen Pelvis W Contrast - 08/03/2021 4:40 am CLINICAL HISTORY: 51 years Female NAUSEA / VOMITING TECHNIQUE: Contiguous axial images obtained through the abdomen and pelvis following both oral and i ntravenous contrast administration. Coronal and sagittal reformatted images provided. This CT exam was performed according to our departmental dose-optimization program, which includes on e or more of the following dose reduction techniques: automated exposure control, adjustment of the m A and/or kV according to patient size, and/or use of iterative reconstruction technique. COMPARISON: No prior exams provided for comparison. FINDINGS: Calcified granuloma at the left lung base. Suspected sludge in the gallbladder without evidence of acute cholecystitis. The liver, pancreas, spleen, adrenal glands, kidneys, ovaries, and urinary bladder are normal. Chroni c degenerative changes in the lower lumbar spine. Prior gastric sleeve surgery. There is no bowel inflammation, obstruction, free intraperitoneal air, or ascites. The appendix is normal. IMPRESSION: Sludge in the gallbladder. No acute abdominal or pelvic abnormalities. Electronically signed by: Fabiana Meraz MD 08/02/2021 11:59 PM ELECTRICAL AND INSTRUMENT MECHANIC Due to temporary technical issues with the PACS/Fluency reporting system, reports are being signed by the in house radiologists without review as a courtesy to insure prompt reporting. The interpreting radiologist is fully responsible for the content of the report.
--- NOTE | 2021-08-05 08:08 | EKG ---
Test Date: 2021-08-02 Test Time: 22:14:53 Mover Helper: JOSH MEASUREMENT RESULTS: Intervals: Rate: 52 MD: 166 QRSD: 106 QT: 466 QTc: 433 Stewart: P: 47 MD: 166 QRS: 16 T: 28 INTERPRETIVE STATEMENTS: Sinus bradycardia Cannot rule out Anterior infarct, age undetermined Abnormal ECG Compared to ECG 04/13/2021 07:01:36 Myocardial infarct finding now present Electronically Signed On 08-05-21 08:03:23 TELEVISION AND RADIO REPAIRER by Chance Caldwell
== END 2021-08-03 03:35 | disposition home or self-care (01) ==
LOC: ER 18:51
DX: E86.0 Dehydration (principal); E87.6 Hypokalemia; Z98.84 Bariatric surgery status; I10 Essential (primary) hypertension; E11.9 Type 2 diabetes mellitus without complications; Z88.8 Allergy status to other drugs, medicaments and biological substances
CPT/HCPCS: 93005; 85025; 80048; 36415; 80076; 83690; 74177; 99284; Q9967; J3411; J3480; J7030 ×2; J2405

== ENCOUNTER 2023-05-13 19:55 | Emergency (ER) | payer BC ==
--- OUTSIDE RECORDS SUMMARY | 2023-05-13 20:01 | XMS REPORT | Continuity of Care Document ---
:1970 Author Organization [facility] t Address [address] [facility] [address] [place] [address] Care Team Providers Name Role Phone Provider, Unknown Home Health Primary Care Physician Unavail able LENO JAQUEZ Attending Clinician Unavailable Gregoria Rueda Attending Clinician Unavailable CRISTIANA VALENTINE Attending Clinician Unavailable KINA SUNG Attending Clinician Unavailable Kanu Bar MD Attending Clinician [phone] Donato De La Cruz Attending Clinician DONATO DE LA CRUZ Attending Clinician Unavailable López Herzog MD Attending Clinician Zach Laguna CRNA Attending Clinician [phone] Stella RAYMOND, Tao Sue Attending Clinician Willie RAYOMND, Karan Nassar Attending Clinician [phone] KARAN WISEMAN Attending Clinician UnavailNimo Curry Attending Clinician Anuj RAYMOND, Romel Velasco Attending Clinician Sheikh MANDI, Jojo Alex Attending Clinician TONE HELMS Attending Clinician Unavailable Pretty HENSON Attending Clinician Unavailable KYLER CARRINGTON Attending Clinician Unavailable Kenia CHUN, Deborah Mccall Attending Clinician Isi Arciniega Attending Clinician Hillary RAYMOND, Perla Borges Attending Clinician Isi KIDD Attending Clinician Unavailable LENO JAQUEZ Admitting Clinician Unavailable Gregroia Rueda Admitting Clinician Unavailable KANU BAR Admitting Clinician Unavailable DONATO DE LA CRUZ Admitting Clinician Unavailable KARAN WISEMAN Admitting Clinician UnavailPretty Castillo Admitting Clinician Unavailable KYLER CARRINGTON Admitting Clinician Unavailable Hillary RAYMOND, Perla Borges Admitting Clinician [phone] KNOW, DOES_NOT Admitting Clinician Unavailable Payers Payer Name Policy Type Policy Number Effective Date Expiration Date Connie david [employer] HMO/POS/OPEN [id number] 2018 ACCESS 00:00:00 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 Reports inhalatio nal exposure at work that has greatly impacted her exercise tolerance and ability to sing due to SOB. 6MHW below normal distance. HR is also notably low with exertion. Question of chronotro pic incompete nce as a possible cause for dyspnea with exertion. Concurren t cardiac workup ongoing.- - HRCT-- PFT (spiromet ry, lung volumes, DLCO)-- Will follow up holter and NM Stress Test Work Work Disease Active [facility] related related 02-12 Health injury injury 00:00: 00 Abdominal Abdominal Disease Active [facility]: [address] Morbid Morbid Disease Recurre 2020-[address] [facility] obesity obesity nce 2-16 [facility] 00:00: [address] Type 2 Type 2 Disease Active 2019- Univers diabetes diabetes 03-13 ity of mellitus mellitus 00:00: [place] without without 00 Medical complicati complicati Br anch on, on, without without long-term long-term current current use of use of insulin insulin Bradycardi Bradycardi Disease Active 2019- U nivers a a 03-13 ity of 00:00: [place] 00 Medical Branch Hypertensi Hypertensi Disease Active 2020- U nivers ve urgency ve urgency 03-13 it y of 00:00: [place] Medical Branch Morbid Morbid Disease Active 2019- Univers obesity obesity 03-13 ity of with body [place] body 00:[place] mass [place] mass index 00 Me dical of of Branch 40.0-49.9 40.0-49.9 Paroxysmal Paroxysmal Disease Active 2020- U nivers atrial atrial 03-13 ity of fibrillati fibrillati [place] with on with 00 Medical RVR RVR Branch SANDEEP SANDEEP Disease Active Univers (obstructi (obstructi 03-13 it y of ve sleep ve sleep 00:00: [place] apnea) apnea) 00 Medical Branch Essential Essential Disease Active Uni vers hypertensi hypertensi 03-13 it y of on on 00:00: [place] Medical [facility] A-fib A-fib Disease Active 2020- Univers 8-31 ity of 00:00: [place] [address] Medical Branch Nausea & Nausea & Disease Resolve 0 2021-09-24 2021-09-[address] [facility] vomiting vomiting d 2-05 00:00:00 00:39:26 Elis kes 00:00: Medical 00 [place] Nausea and Nausea and Disease Resolve 2021-09-24 2021-09-[address] [facility] [address] vomiting, vomiting, d 1-27 00:00:00 00:39:29 [facility] intractabi intractabi 00:00: Me dical lity of lity of 00 Center vomiting vomiting not not specified, specified, unspecifie unspecifie d vomiting d vomiting type type Allergies, Adverse Reactions, Alerts Allergy Allergy Status Severity Reaction(s) Onset Inactive Treating Comm ents Source Name Type Date Date Clinician Cycloben Propensi Active Palpitations 0 [facility] zaprine ty to 02-11 Health adverse 00:00: reaction 00 s Diphenhy Propensi Active Palpitations 0 [facility] dramine ty to 02-11 Health adverse 00:00: reaction 00 s Gabapent Propensi Active Other [facility] in ty to 02-11 Health adverse 00:00: reaction 00 s GABAPENT Allergy Active Other 2020-[address] [facility] IN 2-16 [facility] 00:00: Medical 00 Center Gabapent Drug Active Other (See 2020-[address] [facility] [address] in Intolera Comments) 2-16 dropped Luke s nce 00:00: to 40's Medical 00 after Center being on it for 2 weeks CYCLOBEN Allergy Active Other [facility] ZAPRINE 4-12 00:00: 00 Cycloben Drug Active Other (See TACHYCARD [facility] zaprine Intolera Comments) 4-12 IA Luke s nce 00:00: Medical 00 [place] diphenhy DA Active U 2019-0 [facility] dramine 3-29 Clear 00:00: Ramos 00 [facility] cycloben DA Active U tachycardia 2020-0 [facility] zaprine 3-29 Clear 00:00: Ramos 00 [facility] diphenhy DA Active U tachycardia 2020-0 [facility] dramine 3-29 Clear 00:00: Ramos 00 [facility] DIPHENHY Allergy Active Low Palpitations 2020-0 S [facility] DRAMINE 10-08 00:00: 00 Diphenhy Drug Active Palpitations [facility] dramine Allergy 10-08 [facility] 00:00: Medical [address] [place] [address] cycloben DA Active U [facility] zaprine 10-08 Clear 00:00: Ramos [address] [place] [address] NO KNOWN Drug Active Univers ALLERGIE Class ity of S [facility] NO KNOWN Allergy Active [facility] St ALLERGIE [facility] Social History Social Habit Start Date Stop Date Quantity Comments Source Exposure to Not sure University of SARS-CoV-2 [facility] (event) [place] Tobacco use and 2023-02-11 2023-02-11 Smokeless tobacco [place] [facility] exposure 00:00:00 00:00:00 non-user Alcohol intake 2021-09-11 2021-09-11 Ex-drinker [facility] 00:00:00 00:00:00 (finding) [facility] Sex Assigned At [birth year] [place] [place] kes 00:00:00 00:00:00 [facility] Smoking Status Start Date Stop Date Source Never smoked tobacco [place] [facility] Medications Ordered Filled Start Stop Current Ordering Indication Dosage Frequency Signature Comments Components Source Medication Medication Date Date Medication? Clinician (SIG) Name Name Multiple Yes 1{capsu QD Take 1 UT Vitamin 8 le} capsule by Sunrise (multivitam 14:37: mouth 1 in) capsule 52 (one) time each day. Pt states that she takes Bariatric Calcium 500mg/120m g. Take 1 tablet po once daily. pantoprazol Yes 40mg 40 mg. UT e 802 Take 1 Health (ProtoNix) 14:37: tablet po 40 MG EC 51 BID. tablet aspirin 81 Yes UT MG EC 7-25 Health tablet 00:00: 00 venlafaxine Yes 25mg 25 mg. UT (Effexor) 6-24 Take 2 Health 25 MG 00:00: tablets in tablet 00 the morning and 1 tablet in the evening. triamcinolo Yes if needed. [place] ne 5-17 Health (Kenalog) 00:00: 0.1 % cream 00 pantoprazol Yes 40mg QD Take [address] e 3-02 by mouth [facility] (PROTONIX) 12:48: daily. Medic al 40 MG Center tablet metFORMIN 0 Yes 1000mg Take 1,[address] [facility] (GLUCOPHAGE 3-02 mg by [facility]ukes ) 1000 MG 12:48: mouth 2 Medic al tablet 12 (two) Center times daily with breakfast and dinner. losartan 2021-0 Yes 100mg QD Take [address] (COZAAR) 3-02 mg by [facility] 100 MG 12:48: mouth Medical tablet 12 daily. Center triamterene Yes 1{tbl} QD Take [address] -hydroCHLOR 3-02 tablet by [place] Othiazide 12:48: mouth Medical (Maxzide-25 12 daily. Center mg) 37.5-25 mg per tablet venlafaxine 0 Yes 25mg Q.5D Take [address] (EFFEXOR) 3-02 by mouth 2 Luke s 25 MG 12:48: (two) Medical tablet 12 times Center daily 1.5 TAB . aspirin 81 0 Yes 325mg QD Take [address] MG EC 3-02 mg by [facility]ukes tablet 12:48: mouth Medical 12 daily . [place] multivitami Yes 1{capsu QD Take [address] n capsule 3-02 le} capsule by Luke s 12:48: mouth Medical 12 daily. [place] pantoprazol Yes 40mg QD Take [address] e 3-02 by mouth [facility] (PROTONIX) 12:48: daily. Medic al 40 MG 12 Center tablet metFORMIN 0 Yes 1000mg Take 1,[address] (GLUCOPHAGE 3-02 mg by [facility]ukes ) 1000 MG 12:48: mouth 2 Medic al tablet 12 (two) Center times daily with breakfast and dinner. losartan 0 Yes 100mg QD Take [address] (COZAAR) 3-02 mg by [facility]ukes 100 MG 12:48: mouth Medical tablet 12 daily. [place] triamterene Yes 1{tbl} QD Take [address] -hydroCHLOR 3-02 tablet by [place] [facility] Othiazide 12:48: mouth Medical (Maxzide-25 12 daily. Center mg) 37.5-25 mg per tablet venlafaxine 2021-0 Yes 25mg Q.5D Take [address] (EFFEXOR) 3-02 by mouth 2 Luke s 25 MG 12:48: (two) Medical tablet 12 times Center daily 1.5 TAB . aspirin 81 0 Yes 325mg QD Take [address] MG EC 3-02 mg by Lukes tablet 12:48: mouth Medical 12 daily . [place] multivitami Yes 1{capsu QD Take [address] n capsule 3-02 le} capsule by Luke s 12:48: mouth Medical 12 daily. Center pantoprazol Yes 40mg QD Take [address] [facility] e 3-02 by mouth [facility] (PROTONIX) 12:48: daily. Medic al 40 MG 12 Center tablet metFORMIN Yes 1000mg Take 1,[address] (GLUCOPHAGE 3-02 mg by [facility]ukes ) 1000 MG 12:48: mouth 2 Medic al tablet 12 (two) Center times daily with breakfast and dinner. losartan Yes 100mg QD Take [address] (COZAAR) 3-02 mg by [facility]ukes 100 MG 12:48: mouth Medical tablet 12 daily. [place] triamterene Yes 1{tbl} QD Take [address] -hydroCHLOR 3-02 tablet by [place] [facility] Othiazide 12:48: mouth Medical (Maxzide-25 12 daily. Center mg) 37.5-25 mg per tablet venlafaxine Yes 25mg Q.5D Take [address] (EFFEXOR) 3-02 by mouth 2 Luke s 25 MG 12:48: (two) Medical tablet 12 times Center daily 1.5 TAB . aspirin 81 0 Yes 325mg QD Take [address] MG EC 3-02 mg by [facility]ukes tablet 12:48: mouth Medical 12 daily . [place] multivitami Yes 1{capsu QD Take [address] n capsule 3-02 le} capsule by Luke s 12:48: mouth Medical 12 daily. [place] pantoprazol Yes 40mg QD Take [address] e 3-02 by mouth [facility] (PROTONIX) 12:48: daily. Medic al 40 MG 12 Center tablet metFORMIN Yes 1000mg Take 1,[address] (GLUCOPHAGE 3-02 mg by [facility]ukes ) 1000 MG 12:48: mouth 2 Medic al tablet 12 (two) Center times daily with breakfast and dinner. losartan 0 Yes 100mg QD Take [address] (COZAAR) 3-02 mg by [facility] 100 MG 12:48: mouth Medical tablet 12 daily. [place] triamterene Yes 1{tbl} QD Take [address] -hydroCHLOR 3-02 tablet by [place] [facility] Othiazide 12:48: mouth Medical (Maxzide-25 12 daily. Center mg) 37.5-25 mg per tablet venlafaxine 0 Yes 25mg Q.5D Take [address] (EFFEXOR) 3-02 by mouth 2 Luke s 25 MG 12:48: (two) Medical tablet 12 times Center daily 1.5 TAB . aspirin 81 Yes 325mg QD Take [address] MG EC 3-02 mg by Lukes tablet 12:48: mouth Medical 12 daily . [place] multivitami Yes 1{capsu QD Take [address] n capsule 3-02 le} capsule by Luke s 12:48: mouth Medical 12 daily. [place] pantoprazol Yes 40mg QD Take [address] e 3-02 by mouth [facility]ukes (PROTONIX) 12:48: daily. Medic al 40 MG 12 Center tablet metFORMIN Yes 1000mg Take 1,[address] (GLUCOPHAGE 3-02 mg by [facility]ukes ) 1000 MG 12:48: mouth 2 Medic al tablet 12 (two) Center times daily with breakfast and dinner. losartan Yes 100mg QD Take [address] (COZAAR) 3-02 mg by [facility] 100 MG 12:48: mouth Medical tablet 12 daily. [place] triamterene Yes 1{tbl} QD Take [address] -hydroCHLOR 3-02 tablet by [place] Othiazide 12:48: mouth Medical (Maxzide-25 12 daily. Center mg) 37.5-25 mg per tablet venlafaxine 0 Yes 25mg Q.5D Take [address] (EFFEXOR) 3-02 by mouth 2 Luke s 25 MG 12:48: (two) Medical tablet 12 times Center daily 1.5 TAB . aspirin 81 Yes 325mg QD Take [address] MG EC 3-02 mg by Lukes tablet 12:48: mouth Medical 12 daily . [place] multivitami Yes 1{capsu QD Take [address] n capsule 3-02 le} capsule by Luke s 12:48: mouth Medical 12 daily. [place] pantoprazol Yes 40mg QD Take [address] [facility] e 3-02 by mouth [facility]ukes (PROTONIX) 12:48: daily. Medic al 40 MG 12 Center tablet metFORMIN Yes 1000mg Take 1,[address] (GLUCOPHAGE 3-02 mg by [facility]ukes ) 1000 MG 12:48: mouth 2 Medic al tablet 12 (two) Center times daily with breakfast and dinner. losartan Yes 100mg QD Take [address] (COZAAR) 3-02 mg by [facility]ukes 100 MG 12:48: mouth Medical tablet 12 daily. [place] triamterene Yes 1{tbl} QD Take [address] -hydroCHLOR 3-02 tablet by [place] Othiazide 12:48: mouth Medical (Maxzide-25 12 daily. Center mg) 37.5-25 mg per tablet venlafaxine Yes 25mg Q.5D Take [address] (EFFEXOR) 3-02 by mouth 2 Luke s 25 MG 12:48: (two) Medical tablet 12 times Center daily 1.5 TAB . aspirin 81 Yes 325mg QD Take [address] MG EC 3-02 mg by [facility]ukes tablet 12:48: mouth Medical 12 daily . [place] multivitami Yes 1{capsu QD Take [address] n capsule 3-02 le} capsule by Luke s 12:48: mouth Medical 12 daily. [place] amiodarone 0 2021- No 100mg QD Take [address] (PACERONE) 2-10 02-10 mg by [facility] 100 MG 12:34: 00:00 mouth Medical tablet 30 :00 daily. [place] ondansetron 2021- No 4mg Take [address] [facility] (ZOFRAN) 4 2-10 02-20 tablet (4 [place] [facility] MG tablet 00:00: 23:59 mg total) Me dical 00 :00 by mouth 2 Center (two) times daily as needed for Nausea for up to 10 days. ondansetron 0 2021- No 4mg Take [address] [facility] (ZOFRAN) 4 2-10 02-20 tablet (4 [place] [facility] MG tablet 00:00: 23:59 mg total) Me dical 00 :00 by mouth 2 Center (two) times daily as needed for Nausea for up to 10 days. Multiple 2020- Yes [facility] Vitamins-Mi 2-20 Health nerals 00:00: (BARIATRIC 00 FUSION PO) metFORMIN 2020-0 Yes 1000mg Take 1,000 Univers 1,000 mg 9-02 mg by ity of tablet 17:14: mouth [place] 12 daily. Medical Branch triamterene 2020-0 Yes 1{capsu Take 1 U nivers -hydrochlor 9-02 le} capsule by it y of othiazide 17:14: mouth [place] 37.5-25 mg 12 every Medical per capsule morning. Bran ch pantoprazol 2020-0 Yes 40mg Take 40 mg Univers e 40 mg EC 02 by mouth ity o f tablet 17:14: daily. [address] venlafaxine 2020-0 Yes 37.5mg Take 37.5 Univers 25 mg 9-02 mg by ity of tablet 17:14: mouth at [place] 12 bedtime. Medical Branch metFORMIN 2020-0 Yes 1000mg Take 1,000 Univers 1,000 mg 9-02 mg by ity of tablet 17:14: mouth [place] 12 daily. [facility] triamterene 2020-0 Yes 1{capsu Take 1 U nivers -hydrochlor 9-02 le} capsule by it y of othiazide 17:14: mouth [place] 37.5-25 mg 12 every Medical per capsule morning. Bran ch pantoprazol 2020-0 Yes 40mg Take 40 mg Univers e 40 mg EC 03-14 by mouth ity o f tablet 17:14: daily. [address] venlafaxine 2020-0 Yes 37.5mg Take 37.5 Univers 25 mg 9-02 mg by ity of tablet 17:14: mouth at [place] 12 bedtime. [facility] Branch amiodarone 2019-0 Yes 400mg 400 mg, Uni vers (PACERONE) 03-14 Oral, ity of tablet 400 14:00: DAILY, [place] mg 00 First dose Medical on Thu Branch 03/14/20 at 0900, Until Discontinu ed, Routine venlafaxine 2020-0 Yes 37.5mg 37.5 mg, Univers (EFFEXOR) 03-14 Oral, QHS, ity of tablet 37.5 02:00: First dose [place] mg 00 on [facility] 03/13/20 at Branch 2100, Until Discontinu ed, Routine amiodarone Yes [id number] Take 400 Univers 200 mg 9-02 mg po qd x ity of tablet 00:00: 7 days [place] 00 then 200 Medical mg qd Branch apixaban 5 0 Yes 1358 5mg Take 1 Unive rs mg tablet 03-14 tablet by ity o f 00:00: mouth 2 [place] 00 (two) Medical times [place] daily. Indication s: atrial fibrillati on amiodarone Yes [id number] Take 400 Univers 200 mg 9-02 mg po qd x ity of tablet 00:00: 7 days 00 then 200 Medical mg qd Branch apixaban 5 Yes 1358 5mg Take 1 Unive rs mg tablet 03-14 tablet by ity o f 00:00: mouth 2 [place] 00 (two) Medical times [place] daily. Indication s: atrial fibrillati on digoxin No 250ug 250 mcg, [facility] ers (LANOXIN) 03-13 Intravenou ity of injection 20:00: 20:53 s, ONCE, 1 [place] 250 mcg 00 :00 dose, [facility] 03/13/20 at Branch 1500, Routine amiodarone Yes .5mg/mi 0.5 mg/min Univers (CORDARONE) 03-13 n (16.6667 ity of 900 mg in 19:45: mL/hr, [place] D5W 500 mL 00 rounded to Med ical infusion 16.67 Branch mL/hr), IV Infusion, CONTINUOUS , Starting [facility] 03/13/20 at 1445
Al l amiodarone infusions must be administer ed using a 0.22 micron in line filter. Administer via central line if available. Amiodarone infusions with concentrat ions > 2 mg/mL must be administer ed via central line.
ibuprofen Yes 600mg 600 mg, Univ ers (IBU) 03-13 Oral, ity of tablet 600 17:58: Q8HPRN, [place] mg 07 Starting Medical [facility] 03/13/20 Branch at 1258, Until Discontinu ed, Routine, Pain (scale 4-6) acetaminoph Yes 650mg 650 mg, Un rosendo en 03-13 Oral, ity of (TYLENOL) 17:57: Q4HPRN, [place] tablet 650 50 Starting Medic al mg Thu03/13/20 Branch at 1257, Until Discontinu ed, Routine, Pain (scale 1-3) sulfur 2020-0 2020- No 5mL 5 mL, Univers hexafluorid 03-13 Intravenou i ty of e microsphr 16:00: 13:45 s, ONCE, 1 [place] (LUMASON) 00 :00 dose, Thu Medic al injection 5 03/13/20 at [facility] mL 1100, Routine
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 Restricted medication : PRESTON SCHMITT pantoprazol 2020-0 Yes 40mg 40 mg, [facility] ers e 03-13 Oral, ity of (PROTONIX) 14:00: DAILY, [place] EC tablet 00 First dose Medi porfirio 40 mg on [facility] Branch 03/13/20 at 0900, Until Discontinu ed, Routine triamterene 2020-0 Yes .5{tbl} 0.5 Uni vers -hydrochlor 03-13 tablet, ity o f othiazid 14:00: Oral, [place] (MAXZIDE-25 00 DAILY, Medica l ) 37.5-25 First dose Bran ch mg tablet on Thu 0.5 tablet 03/13/20 at 0900, Until Discontinu ed, Routine isosorbide 2020-0 2020- No 60mg 60 mg, [facility] ers mononitrate 03-13 Oral, ity of (IMDUR) 24 14:00: 12:58 DAILY, [place] hr tablet 00 :33 First dose Medi porfirio 60 mg on Branch 03/13/20 at 0900, Until Discontinu ed, Routine digoxin 2020-0 2020- No .5mg 500 mcg [facility] s (LANOXIN) 03-13 (0.5 mg), ity of injection 14:00: 14:50 Intravenou [place] 500 mcg 00 :00 s, ONCE, 1 Medica l dose, Branch 03/13/20 at 0900, Routine enoxaparin 2020-0 [...] AC+HS, ity of Insulin-Reg 12:30: First dose [place] ular + Fsbg 00 on Thu Medica l Testing 03/13/20 at Branch 0730, Until Discontinu ed, Routine glucagon 2019- Yes 1mg 1 mg, Univers (GLUCAGEN 03-13 Intramuscu ity of DIAGNOSTIC 06:54: lar, PRN, [place] KIT) 11 Starting Medical injection 1 Thu03/13/20 Br anch mg at 0154, Until Discontinu ed, HARSH, Blood Glucose < or = 70 mg/dL and patient is unable to swallow or has mental changes. dextrose 50 2019-0 Yes 25mL 25 mL, Univ ers % [...] of 900 mg in 04:45: 19:31 mL/hr, [place] D5W 500 mL 00 :43 rounded to Med ical infusion 33.33 Branch mL/hr), IV Infusion, CONTINUOUS , Starting 03/12/20 at 2345
Al l amiodarone infusions must be administer ed using a 0.22 micron in line filter. Administer via central line if available. Amiodarone infusions with concentrat ions > 2 mg/mL must be administer ed via central line.
amiodarone 2019- No 150mg 150 mg, IV Univers (CORDARONE) [...] culty member approving Restricted medication : Isi KIDD enoxaparin 2019- No 1.5mg/k 200 mg U nivers (LOVENOX) 03-13 g (rounded ity o f injection 03:00: 02:21 from [place] 200 mg 00 :00 204.15 mg Medical = 1.5 Branch mg/kg ?136.1 kg), Subcutaneo us, ONCE, 1 dose, Thu03/12/20 at 2200, HARSH diltiazem 2020- No 5mg 5 mg, IV Uni vers (CARDIZEM 03-13 Push, ity of IV) 03:00: 01:59 ONCE, 1 [place] injection 5 00 :00 dose, Mon Med ical mg 03/12/20 at Branch 2200, STAT
Fa culty member approving Restricted medication : Isi KIDD diltiazem 2019- No 5mg/h 5 mg/hr (5 Univers (CARDIZEM 03-13 mL/hr), IV ity of IV) 125 mg 02:53: 22:33 Infusion, [place] in D5W 38 :18 TITRATE, Medical infusion HR<100, Branch Starting Thu03/12/20 at 2153
In itiate infusion at 2.5 mg/hr. Titrate by 2.5 mg/hr every 5 minutes to 15 minutes as needed to achieve and maintain goal heart rate. Maximum dose = 15 mg/hr. If goal not maintained at maximum allowed dose, contact prescriber .
Immunizations Ordered Filled Date Status Comments Source Immunization Name Immunization Name COVID-19 mRNA 2022-04-[address] [facility] (PF)(LNP-S BIVALENT 00:00:00 Medic al Center BOOSTER) 12YR+ (PFIZER)([id number]) COVID-19 mRNA 2022-04-[address] [facility] (PF)(LNP-S BIVALENT 00:00:00 Medic al Center BOOSTER) 12YR+ (PFIZER)([id number]) COVID-19 mRNA 2022-04-[address] [facility] (PF)(LNP-S BIVALENT 00:00:00 Medic al Center BOOSTER) 12YR+ (PFIZER)([id number]) COVID-19 mRNA 2022-04-[address] [facility] (PF)(LNP-S 00:00:00 Medical Center BIVALENT) (Early Cap) 12YR+ (PFIZER)([id number] Influenza, 2022-03-13 Completed [facility] quadrivalent, 00:00:00 injectable, preservative free (flublok) Covid-19 Vaccine 2021-11-[address] [facility] MRNA(PF,Premixed)12 00:00:00 [facility] al Center YR+ (Pfizer/BioNTech)(I [id number]) Covid-19 Vaccine 2021-11-[address] [facility] MRNA(PF,Premixed)12 00:00:00 Medic al Center YR+ (Pfizer/BioNTech)(I [id number]) Covid-19 Vaccine 2021-11-[address] [facility] MRNA(PF,Premixed)12 00:00:00 Medic al Center YR+ (Pfizer/BioNTech)(I [id number]) Covid-19 Vaccine 2021-11-[address] [facility] MRNA(PF,Premixed)12 00:00:00 [facility] Center YR+ (Pfizer/BioNTech)(I [id number]) Covid-19 Vaccine 2021-04-[address] [facility] MRNA (PF) 12yr+ 00:00:00 Medical C enter (Pfizer/BioNTech)(I [id number]) Covid-19 Vaccine 2021-04-[address] [facility] MRNA (PF) 12yr+ 00:00:00 Medical C enter (Pfizer/BioNTech)(I [id number]) Covid-19 Vaccine 2021-04-[address] [facility] MRNA (PF) 12yr+ 00:00:00 Medical C enter (Pfizer/BioNTech)(I [id number]) Covid-19 Vaccine 2021-04-[address] [facility] [facility] MRNA (PF) 12yr+ 00:00:00 Medical C enter (Pfizer/BioNTech)(I [id number]) Covid-19 Vaccine 2020-08-[address] [facility] MRNA (PF) 12yr+ 00:00:00 Medical C enter (Pfizer/BioNTech)(I [id number]) Covid-19 Vaccine 2020-08-[address] [facility] MRNA (PF) 12yr+ 00:00:00 Medical C enter (Pfizer/BioNTech)(I [id number]) Covid-19 Vaccine 2020-08-[address] [facility] MRNA (PF) 12yr+ 00:00:00 Medical C enter (Pfizer/BioNTech)(I [id number]) Covid-19 Vaccine 2020-08-[address] [facility] MRNA (PF) 12yr+ 00:00:00 Medical C enter (Pfizer/BioNTech)(I [id number]) Covid-19 Vaccine 2020-07-[address] [facility] MRNA (PF) 12yr+ 00:00:00 Medical C enter (Pfizer/BioNTech)(I [id number]) Covid-19 Vaccine 2020-07-[address] [facility] MRNA (PF) 12yr+ 00:00:00 Medical C enter (Pfizer/BioNTech)(I [id number]) Covid-19 Vaccine 2020-07-[address] [facility] MRNA (PF) 12yr+ 00:00:00 Medical C enter (Pfizer/BioNTech)(I [id number]) Covid-19 Vaccine 2020-07-[address] [facility] MRNA (PF) 12yr+ 00:00:00 Medical C enter (Pfizer/BioNTech)(I [id number]) PPD (TB) 2011-04-30 Completed University of 00:00:00 [facility] PPD (TB) 2011-04-30 Completed University of 00:00:00 [facility] Influenza Virus 2011-03-11 Completed Universit y of Vaccine Quad IM 00:00:00 [place] Med ical Multi-dose 6+ MO Branch Influenza Virus 2011-03-11 Completed Universit y of Vaccine Quad IM 00:00:00 [place] Med ical Multi-dose 6+ MO Branch TDAP 2011-01-27 Completed University of 00:00:00 [facility] TDAP 2011-01-27 Completed University of 00:00:00 [facility] PPD (TB) 2010-04-17 Completed University of 00:00:00 [facility] PPD (TB) 2010-04-17 Completed [facility] 00:00:00 [facility] PPD (TB) 2009-04-23 Completed [facility] 00:00:00 [facility] PPD (TB) 2009-04-23 Completed [facility] 00:00:00 [facility] Influenza Virus 2009-03-27 Completed Universit y of Vaccine Quad IM 00:00:00 [place] [facility] Multi-dose 6+ MO Branch Influenza Virus 2009-03-27 Completed Universit y of Vaccine Quad IM 00:00:00 [facility] ical Multi-dose 6+ MO Branch Covid-19 Vaccine Unknown Completed [facility] MRNA (PF) 12yr+ Medical C enter (Pfizer/BioNTech)(I MM601) Covid-19 Vaccine Unknown Completed [facility] MRNA (PF) 12yr+ Medical C enter (Pfizer/BioNTech)(I MM601) Covid-19 Vaccine Unknown Completed [facility] MRNA (PF) 12yr+ Medical C enter (Pfizer/BioNTech)(I MM601) Covid-19 Vaccine Unknown Completed [facility] M[facility](PF,Premixed)[facility] YR+ (Pfizer/BioNTech)(I MM613) COVID-19 mRNA Unknown Completed [facility] (PF)([facility] BIVALENT) (Early Cap) 12YR+ (PFIZER)([id number] Covid-19 Vaccine Unknown Completed [facility] MRNA (PF) 12yr+ Medical C enter (Pfizer/BioNTech)(I MM601) Covid-19 Vaccine Unknown Completed [facility] MRNA (PF) 12yr+ Medical C enter (Pfizer/BioNTech)(I MM601) Covid-19 Vaccine Unknown Completed [facility] MRNA (PF) 12yr+ Medical C enter (Pfizer/BioNTech)(I MM601) Covid-19 Vaccine Unknown Completed [facility](PF,Premixed)12 [facility] YR+ (Pfizer/BioNTech)(I MM613) COVID-19 mRNA Unknown Completed [facility] (PF)([facility]) (Early Cap) 12YR+ (PFIZER)([id number] Vital Signs Vital Name Observation Time Observation Value Comments Source Systolic blood 2023-02-11 19:06:00 134 mm[Hg] [facility] Diastolic blood 2023-02-11 19:06:00 83 mm[Hg] [facility] Heart rate 2023-02-11 19:06:00 60 [facility] Body temperature 2023-02-11 19:06:00 36.28 [facility] Respiratory rate 2023-02-11 19:06:00 12 /min [facility] Body height 2023-02-11 19:06:00 [facility]1 [facility] weight 2023-02-11 19:06:00 [facility]576 [facility] BMI 2023-02-11 19:06:00 26.63 [facility]m2 [facility] O[facility] saturation in 2023-02-11 19:06:00 98 /min [facility] Arterial blood by Pulse oximetry HEIGHT 2021-09-11 10:20:00 167.6 cm WEIGHT 2021-09-11 10:20:00 95.754 kg HEIGHT 2021-09-09 15:42:00 167.6 cm WEIGHT 2021-09-09 15:42:00 95.709 kg HEIGHT 2021-09-11 10:20:00 167.6 cm WEIGHT 2021-09-11 10:20:00 95.754 kg HEIGHT 2021-09-09 15:42:00 167.6 cm WEIGHT 2021-09-09 15:42:00 95.709 kg HEIGHT 2021-08-17 10:32:00 167.6 cm WEIGHT 2021-08-17 10:32:00 102.513 kg HEIGHT 2021-08-17 10:32:00 167.6 cm WEIGHT 2021-08-17 10:32:00 102.513 kg HEIGHT 2021-08-08 00:30:00 168.9 cm WEIGHT 2021-08-08 00:30:00 104.962 kg HEIGHT 2021-08-07 15:07:00 167.6 cm WEIGHT 2021-08-07 15:07:00 104.781 kg HEIGHT 2021-08-08 00:30:00 168.9 cm WEIGHT 2021-08-08 00:30:00 104.962 kg HEIGHT 2021-08-07 15:07:00 167.6 cm WEIGHT 2021-08-07 15:07:00 104.781 kg HEIGHT 2021-06-27 09:00:00 167.6 cm WEIGHT 2021-06-27 09:00:00 116.4 kg HEIGHT 2021-06-26 15:52:00 168.9 cm WEIGHT 2021-06-26 15:52:00 116.574 kg HEIGHT 2021-06-27 09:00:00 167.6 cm WEIGHT 2021-06-27 09:00:00 116.4 kg HEIGHT 2021-06-26 15:52:00 168.9 cm WEIGHT 2021-06-26 15:52:00 116.574 kg HEIGHT 2021-06-24 09:52:00 167.6 cm WEIGHT 2021-06-24 09:52:00 118.071 kg HEIGHT 2021-06-24 09:52:00 167.6 cm WEIGHT 2021-06-24 09:52:00 118.071 kg HEIGHT 2021-04-29 08:39:00 167.6 cm WEIGHT 2021-04-29 08:39:00 129.275 kg HEIGHT 2021-04-25 08:42:00 167.6 cm WEIGHT 2021-04-25 08:42:00 129.275 kg HEIGHT 2021-04-29 08:39:00 167.6 cm WEIGHT 2021-04-29 08:39:00 129.275 kg HEIGHT 2021-04-25 08:42:00 167.6 cm WEIGHT 2021-04-25 08:42:00 129.275 kg Systolic blood 2020-03-14 15:00:00 137 mm[Hg] Univer sity of pressure [facility] Diastolic blood 2020-03-14 15:00:00 67 mm[Hg] Unive rsity of pressure [facility] Heart rate 2020-03-14 15:00:00 58 /min [facility] Oxygen saturation in 2020-03-14 15:00:00 95 /min University Arterial blood by [facility] Pulse oximetry Branch Body temperature 2020-03-14 13:00:[address] Respiratory rate 2020-03-14 13:00:00 18 /min [facility] Body weight 2020-03-14 01:49:00 133.267 kg Universi ty [facility] BMI 2020-03-14 01:49:00 46.02 kg/m2 Universi ty [facility] Body height 2020-03-13 05:25:00 170.2 cm Universi ty [facility] Systolic blood 2020-03-14 15:00:00 137 mm[Hg] Univer sity of pressure [facility] Diastolic blood 2020-03-14 15:00:00 67 mm[Hg] Unive rsity of [facility] Heart rate 2020-03-14 15:00:00 58 /min Universi ty [facility] Oxygen saturation in 2020-03-14 15:00:00 95 /min [facility] Arterial blood by [facility] Pulse oximetry Branch Body temperature 2020-03-14 13:00:00 36.83 Iqra [facility] Respiratory rate 2020-03-14 13:00:00 18 /min [facility] Body weight 2020-03-14 01:49:00 133.267 kg Universi ty [facility] BMI 2020-03-14 01:49:00 46.02 kg/m2 Universi ty [facility] Body height 2020-03-13 05:25:00 170.2 cm Universi [facility] Systolic blood 2021-09-11 12:25:00 149 mm[Hg] [facility] Diastolic blood 2021-09-11 12:25:00 70 mm[Hg] [facility] Heart rate 2021-09-11 12:25:00 52 /min [facility] Body temperature 2021-09-11 12:25:00 36.11 Iqra [facility] Oxygen saturation in 2021-09-11 12:25:00 100 /min [facility] Arterial blood by Medical nter Pulse oximetry Respiratory rate 2021-09-11 12:13:00 16 /min [facility] Body height 2021-09-11 10:20:00 167.6 cm [facility] Body weight 2021-09-11 10:20:00 95.754 kg [facility] BMI 2021-09-11 10:20:00 34.07 kg/m2 [facility] Procedures Procedure Date / Time Performing Clinician Source Performed SARS-COV2/RT-PCR ([facility] 2022-04-11 08:15:10 [address] [facility] Medical [place] SARS-COV2/RT-PCR ([facility] 2022-02-28 09:15:21 Kanu Bar as [facility] Medical [place] SARS-COV2/RT-PCR ([facility] 2022-01-31 07:50:18 Kanu Bar as [facility] Medical [place] SARS-COV2/RT-PCR ([facility] 2022-01-17 09:09:41 [address]Knu Bar [address] [facility] Medical [place] SARS-COV2/RT-PCR ([facility] 2022-01-03 09:00:35 Kanu Bar [address] [facility] Medical Center REPORT OF PROCEDURE - 2021-09-11 11:40:29 Dorothy, [facility] EGD, WITH BALLOON 2021-09-11 11:06:00 Dorothy, [facility] POCT-GLUCOSE METER 2021-09-11 10:43:00 Dorothy, [facility] [place] SARS-COV2/RT-PCR ([facility] 2021-09-09 10:04:21 Kanu Bar as [facility]) [facility] POCT-GLUCOSE METER 2021-08-21 14:15:00 Karan Wiseman [facility] REPORT OF PROCEDURE - 2021-08-21 13:56:51 Dorothy, [facility] [place] FLUORO NON-SPECIFIC 2021-08-21 13:39:00 Dorothy, [facility] 1 HOUR [facility] POCT-GLUCOSE METER 2021-08-21 13:30:00 Suarez-Santos, Karan [facility] POCT-GLUCOSE METER 2021-08-21 13:04:00 Karan Wiseman [facility] EGD, WITH BALLOON 2021-08-21 13:04:00 Dorothy Donato [facility] PROCEDURE W/ C-ARM 2021-08-21 13:04:00 Dorothy Donato [facility] BASIC METABOLIC PANEL 2021-08-21 05:25:00 Percy Quiñonez [facility] MAGNESIUM 2021-08-21 05:25:00 Percy Qui[facility]onez [facility] BASIC METABOLIC PANEL 2021-08-20 03:59:00 Rakic [facility] HEMOGLOBIN AND 2021-08-20 03:59:[address] [facility] POCT-GLUCOSE METER 2021-08-19 09:57:00 [facility]SE [facility] 2021-08-19 09:36:00 Karan Wiseman [facility] REPORT OF PROCEDURE - 2021-08-19 09:19:09 Jojo Sims [facility] ENDOSCOPY [facility] EGD 2021-08-19 08:08:00 Jojo Sims [facility] (ESOPHAGOGASTRODUODENOS [facility] COPY) EGD, WITH BALLOON 2021-08-19 08:08:00 Jojo Sims [facility] BASIC METABOLIC PANEL 2021-08-19 05:06:00 Rakic [facility] HEMOGLOBIN AND 2021-08-19 05:06:00 Rakic [facility] HEMATOCRIT [facility] SARS-COV2/RT-PCR ([facility] 2021-08-18 10:47:00 Peterson Jiang [facility] BASIC METABOLIC PANEL 2021-08-18 04:44:00 Rakic, [facility] HEMOGLOBIN AND 2021-08-18 04:44:00 [facility] HEMATOCRIT [facility] CT ABDOMEN/PELVIS WITH 2021-08-17 14:25:00 Simone Benitez [facility] IV CONTRAST Medical Center CBC W/PLT COUNT & AUTO 2021-08-17 10:43:00 DouglasTao aguillon [facility] COMPREHENSIVE METABOLIC 2021-08-17 10:43:00 Stella Tessarachele Sue [facility] PANEL [facility] Center LIPASE 2021-08-17 10:43:00 [facility] HCG, QUANTITATIVE, 2021-08-17 10:43:00 StellaTao [facility] CBC W/PLT COUNT & AUTO 2021-08-17 10:43:00 DouglasTao aguillon [facility] ECG 12-LEAD 2021-08-17 10:37:36 Douglas [facility] ECG 12-LEAD 2021-08-17 10:37:36 Unknown, [facility] EKG-SCANNED 2021-08-17 00:00:00 Provider, [facility] es Scanning [facility] REPORT OF PROCEDURE - 2021-08-16 12:08:42 Parish Mcdonald [facility] ENDOSCOPY [facility] ECHO ROUTINE W/DOPPLER 2020-03-13 14:08:34 [facility] COLOR [facility] POCT GLUCOSE 2020-03-13 13:12:00 Perla Thornton [facility] (AUTOMATED) [facility] TROPONIN I 2020-03-13 07:53:00 Hillary Thompson [facility] [place], [facility] COVID-19 (ID NOW RAPID 2020-03-13 02:20:00 Isi Kidd [facility] TESTING) Medical Branch XR CHEST 1 VW 2020-03-13 01:30:13 Isi Kidd [facility] Medical Branch LIPASE 2020-03-13 01:25:00 Isi Kidd [facility] MAGNESIUM 2020-03-13 01:25:00 Isi Kidd [facility] TROPONIN I 2020-03-13 01:25:00 Isi Kidd [facility] THYROID STIMULATING 2020-03-13 01:25:00 Isi Kidd [facility] HORMONE [facility] COMP. METABOLIC PANEL 2020-03-13 01:25:00 [facility] ([id number] CBC WITH DIFF 2020-03-13 01:25:00 Isi Kidd [facility] PROTHROMBIN TIME / INR 2020-03-13 01:25:[address] [facility] ACTIVATED PARTIAL 2020-03-13 01:25:[address] [facility] E[facility]-12 LEAD 2020-03-13 01:20:22 Isi Kidd Dawn [facility] EKG-12 LEAD 2020-03-13 01:13:40 Dorina Pinedo [facility] Plan of Care Planned Activity Planned Date Details Comments Source Future Scheduled 2031-04-29 Screening for malignant [facility] Test 00:00:00 neoplasm of colon Medical Ce nter (procedure) [code = 245213913] Future Scheduled 2031-04-29 Screening for malignant [facility] Test 00:00:00 neoplasm of colon Medical Ce nter (procedure) [code = 803017794] Future Scheduled 2031-04-29 Screening for malignant [facility] Test 00:00:00 neoplasm of colon Medical Ce nter (procedure) [code = 174300350] Future Scheduled 2031-04-29 Screening for malignant [facility] Test 00:00:00 neoplasm of colon Medical Ce nter (procedure) [code = 644558398] Future Scheduled 2031-04-29 Screening for malignant [facility] Test 00:00:00 neoplasm of colon Medical Ce nter (procedure) [code = 224394794] Future Scheduled 2031-04-29 Screening for malignant [facility] Test 00:00:00 neoplasm of colon Medical Ce nter (procedure) [code = 482882747] Future Scheduled 2031-04-29 Screening for malignant [facility] Test 00:00:00 neoplasm of colon Medical Ce nter (procedure) [code = 843793329] Future Scheduled 2031-04-29 Screening for malignant [facility] Test 00:00:00 neoplasm of colon Medical Ce nter (procedure) [code = 425248730] Future Scheduled 2031-04-29 Screening for malignant [facility] Test 00:00:00 neoplasm of colon Medical Ce nter (procedure) [code = 366792234] Future Scheduled 2031-04-29 Screening for malignant [facility] Test 00:00:00 neoplasm of colon Medical Ce nter (procedure) [code = 793185596] Future Scheduled 2031-04-29 Screening for malignant [facility] Test 00:00:00 neoplasm of colon Medical Ce nter (procedure) [code = 225477925] Future Scheduled 2031-04-29 Screening for malignant [facility] Test 00:00:00 neoplasm of colon Medical Ce nter (procedure) [code = 325909425] Future Scheduled 2024-04-26 Lipid panel (procedure) [facility] Test 00:00:00 [code = [id number]] Medical Ce nter Future Scheduled 2024-04-26 Lipid panel (procedure) [facility] Test 00:00:00 [code = 37098726] Medical Ce nter Future Scheduled 2024-04-26 Lipid panel (procedure) [facility] Test 00:00:00 [code = 07994202] Medical Ce nter Future Scheduled 2024-04-26 Lipid panel (procedure) [facility] Test 00:00:00 [code = 71046427] Medical Ce nter Future Scheduled 2024-04-26 Lipid panel (procedure) [facility] Test 00:00:00 [code = 91608714] Medical Ce nter Future Scheduled 2024-04-26 Lipid panel (procedure) [facility] Test 00:00:00 [code = 91041371] Medical Ce nter Future Scheduled 2023-03-13 INFLUENZA VACCINE (Season [facility] 00:00:00 Ended) [code = [facility] Future Scheduled 2023-03-13 Influenza Vaccine (Season [facility] Test 00:00:00 Ended) [code = Influenza Med ical Center Vaccine (Season Ended)] Future Scheduled 2023-03-13 Influenza Vaccine (#1) [facility]00 [code = Influenza Vaccine Me dical Center (#1)] Future Scheduled 2023-03-13 Influenza Vaccine (#1) [facility] 00:00:00 [code = Influenza Vaccine Me dical Center (#1)] Future Scheduled 2022-09-[address] [facility] Test 00:00:00 Counseling and Screening Med ical Center (12+) [code = Tobacco Cessation Counseling and Screening (12+)] Future Scheduled 2022-09-[address] [facility] Test 00:00:00 Counseling and Screening Med ical Center (12+) [code = Tobacco Cessation Counseling and Screening (12+)] Future Scheduled 2022-09-[address] [facility] Test 00:00:00 Counseling and Screening Med ical Center (12+) [code = Tobacco Cessation Counseling and Screening (12+)] Future Scheduled 2022-09-[address] [facility] Test 00:00:00 Counseling and Screening Med ical Center (12+) [code = Tobacco Cessation Counseling and Screening (12+)] Future Scheduled 2022-09-[address] [facility] Test 00:00:00 Counseling and Screening Med ical Center (12+) [code = Tobacco Cessation Counseling and Screening (12+)] Future Scheduled 2022-09-[address] [facility] Test 00:00:00 Counseling and Screening Med ical Center (12+) [code = Tobacco Cessation Counseling and Screening (12+)] Future Scheduled 2022-07-[address] [facility] 00:00:00 (12+) [code = DEPRESSION Med ical Center SCREENING (12+)] Future Scheduled 2022-07-[address] [facility] Test 00:00:00 (12+) [code = DEPRESSION Med ical Center SCREENING (12+)] Future Scheduled 2022-07-[address] [facility] Test 00:00:00 (12+) [code = DEPRESSION Med ical Center SCREENING (12+)] Future Scheduled 2022-07-[address] [facility] 00:00:00 (12+) [code = DEPRESSION Med ical Center SCREENING (12+)] Future Scheduled 2022-07-[address] [facility] 00:00:00 (12+) [code = DEPRESSION Med ical Center SCREENING (12+)] Future Scheduled 2022-07-[address] [facility] 00:00:00 (12+) [code = DEPRESSION Med ical Center SCREENING (12+)] Future Scheduled 2022-03-13 INFLUENZA VACCINE (#1) [facility] 00:00:00 [code = INFLUENZA VACCINE Me dical Center (#1)] Future Scheduled 2022-03-13 INFLUENZA VACCINE (#1) [facility] 00:00:00 [code = INFLUENZA VACCINE Me dical Center (#1)] Future Scheduled 2021-10-06 Screening for malignant [facility] Test 00:00:00 neoplasm of breast Medical C enter (procedure) [code = 798158386] Future Scheduled 2021-10-06 Screening for malignant [facility] Test 00:00:00 neoplasm of breast Medical C enter (procedure) [code = 800572075] Future Scheduled 2021-10-06 Screening for malignant [facility] Test 00:00:00 neoplasm of breast Medical C enter (procedure) [code = 567636715] Future Scheduled 2021-10-06 Screening for malignant [facility] Test 00:00:00 neoplasm of breast Medical C enter (procedure) [code = 359345414] Future Scheduled 2021-10-06 Screening for malignant [facility] Test 00:00:00 neoplasm of breast Medical C enter (procedure) [code = 894215106] Future Scheduled 2021-10-06 Screening for malignant [facility] Test 00:00:00 neoplasm of breast Medical C enter (procedure) [code = 739893702] Future Scheduled 2021-01-27 DTAP/TDAP/TD VACCINES ([address] [facility] 00:00:00 - Td or Tdap) [code = Medica l Center DTAP/TDAP/TD VACCINES (2 - Td or Tdap)] Future Scheduled 2021-01-27 DTAP/TDAP/TD VACCINES ([address] [facility] 00:00:00 - Td or Tdap) [code = Medica l Center DTAP/TDAP/TD VACCINES (2 - Td or Tdap)] Future Scheduled 2021-01-27 DTAP/TDAP/TD VACCINES ([address] [facility] 00:00:00 - Td or Tdap) [code = Medica l Center DTAP/TDAP/TD VACCINES (2 - Td or Tdap)] Future Scheduled 2021-01-27 DTAP/TDAP/TD VACCINES ([address] [facility] 00:00:00 - Td or Tdap) [code = Medica l Center DTAP/TDAP/TD VACCINES (2 - Td or Tdap)] Future Scheduled 2021-01-27 DTAP/TDAP/TD VACCINES ([address] [facility] 00:00:00 - Td or Tdap) [code = Medica l Center DTAP/TDAP/TD VACCINES (2 - Td or Tdap)] Future Scheduled 2021-01-27 DTAP/TDAP/TD VACCINES ([address] [facility] 00:00:00 - Td or Tdap) [code = Medica l Center DTAP/TDAP/TD VACCINES (2 - Td or Tdap)] Future Scheduled 2019 SHINGLES VACCINES ([address] [facility] 00:00:00 2) [code = SHINGLES Medical Center VACCINES (1 of 2)] Future Scheduled 2019 SHINGLES VACCINES ([address] [facility] 00:00:00 2) [code = SHINGLES Medical Center VACCINES (1 of 2)] Future Scheduled 2019 SHINGLES VACCINES ([address] [facility] 00:00:00 2) [code = SHINGLES Medical Center VACCINES (1 of 2)] Future Scheduled 2019 SHINGLES VACCINES ([address] [facility] 00:00:00 2) [code = SHINGLES Medical Center VACCINES (1 of 2)] Future Scheduled 2019 SHINGLES VACCINES ([address] [facility] 00:00:00 2) [code = SHINGLES Medical Center VACCINES (1 of 2)] Future Scheduled 2019 SHINGLES VACCINES ([address] [facility] 00:00:00 2) [code = SHINGLES Medical Center VACCINES (1 of 2)] Future Scheduled 1990 Screening for malignant [facility] Test 00:00:00 neoplasm of cervix Medical C enter (procedure) [code = 154153744] Future Scheduled 1990 Screening for malignant [facility] Test 00:00:00 neoplasm of cervix Medical C enter (procedure) [code = 775698770] Future Scheduled 1990 Screening for malignant [facility] Test 00:00:00 neoplasm of cervix Medical C enter (procedure) [code = 678839958] Future Scheduled 1990 Screening for malignant [facility] Test 00:00:00 neoplasm of cervix Medical C enter (procedure) [code = 127015357] Future Scheduled 1990 Screening for malignant [facility] Test 00:00:00 neoplasm of cervix Medical C enter (procedure) [code = 081348382] Future Scheduled 1990 Screening for malignant [facility] Test 00:00:00 neoplasm of cervix Medical C enter (procedure) [code = 846892471] Future Scheduled 1987 HEPATITIS C [facility]ING [facility]00 [code = HEPATITIS C Medical Center SCREENING] Future Scheduled 1987 HEPATITIS C [facility]00 [code = HEPATITIS C Medical Center SCREENING] Future Scheduled 1987 HEPATITIS C [facility]:00:00 [code = HEPATITIS C Medical Center SCREENING] Future Scheduled 1987 HEPATITIS C [facility]:00:00 [code = HEPATITIS C Medical Center SCREENING] Future Scheduled 1987 HEPATITIS C [facility]:00:00 [code = HEPATITIS C Medical Center SCREENING] Future Scheduled 1987 HEPATITIS C [facility] 00:00:00 [code = HEPATITIS C Medical Center SCREENING] Future Scheduled [address] [facility] 00:00:00 virus screening Medical Cent er (procedure) [code = 468425432] Future Scheduled [address] [facility] 00:00:00 virus screening Medical Cent er (procedure) [code = 198354701] Future Scheduled 1969 CT Colonography (combo) [facility] 00:00:00 [code = CT Colonography [facility] Center (combo)] Future Scheduled 1969 Screening for malignant [facility] Test 00:00:00 neoplasm of colon Medical Ce nter (procedure) [code = 169911382] Future Scheduled 1969 Screening for malignant [facility] Test 00:00:00 neoplasm of colon Medical Ce nter (procedure) [code = 135289699] Future Scheduled 1969 Sigmoidoscopy [code = [facility] S[facility]oscopy] Medical [facility] Future Scheduled 1969 CT Colonography (combo) [facility] 00:00:00 [code = CT Colonography Medi porfirio Center (combo)] Future Scheduled 1969 Screening for malignant [facility] Test 00:00:00 neoplasm of colon Medical Ce nter (procedure) [code = 795307586] Future Scheduled 1969 Screening for malignant [facility] Test 00:00:00 neoplasm of colon Medical Ce nter (procedure) [code = 267201155] Future Scheduled 1969 Sigmoidoscopy [code = [facility] S[facility]oscopy] Medical [facility] Future Scheduled 1969 CT Colonography (combo) [facility] 00:00:00 [code = CT Colonography [facility] porfirio Center (combo)] Future Scheduled 1969 Screening for malignant [facility] Test 00:00:00 neoplasm of colon Medical Ce nter (procedure) [code = 166656254] Future Scheduled 1969 Screening for malignant [facility] Test 00:00:00 neoplasm of colon Medical Ce nter (procedure) [code = 591882458] Future Scheduled 1969 Sigmoidoscopy [code = [facility] S[facility]oidoscopy] Medical [facility] Future Scheduled 1969 CT Colonography (combo) [facility] 00:00:00 [code = CT Colonography Medi porfirio Center (combo)] Future Scheduled 1969 Screening for malignant [facility] Test 00:00:00 neoplasm of colon Medical Ce nter (procedure) [code = 318544730] Future Scheduled 1969 Screening for malignant [facility] Test 00:00:00 neoplasm of colon Medical Ce nter (procedure) [code = 849531108] Future Scheduled 1969 Sigmoidoscopy [code = [facility] Sigmoidoscopy] Medical Cente r Future Scheduled 1969 CT Colonography (combo) [facility] 00:00:00 [code = CT Colonography [facility] Center (combo)] Future Scheduled 1969 Screening for malignant [facility] 00:00:00 neoplasm of colon Medical Ce nter (procedure) [code = 545598362] Future Scheduled 1969 Screening for malignant [facility] 00:00:00 neoplasm of colon Medical Ce nter (procedure) [code = 178860870] Future Scheduled 1970 Sigmoidoscopy [code = [facility]] Medical Cente r Future Scheduled 1969 CT Colonography (combo) [facility] 00:00:00 [code = CT Colonography [facility] (combo)] Future Scheduled 1969 Screening for malignant [facility] 00:00:00 neoplasm of colon Medical Ce nter (procedure) [code = 579020665] Future Scheduled 1969 Screening for malignant [facility] 00:00:00 neoplasm of colon Medical Ce nter (procedure) [code = 269509182] Future Scheduled 1970 Sigmoidoscopy [facility]code [facility] Sigm[facility]oscopy] Medical Pauloe r Encounters Start End Encounter Admission Attending Care Care Encounter Source Date/Time Date/Time Type Type Clinicians Facility Department ID 2023-02-[address] [facility] [id number] [place] 13:59:11 [id number] [facility] 2023-02-[address] [facility] [id number] [place] 20:37:45 [id number] [facility] 2023-01-[address] [facility] [id number] [place] 11:28:48 [id number] [facility] 2022-12-[address] [facility] [id number] [place] 09:50:17 [id number] [facility] 2022-12-[address] [facility] [id number] [place] 10:05:02 [id number] [facility] 2022-12-[address] [facility] [id number] [place] 13:39:00 [id number] [facility] 2021-04-20 Outpatient LEONID, [facility] [id number] SLE 09:24:04 [facility] 2021-04-20 Outpatient LEONID, [facility] Surgery [id number] [facility] 09:23:55 [place] 2019-10-09 Inpatient HOLGER EspitiaPM MEDI.01 [id number] [facility] 00:44:00 Musaddiq 28 [facility] 2023-05-20 2023-05-20 Outpatient [facility], [facility] [id number] [place] 13:40:00 13:40:00 [facility] 2023-02-11 2023-02-11 Office Tha, [facility] 6410 [id number] [place] 14:20:00 15:11:06 Visit Cristiana CUENCA [id number] [facility] [id number] 2023-02-09 2023-02-09 Outpatient ANA LILIA, [facility] [id number] [place] 14:30:00 14:30:00 [facility] 2022-04-11 2022-04-11 Clinical [facility] [id number] 08:15:00 08:30:00 [facility] 2022-04-09 2022-04-09 Immunizati Matthew, [facility] [id number] 11:00:00 11:10:00 on Kanu [facility] 2022-04-09 2022-04-09 Outpatient [facility] [id number] [place] [address] 10:56:40 10:56:40 2022-02-28 2022-02-28 Clinical [facility] [id number] 09:15:00 09:30:00 [facility] 2022-01-31 2022-01-31 [facility] [id number] 07:50:00 08:05:00 [facility] 2022-01-17 2022-01-17 Orders [facility] [id number] 09:05:00 09:20:00 Only [facility] 2022-01-03 2022-01-03 [facility] [id number] 08:50:00 09:05:00 [facility] 2021-11-15 2021-11-15 Immunizati Matthew, [facility] [id number] 10:40:00 10:50:00 on Kanu [facility] 2021-11-15 2021-11-15 Outpatient EL SLE SLE [id number] [facility] 10:40:36 10:40:36 2021-09-11 2021-09-11 Hospital EL Dorothy, [facility] [id number] 09:36:00 12:47:00 Encounter [facility] 2021-09-11 2021-09-11 Outpatient EL DOROTHY, [facility] Surgery [id number] [facility] 09:36:00 12:47:00 [facility] 2021-09-11 2021-09-11 Surgery Dorothy, [facility] [id number] 11:45:00 12:15:00 [facility] 2021-09-11 2021-09-11 Anesthesia López Herzog [facility] [id number] 11:11:00 11:42:00 Event Zach Laguna [facility] 2021-09-11 2021-09-11 Travel [facility] [id number] [facility] 00:00:00 00:00:00 [facility] 2021-09-09 2021-09-09 Outpatient EL SLE SLE [id number] [facility] 16:14:47 23:59:00 2021-09-09 2021-09-09 [facility] [id number] 14:45:00 23:59:00 Encounter [facility] 2021-09-09 2021-09-09 Clinical [facility] [id number] 10:05:00 10:20:00 Support [facility] 2021-09-09 2021-09-09 Outpatient [facility] [id number] [facility] 00:00:00 00:00:00 2021-09-09 2021-09-09 Outpatient SLE SLE [id number] [facility] 00:00:00 00:00:00 2021-09-09 2021-09-09 Travel [facility] [id number] [facility] 00:[facility]00 00:00:00 [facility] 2021-08-17 2021-08-22 [facility] Tao Douglas [facility] [id number] 10:23:00 18:02:00 Encounter VictorinoTomKaran [facility] 2021-08-17 2021-08-22 Inpatient ER RENITA [facility] Emergency 20 [id number] SLE 10:23:00 18:02:00 KARAN BAY 2021-08-21 2021-08-21 Anesthesia Dania, [facility] [id number] 13:15:00 14:12:00 Event [facility] 2021-08-21 2021-08-21 Surgery Dorothy, [facility] [id number] 12:52:00 13:52:00 Donato [facility] 2021-08-19 2021-08-19 Anesthesia Anuj, [facility] [id number] 08:18:00 09:15:00 Event Romel Velasco [facility] 2021-08-19 2021-08-19 Surgery , [facility] [id number] 08:00:00 09:00:00 Jojojanet Alex [facility] 2021-08-17 2021-08-17 Orders [facility] [id number] 00:00:00 00:00:00 Only [facility] 2021-08-17 2021-08-17 Travel [facility] [id number] [facility] 00:00:00 00:00:00 [facility] 2021-08-07 2021-08-09 Outpatient ER RENITA [facility] Emergency [id number] SLE 15:21:00 17:06:00 KARAN BAY 2021-08-02 2021-08-02 Outpatient KATARZYNA DE LA CRUZ, [facility] Surgery [id number] [facility] 11:58:00 13:44:00 DONATO 2021-07-30 2021-07-30 Outpatient Pretty AKERS [facility] [id number] [facility] 09:14:20 23:59:00 2021-07-25 2021-07-25 Outpatient [facility] [id number] 10:21:19 10:21:19 [facility] 2021-07-16 2021-07-16 Outpatient [facility] [id number] 13:00:55 13:00:55 [facility] 2021-06-27 2021-06-27 Outpatient Pretty AKERS [facility] [id number] [facility] 08:04:00 17:47:00 2021-06-26 2021-06-26 Outpatient KATARZYNA [facility] SLE [id number] [facility] 16:09:27 23:59:00 2021-06-24 2021-06-24 Outpatient Pretty AKERS [facility] [id number] [facility] 09:32:27 23:59:00 2021-06-24 2021-06-24 Outpatient KATARZYNA [facility] SLE [id number] [facility] 00:00:00 00:00:00 2021-06-24 2021-06-24 Outpatient Pretty AKERS [facility] SLE [id number] [facility] 00:00:00 00:00:00 2021-05-07 2021-05-07 Outpatient Pretty AKERS [facility] SLE [id number] SLE[facility] 13:31:05 23:59:00 2021-04-29 2021-04-29 Out[facility] [id number] [facility] 07:34:00 10:45:00 KYLER 2021-04-09 2021-04-09 Outpatient KATARZYNA [facility]H [id number] [facility] 00:00:00 00:00:00 2020-10-17 2020-10-17 Outpatient EL [facility] SLE [id number] [facility] 00:00:00 00:00:00 2020-08-01 2020-08-01 Outpatient EL SLEH SLEH [id number] [facility] 00:00:00 00:00:00 2020-07-09 2020-07-09 Outpatient EL SLEH SLEH [id number] [facility] 00:00:00 00:00:00 2020-03-15 2020-03-15 Transition AquinoKashifbrigette [id number] [facility] 00:00:00 00:00:00 of Care Deborah Reevesy 350.1.13.10 i [place] 4.2.7.2.686 [place] [id number] [facility] [address] 2020-03-15 2020-03-15 Transition Kashif Aquinobrigette 1.2.840.114 [id number] 00:00:00 00:00:00 of Care Deborah Romero 350.1.13.10 [place] 4.2.7.2.686 [id number] [facility] 2020-03-12 2020-03-14 [facility] 1.2.840.1 [id number] Univers 20:09:00 11:29:00 Encounter Ocharanjite, Vera Sabihaaroarianan Anglet on 350.1.13.10 ity [facility] 4.2.7.2.686 [facility] [place] [id number] 2020-03-12 2020-03-14 [facility] 1.2.840.1 [id number] 20:09:00 11:29:00 Encounter Oyabure, Vera Sabihaaronickemwen Anglet on 350.1.13.10 [place] 4.2.7.2.686 [place] [id number] [facility] 2020-03-12 2020-03-12 Emergency X [facility] ERT [id number] Univers 20:09:00 20:09:00 ity [facility] 2019-10-09 2019-10-09 Outpatient ANDREW Rueda [id number] [facility] 07:38:00 07:38:00 Musaddiq 55 [facility] 2019-10-07 2019-10-07 Outpatient SLEH SLE[facility] [id number] [facility] 00:00:00 00:00:00 [id number] Results Test Description Test Time Test Comments Results Result Comments Source SARS-CoV2/RT-PCR ([facility]) 2022-04-11 14:28:37 Test Item Value Reference Range Interpretation Comme nts SARS-COV2/RT-PCR (test code = Negative Not Detected, 06205-7) Negative, See external report for linked test SARS-COV-2 PERFORMING LAB [facility] (test code = 40011-2) KRISTAL (test code = KRISTAL) Negative result for this test determines that [...] be considered in cases of suspected false negatives. The limit of detection for this assay is 800 copies/mL. This SARS CoV-2 test is a real-time RT-PCR test intended for the qualitative detection of nucleic acid from SARS-CoV-2 in a nasopharyngeal swab specimen collected from individuals suspected of COVID-19 by their healthcare provider. This test has not been Food and Drug [...] is revoked under Section 564(g) of the Act. Fact Sheet for Healthcare Providers:https://www.CareView Communications. Sponsify/sites/default/files/produ ct/documents/Fact_Sheet_HC_Pr aaxqgnq_Bsho_YUHJ-PvX-7.pdf Fact Sheet for Healthcare Patients:https://www.CareView Communications.c om/sites/default/files/produc t/documents/Fact_Sheet_Chris sharifuq_Kasi_OPNA-NfS-8.pdf Performing Laboratory:[facility] [place] [address] [facility])2022-04-11 14:28:37 Test Item Value Reference Range Interpretation Comments SARS-COV2/RT-PCR Negative Not Detected, (test code = Negative, See 63428-8) external report for linked test SARS-COV-2 [facility] PERFORMING LAB (test code = 08196-7) KRISTAL (test code = Negative result for this KRISTAL) test determines that SARS-CoV-2 RNA was not [...] be considered in cases of suspected false negatives. The limit of detection for this assay is 800 copies/mL. This SARS CoV-2 test is a real-time RT-PCR test intended for the qualitative detection of nucleic acid from SARS-CoV-2 in a nasopharyngeal swab specimen collected from individuals suspected of COVID-19 by their healthcare provider. This test has not been Food and Drug [...] is revoked under Section 564(g) of the Act. Fact Sheet for Healthcare Providers:https://www.VoIPshield Systems idel.Sponsify/sites/default/f porsha/product/documents/F act_Sheet_HC_Providers_L jga_PUQX-SoX-3.pdf Fact Sheet for Healthcare Patients:https://www.TuneWiki/sites/default/fi les/product/documents/Fa ct_Sheet_Patients_Lyra_S ARS-CoV-2.pdf Performing Laboratory:[facility] [place] [address] [facility])2022-04-11 14:28:37 Test Item Value Reference Range Interpretation Comments SARS-COV2/RT-PCR Negative Not Detected, (test code = Negative, See 95381-7) external report for linked test SARS-COV-2 [facility] PERFORMING LAB (test code = 53465-3) KRISTAL (test code = Negative result for this KRISTAL) test determines that SARS-CoV-2 RNA was not [...] be considered in cases of suspected false negatives. The limit of detection for this assay is 800 copies/mL. This SARS CoV-2 test is a real-time RT-PCR test intended for the qualitative detection of nucleic acid from SARS-CoV-2 in a nasopharyngeal swab specimen collected from individuals suspected of COVID-19 by their healthcare provider. This test has not been Food and Drug [...] is revoked under Section 564(g) of the Act. Fact Sheet for Healthcare Providers:https://www.SupplyBetter/sites/default/f porsha/product/documents/F act_Sheet_HC_Providers_L lxj_FWEV-GaU-9.pdf Fact Sheet for Healthcare Patients:https://www.TuneWiki/sites/default/fi les/product/documents/Fa ct_Sheet_Patients_Lyra_S ARS-CoV-2.pdf Performing Laboratory:[facility], [place] [address] [place], [place] [address]ARS-CoV2/RT-PCR ([facility])2022-04-11 14:28:37 Test Item Value Reference Range Interpretation Comments SARS-COV2/RT-PCR Negative Not Detected, (test code = Negative, See 64383-4) external report for linked test SARS-COV-2 [facility] PERFORMING LAB (test code = 19195-1) KRISTAL (test code = Negative result for this KRISTAL) test determines that SARS-CoV-2 RNA was not [...] be considered in cases of suspected false negatives. The limit of detection for this assay is 800 copies/mL. This SARS CoV-2 test is a real-time RT-PCR test intended for the qualitative detection of nucleic acid from SARS-CoV-2 in a nasopharyngeal swab specimen collected from individuals suspected of COVID-19 by their healthcare provider. This test has not been Food and Drug [...] is revoked under Section 564(g) of the Act. Fact Sheet for Healthcare Providers:https://www.SupplyBetter/sites/default/f porsha/product/documents/F act_Sheet_HC_Providers_L mbi_OJVG-XqE-4.pdf Fact Sheet for Healthcare Patients:https://www.TuneWiki/sites/default/fi les/product/documents/Fa ct_Sheet_Patients_Lyra_S ARS-CoV-2.pdf Performing Laboratory:[facility] [place] [address] [facility])2022-04-11 14:28:37 Test Item Value Reference Range Interpretation Comments SARS-COV2/RT-PCR Negative Not Detected, (test code = Negative, See 17508-9) external report for linked test SARS-COV-2 [facility] PERFORMING LAB (test code = 18008-1) KRISTAL (test code = Negative result for this KRISTAL) test determines that SARS-CoV-2 RNA was not [...] be considered in cases of suspected false negatives. The limit of detection for this assay is 800 copies/mL. This SARS CoV-2 test is a real-time RT-PCR test intended for the qualitative detection of nucleic acid from SARS-CoV-2 in a nasopharyngeal swab specimen collected from individuals suspected of COVID-19 by their healthcare provider. This test has not been Food and Drug [...] is revoked under Section 564(g) of the Act. Fact Sheet for Healthcare Providers:https://www.SupplyBetter/sites/default/f porsha/product/documents/F act_Sheet_HC_Providers_L bnx_PQSG-IcR-3.pdf Fact Sheet for Healthcare Patients:https://www.TuneWiki/sites/default/fi les/product/documents/Fa ct_Sheet_Patients_Lyra_S ARS-CoV-2.pdf Performing Laboratory:[facility] [place] [address] [facility])2022-04-11 14:28:37 Test Item Value Reference Range Interpretation Comments SARS-COV2/RT-PCR (test Negative Not Detected, Negative, code = 1367326) See external report for linked test SARS-COV-2 PERFORMING LAB [facility] (test code = 0955146) Negative result for this test determines that [...] justifying the authorization of the emergency use ofin vitro diagnostic tests for detection and/or diagnosis of COVID-19 is terminated under Section 564(b)(2) of the Act or the EUA is revoked under Section 564(g) of the Act.Fact Sheet for Healthcare Prov iders:https://www.Xerox/sites/default/files/product/documents/Fact_Sheet_HC _Fcpyqkflz_Yyaj_WOUZ-JtQ-6.pdfFact Sheet for Healthcare Patients:https://www.Xerox/sites/default/files/product/docume nts/Xvyv_Pozxd_Epwwbvph_Gicj_SYYC-KkP-7.pdfPerforming Laboratory:[place] [address], [place] [address]OFXE-YQA1/RT-PCR ([facility])2022-02-28 20:53:05 Test Item Value Reference Range Interpretation Comments SARS-COV2/RT-PCR (test Negative Not Detected, Negative, code = 3934255) See external report for linked test SARS-COV-2 PERFORMING LAB [facility] (test code = 9266022) Negative result for this test determines that [...] justifying the authorization of the emergency use ofin vitro diagnostic tests for detection and/or diagnosis of COVID-19 is terminated under Section 564(b)(2) of the Act or the EUA is revoked under Section 564(g) of the Act.Fact Sheet for Healthcare Prov iders:https://www.Xerox/sites/default/files/product/documents/Fact_Sheet_HC _Ivzghvmfj_Jdtv_MPGK-UtM-0.pdfFact Sheet for Healthcare Patients:https://www.Xerox/sites/default/files/product/docume nts/Lejw_Qjrtg_Mwzagmrb_Yizh_GMNZ-QmN-7.pdfPerforming Laboratory:[facility], [place] [address]UVKJ-UJK5/RT-PCR ([facility])2022-02-01 00:11:44 Test Item Value Reference Range Interpretation Comments SARS-COV2/RT-PCR (test Negative Not Detected, Negative, code = 9157169) See external report for linked test SARS-COV-2 PERFORMING LAB [facility] (test code = 0658868) Negative result for this test determines that [...] justifying the authorization of the emergency use ofin vitro diagnostic tests for detection and/or diagnosis of COVID-19 is terminated under Section 564(b)(2) of the Act or the EUA is revoked under Section 564(g) of the Act.Fact Sheet for Healthcare Prov iders:https://www.Xerox/sites/default/files/product/documents/Fact_Sheet_HC _Mnazdoucf_Mxir_XTMJ-WrM-2.pdfFact Sheet for Healthcare Patients:https://www.Xerox/sites/default/files/product/docume nts/Glid_Fegyz_Agabielh_Osfi_ZKTG-BrD-0.pdfPerforming Laboratory:[place] [address] [place], [place] [address]JPFA-SGJ2/RT-PCR ([facility])2022-01-17 19:46:19 Test Item Value Reference Range Interpretation Comments SARS-COV2/RT-PCR (test Negative Not Detected, Negative, code = 2645304) See external report for linked test SARS-COV-2 PERFORMING LAB [facility] (test code = 5630940) Negative result for this test determines that [...] justifying the authorization of the emergency use ofin vitro diagnostic tests for detection and/or diagnosis of COVID-19 is terminated under Section 564(b)(2) of the Act or the EUA is revoked under Section 564(g) of the Act.Fact Sheet for Healthcare Prov iders:https://www.Xerox/sites/default/files/product/documents/Fact_Sheet_HC _Qmgswmqbg_Veiw_OGEW-MrL-2.pdfFact Sheet for Healthcare Patients:https://www.CareView Communications.Sponsify/sites/default/files/product/docume nts/Sztn_Fqvxr_Egvxxdyy_Quff_AGUZ-RrX-6.pdfPerforming Laboratory:[facility], [place] [address]RYCK-PXU0/RT-PCR ([facility])2022-01-03 13:48:49 Test Item Value Reference Range Interpretation Comments SARS-COV2/RT-PCR (test Negative Not Detected, Negative, code = 7060972) See external report for linked test SARS-COV-2 PERFORMING LAB [facility] (test code = 1088653) Negative result for this test determines that [...] justifying the authorization of the emergency use ofin vitro diagnostic tests for detection and/or diagnosis of COVID-19 is terminated under Section 564(b)(2) of the Act or the EUA is revoked under Section 564(g) of the Act.Fact Sheet for Healthcare Prov iders:https://www.Xerox/sites/default/files/product/documents/Fact_Sheet_HC _Uffzfrgbv_Xrlz_QEAW-EkB-7.pdfFact Sheet for Healthcare Patients:https://www.Xerox/sites/default/files/product/docume nts/Gzjp_Cppnx_Szxzzsfs_Rqzt_NDTI-QiY-1.pdfPerforming Laboratory:[facility], [place] [address]NZE-Qzcrzic meter 2021-09-11 10:54:19 Test Item Value Reference Range Interpretation Comments POC-Glucose Meter (test 91 mg/dL 70-110 : TE STED AT [facility] code = 1538) [address] [facility], [address]: Quality Technician/Techni cristobal ID = [id number] for YVROSE RAMOS Lab Interpretation (test Normal code = 25538-8) [facility]-Glucose [id number] 10:54:19 Test Item Value Reference Range Interpretation Comments POC-Glucose Meter (test 91 mg/dL 70-110 : TE STED AT [facility] code = 1538) [address] [place], [address]: Quality Technician/Techni cristobal ID = [id number] for YVROSE RAMOSEVE Lab Interpretation (test Normal code = 55649-4) [facility] [id number] 10:54:19 Test Item Value Reference Range Interpretation Comments POC-GLUCOSE METER 91 mg/dL 70-110 : TESTED A T [facility] 6720 (BEAKER) (test code = [place], 1538) [address]: Quality Technician/Techni cristobal ID = [id number] for ELYSE CARRILLO SARS-COV2/RT-PCR ([facility])2021-09-10 02:24:39 Test Item Value Reference Range Interpretation Comments SARS-COV2/RT-PCR (test code = Negative Negative 4761911) Negative result for this test determines that [...] 564(g) of the Act.Testing was performed using [employer] SARS-CoV-2 assay.Fact Sheet for Healthcare Providers:https://www.Wiser (formerly WisePricer)/loida/RT SARS-CoV-2 HCP Fact Sheet 51- 968500.pdfFact Sheet for Healthcare Patients:https://www.Wiser (formerly WisePricer)/loida/RT SARS-CoV-2 Patient Fact Sheet EN 51-396911M4.pdfPOCT-GLUCOSE [id number] 14:27:12 Test Item Value Reference Range Interpretation Comments POC-GLUCOSE METER 84 mg/dL 70-110 : TESTED A T [facility] 6720 (TrenStar) (test code = GINA Amanda [facility], 1538) [address]: Quality Technician/Techni cristobal ID = [id number] for SIBA I (V), ANNESSA POCT-GLUCOSE [id number] 13:47:53 Test Item Value Reference Range Interpretation Comments POC-GLUCOSE METER 104 mg/dL 70-110 : TESTED A T [facility] 6720 (SnaptuAKER) (test code = GINA Patel [facility], 1538) [address]: Quality Technician/Techni cristobal ID = [id number] for [facility], FLUORO, NON-SPECIFIC, UP TO 1 [id number] 13:39:00Reason for exam:- >abnormal [facility] : 1970 Sex: FFluoroscopic unit utilized for a procedure performed in the OR. No interpretation was requested. Refer tothe operative report for findings. Refer to PACS for patient radiation dose information.POCT-GLUCOSE [id number] 13:17:12 Test Item Value Reference Range Interpretation Comments POC-GLUCOSE METER 53 mg/dL 70-110 L : TESTED A T [facility] 6720 (BEAKER) (test code = GINA Patel [place], 1538) [address]: Quality Technician/Techni cristobal ID = [id number] for ANJANA MAURER Basic Metabolic [id number] 07:02:24 Test Item Value Reference Range Interpretation Comments Sodium (test code = 145 meq/L 929-240 7125-2) Potassium (test code = 3.3 meq/L 3.5-5.1 L 2823-3) Chloride (test code = 109 meq/L 98-107 H 2075-0) CO2 (test code = 27 meq/L 22-29 2028-9) BUN (test code = 7 mg/dL 7-21 3094-0) Creatinine (test code 0.76 mg/dL 0.57-1.25 = 2160-0) Glucose (test code = 64 mg/dL 70-105 L 2345-7) Calcium (test code = 8.6 mg/dL 8.4-10.2 89395-9) EGFR (test code = 97 mL/min/1.73 [place] [address]-9) NOT ACCURATE CREATININE CLEARANCE IN PREDICTING GLOMERULAR FILTRATION RATE . ESTIMATED GFR I S NOT APPLICABLE FOR DIALYSIS PATIENTS. KRISTAL (test code = KRISTAL) Quality Technician ID - PIAYA L Lab Interpretation Abnormal (test code = 60433-8) [facility] [facility] 07:02:24 Test Item Value Reference Range Interpretation Comments Magnesium (test code = 1.6 mg/dL 1.6-2.6 54980-6) KRISTAL (test code = KRISTAL) Quality Technician ID - PIAYA L Lab Interpretation (test Normal code = 33124-3) [facility] [id number] 07:02:24 Test Item Value Reference Range Interpretation Comments SODIUM (BEAKER) 145 meq/L 136-145 (test code = 381) POTASSIUM (BEAKER) 3.3 meq/L 3.5-5.1 L (test code = 379) CHLORIDE (BEAKER) 109 meq/L 98-107 H (test code = 382) CO2 (BEAKER) (test 27 meq/L 22-29 code = 355) BLOOD UREA NITROGEN 7 mg/dL 7-21 (BEAKER) (test code = 354) CREATININE (BEAKER) 0.76 mg/dL 0.57-1.25 (test code = 358) GLUCOSE RANDOM 64 mg/dL 70-105 L (BEAKER) (test code = 652) CALCIUM (BEAKER) 8.6 mg/dL 8.4-10.2 (test code = 697) EGFR (BEAKER) (test 97 mL/min/1.73 ESTIMA NICANOR GFR IS code = 1092) sq m NOT ACCURATE CREATININE CLEARANCE IN PREDICTING GLOMERULAR FILTRATION RATE . ESTIMATED GFR I S NOT APPLICABLE FOR DIALYSIS PATIEN TS. Quality Technician ID - PIAYA [id number] 07:02:24 Test Item Value Reference Range Interpretation Comments MAGNESIUM (BEAKER) (test code = 1.6 mg/dL 1.6-2.6 627) Quality Technician ID - PIAYA LBASIC METABOLIC [id number] 04:27:15 Test Item Value Reference Range Interpretation Comments SODIUM (BEAKER) 147 meq/L 136-145 H (test code = 381) POTASSIUM (BEAKER) 3.0 meq/L 3.5-5.1 L (test code = 379) CHLORIDE (BEAKER) 111 meq/L 98-107 H (test code = 382) CO2 (BEAKER) (test 26 meq/L 22-29 code = 355) BLOOD UREA NITROGEN 9 mg/dL 7-21 (BEAKER) (test code = 354) CREATININE (BEAKER) 0.79 mg/dL 0.57-1.25 (test code = 358) GLUCOSE RANDOM 65 mg/dL 70-105 L (BEAKER) (test code = 652) CALCIUM (BEAKER) 8.5 mg/dL 8.4-10.2 (test code = 697) EGFR (BEAKER) (test 93 mL/min/1.73 ESTIMA NICANOR GFR IS code = 1092) sq m NOT ACCURATE CREATININE CLEARANCE IN PREDICTING GLOMERULAR FILTRATION RATE . ESTIMATED GFR I S NOT APPLICABLE FOR DIALYSIS PATIEN TS. Quality Technician ID - FABRICIO MHemoglobin and [id number] 04:13:54 Test Item Value Reference Range Interpretation Comments Hemoglobin (test code 9.5 See_Comment L [Auto mated = 786-4) message] The system which generated this result transmit nicanor reference range : 11.2 - 15.7 GM/ DL. The reference range was not u sed to interpret th is result as normal/abnormal . Hematocrit (test code 31.0 % 34.1-44.9 L = 4544-3) KRISTAL (test code = KRISTAL) Quality Technician ID - [id number] Lab Interpretation Abnormal (test code = 02166-8) [facility] AND [id number] 04:13:54 Test Item Value Reference Range Interpretation Comments HEMOGLOBIN (BEAKER) (test code = 9.5 GM/DL 11.2-15.7 L 410) HEMATOCRIT (BEAKER) (test code = 31.0 % 34.1-44.9 L 411) Quality Technician ID - [id number]-GLUCOSE [id number] 10:08:45 Test Item Value Reference Range Interpretation Comments POC-GLUCOSE METER 69 mg/dL 70-110 L : TESTED A T [facility] 6720 (BEAKER) (test code = [facility], 1538) [address]: Quality Technician/Techni cristobal ID = [id number] for TAMP O, GEMMA POCT-GLUCOSE [id number] 09:49:21 Test Item Value Reference Range Interpretation Comments POC-GLUCOSE METER 68 mg/dL 70-110 L : TESTED A T [facility] 6720 (BEAKER) (test code = [facility], 1538) [address]: Quality Technician/Techni cristobal ID = [id number] for TAMP O, GEMMA BASIC METABOLIC [id number] 06:25:02 Test Item Value Reference Range Interpretation Comments SODIUM (BEAKER) 146 meq/L 136-145 H (test code = 381) POTASSIUM (BEAKER) 3.4 meq/L 3.5-5.1 L (test code = 379) CHLORIDE (BEAKER) 113 meq/L 98-107 H (test code = 382) CO2 (BEAKER) (test 24 meq/L 22-29 code = 355) BLOOD UREA NITROGEN 13 mg/dL 7-21 (BEAKER) (test code = 354) CREATININE (BEAKER) 0.81 mg/dL 0.57-1.25 (test code = 358) GLUCOSE RANDOM 76 mg/dL 70-105 (BEAKER) (test code = 652) CALCIUM (BEAKER) 9.1 mg/dL 8.4-10.2 (test code = 697) EGFR (BEAKER) (test 90 mL/min/1.73 ESTIMA NICANOR GFR IS code = 1092) sq m NOT ACCURATE CREATININE CLEARANCE IN PREDICTING GLOMERULAR FILTRATION RATE . ESTIMATED GFR I S NOT APPLICABLE FOR DIALYSIS PATIEN TS. Quality Technician ID - GIDEON GHEMOGLOBIN AND [id number] 05:32:19 Test Item Value Reference Range Interpretation Comments HEMOGLOBIN (BEAKER) (test code = 9.6 GM/DL 11.2-15.7 L 410) HEMATOCRIT (BEAKER) (test code = 31.0 % 34.1-44.9 L 411) Quality Technician ID - [id number]-COV2/RT-PCR ([facility])2021-08-18 16:08:41 Test Item Value Reference Range Interpretation Comments SARS-COV2/RT-PCR (test Negative Not Detected, Negative, code = 9806676) See external report for linked test SARS-COV-2 PERFORMING LAB [facility] (test code = 4605906) Negative result for this test determines that [...] justifying the authorization of the emergency use ofin vitro diagnostic tests for detection and/or diagnosis of COVID-19 is terminated under Section 564(b)(2) of the Act or the EUA is revoked under Section 564(g) of the Act.Fact Sheet for Healthcare Prov iders:https://www.[employer]/sites/default/files/product/documents/Fact_Sheet_HC _Fgvjqnefq_Eslw_HICP-RpN-3.pdfFact Sheet for Healthcare Patients:https://www.[employer]/sites/default/files/product/docume nts/Yxzd_Gaqzm_Xagozkuy_Xmex_JPLZ-GjO-2.pdfPerforming Laboratory:[place] [address] [place], [place] [address]PZZUV METABOLIC PANEL 2021-08-18 05:37:00 Test Item Value Reference Range Interpretation Comments SODIUM (BEAKER) 142 meq/L 136-145 (test code = 381) POTASSIUM (BEAKER) 3.6 meq/L 3.5-5.1 (test code = 379) CHLORIDE (BEAKER) 109 meq/L 98-107 H (test code = 382) CO2 (BEAKER) (test 19 meq/L 22-29 L code = 355) BLOOD UREA NITROGEN 9 mg/dL 7-21 (BEAKER) (test code = 354) CREATININE (BEAKER) 0.78 mg/dL 0.57-1.25 (test code = 358) GLUCOSE RANDOM 112 mg/dL 70-105 H (BEAKER) (test code = 652) CALCIUM (BEAKER) 9.2 mg/dL 8.4-10.2 (test code = 697) EGFR (BEAKER) (test 94 mL/min/1.73 ESTIMA NICANOR GFR IS code = 1092) sq m NOT ACCURATE CREATININE CLEARANCE IN PREDICTING GLOMERULAR FILTRATION RATE . ESTIMATED GFR I S NOT APPLICABLE FOR DIALYSIS PATIEN TS. Quality Technician ID - PIAYA LHEMOGLOBIN AND [id number] 05:14:06 Test Item Value Reference Range Interpretation Comments HEMOGLOBIN (BEAKER) (test code = 10.0 GM/DL 11.2-15.7 L 410) HEMATOCRIT (BEAKER) (test code = 31.6 % 34.1-44.9 L 411) Quality Technician ID - [id number] 15:47:00WITH PO CONTRASTUnlisted Reason for Exam - Click Yes and Enter Reason Below->YesUnlisted Reason for Exam- >s/p gastric bypass 06/27Is this for enterography?->NoWill this procedure require oral contrast?->Yes [facility] : 1970 Sex: FFINAL REPORT TECHNIQUE: CT of the abdomen and pelvis WITH intravenous contrast and WITH oral contrast. Dose modulation, iterative reconstruction, and/or weight-based adjustment of the mA/kV was utilized to reduce the radiation dose to as low as reasonably achievable. INDICATION: 51-year-old woman with nausea and vomiting status post gastric surgery. COMPARISON: Abdomen and pelvis CT 08/07/2021. FINDINGS: LOWER THORAX: Unremarkable. HEPATOBILIARY: No focal hepatic lesion. Gallbladder is unremarkable. No biliary ductal dilatation.SPLEEN: No splenomegaly.PANCREAS: No focal mass or ductal dilatation. ADRENALS: No adrenal nodule.KIDNEYS/URETERS: No hydronephrosis, calculus, or mass.PELVIC ORGANS/BLADDER: Prior hysterectomy. Ovaries are grossly unremarkable. Bladder is unremarkable. PERITONEUM/RETROPERITONEUM: Trace free fluid in the pelvis. No free air.LYMPH NODES: Mildly prominent 1.1cm portacaval lymph node, likely reactive.VESSELS: Unremarkable. GI TRACT: Prior sleeve gastrectomy.No distention or wall thickening. Normal appendix. BONES AND SOFT TISSUES: No acute osseous abnormality. Soft tissues are unremarkable. IMPRESSION:No acute abnormality in the abdomen or pelvis. Trace free fluid in the pelvis, within physiologic limits. Signed: Kamran Gonsales MDReport Verified Date/Time: 08/17/2021 15:47:44 Reading Location: [facility] C013Y CT Body Reading Room hCG, quantitative, [id number] 11:27:04 Test Item Value Reference Range Interpretation Comments hCG Quant (test code 2 See_Comment [Autom ated = 96327-8) message] The system which generated this result transmitted reference range : 0 - 10 mIU/mL. The reference range was not used to interpr et this result as normal/abnormal . KRISTAL (test code = KRISTAL) Non- Females: <10 mIU/mL Females: Gestation Age Reference Range(mIU/mL) 0.2-1 Week 5-50 1-2 Weeks 50-500 2-3 Weeks 100-5,000 3-4 Weeks 500-10,000 4-5 Weeks 1,000-50,000 5-6 Weeks 10,000-100,000 6-8 Weeks 15,000-200,000 2-3 Months 10,000-100,000 Quality Technician ID - DB Lab Interpretation Normal (test code = 62437-5) [facility], [facility]ANTITAT[facility], [id number] 11:27:04 Test Item Value Reference Range Interpretation Comments GONADOTROPIN, CHORIONIC (HCG) QUANT 2 mIU/mL 0-10 (BEAKER) (test code = 649) Non- Females: <10 mIU/mL Females: Gestation Age Reference Range(mIU/mL) 0.2-1 Week 5-50 1-2 Weeks 50-500 2-3 Weeks 100-5,000 3-4 Weeks 500-10,000 4-5 Weeks 1,000-50,000 5-6 Weeks 10,000-100,000 6-8 Weeks 15,000- 200,000 2-3 Months 10,000-100,000 Quality Technician ID - [id number] 11:25:46 Test Item Value Reference Range Interpretation Comments Lipase (test code = 3040-3) 28 U/L - KRISTAL (test code = KRISTAL) Quality Technician ID - DB Lab Interpretation (test Normal code = 36261-0) [facility]IP[facility] 11:25:46 Test Item Value Reference Range Interpretation Comments LIPASE (BEAKER) (test code = 749) 28 U/L 78 Quality Technician ID - DBComprehensive metabolic [id number] 11:25:45 Test Item Value Reference Range Interpretation Comments Protein, Total 7.3 See_Comment [Automated (test code = message] The 2885-2) system which generated this result transmit nicanor reference range : 6.0 - 8.3 gm/dL . The reference range was not u sed to interpret th is result as normal/abnormal . Albumin (test code 4.0 g/dL 3.5-5.0 = 05183-3) Alkaline 54 U/L 40-150 Phosphatase (test code = 6768-6) Total Bilirubin 0.7 mg/dL 0.2-1.2 (test code = 1975-2) Sodium (test code = 145 meq/L 791-212 8441-2) Potassium (test 3.5 meq/L 3.5-5.1 code = 2823-3) Chloride (test code 106 meq/L 98-107 = 2075-0) CO2 (test code = 26 meq/L 22-29 2027-9) BUN (test code = 8 mg/dL 7-21 3094-0) Creatinine (test 0.83 mg/dL 0.57-1.25 code = 2160-0) Glucose (test code 82 mg/dL 70-105 = 2345-7) Calcium (test code 9.6 mg/dL 8.4-10.2 = 96507-7) AST (test code = 22 U/L 5-34 1920-8) ALT (test code = 20 U/L 6-55 1742-6) EGFR (test code = 87 mL/min/1.73 [place] [address]-6) NOT ACCURATE CREATININE CLEARANCE IN PREDICTING GLOMERULAR FILTRATION RATE . ESTIMATED GFR I S NOT APPLICABLE FOR DIALYSIS PATIEN TS. KRISTAL (test code = Quality Technician ID - DB KRISTAL) [facility] [id number] 11:25:45 Test Item Value Reference Range Interpretation Comments TOTAL PROTEIN 7.3 gm/dL 6.0-8.3 (BEAKER) (test code = 770) ALBUMIN (BEAKER) 4.0 g/dL 3.5-5.0 (test code = 1145) ALKALINE PHOSPHATASE 54 U/L 40-150 (BEAKER) (test code = 346) BILIRUBIN TOTAL 0.7 mg/dL 0.2-1.2 (BEAKER) (test code = 377) SODIUM (BEAKER) (test 145 meq/L 136-145 code = 381) POTASSIUM (BEAKER) 3.5 meq/L 3.5-5.1 (test code = 379) CHLORIDE (BEAKER) 106 meq/L 98-107 (test code = 382) CO2 (BEAKER) (test 26 meq/L 22-29 code = 355) BLOOD UREA NITROGEN 8 mg/dL 7-21 (BEAKER) (test code = 354) CREATININE (BEAKER) 0.83 mg/dL 0.57-1.25 (test code = 358) GLUCOSE RANDOM 82 mg/dL 70-105 (BEAKER) (test code = 652) CALCIUM (BEAKER) 9.6 mg/dL 8.4-10.2 (test code = 697) AST (SGOT) (BEAKER) 22 U/L 5-34 (test code = 353) ALT (SGPT) (BEAKER) 20 U/L 6-55 (test code = 347) EGFR (BEAKER) (test 87 mL/min/1.73 ESTIMA NICANOR GFR IS code = 1092) sq m NOT ACCURATE CREATININE CLEARANCE IN PREDICTING GLOMERULAR FILTRATION RATE . ESTIMATED GFR I S NOT APPLICABLE FOR DIALYSIS PATIEN TS. Quality Technician ID - DBCBC with platelet count + automated [id number] 10:54:01 Test Item Value Reference Range Interpretation Comments WBC (test code = 6690-2) 4.3 See_Comment [A utomated message] The system daPulse generated this result transmitted ref erence range: 3.5 - 10 .5 K/L. The refe rence range was not u sed to interpret this result as normal/abnor mal. RBC (test code = 789-8) 3.86 See_Comment L [Au tomated message] The system [employer] generated this result transmitted ref erence range: 3.93 - 5 .22 M/L. The refe rence range was not u sed to interpret this result as normal/abnor mal. MCHC (test code = 786-4) 31.7 See_Comment L [A utomated message] The system [employer] generated this result transmitted ref erence range: 32.2 - 3 5.5 GM/DL. The refe rence range was not u sed to interpret this result as normal/abnor mal. Hematocrit (test code = 34.4 % 34.1-44.9 4544-3) MCV (test code = 787-2) 89.1 fL 79.4-94.8 MCH (test code = 785-6) 28.2 pg 25.6-32.2 RDW (test code = 788-0) 14.8 % 11.7-14.4 H Platelets (test code = 251 See_Comment [Aut omated message] 777-3) The system [employer] generated this result transmitted ref erence range: 150 - 45 0 K/CU MM. The referen ce range was not u sed to interpret this result as normal/abnor mal. MPV (test code = 11.5 fL 9.4-12.3 03155-9) nRBC (test code = 413) 0 See_Comment [Aut omated message] The system [employer] generated this result transmitted ref erence range: 0 - 0 /1 00 WBC. The refere nce range was not u sed to interpret this result as normal/abnor mal. % Neutros (test code = 58 % 429) % Lymphs (test code = 28 % 430) % Monos (test code = 12 % 431) % Eos (test code = 432) 2 % % Baso (test code = 437) 1 % # Neutros (test code = 2.46 See_Comment [Aut omated message] 670) The system [employer] generated this result transmitted ref erence range: 1.56 - 6 .13 K/L. The refe rence range was not u sed to interpret this result as normal/abnor mal. # Lymphs (test code = 1.17 See_Comment L [Auto mated message] 414) The system da[employer] generated this result transmitted ref erence range: 1.18 - 3 .74 K/L. The refe rence range was not u sed to interpret this result as normal/abnor mal. # Monos (test code = 0.49 See_Comment H [Autom ated message] 415) The system [employer] generated this result transmitted ref erence range: 0.24 - 0 .36 K/L. The refe rence range was not u sed to interpret this result as normal/abnor mal. # Eos (test code = 416) 0.07 See_Comment [Au tomated message] The system daP[employer] generated this result transmitted ref erence range: 0.04 - 0 .36 K/L. The refe rence range was not u sed to interpret this result as normal/abnor mal. # Baso (test code = 417) 0.05 See_Comment [A utomated message] The system daPulse generated this result transmitted ref erence range: 0.01 - 0 .08 K/L. The refe rence range was not u sed to interpret this result as normal/abnor mal. Immature 0 % 0-1 Granulocytes-Relative (test code = 2801) Lab Interpretation (test Abnormal code = 01160-2) [facility] W/PLT COUNT & AUTO [id number] 10:54:01 Test Item Value Reference Range Interpretation Comments WHITE BLOOD CELL COUNT (BEAKER) 4.3 K/ L 3.5-10.5 (test code = 775) RED BLOOD CELL COUNT (BEAKER) 3.86 M/ L 3.93-5.22 L (test code = 761) HEMOGLOBIN (BEAKER) (test code = 10.9 GM/DL 11.2-15.7 L 410) HEMATOCRIT (BEAKER) (test code = 34.4 % 34.1-44.9 411) MEAN CORPUSCULAR VOLUME (BEAKER) 89.1 fL 79.4-94.8 (test code = 753) MEAN CORPUSCULAR HEMOGLOBIN 28.2 pg 25.6-32.2 (BEAKER) (test code = 751) MEAN CORPUSCULAR HEMOGLOBIN CONC 31.7 GM/DL 32.2-35.5 L (BEAKER) (test code = 752) RED CELL DISTRIBUTION WIDTH 14.8 % 11.7-14.4 H (BEAKER) (test code = 412) PLATELET COUNT (BEAKER) (test 251 K/CU MM 150-450 code = 756) MEAN PLATELET VOLUME (BEAKER) 11.5 fL 9.4-12.3 (test code = 754) NUCLEATED RED BLOOD CELLS 0 /100 WBC 0-0 (BEAKER) (test code = 413) NEUTROPHILS RELATIVE PERCENT 58 % (BEAKER) (test code = 429) LYMPHOCYTES RELATIVE PERCENT 28 % (BEAKER) (test code = 430) MONOCYTES RELATIVE PERCENT 12 % (BEAKER) (test code = 431) EOSINOPHILS RELATIVE PERCENT 2 % (BEAKER) (test code = 432) BASOPHILS RELATIVE PERCENT 1 % (BEAKER) (test code = 437) NEUTROPHILS ABSOLUTE COUNT 2.46 K/ L 1.56-6.13 (BEAKER) (test code = 670) LYMPHOCYTES ABSOLUTE COUNT 1.17 K/ L 1.18-3.74 L (BEAKER) (test code = 414) MONOCYTES ABSOLUTE COUNT (BEAKER) 0.49 K/ L 0.24-0.36 H (test code = 415) EOSINOPHILS ABSOLUTE COUNT 0.07 K/ L 0.04-0.36 (BEAKER) (test code = 416) BASOPHILS ABSOLUTE COUNT (BEAKER) 0.05 K/ L 0.01-0.08 (test code = 417) IMMATURE GRANULOCYTES-RELATIVE 0 % 0-1 PERCENT (BEAKER) (test code = 2801) [id number] 06:18:35 Test Item Value Reference Range Interpretation Comments PHOSPHORUS (BEAKER) (test code = 3.4 mg/dL 2.3-4.7 604) Quality Technician ID - PIAYA LBASIC METABOLIC [id number] 06:18:34 Test Item Value Reference Range Interpretation Comments SODIUM (BEAKER) 143 meq/L 136-145 (test code = 381) POTASSIUM (BEAKER) 3.6 meq/L 3.5-5.1 (test code = 379) CHLORIDE (BEAKER) 108 meq/L 98-107 H (test code = 382) CO2 (BEAKER) (test 26 meq/L 22-29 code = 355) BLOOD UREA NITROGEN 6 mg/dL 7-21 L (BEAKER) (test code = 354) CREATININE (BEAKER) 0.80 mg/dL 0.57-1.25 (test code = 358) GLUCOSE RANDOM 66 mg/dL 70-105 L (BEAKER) (test code = 652) CALCIUM (BEAKER) 8.7 mg/dL 8.4-10.2 (test code = 697) EGFR (BEAKER) (test 91 mL/min/1.73 ESTIMA NICANOR GFR IS code = 1092) sq m NOT ACCURATE CREATININE CLEARANCE IN PREDICTING GLOMERULAR FILTRATION RATE . ESTIMATED GFR I S NOT APPLICABLE FOR DIALYSIS PATIEN TS. Quality Technician ID Dante PORRAS [id number] 06:18:34 Test Item Value Reference Range Interpretation Comments MAGNESIUM (BEAKER) (test code = 1.9 mg/dL 1.6-2.6 627) Quality Technician ID Dante PORRAS LCBC (HEMOGRAM ONLY)2021-08-09 06:01:16 Test Item Value Reference Range Interpretation Comments WHITE BLOOD CELL COUNT 4.5 K/ L 3.5-10.5 (BEAKER) (test code = 775) RED BLOOD CELL COUNT 3.48 M/ L 3.93-5.22 L (BEAKER) (test code = 761) HEMOGLOBIN (BEAKER) 9.8 GM/DL 11.2-15.7 L (test code = 410) HEMATOCRIT (BEAKER) 31.9 % 34.1-44.9 L (test code = 411) MEAN CORPUSCULAR 91.7 fL 79.4-94.8 Discordant MCV VOLUME (BEAKER) (test result s compared to code = 753) previous result s; clinical correl ation required. MEAN CORPUSCULAR 28.2 pg 25.6-32.2 HEMOGLOBIN (BEAKER) (test code = 751) MEAN CORPUSCULAR 30.7 GM/DL 32.2-35.5 L HEMOGLOBIN CONC (BEAKER) (test code = 752) RED CELL DISTRIBUTION 14.6 % 11.7-14.4 H WIDTH (BEAKER) (test code = 412) PLATELET COUNT 187 K/CU MM 150-450 (BEAKER) (test code = 756) MEAN PLATELET VOLUME 12.1 fL 9.4-12.3 (BEAKER) (test code = 754) NUCLEATED RED BLOOD 0 /100 WBC 0-0 CELLS (BEAKER) (test code = 413) POCT-GLUCOSE [id number] 17:15:11 Test Item Value Reference Range Interpretation Comments POC-GLUCOSE METER 100 mg/dL 70-110 : TESTED A T [facility] 6720 (BEAKER) (test code = [facility] [place], 1538) [address]: Quality Technician/Techni cristobal ID = [id number] for MARY KATE SOSA RK POCT-GLUCOSE [id number] 16:35:47 Test Item Value Reference Range Interpretation Comments POC-GLUCOSE METER 53 mg/dL 70-110 L : TESTED A T [facility] 6720 (BEAKER) (test code = [facility], 1538) [address]: Quality Technician/Techni cristobal ID = [id number] for JOEY KNUTSON [id number] 06:06:52 Test Item Value Reference Range Interpretation Comments PHOSPHORUS (BEAKER) (test code = 3.0 mg/dL 2.3-4.7 604) Quality Technician ID - VERN LBASIC METABOLIC [id number] 06:06:51 Test Item Value Reference Range Interpretation Comments SODIUM (BEAKER) 144 meq/L 136-145 (test code = 381) POTASSIUM (BEAKER) 3.6 meq/L 3.5-5.1 (test code = 379) CHLORIDE (BEAKER) 109 meq/L 98-107 H (test code = 382) CO2 (BEAKER) (test 27 meq/L 22-29 code = 355) BLOOD UREA NITROGEN 7 mg/dL 7-21 (BEAKER) (test code = 354) CREATININE (BEAKER) 0.77 mg/dL 0.57-1.25 (test code = 358) GLUCOSE RANDOM 69 mg/dL 70-105 L (BEAKER) (test code = 652) CALCIUM (BEAKER) 8.4 mg/dL 8.4-10.2 (test code = 697) EGFR (BEAKER) (test 95 mL/min/1.73 ESTIMA NICANOR GFR IS code = 1092) sq m NOT ACCURATE CREATININE CLEARANCE IN PREDICTING GLOMERULAR FILTRATION RATE . ESTIMATED GFR I S NOT APPLICABLE FOR DIALYSIS PATIEN TS. Quality Technician ID - VERN [id number] 06:06:51 Test Item Value Reference Range Interpretation Comments MAGNESIUM (BEAKER) (test code = 1.6 mg/dL 1.6-2.6 627) Quality Technician ID - VERN LCBC (HEMOGRAM ONLY)2021-08-08 05:26:49 Test Item Value Reference Range Interpretation Comments WHITE BLOOD CELL COUNT (BEAKER) 4.5 K/ L 3.5-10.5 (test code = 775) RED BLOOD CELL COUNT (BEAKER) 3.33 M/ L 3.93-5.22 L (test code = 761) HEMOGLOBIN (BEAKER) (test code = 9.4 GM/DL 11.2-15.7 L 410) HEMATOCRIT (BEAKER) (test code = 29.0 % 34.1-44.9 L 411) MEAN CORPUSCULAR VOLUME (BEAKER) 87.1 fL 79.4-94.8 (test code = 753) MEAN CORPUSCULAR HEMOGLOBIN 28.2 pg 25.6-32.2 (BEAKER) (test code = 751) MEAN CORPUSCULAR HEMOGLOBIN CONC 32.4 GM/DL 32.2-35.5 (BEAKER) (test code = 752) RED CELL DISTRIBUTION WIDTH 14.5 % 11.7-14.4 H (BEAKER) (test code = 412) PLATELET COUNT (BEAKER) (test 170 K/CU MM 150-450 code = 756) MEAN PLATELET VOLUME (BEAKER) 11.9 fL 9.4-12.3 (test code = 754) NUCLEATED RED BLOOD CELLS 0 /100 WBC 0-0 (BEAKER) (test code = 413) CT, [id number] 03:10:00Unlisted Reason for Exam - Click Yes and Enter Reason Below->NoIs this for enterography?->NoWill this procedure require oral contrast?->YesJust 50-100 cc given while in the scanner [facility] : 1970 Sex: FFINAL REPORT EXAM/TECHNIQUE: CT of the abdomen and pelvis with IV contrast. Dose modulation, iterative reconstruction, and/or weight based adjustment of the mA/kV was utilized to reducethe radiation dose to as low as reasonably achievable. INDICATION: Nausea, vomiting. COMPARISON: None. FINDINGS: Lower thorax: No focal consolidation or suspicious pulmonary nodule. The visualized heart is unremarkable. Liver: The main portal vein is patent. No focal mass. Biliary: The gallbladder andintrahepatic and extrahepatic biliary systems are unremarkable. Spleen: Unremarkable. Pancreas: Unremarkable. Adrenals: Unremarkable. Kidneys: Symmetric bilateral nephrograms. No hydronephrosis. No focal renal mass. Bowel: Normal appearance of the colon. Appendix is normal in appearance. Status post bariatric surgery. No small bowel dilatation. Lymph nodes: No lymphadenopathy by size criteria. Mesentery: No ascites. No pneumoperitoneum. Pelvis: The uterus is surgically absent. No suspicious adnexal masses. The bladder is unremarkable in appearance. Vessels: Unremarkable. Osseous: No acute osseous process. No suspicious osseous lesions. Impression: No acute process in the abdomen or pelvis. Signed:Lion Damico MDRepje[facility] Verified Date/Time: 08/08/2021 03:10:59 [id number] 17:39:25 Test Item Value Reference Range Interpretation Comments PROTIME (TrenStar) (test 13.5 seconds 11.9-14.2 code = 759) INR (TrenStar) (test 1.05 See_Comment [Automat ed code = 370) message] The sy stem which generated this result transmitted reference range : <=5.90. The reference range was not used to interpret this result as normal/abnormal . PARTIAL THROMBOPLASTIN 21.8 seconds 22.5-36.0 L TIME (SnaptuMANSI) (test code = 760) RECOMMENDED COUMADIN/WARFARIN INR THERAPY RANGESSTANDARD DOSE: 2.0 - 3.0 Includes: PROPHYLAXIS for venous thrombosis, systemic embolization; TREATMENT for venous thrombosis and/or pulmonary embolus.HIGH RISK: Target INR is 2.5-3.5 for patients with mechanical heart valves.HIGH SENSITIVITY TROPONIN [id number] 17:29:38 Test Item Value Reference Range Interpretation Comments HIGH SENSITIVITY 5 pg/ml See_Comment [Automated message] TROPONIN I (test code = The system which [id number]) generated this result transmitted ref erence range: <=17. Th e reference range was not used to interpr et this result as normal/abnormal . Quality Technician ID - CARRIE CThe SECURITY SERVICES SPECIALIST STAT High Sensitivity Troponin-I results should be used in conjunction with other diagnostic information such as ECG, clinical observations and information, and patientsymptoms to aid in the diagnosis of [facility]. [id number] 17:28:19 Test Item Value Reference Range Interpretation Comments LIPASE (BEAKER) (test code = 749) 32 U/L 8-78 Quality Technician ID - CARRIE [id number] 17:28:18 Test Item Value Reference Range Interpretation Comments PHOSPHORUS (BEAKER) (test code = 2.6 mg/dL 2.3-4.7 604) Quality Technician ID - CARRIE CCOMPREHENSIVE METABOLIC [id number] 17:28:17 Test Item Value Reference Range Interpretation Comments TOTAL PROTEIN 6.5 gm/dL 6.0-8.3 (BEAKER) (test code = 770) ALBUMIN (BEAKER) 3.6 g/dL 3.5-5.0 (test code = 1145) ALKALINE PHOSPHATASE 45 U/L 40-150 (BEAKER) (test code = 346) BILIRUBIN TOTAL 0.5 mg/dL 0.2-1.2 (BEAKER) (test code = 377) SODIUM (BEAKER) (test 144 meq/L 136-145 code = 381) POTASSIUM (BEAKER) 3.4 meq/L 3.5-5.1 L (test code = 379) CHLORIDE (BEAKER) 108 meq/L 98-107 H (test code = 382) CO2 (BEAKER) (test 27 meq/L 22-29 code = 355) BLOOD UREA NITROGEN 8 mg/dL 7-21 (BEAKER) (test code = 354) CREATININE (BEAKER) 0.74 mg/dL 0.57-1.25 (test code = 358) GLUCOSE RANDOM 80 mg/dL 70-105 (BEAKER) (test code = 652) CALCIUM (BEAKER) 9.0 mg/dL 8.4-10.2 (test code = 697) AST (SGOT) (BEAKER) 24 U/L 5-34 (test code = 353) ALT (SGPT) (BEAKER) 21 U/L 6-55 (test code = 347) EGFR (BEAKER) (test 100 ESTIMATE D GFR IS code = 1092) mL/min/1.73 sq NOT ACCURA TE m CREATININE CLEARANCE IN PREDICTING GLOMERULAR FILTRATION RATE . ESTIMATED GFR I S NOT APPLICABLE FOR DIALYSIS PATIEN TS. Quality Technician ID - CARRIE [id number] 17:28:17 Test Item Value Reference Range Interpretation Comments MAGNESIUM (BEAKER) (test code = 1.7 mg/dL 1.6-2.6 627) Quality Technician ID - CARRIE CCBC W/PLT COUNT & AUTO [id number] 17:09:14 Test Item Value Reference Range Interpretation Comments WHITE BLOOD CELL COUNT (BEAKER) 5.5 K/ L 3.5-10.5 (test code = 775) RED BLOOD CELL COUNT (BEAKER) 3.58 M/ L 3.93-5.22 L (test code = 761) HEMOGLOBIN (BEAKER) (test code = 10.2 GM/DL 11.2-15.7 L 410) HEMATOCRIT (BEAKER) (test code = 31.3 % 34.1-44.9 L 411) MEAN CORPUSCULAR VOLUME (BEAKER) 87.4 fL 79.4-94.8 (test code = 753) MEAN CORPUSCULAR HEMOGLOBIN 28.5 pg 25.6-32.2 (BEAKER) (test code = 751) MEAN CORPUSCULAR HEMOGLOBIN CONC 32.6 GM/DL 32.2-35.5 (BEAKER) (test code = 752) RED CELL DISTRIBUTION WIDTH 14.3 % 11.7-14.4 (BEAKER) (test code = 412) PLATELET COUNT (BEAKER) (test 189 K/CU MM 150-450 code = 756) MEAN PLATELET VOLUME (BEAKER) 11.5 fL 9.4-12.3 (test code = 754) NUCLEATED RED BLOOD CELLS 0 /100 WBC 0-0 (BEAKER) (test code = 413) NEUTROPHILS RELATIVE PERCENT 34 % (BEAKER) (test code = 429) LYMPHOCYTES RELATIVE PERCENT 49 % (BEAKER) (test code = 430) MONOCYTES RELATIVE PERCENT 13 % (BEAKER) (test code = 431) EOSINOPHILS RELATIVE PERCENT 4 % (BEAKER) (test code = 432) BASOPHILS RELATIVE PERCENT 1 % (BEAKER) (test code = 437) NEUTROPHILS ABSOLUTE COUNT 1.88 K/ L 1.56-6.13 (BEAKER) (test code = 670) LYMPHOCYTES ABSOLUTE COUNT 2.69 K/ L 1.18-3.74 (BEAKER) (test code = 414) MONOCYTES ABSOLUTE COUNT (BEAKER) 0.69 K/ L 0.24-0.36 H (test code = 415) EOSINOPHILS ABSOLUTE COUNT 0.20 K/ L 0.04-0.36 (BEAKER) (test code = 416) BASOPHILS ABSOLUTE COUNT (BEAKER) 0.03 K/ L 0.01-0.08 (test code = 417) IMMATURE GRANULOCYTES-RELATIVE 0 % 0-1 PERCENT (BEAKER) (test code = 2801) SARS-COV2/RT-PCR ([facility])2021-08-02 13:44:00 Test Item Value Reference Range Interpretation Comments SARS-COV2/RT-PCR Positive Negative AA The SARS-Co V-2 target (test code = nucleic acids a re detected ) in this specime n. The presence SARS-C oV-2 nucleic acids cannot ru le out co-infections o r disease caused by other viral or bacterial patho gens. As with any molecular t est, mutations withi n the target regions of the Xpert Xpress SARS-CoV-2 test could affect primer and/or p robe binding resulting in fa ilure to detect the pres ence of virus or the virus be ing detected less predictabl y. False negative result s may occur if virus is pre sent at levels below th e analytical limit of detect ion. This SARS CoV-2 test is a rapid, real-time RT-PC R test intended for e qualitative detection of nu cleic acid from SARS-CoV-2 in a nasopharyngeal swab specimen collected from individuals suspected of CO VID-19 by their healthcar e provider. Results from e Xpert Xpress SARS-CoV -2 test should be corre lated with the clinical hi story, epidemiological data, and other data avai lable to the clinician evalu ating the patient. Viral nucleic acid may persist in vivo, independent of virus viability. Dete ction of analyte target( s) does not imply that the corresponding virus(es) are i nfectious or are the causati ve agents for clinical sympto ms. This test has been authorized by FDA under an EUA for use by authorized laboratories. This test is only authorized for the duration of the declaration that circumstances exist justifying the authorization of emergency use of in vitro diagnostic tests for detection and/or diagnosis of COVID-19 under Section 564(b)(1) of the Federal Food, Drug and Cosmetic Act, 21 U.S.C. 360bbb-3(b)(1), unless the authorization is terminated or revoked sooner. Fact Sheet for Healthcare Providers: https://www.Fang[employer] m/Documents/Xpert%20Xpress%20SARS%20CoV-2/Fact%20Sheets/302-3802%61YRSX-YJQ-0%20 HEALTHCARE%20PROVIDERS%20FACT%20SHEET.pdf Fact Sheet for Healthcare Patients: https://www.[employer]/Documents/Xpert%20Xp ress%20SARS%20CoV-2/Fact%20Sheets/302-3801%51RZRJ-JUF-1%20PATIENT%20FACT%20SHEET .pdfFL, UGI, AIR CONTRAST, WITH [id number] 11:44:00Reason for Exam:->S/p gastric sleeve procedure, N/V [facility] 1970 Sex: FFINAL REPORT TECHNIQUE: Single contrast upper GI series with water- soluble contrast INDICATION: S/p gastric sleeve procedure, N/V. COMPARISON: None. FINDINGS: There are moderate degenerative changes of the sacroiliac joints on the stave mill hand radiographs. There has been a prior sleeve gastrectomy, and no leak of ingested oral contrast is seen. Contrast does flow into the stomach unimpeded. However, there is decreased peristalsis of the esophagus. Contrast does pass into the duodenum. Gastroesophageal to the level of the upper thoracic esophagus. Fluoroscopy time: 4.8 minutesDose area product: 3339.73 microGy*m2 IMPRESSION: 1.No leak of contrast 2.Decreased esophageal motility 3.Gastroesop hageal reflux to the upper thoracic esophagus Signed: Angelica Dean MDReport Verified Date/Time: 07/30/2021 11:44:04 SARS-COV2/RT-PCR ([facility])2021-07-25 21:54:22 Test Item Value Reference Range Interpretation Comments SARS-COV2/RT-PCR (test code = Negative Negative 7335889) Negative result for this test determines that [...] 564(g) of the Act.Testing was performed using [employer] SARS-CoV-2 assay.Fact Sheet for Healthcare Providers:https://www.[employer].Meaningfy/loida/RT SARS-CoV-2 HCP Fact Sheet 51- 181181.pdfFact Sheet for Healthcare Patients:https://www.[employer].Meaningfy/loida/RT SARS-CoV-2 Patient Fact Sheet EN 51-242405W0.pdfSARS-COV2/RT-PCR ([facility])2021-07-17 09:19:19 Test Item Value Reference Range Interpretation Comments SARS-COV2/RT-PCR (test code = Negative Negative 4742747) Negative result for this test determines that [...] 564(g) of the Act.Testing was performed using [employer] SARS-CoV-2 assay.Fact Sheet for Healthcare Providers:https://www.[employer].melvin/loida/RT SARS-CoV-2 HCP Fact Sheet 51- 581031.pdfFact Sheet for Healthcare Patients:https://www.[employer].Meaningfy/loida/RT SARS-CoV-2 Patient Fact Sheet EN 51-039081R0.pdfTISSUE [id number] 12:41:40 Surgical Pathology Report Case: [id number] Authorizing Provider: Pretty Henson MD Collected: 06/27/2021 01:19 PM Ordering Location: [facility] PERIOPERATIVE Received: 06/27/2021 02:10 PM SERVICES Pathologist: Kyle Chowdhury MD Specimen: Gastric, gastric sleeve PART A PORTION OF STOMACH, PARTIAL SLEEVE GASTRECTOMY:CONGESTED GASTRIC MUCOSA WITHOUT SIGNIFICANT HISTOPATHOLOGIC ALTERATION.NEGATIVE FOR INTESTINAL METAPLASIA, DYSPLASIA, OR INVASIVE CARCINOMA. Signing Pathologist Direct Phone Line: [phone] signed by Kyle Chowdhury MD on 07/02/2021 at 12:41 [id number] obesity, body mass index 45.0-49.9, adult, essential hypertension, benign, diabetes mellitus due to underlying condition with retinopathy without macular edemaGastricReceived in formalin labeled the patient's name, accession number and " gastric sleeve" is a 20.0 x 3.0 x 2.0 cm unoriented portion ofstomach with a 20.0 cm linear staple line. The serosa is guthrie-pink, smooth and hyperemic. The specimen is opened to reveal a guthrie-pink, focally erythematous mucosa that displays normal rugal folds. No discrete lesions are identified. Employee Communications Manager sections are submitted in A1-A2.PEPPER Carlson, MODESTO(ASCP)[facility], Department of Pathology, [address] [place] [address], [facility], [facility] of [facility], [address] [place] [address], [facility], [facility], [address], [place] [address], ZUUW-GLUCOSE [id number] 09:35:37 Test Item Value Reference Range Interpretation Comments POC-GLUCOSE METER 157 mg/dL 70-110 H : TESTED Sabrina Lowe [facility] [address] (KVNG) (test code = GINA Patel [facility], 1538) [id number]: Quality Technician/Techni cristobal ID = [id number] for ANDER WESTON (NIRAV hCing SARS-COV2/RT-PCR ([facility])2021-06-24 19:39:10 Test Item Value Reference Range Interpretation Comments SARS-COV2/RT-PCR (test code = Negative Negative 6866421) Negative result for this test determines that [...] 564(g) of the Act.Testing was performed using [employer] SARS-CoV-2 assay.Fact Sheet for Healthcare Providers:https://www.[employer].melvin/loida/RT SARS-CoV-2 HCP Fact Sheet 51- 805199.pdfFact Sheet for Healthcare Patients:https://www.[employer].Meaningfy/loida/RT SARS-CoV-2 Patient Fact Sheet EN 51-583278N5.pdfBAKENTUCKY RIVER [facility] METABOLIC [id number] 10:34:30 Test Item Value Reference Range Interpretation [...] S NOT APPLICABLE FOR DIALYSIS PATIEN TS. Quality Technician ID - GIDEON [id number] 10:10:47 Test Item Value Reference Range Interpretation Comments HEMOGLOBIN (BEAKER) (test code = 11.5 GM/DL 11.2-15.7 410) Quality Technician ID - [id number], UGI, WITH [id number] 17:19:00Reason for Exam:- >Gastroesophageal reflux disease, unspecified whether esophagitis presen [facility] 1970 Sex: FFINAL REPORT TECHNIQUE: Double contrast upper GI series INDICATION: Gastroesophagealreflux. COMPARISON: None. FINDINGS: ESOPHAGUS:Motility: There is mild esophageal dysmotility..Mucosa: Normal in appearance.Distensibility: Normal. GASTROESOPHAGEAL JUNCTION: No evidence of hiatal hernia. GASTROESOPHAGEAL REFLUX: Mild gastroesophageal reflux. STOMACH/DUODENUM: Normally distensible withnormal contours and mucosal pattern. Bulb and sweep are normal. Duodenojejunal junction is in the expected position. Fluoroscopy time: 1.9 minutesNumber of images: 14 IMPRESSION:Gastroesophageal refluxwith mild esophageal dysmotility. Signed: Robin Ceron MDReport Verified Date/Time: 05/07/2021 17:19:47 POCT-GLUCOSE [id number] 10:21:46 Test Item Value Reference Range Interpretation Comments POC-GLUCOSE METER 81 mg/dL 70-110 : TESTED A T [facility] [address] (BEAKER) (test code = [address]) [place] [address] 478: Quality Technician/Techni cristobal ID = [id number] for NgSandra jones POCT-GLUCOSE [id number] 08:38:24 Test Item Value Reference Range Interpretation Comments POC-GLUCOSE METER 93 mg/dL 70-110 : TESTED A T [facility] [address] (BEAKER) (test code = [address]) [place] [address] 478: Quality Technician/Techni cristobal ID = [id number] for Izabella Tate SARS-COV2/RT-PCR ([facility])2021-03-13 22:34:00 Test Item Value Reference Range Interpretation Comments SARS-COV2/RT-PCR (test code = Negative Negative 1477338) Negative result for this test determines that [...] 564(g) of the Act.Testing was performed using t [employer] SARS-CoV-2 assay.Fact Sheet for Healthcare Providers:https://www.[employer].melvin/loida/RT SARS-CoV-2 HCP Fact Sheet 51- 832575.pdfFact Sheet for Healthcare Patients:https://www.[employer].melvin/loida/RT SARS-CoV-2 Patient Fact Sheet EN 51-706504S3.pdfSARS-COV2/RT-PCR ([facility])2021-02-20 22:59:00 Test Item Value Reference Range Interpretation Comments SARS-COV2/RT-PCR (test code = Negative Negative 6675139) Negative result for this test determines that [...] 564(g) of the Act.Testing was performed using [employer] SARS-CoV-2 assay.Fact Sheet for Healthcare Providers:https://www.[employer].melvin/loida/RT SARS-CoV-2 HCP Fact Sheet 51- 087274.pdfFact Sheet for Healthcare Patients:https://www.[employer].melvin/loida/RT SARS-CoV-2 Patient Fact Sheet EN 51-062450Z7.pdfSARS-COV2/RT-PCR ([facility])2020-10-18 02:26:00 Test Item Value Reference Range Interpretation Comments SARS-COV2/RT-PCR (test Negative Not Detected, Negative, code = 2438160) See external report for linked test SARS-COV-2 PERFORMING LAB [facility] (test code = 8903429) Negative result for this test determines that [...] justifying the authorization of the emergency use ofin vitro diagnostic tests for detection and/or diagnosis of COVID-19 is terminated under Section 564(b)(2) of the Act or the EUA is revoked under Section 564(g) of the Act.Testing was performed using the [employer] SARS-CoV-2 assay.Fact Sheet for Healthcare Providers:https://www.[employer].melvin/loida/RT_SAR D-WvI-8_OXH_Niwr_Jvcnk_04-189056.pdfFact Sheet for Healthcare Patients:https://www.molecular.melvin/s al/ZR_GHZX-PfX-8_Rpiygmm_Othq_Vvpyl_BZ_75-240190G4.pdfPerforming Laboratory:[facility] [place] [address] SARS-COV2/RT-PCR ([facility])2020-10-01 22:17:00 Test Item Value Reference Range Interpretation Comments SARS-COV2/RT-PCR (test Negative Not Detected, Negative, code = 6019698) See external report for linked test SARS-COV-2 PERFORMING LAB [facility] (test code = 5420412) Negative result for this test determines that [...] justifying the authorization of the emergency use ofin vitro diagnostic tests for detection and/or diagnosis of COVID-19 is terminated under Section 564(b)(2) of the Act or the EUA is revoked under Section 564(g) of the Act.Testing was performed using the [employer] SARS-CoV-2 assay.Fact Sheet for Healthcare Providers:https://www.molecular.melvin/loida/RT_SAR X-AuJ-9_QIA_Aadz_Vzibt_06-841033.pdfFact Sheet for Healthcare Patients:https://www.molecular.melvin/s al/KX_BLRE-QiG-7_Vdbiiba_Joeg_Qjkxq_LG_26-757370P1.pdfPerforming Laboratory:[facility] [place] [address] SARS-COV2/RT-PCR ([facility])2020-09-06 06:57:00 Test Item Value Reference Range Interpretation Comments SARS-COV2/RT-PCR (test Negative Not Detected, Negative, code = 5421087) See external report for linked test SARS-COV-2 PERFORMING LAB [facility] (test code = 8971819) Negative result for this test determines that [...] justifying the authorization of the emergency use ofin vitro diagnostic tests for detection and/or diagnosis of COVID-19 is terminated under Section 564(b)(2) of the Act or the EUA is revoked under Section 564(g) of the Act.Testing was performed using the [employer] SARS-CoV-2 assay.Fact Sheet for Healthcare Providers:https://www.molecular.melvin/loida/RT_SAR H-EpU-1_FZW_Bucp_Qleyu_60-596078.pdfFact Sheet for Healthcare Patients:https://www.molecular.melvin/s al/WF_VLXP-QvB-9_Lvojojt_Hrzr_Saiuj_WL_68-331660P7.pdfPerforming Laboratory:[facility] [place] [address] SARS-COV2/RT-PCR ([facility])2020-08-10 23:41:00 Test Item Value Reference Range Interpretation Comments SARS-COV2/RT-PCR (test Negative Not Detected, Negative, code = 5976556) See external report for linked test SARS-COV-2 PERFORMING LAB [facility] (test code = 5270768) Negative result for this test determines that [...] justifying the authorization of the emergency use ofin vitro diagnostic tests for detection and/or diagnosis of COVID-19 is terminated under Section 564(b)(2) of the Act or the EUA is revoked under Section 564(g) of the Act.Testing was performed using the [employer] SARS-CoV-2 assay.Fact Sheet for Healthcare Providers:https://www.[employer].melvin/loida/RT_SAR P-NcF-4_XVZ_Fmkf_Fnppb_00-605482.pdfFact Sheet for Healthcare Patients:https://www.molecular.melvin/s al/RP_QEYN-DoK-1_Iettomb_Xlrx_Xkjwu_IM_20-943162A0.pdfPerforming Laboratory:[place] [address] [place] [address] SARS-COV2/RT-PCR ([facility])2020-08-01 07:45:00 Test Item Value Reference Range Interpretation Comments SARS-COV2/RT-PCR (test Negative Not Detected, Negative, code = 0984026) See external report for linked test SARS-COV-2 PERFORMING LAB [facility] (test code = 5470368) Negative result for this test determines that [...] justifying the authorization of the emergency use ofin vitro diagnostic tests for detection and/or diagnosis of COVID-19 is terminated under Section 564(b)(2) of the Act or the EUA is revoked under Section 564(g) of the Act.Testing was performed using the [employer] SARS-CoV-2 assay.Fact Sheet for Healthcare Providers:https://www.[employer].melvin/loida/RT_SAR U-HrW-5_BEE_Kien_Qhyfd_83-850283.pdfFact Sheet for Healthcare Patients:https://www.[employer].melvin/s al/DW_DJNW-InO-1_Msmfqev_Kyvf_Hfole_HL_75-037756T4.pdfPerforming Laboratory:[facility] [place] [address] SARS-COV2/RT-PCR ([facility])2020-07-10 00:47:00 Test Item Value Reference Range Interpretation Comments SARS-COV2/RT-PCR (test Negative Not Detected, Negative, code = 4528085) See external report for linked test SARS-COV-2 PERFORMING LAB [facility] (test code = 4965325) Negative result for this test determines that [...] justifying the authorization of the emergency use ofin vitro diagnostic tests for detection and/or diagnosis of COVID-19 is terminated under Section 564(b)(2) of the Act or the EUA is revoked under Section 564(g) of the Act.Testing was performed using the [employer] SARS-CoV-2 assay.Fact Sheet for Healthcare Providers:https://www.[employer].Meaningfy/loida/RT_SAR V-IwW-0_QKO_Klmy_Thjfr_83-696516.pdfFact Sheet for Healthcare Patients:https://www.[employer])/s al/TF_FFRB-QgB-6_Lgxofxm_Jbjx_Gjffe_FH_45-285773G8.pdfPerforming Laboratory:[facility] [place] [address] SARS-COV2/RT-PCR ([facility])2020-05-29 13:27:00 Test Item Value Reference Range Interpretation Comments SARS-COV2/RT-PCR (test See external report Not Detected, code = 2394619) for linked test Negative, See external report for linked test SARS-COV-2 PERFORMING [facility] (test code = 4278525) SARS-COV2/RT-PCR ([facility])2020-04-24 14:02:00 Test Item Value Reference Range Interpretation Comments SARS-COV2/RT-PCR (test Negative Not Detected, Negative, code = 0680667) See external report for linked test SARS-COV-2 PERFORMING LAB [facility] (test code = 2313664) Negative result for this test determines that [...] justifying the authorization of the emergency use ofin vitro diagnostic tests for detection and/or diagnosis of COVID-19 is terminated under Section 564(b)(2) of the Act or the EUA is revoked under Section 564(g) of the Act.Fact Sheet for Healthcare Prov iders:https://www.[employer]/sites/default/files/product/documents/Fact_Sheet_HC _Xdwbahecg_Xoax_PZQM-BeD-8.pdfFact Sheet for Healthcare Patients:https://www.[employer]/sites/default/files/product/docume nts/Oumy_Bcrio_Xjhioqqr_Woiu_QQMI-QcS-9.pdfPerforming Laboratory:[address] [address]TGDG GLUCOSE (AUTOMATED) 2020-03-13 13:16:00 Test Item Value Reference Range Interpretation Comments POCT GLU (test code = 3958890819) 128 mg/dL 70-110 H Lab Interpretation (test code = Abnormal 63109-4) [facility] [id number] 09:29:00 Test Item Value Reference Range Interpretation Comments TROPONIN I (test 0.021 ng/mL See_Comment [Automated code = 6748790105) message] The system which generated this result [...] ? Lab Interpretation Normal (test code = 85844-3) [facility] [id number] 05:01:00 Test Item Value Reference Range Interpretation Comments TSH (test code = See_Comment Biotin has been [id number]) reported to cau se a negative bias, interpret resul ts relative to pat nitishmarcin's use of biotin. [Automated mess age] The system daPulse generated this result transmitted ref erence range: 0.45 - 4 .70 mIU/L. The refe rence range was not u sed to interpret this result as normal/abnor mal. Lab Interpretation (test Normal code = 91409-0) [facility] NOW RAPID TESTING)2020-03-13 03:37:00 Test Item Value Reference Range Interpretation Comments SARS-CoV-2 Rapid ID NOW Not Detected Not Detected (test code = 60667-5) KRISTAL (test code = KRISTAL) ID NOW COVID-19 Assay is an isothermal nucleic acid amplification test intended for the qualitative detection of nucleic acid from SARS-CoV-2 viral RNA in nasopharyngeal (AUTO INSPECTOR) specimens. It is used under Emergency Use [...] indicated. Lab Interpretation Normal (test code = 24270-3) [facility] 1 [id number] 02:35:33 No acute cardiopulmonary process. Preliminary Report [...] chest was obtained.FINDINGS:Lungs/pleura: The lungs are clear. No focal consolidation identified. Nopleural effusion or pneumothorax is identified.Heart/Mediastinum: Thecardiac silhouette is normal in size.No acute osseous abnormality.IMPRESSIONNo acute cardiopulmonaryprocess.Preliminary Report Dictated by Resident: Fazal Crabtree MD., have reviewedthis study and agree with theabove report.[facility] 2020-03-13 02:15:00 Test Item Value Reference Range Interpretation Comments MAGNESIUM (test code = 1310209487) 2.0 mg/dL 1.7-2.4 Lab Interpretation (test code = Normal 02709-1) [facility] [id number] 01:58:00 Test Item Value Reference Range Interpretation Comments TROPONIN I (test <0.012 See_Comment [Automated code = 3808125578) message] The system which generated this result [...] ? Lab Interpretation Normal (test code = 02535-0) [facility] 01:49:00 Test Item Value Reference Range Interpretation Comments APTT Patient (test See_Comment [Automat ed code = 3173-2) message] The system which generated this result transmitted reference range : 23 - 38 Seconds . The reference range was not used to interpr et this result as normal/abnormal . KRISTAL (test code = KRISTAL) The [facility] patient population mean normal value for aPTT is 30 seconds. Lab Interpretation Normal (test code = 92107-5) [facility] [facility]IC PANEL ([id number])2020-03-13 01:48:00 Test Item Value Reference Range Interpretation Comments NA (test code = 140 mmol/L 135-145 4818650657) K (test code = 3.6 mmol/L 3.5-5 1386125216) CL (test code = 104 mmol/L 98-108 0349726983) CO2 TOTAL (test code = 28 mmol/L 23-31 3886985381) AGAP (test code = 2-16 7980742187) BUN (test code = 18 mg/dL 7-23 9960022981) GLUCOSE (test code = 146 mg/dL 70-110 H 0362980775) CREATININE (test code = 0.89 mg/dL 0.5-1.04 5155459894) TOTAL BILI (test code = 0.3 mg/dL 0.1-1.6 6404801473) CALCIUM (test code = 9.8 mg/dL 8.6-10.6 6968898958) T PROTEIN (test code = 8.2 g/dL 6.3-8.2 0492698387) ALBUMIN (test code = 4.6 g/dL 3.5-5 2963729418) ALK PHOS (test code = 76 U/L 34-122 8923567275) ALTv (test code = 32 U/L 35 1742-6) AST(SGOT) (test code = 30 U/L 1340 6702057338) eGFR Calculation mL/min/1.73m2 (Non-) (test code = 4361555649) eGFR Calculation mL/min/1.73m2 () (test code = 9801522896) KRISTAL (test code = KRISTAL) Association of [...] tests). Lab Interpretation Abnormal (test code = 78452-4) [id number] 01:48:00 Test Item Value Reference Range Interpretation Comments LIPASE (test code = 2226751638) 121 U/L 0-220 Lab Interpretation (test code = Normal 00858-1) [facility] / [id number] 01:47:00 Test Item Value Reference Range Interpretation [...] tions. Lab Interpretation (test Normal code = 18863-8) [facility] WITH [id number] 01:35:00 Test Item Value Reference Range Interpretation Comments WBC (test code = See_Comment [Automated 7290-2) message] The sy stem which generated this result transmitted reference range : 4.30 - 11.10 10*3/?L. The reference range was not used to interpret this result as normal/abnormal . RBC (test code = See_Comment [Automated 999-8) message] The sy stem which generated this [...] RDW-SD (test code = 45.1 fL 39-49.9 90867-8) RDW-CV (test code = 14.0 % 12-15.5 788-0) PLT (test code = See_Comment [Automated 777-3) message] The sy stem which generated this result transmitted reference range : 166 - 358 10*3/ ?L. The reference r yeyo was not used to interpret this result as normal/abnormal . MPV (test code = 10.4 fL 9.5-12.9 70590-5) NRBC/100 WBC (test See_Comment [Automat ed code = 4593696895) message] The system which generated this result transmitted reference range : 0.0 - 10.0 /100 WBCs. The refer ence range was not u sed to interpret th is result as normal/abnormal . NRBC x10^3 (test code <0.01 See_Comment [Auto mated = 9246088087) message] The s ystem which generated this result transmitted reference range : 10*3/?L. The reference range was not used to interpret this result as normal/abnormal . GRAN MAT (NEUT) % 43.6 % (test code = 770-8) IMM GRAN % (test code 0.10 % = 6450135536) LYMPH % (test code = 44.2 % 736-9) MONO % (test code = 7.9 % 5905-5) EOS % (test code = 3.6 % 713-8) BASO % (test code = 0.6 % 706-2) GRAN MAT x10^3(ANC) 3.89 10*3/uL 1.88-7.09 (test code = 1424699708) IMM GRAN x10^3 (test <0.03 0-0.06 code = 8827254352) LYMPH x10^3 (test code 3.94 10*3/uL 1.32-3.29 H = 731-0) MONO x10^3 (test code 0.70 10*3/uL 0.33-0.92 = 742-7) EOS x10^3 (test code = 0.32 10*3/uL 0.03-0.39 711-2) BASO x10^3 (test code 0.05 10*3/uL 0.01-0.07 = 704-7) Lab Interpretation Abnormal (test code = 76667-9) [id number] 06:50[facility]00 Test Item Value Reference Range Interpretation [...] yby method. Completed by Nursing: NOBASIC METABOLIC [id number] 03:35:00 Test Item Value Reference Range Interpretation [...] code = CA) 8.6 MG/DL 8.5-10.1 N [id number] 03:24:00 Test Item Value Reference Range Interpretation [...] Completed by Nursing: NOMM, U/S, BREAST, UNILATERAL, [id number] 10:19:00 Diagnostic workup per radiologist?->YesReason for Exam:->N63.0Reason for Exam:->N64.4MRN#: [id number] - MM, U/S, BREAST, UNILATERAL, LEFT ULTRASOUND OF LEFT BREAST: 10/07/2019Comparison is made to exam dated: 10/07/2019 mammogram - [facility]. Color flow and real-time ultrasound of the left breast were performed. Ultrasound of all four quadrants and the retroareolar breast was performed. Early scale images of the real-time examination were reviewed. No significant abnormalities were seen sonographically in the left breast, with attention to the clinical concern in the lower inner quadrant. IMPRESSION: BENIGN The findings have been discussed with the patient. There is no sonographic evidence of malignancy. William Dubon M.D. pth/:10/07/2019 10:19:33 Normal Exam Ultrasound BI-RADS: 2 Benign [id number] MM, DIGITAL MAMMO, DIAGNOSTIC, BILATERAL INCLUDING [id number] 09:19:00Diagnostic workup per radiologist?->YesReason for Exam:->breast lump in upper inner quadrand breast tenderness in femaleMRN#: [id number] - MM, DIGITAL MAMMO, DIAGNOSTIC, BILATERAL INCLUDING CAD BILATERAL DIGITAL DIAGNOSTIC MAMMOGRAM WITH CAD: 10/07/2019No prior exams were available for comparison. There are scattered fibroglandular elements in both breasts that could obscure a lesion on mammography. Current studywas also evaluated with a Computer Aided Detection (CAD) system. Benign appearing calcifications arepresent in the right breast. No significant masses, calcifications, or other findings are seen in either breast. IMPRESSION: There is no mammographic abnormality seen in the left breast to correspond with the reported palpable abnormality; however, further workup with ultrasound is recommended. William Dubon M.D. pth/:10/07/2019 09:19:57 Desktop Support Manager: RT Sonya(Amanda)(M), [facility] Mammogram BI-RADS: 2 Benign [id number]
[2023-05-13] MEDS ORDERED: HYDROCODONE/APAP 7.5/325 MG TAB ONE (20:22)
--- NOTE | 2023-05-13 21:44 | RAD REPORT ---
EXAM DESCRIPTION: RAD - Knee Right 3 View - 05/13/2023 8:12 pm CLINICAL HISTORY: PAIN COMPARISON: Knee Right 3 View dated 04/24/2021; Knee Right 3 View dated 12/24/2012 TECHNIQUE: Right knee, 3 views. FINDINGS: Right total knee arthroplasty in place. No fracture, dislocation or periosteal reaction.No joint effusion seen. No joint space narrowing. No soft tissue abnormality. IMPRESSION: No acute abnormalities. Satisfactory alignment of total knee arthroplasty hardware.
--- NOTE | 2023-05-13 22:24 | RAD REPORT ---
EXAM DESCRIPTION: RAD - Shoulder Left 2 View - 05/13/2023 9:58 pm CLINICAL HISTORY: PAIN COMPARISON: No comparisons TECHNIQUE: Internal and external rotation views of the left shoulder were obtained. FINDINGS: There is no fracture or dislocation. AC joint is normal in appearance. No acute or suspici ous findings. Calcific lesions adjacent to the greater tuberosity posteriorly. IMPRESSION: No acute osseus abnormality. Findings suggestive of calcific tendinitis.
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
[2023-05-13 23:08] VITALS: O2SAT 100
[2023-05-13 23:10] VITALS: BP 152/80
== END 2023-05-13 23:00 | disposition home or self-care (01) ==
LOC: ER 19:55
DX: M25.561 Pain in right knee (principal); M25.512 Pain in left shoulder; V49.40XA Driver injured in collision with unspecified motor vehicles in traffic accident, initial encounter; Z88.8 Allergy status to other drugs, medicaments and biological substances
CPT/HCPCS: 99284

== ENCOUNTER → 2023-08-04 | Emergency (ER) | payer BC ==
[~2023-08-04] MED LIST: HYDROCODONE/APAP 10/325 TAB ONE; KETOROLAC 30 MG/ML INJ ONE; dexAMETHasone 10 MG/ML VIAL ONE
--- NOTE | 2023-08-04 16:21 | EDPHYS ---
Physician Documentation [facility] Name: Junie Peralta Age: 53 yrs Sex: Female : 1970 Arrival Date: 08/04/2023 Time: 14:53 Bed 10 Private MD: ED Physician Chester Flores HPI: 08/04 16:35 This 53 yrs old Black Female presents to ER via Ambulatory with complaints of Low Back kb Pain - Pain \T\ 15. 16:35 Patient is a 53-year-old female who presents for right low back/upper buttock pain that kb radiates down right leg. States pain started 3 days ago. Has had sciatica in the past and this feels the same. Denies any numbness or tingling, urinary symptoms, incontinence.. 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 - Social history:: Smoking status: Patient denies any tobacco usage or history of. ROS: 16:34 Constitutional: Negative for fever, chills, and weight loss, kb 16:34 Back: Positive for pain at rest, pain with movement, radiated pain, of the right low back, 16:34 All other systems are negative, Exam: 16:35 Constitutional: This is a well developed, well nourished patient who is awake, alert, kb and in no acute distress. Head/Face: Normocephalic, atraumatic. ENT: Moist Mucous membranes Cardiovascular: Regular rate Respiratory: Respirations even and unlabored. No increased work of breathing. Talking in full sentences Abdomen/GI: Soft, non-tender. No distention Skin: Warm, dry with normal turgor. Normal color. MS/ Extremity: Pulses equal, no cyanosis. Neurovascular intact. Full, normal range of motion. Neuro: Awake and alert, GCS 15, oriented to person, place, time, and situation. Moves all extremities. Normal gait. 16:35 Back: pain, that is moderate, of the right low back, ROM is painful, CVA tenderness, is absent, Vital Signs: 15:05 BP 178 / 110; Pulse 110; Resp 18; Temp 97.5; Pulse Ox 100% ; Weight 72.57 kg; Height 5 ll1 ft. 6 in. ; Pain 10/10; 15:05 Body Mass Index 25.82 (72.57 kg, 167.64 cm) ll1 15:05 Pain Scale: Adult ll1 MDM: 14:58 Patient medically screened. kb 16:32 Differential diagnosis: arthritis, strain, fracture, sciatica, contusion, Herniated kb disc. Data reviewed: vital signs, nurses notes. External Records Reviewed: CT lumbar spine done on 07/26 at [facility] reviewed. Counseling: I had a detailed discussion with the patient and/or guardian regarding the historical points, exam findings, and any diagnostic results supporting the discharge/admit diagnosis, the need for outpatient follow up, a family practitioner, a neurosurgeon, to return to the emergency department if symptoms worsen or persist or if there are any questions or concerns that arise at home. Response to treatment: the patient's symptoms have markedly improved after treatment. Administered Medications: 15:19 Drug: Ketorolac IM 30 mg IM once Route: IM; Site: right ventrogluteal; cp4 16:36 Follow up: Response: No adverse reaction cp4 15:19 Drug: Penrose PO 10 mg-325 mg 1 tabs PO once Route: PO; cp4 16:35 Follow up: Response: No adverse reaction cp4 15:20 Drug: Dexamethasone IM 10 mg IM once Route: IM; Site: right ventrogluteal; cp4 16:36 Follow up: Response: No adverse reaction cp4 Disposition Summary: 08/04/23 16:21 Discharge Ordered Notes: Location: Home kb Condition: Stable kb Diagnosis - Sciatica, right side kb Followup: kb - With: Emergency Department - When: As needed - Reason: Worsening of condition Followup: kb - With: Private Physician - When: 2 - 3 days - Reason: Recheck today's complaints, Continuance of care, Re-evaluation by your physician Discharge Instructions: - Discharge Summary Sheet kb - Sciatica, Hymo-wj-[place] kb Forms: - Medication Reconciliation Form kb - Thank You Letter kb - Antibiotic Education kb - Prescription Opioid Use kb - Patient Portal Instructions kb - Leadership Thank You Letter kb Prescriptions: - Prednisone 20 mg Oral Tablet - take 1 tablet ORAL route once daily for 5 days; 5 tablet; Refills: 0, Product kb Selection Permitted - Diclofenac Sodium 75 mg Oral Tablet Sustained Release - take 1 tablet ORAL route 2 times per day; 30 tablet; Refills: 0, Product kb Selection Permitted - orphenadrine citrate 100 mg Oral Tablet Sustained Release - take 1 tablet ORAL route 2 times per day As needed; 20 tablet; Refills: 0, kb Product Selection Permitted Signatures: Carolina Armstrong, HOLLOW HANDLE BENCH WORKERDanteC Gaye Franklin RN RN ll1 Halie Medrano cp4
--- NOTE | 2023-08-04 16:21 | ER ---
Nurse's Notes [facility] Name: Junie Peralta Age: 53 yrs Sex: Female : 1970 Arrival Date: 08/04/2023 Time: 14:53 Bed 10 Private MD: Diagnosis: Sciatica, right side Presentation: 08/04 15:05 Coronavirus screen: Client denies travel out of the [place] in the last 14 days. At this ll1 time, the client does not indicate any symptoms associated with coronavirus-19. Ebola Screen: Patient denies travel to an Ebola-affected area in the 21 days before illness onset. Initial Sepsis Screen: Does the patient meet any 2 criteria? No. Patient's initial sepsis screen is negative. Does the patient have a suspected source of infection? No. Patient's initial sepsis screen is negative. Risk Assessment: Do you want to hurt yourself or someone else? Patient reports no desire to harm self or others. Onset of symptoms was August 02, 2023. 15:05 Method Of Arrival: Ambulatory ll1 15:05 Acuity: HERMAN 3 ll1 15:06 Chief complaint: Patient states: Lower back pain and severe R leg pain since Thursday ll1 after lifting a wheelchair. 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 Triage Assessment: 15:07 General: Appears uncomfortable, Behavior is calm, cooperative, appropriate for age. ll1 Pain: Complains of pain in right leg Pain currently is 10 out of 10 on a pain scale. Musculoskeletal: Circulation, motion, and sensation intact. Capillary refill < 3 seconds, Reports pain in right leg. 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 - Social history:: Smoking status: Patient denies any tobacco usage or history of. Screenin:30 [facility] ED Fall Risk Assessment (Adult) History of falling in the last 3 months, cp4 including since admission No falls in past 3 months (0 pts) Confusion or Disorientation No (0 pts) Intoxicated or Sedated No (0 pts) Impaired Gait No (0 pts) Mobility Assist Device Used No (0 pt) Altered Elimination No (0 pt) Score/Fall Risk Level 0 - 2 = Low Risk Oriented to surroundings, Maintained a safe environment, Educated pt \T\ family on fall prevention, incl call for assistance when getting out of bed, Assessed \T\ reinforced patient's understanding of fall precautions, Hourly rounding (assess needs \T\ fall precautionary measures) done. Abuse screen: Denies threats or abuse. Nutritional screening: No deficits noted. Tuberculosis screening: No symptoms or risk factors identified. Assessment: 16:36 General: Appears in no apparent distress. Behavior is calm, cooperative, appropriate cp4 for age. Vital Signs: 15:05 BP 178 / 110; Pulse 110; Resp 18; Temp 97.5; Pulse Ox 100% ; Weight 72.57 kg; Height 5 ll1 ft. 6 in. ; Pain 10/10; 15:05 Body Mass Index 25.82 (72.57 kg, 167.64 cm) ll1 15:05 Pain Scale: Adult ll1 ED Course: 14:56 Patient arrived in ED. mg5 14:57 Carolina Armstrong [facility]C [facility] kb 14:57 Chester Flores MD is Attending Physician. kb 15:05 Triage completed. ll1 15:05 Arm band placed on Patient placed in an exam room, on a stretcher. ll1 15:11 Halie Medrano is Primary Nurse. cp4 15:30 Bed in low position. Call light in reach. Side rails up X 1. cp4 15:30 No provider procedures requiring assistance completed. cp4 15:30 Patient did not have IV access during this emergency room visit. cp4 16:36 Provided Education on: back pain. cp4 Administered Medications: 15:19 Drug: Ketorolac IM 30 mg IM once Route: IM; Site: right ventrogluteal; cp4 16:36 Follow up: Response: No adverse reaction cp4 15:19 Drug: [place] PO 10 mg-325 mg 1 tabs PO once Route: PO; cp4 16:35 Follow up: Response: No adverse reaction cp4 15:20 Drug: Dexamethasone IM 10 mg IM once Route: IM; Site: right ventrogluteal; cp4 16:36 Follow up: Response: No adverse reaction cp4 Medication: 15:30 VIS not applicable for this client. cp4 Outcome: 16:21 Discharge ordered by . kb 16:36 Discharged to home ambulatory, cp4 16:36 Condition: stable 16:36 Discharge instructions given to patient, Instructed on discharge instructions, follow up and referral plans. medication usage, Demonstrated understanding of instructions, follow-up care, medications, Prescriptions given X 3, 16:39 Patient left the ED. cp4 Signatures: Carolina Armstrong, [employer] Gaye Franklin RN RN ll1 Khadra Ghotra mg5 Halie Medrano cp4
[2023-08-04 18:16] VITALS: BP 178/110; TEMP 97.5; O2SAT 100
== END ==
LOC: ER 14:53
DX: M54.31 Sciatica, right side (principal); Z88.6 Allergy status to analgesic agent; Z88.8 Allergy status to other drugs, medicaments and biological substances
CPT/HCPCS: 96372; 99284; J1100